=== PATIENT | male | born 1955 | race Caucasian/White ===

== ENCOUNTER 2022-07-01 19:57 | Day surgery (SDC) | payer MEDICARE, BC, SELFPAY ==
[2022-07-01 20:05] VITALS: BP 160/88; PULSE 80; RESP 20; TEMP 36.6; O2SAT 98; BMI 28.8
--- NOTE | 2022-07-01 20:38 | ED.ABDPAIN ---
HPI - Abdominal Pain General Chief Complaint: Abdominal Pain Stated Complaint: Abdominal Pain Time Seen by Provider: 07/01/22 20:26 History of Present Illness HPI narrative: 66-year-old man presenting here with his spouse with concern of mid abdominal pain. This has been going on over the last 6 hours or so after having some unspecified leftovers and a Coke. Intense pressure that he also feels in his back, both sides. Does have a history of a colostomy placement after surgery for rectal cancer. This was done in 2018. No inflammatory changes. Has not any fever. Reports that his bowels are working normally. Did have an episode like this lasted about an hour 3 days ago. Later questioning reveals that he has had similar episodes over the years can be diaphoretic with intense pain but just tends to let up eventually. He does also have a known gallstone apparently detected on CT. Last surveillance CT was done in October of this year. He is in remission from his rectal cancer. He is due to follow-up beginning of this coming week for evaluation of the stoma. Past medical includes Peripheral sensory neuropathy Rectal cancer and related surgery/partial colectomy with colostomy placement Hypertension Bilateral TKA Related Data Home Medications Medication Instructions Recorded Confirmed aspirin 81 mg capsule 81 mg PO DAILY 07/01/22 07/01/22 atorvastatin 20 mg tablet 20 mg PO Q24H 07/01/22 07/02/22 simethicone 500 mg capsule 500 mg PO DAILY 07/01/22 07/01/22 (Phazyme) Previous Rx's Medication Instructions Recorded oxycodone 5 mg tablet 5 mg PO Q6H PRN pain #10 tabs 07/02/22 sennosides 8.6 mg capsule (senna) 8.6 mg PO DAILY PRN constipation 07/02/22 #90 caps Allergies Allergy/AdvReac Type Severity Reaction Status Date / Time No Known Drug Allergies Allergy Verified 07/01/22 22:26 Review of Systems Status of ROS Reports: 10 or more systems reviewed and unremarkable except as noted in History and below [facility] Medical History Basal cell carcinoma (BCC) of face Chemotherapy-induced peripheral neuropathy Essential hypertension History of rectal cancer History of tobacco use Hyperlipidemia Ileostomy in place Surgical History History of bilateral knee arthroplasty Social History Highest level of school completed/degree received: some college, no degree Smoking Status: Former smoker Do you use any of these nicotine containing products: None Second hand tobacco smoke exposure: No How often do you have a drink containing alcohol: 2-4 times a month AUDIT-C Alcohol total score: 2 Non-prescribed substance use: denies use Caffeine: Yes (2-3 DIET MT DEW/DAILY) service: No Exam Narrative: Exam Narrative: Seems a little restless or distracted in apparent discomfort. Breathing easily. Cranial nerves 2-12 intact. Skin is warm and dry without apparent rash Moving all extremities without difficulty. Well perfused peripherally. No lower extremity edema. Head is atraumatic. Oropharynx is moist. Cardiovascular with regular rate and rhythm Lungs are clear. Abdomen is soft. Skin around colostomy bag is clean and not inflamed. In this area though is a sense of fullness to palpation. Moderately tender left of the umbilicus Bowel sounds present but faint. Const: Vital Signs, click to edit/add: Vital Signs - 24 hr 07/01/22 20:05 07/01/22 21:14 07/01/22 21:42 Temperature 97.9 F Pulse Rate [Left P ulse Oximeter] 80 70 Respiratory Rate 20 20 Blood Pressure [Ri ght Upper Arm] 160/88 H 151/88 H Pulse Oximetry 98 97 99 Oxygen Delivery Me thod Room Air Room Air 07/01/22 21:30 07/01/22 23:40 Temperature Pulse Rate [Left P ulse Oximeter] 80 84 Respiratory Rate 18 18 Blood Pressure [Ri ght Upper Arm] 150/84 H 153/86 H Pulse Oximetry 96 98 Oxygen Delivery Me thod Room Air Room Air Documenting provider has reviewed patient's vital signs: yes Course Course Hospital Course: Patient presented to the emergency department with clinical symptoms and findings consistent with acute cholecystitis. He went to the OR for laparoscopic cholecystectomy and did well postoperatively. On postop day 1 he was tolerating a regular diet, ambulating independently, voiding without difficulty and pain was well controlled on oral medication. Reevaluation(s) Reevaluation #1: IV is established. He would appreciate some relief of pain. 4 mg of morphine and ketorolac is helpful but pain does return is given 0.5 mg of Dilaudid. Reevaluation #2: Has been resting. With recurrence of pain is dosed with another 0.5 mg of Dilaudid. Consultations Consultation #1: Anticipating need for admission though with CT imaging pending, did speak to our hospitalist. Understandably this was deferred to overnight hospitalist admission at the change of shift. Admitted to Dr. Obrien. Consultation #2: Findings on CT indicated cholecystitis. As expected large gallstone appreciated. Distended bladder. Spoke to our surgeon on-call Dr. Martinez, anticipating surgery/cholecystectomy in the morning following limited abdominal ultrasound. Vital Signs Vital signs: Initial Vital Signs Temperature 97.9 F 07/01/22 20:05 Temperature Source Temporal Artery Scan 07/01/22 20:05 Pulse Rate 80 07/01/22 20:05 Respiratory Rate 20 07/01/22 20:05 Blood Pressure 160/88 H 07/01/22 20:05 Blood Pressure Mean 112 07/01/22 20:05 Blood Pressure Position Sitting 07/01/22 20:05 Pulse Oximetry 98 07/01/22 20:05 Oxygen Delivery Method 07/01/22 20:05 Vital Signs Temperature 97.9 F 07/01/22 20:05 Pulse Rate 80 07/01/22 20:05 Respiratory Rate 20 07/01/22 20:05 Blood Pressure 160/88 H 07/01/22 20:05 Pulse Oximetry 98 07/01/22 20:05 Oxygen Delivery Method 07/01/22 20:05 Temperature 97.9 F 07/03/22 07:50 Pulse Rate 74 07/03/22 07:50 Respiratory Rate 18 07/03/22 07:50 Blood Pressure 151/85 H 07/03/22 07:50 Pulse Oximetry 95 07/03/22 07:50 Oxygen Delivery Method 07/03/22 07:50 MDM - Abdominal Pain MDM Narrative Medical decision making narrative: elevated white count of nearly 17,000 and CRP of nearly 15,000. Pain I think could be controllable but with these findings and the recurrent pain over time would seem more prudent to admit for surgical intervention. Lipase slightly elevated. Normal transaminases. Bilirubin was not elevated CT imaging was reviewed by me. Radiology over-read impression as follows-- IMPRESSION: 1. Large stone in the gallbladder neck with gallbladder wall thickening and pericholecystic edema. Findings are suspicious for acute cholecystitis. 2. Distended urinary bladder with mild wall thickening similar to prior exam. Repeat exam does confirm some ?soreness? in the right upper quadrant. This did not seem to be so evident on initial exam. Medical Records Attestation: I reviewed the patient's medical records. Lab Data Attestation: I reviewed the patient's lab results. Labs: Lab Results 07/01/22 07/01/22 07/01/22 Range/Units 21:00 21:00 21:00 WBC 16.68 H (4.50-11.00) K/uL RBC 5.02 (4.30-5.90) m/uL Hgb 14.8 (13.5-17.5) gm/dL Hct 44.1 (37.0-53.0) % MCV 88 (80-100) fL MCH 30 (26-34) pg MCHC 34 (32-36) gm/dL RDW Coeff of Mini 13.0 (11.5-15.5) % Plt Count 215 (140-440) K/uL Neut % (Auto) 88.7 H (42.0-72.0) % Lymph % (Auto) 5.5 L (20-44) % [place] % (Auto) 5.3 (0.0-11.0) % Eos % (Auto) 0.1 (0.0-7.0) % Baso % (Auto) 0.0 (0.0-3.0) % Neut # (Auto) 14.80 H (1.7-7.0) K/uL Lymph # (Auto) 0.90 (0.90-2.90) K/uL [place] # (Auto) 0.90 (0.00-0.90) K/UL Eos # (Auto) 0.00 (0.00-0.50) K/uL Baso # (Auto) 0.00 (0.00-0.30) K/uL Abs Immat Gran (auto) 0.06 (0.00-0.30) K/uL VBG pH 7.360 (7.32-7.43) VBG pCO2 47 (40-50) mmHG VBG pO2 27.3 (25-47) mmHG VBG HCO3 27 (21-28) mmol/L Sodium 135 (135-149) mmol/L Potassium 4.0 (3.6-5.1) mmol/L Chloride 99 (96-114) mmol/L Carbon Dioxide 25 (20-32) mmol/L BUN 17 (7-30) mg/dL Creatinine 1.1 (0.5-1.5) mg/dL Estimated Creat Clear 65.17 Estimated GFR 74 ml/min Glucose 179 H (60-115) mg/dL Lactate (0.5-1.9) mmol/L Venous Lactic Acid (Serial Order) Calcium 9.4 (8.4-10.6) mg/dL Total Bilirubin 0.9 (0.1-1.5) mg/dL Direct Bilirubin 0.1 (0.0-0.5) mg/dL AST 27 (12-35) U/L ALT 28 (4-50) U/L Alkaline Phosphatase 93 (40-150) U/L C-Reactive Protein 14.8 H (0.5-1.0) mg/dL Total Protein 8.3 (6.0-8.3) g/dL Albumin 4.7 (3.3-5.0) g/dL Lipase 329 H (23-300) U/L Urine Color (Yellow) Urine Appearance (Clear) Urine pH (5.0-8.5) Ur Specific [place] (1.000-1.030) Urine Protein (Negative) Urine Glucose (UA) (Negative) Urine Ketones (Negative) Urine Blood (Negative) Urine Nitrite (Negative) Urine Bilirubin (Negative) Urine Urobilinogen (0.2-1.0) Ur Leukocyte Esterase (Negative) Urine RBC (0-2) Urine WBC (0-5) Ur Squamous Epith Cells (None-Few) Urine Bacteria (None) SARS-CoV-2 (PCR) (Negative) 07/01/22 07/01/22 07/01/22 Range/Units 21:12 21:12 23:01 WBC (4.50-11.00) K/uL RBC (4.30-5.90) m/uL Hgb (13.5-17.5) gm/dL Hct (37.0-53.0) % MCV (80-100) fL MCH (26-34) pg MCHC (32-36) gm/dL RDW Coeff of Mini (11.5-15.5) % Plt Count (140-440) K/uL Neut % (Auto) (42.0-72.0) % Lymph % (Auto) (20-44) % [place] % (Auto) (0.0-11.0) % Eos % (Auto) (0.0-7.0) % Baso % (Auto) (0.0-3.0) % Neut # (Auto) (1.7-7.0) K/uL Lymph # (Auto) (0.90-2.90) K/uL [place] # (Auto) (0.00-0.90) K/UL Eos # (Auto) (0.00-0.50) K/uL Baso # (Auto) (0.00-0.30) K/uL Abs Immat Gran (auto) (0.00-0.30) K/uL VBG pH (7.32-7.43) VBG pCO2 (40-50) mmHG VBG pO2 (25-47) mmHG VBG HCO3 (21-28) mmol/L Sodium (135-149) mmol/L Potassium (3.6-5.1) mmol/L Chloride (96-114) mmol/L Carbon Dioxide (20-32) mmol/L BUN (7-30) mg/dL Creatinine (0.5-1.5) mg/dL Estimated Creat Clear Estimated GFR ml/min Glucose (60-115) mg/dL Lactate (0.5-1.9) mmol/L Venous Lactic Acid (Serial Order) Calcium (8.4-10.6) mg/dL Total Bilirubin (0.1-1.5) mg/dL Direct Bilirubin (0.0-0.5) mg/dL AST (12-35) U/L ALT (4-50) U/L Alkaline Phosphatase (40-150) U/L C-Reactive Protein (0.5-1.0) mg/dL Total Protein (6.0-8.3) g/dL Albumin (3.3-5.0) g/dL Lipase (23-300) U/L Urine Color Yellow (Yellow) Urine Appearance Clear (Clear) Urine pH 6.5 (5.0-8.5) Ur Specific [place] 1.020 (1.000-1.030) Urine Protein Negative (Negative) Urine Glucose (UA) Trace A (Negative) Urine Ketones 2+ A (Negative) Urine Blood Trace-intact A (Negative) Urine Nitrite Negative (Negative) Urine Bilirubin Negative (Negative) Urine Urobilinogen 0.2 (0.2-1.0) Ur Leukocyte Esterase Negative (Negative) Urine RBC 0-2 (0-2) Urine WBC 0-2 (0-5) Ur Squamous Epith Cells Few (None-Few) Urine Bacteria None (None) SARS-CoV-2 (PCR) Negative SARS-CoV-2 (Negative) 07/02/22 07/02/22 07/02/22 Range/Units 07:51 07:51 07:51 WBC 19.66 H (4.50-11.00) K/uL RBC 4.90 (4.30-5.90) m/uL Hgb 14.4 (13.5-17.5) gm/dL Hct 43.1 (37.0-53.0) % MCV 88 (80-100) fL MCH 29 (26-34) pg MCHC 33 (32-36) gm/dL RDW Coeff of Mini 13.1 (11.5-15.5) % Plt Count 198 (140-440) K/uL Neut % (Auto) 89.1 H (42.0-72.0) % Lymph % (Auto) 3.9 L (20-44) % [place] % (Auto) 6.6 (0.0-11.0) % Eos % (Auto) 0.0 (0.0-7.0) % Baso % (Auto) 0.1 (0.0-3.0) % Neut # (Auto) 17.50 H (1.7-7.0) K/uL Lymph # (Auto) 0.80 L (0.90-2.90) K/uL [place] # (Auto) 1.30 H (0.00-0.90) K/UL Eos # (Auto) 0.00 (0.00-0.50) K/uL Baso # (Auto) 0.00 (0.00-0.30) K/uL Abs Immat Gran (auto) 0.06 (0.00-0.30) K/uL VBG pH (7.32-7.43) VBG pCO2 (40-50) mmHG VBG pO2 (25-47) mmHG VBG HCO3 (21-28) mmol/L Sodium (135-149) mmol/L Potassium (3.6-5.1) mmol/L Chloride (96-114) mmol/L Carbon Dioxide (20-32) mmol/L BUN (7-30) mg/dL Creatinine (0.5-1.5) mg/dL Estimated Creat Clear Estimated GFR ml/min Glucose (60-115) mg/dL Lactate (0.5-1.9) mmol/L Venous Lactic Acid (Serial Order) Calcium (8.4-10.6) mg/dL Total Bilirubin 1.4 (0.1-1.5) mg/dL Direct Bilirubin 0.4 (0.0-0.5) mg/dL AST 27 (12-35) U/L ALT 25 (4-50) U/L Alkaline Phosphatase 80 (40-150) U/L C-Reactive Protein 16.8 H (0.5-1.0) mg/dL Total Protein 7.7 (6.0-8.3) g/dL Albumin 4.3 (3.3-5.0) g/dL Lipase 72 (23-300) U/L Urine Color (Yellow) Urine Appearance (Clear) Urine pH (5.0-8.5) Ur Specific [place] (1.000-1.030) Urine Protein (Negative) Urine Glucose (UA) (Negative) Urine Ketones (Negative) Urine Blood (Negative) Urine Nitrite (Negative) Urine Bilirubin (Negative) Urine Urobilinogen (0.2-1.0) Ur Leukocyte Esterase (Negative) Urine RBC (0-2) Urine WBC (0-5) Ur Squamous Epith Cells (None-Few) Urine Bacteria (None) SARS-CoV-2 (PCR) (Negative) 07/02/22 Range/Units 07:51 WBC (4.50-11.00) K/uL RBC (4.30-5.90) m/uL Hgb (13.5-17.5) gm/dL Hct (37.0-53.0) % MCV (80-100) fL MCH (26-34) pg MCHC (32-36) gm/dL RDW Coeff of Mini (11.5-15.5) % Plt Count (140-440) K/uL Neut % (Auto) (42.0-72.0) % Lymph % (Auto) (20-44) % [place] % (Auto) (0.0-11.0) % Eos % (Auto) (0.0-7.0) % Baso % (Auto) (0.0-3.0) % Neut # (Auto) (1.7-7.0) K/uL Lymph # (Auto) (0.90-2.90) K/uL [place] # (Auto) (0.00-0.90) K/UL Eos # (Auto) (0.00-0.50) K/uL Baso # (Auto) (0.00-0.30) K/uL Abs Immat Gran (auto) (0.00-0.30) K/uL VBG pH (7.32-7.43) VBG pCO2 (40-50) mmHG VBG pO2 (25-47) mmHG VBG HCO3 (21-28) mmol/L Sodium (135-149) mmol/L Potassium (3.6-5.1) mmol/L Chloride (96-114) mmol/L Carbon Dioxide (20-32) mmol/L BUN (7-30) mg/dL Creatinine (0.5-1.5) mg/dL Estimated Creat Clear Estimated GFR ml/min Glucose (60-115) mg/dL Lactate 1.1 (0.5-1.9) mmol/L Venous Lactic Acid (Serial Order) Calcium (8.4-10.6) mg/dL Total Bilirubin (0.1-1.5) mg/dL Direct Bilirubin (0.0-0.5) mg/dL AST (12-35) U/L ALT (4-50) U/L Alkaline Phosphatase (40-150) U/L C-Reactive Protein (0.5-1.0) mg/dL Total Protein (6.0-8.3) g/dL Albumin (3.3-5.0) g/dL Lipase (23-300) U/L Urine Color (Yellow) Urine Appearance (Clear) Urine pH (5.0-8.5) Ur Specific [place] (1.000-1.030) Urine Protein (Negative) Urine Glucose (UA) (Negative) Urine Ketones (Negative) Urine Blood (Negative) Urine Nitrite (Negative) Urine Bilirubin (Negative) Urine Urobilinogen (0.2-1.0) Ur Leukocyte Esterase (Negative) Urine RBC (0-2) Urine WBC (0-5) Ur Squamous Epith Cells (None-Few) Urine Bacteria (None) SARS-CoV-2 (PCR) (Negative) Discharge Plan Discharge Clinical Impression: Abdominal pain, Calculous cholecystitis Patient Disposition: Admitted As Inpatient Condition: Stable Activity Level: Activity as Tolerated Discharge Diet: Low Fat/Low Cholesterol
[2022-07-01] MEDS: KETOROLAC 15 MG/ML inj IVP (21:05)
[2022-07-01] MEDS: MORPHINE 4 MG/ML INJ IVP (21:06)
[2022-07-01] MEDS: 0.9 % SODIUM CHLORIDE 1000 ml 1,000 ML IV (21:09)
[2022-07-01 21:14] VITALS: BP 151/88; PULSE 70; RESP 20; O2SAT 97
[2022-07-01 21:16] LABS: HCO3 VBG 27 mmol/L (21-28); PCO2 VBG 47 mmHG (40-50); PO2 VBG 27.3 mmHG (25-47)
[2022-07-01 21:17] LABS: Lactate Sepsis w/Reflex* 1.6 mmol/L (0.5-1.9)
[2022-07-01 21:18] LABS: Eosinophils Percent Auto 0.1 % (0.0-7.0); Hematocrit 44.1 % (37.0-53.0); Hemoglobin* 14.8 gm/dL (13.5-17.5); Immature Granulocytes Abs Auto 0.06 K/uL (0.00-0.30); Lymphocytes Percent Auto 5.5 % (20-44); Mean Corpuscular HGB Conc 34 gm/dL (32-36); Mean Corpuscular Hemoglobin 30 pg (26-34); Mean Corpuscular Volume 88 fL (80-100); Monocytes Percent Auto 5.3 % (0.0-11.0); Neutrophils Percent Auto 88.7 % (42.0-72.0); Platelet Count* 215 K/uL (140-440); Red Blood Count 5.02 m/uL (4.30-5.90); White Blood Count* 16.68 K/uL (4.50-11.00)
[2022-07-01 21:19] LABS: Appearance Urine Clear (Clear); Bilirubin Urine Negative (Negative); Blood Urine Trace-intact (Negative); Color Urine Yellow (Yellow); Glucose Urine Trace (Negative); Ketones Urine 2+ (Negative); Leukocyte Esterase Urine Negative (Negative); Nitrite Urine Negative (Negative); Protein Urine Negative (Negative); Urobilinogen Urine 0.2 (0.2-1.0); pH Urine 6.5 (5.0-8.5)
[2022-07-01 21:30] VITALS: BP 150/84; PULSE 80; RESP 18; O2SAT 96
[2022-07-01 21:30] LABS: RBC Urine 0-2 (0-2); Squamous Epithelial Cell Urine Few (None-Few); WBC Urine 0-2 (0-5)
[2022-07-01 21:30] LABS: Albumin* 4.7 g/dL (3.3-5.0); Chloride* 99 mmol/L (96-114); Sodium* 135 mmol/L (135-149)
[2022-07-01 21:32] LABS: Creatinine* 1.1 mg/dL (0.5-1.5); Est. Creatinine Clearance* 65.17; Estimated Glomerular Filt Rate 74 ml/min
[2022-07-01 21:33] LABS: Alanine Aminotransferase* 28 U/L (4-50); Alkaline Phosphatase* 93 U/L (40-150); Aspartate Amino Transferase* 27 U/L (12-35); Bilirubin Direct* 0.1 mg/dL (0.0-0.5); Bilirubin Total* 0.9 mg/dL (0.1-1.5); Blood Urea Nitrogen* 17 mg/dL (7-30); Carbon Dioxide* 25 mmol/L (20-32); Glucose* 179 mg/dL (60-115); Lipase* 329 U/L (23-300); Total Protein* 8.3 g/dL (6.0-8.3)
--- NOTE | 2022-07-01 21:33 | ED.NURSE ---
Report received from MINI Perales.
[2022-07-01 21:34] LABS: Calcium* 9.4 mg/dL (8.4-10.6)
[2022-07-01 21:36] LABS: Slide Review Reflex No
[2022-07-01] MEDS: HYDROmorphone 0.5 mg/0.5 ml inj IVP (21:39)
--- NOTE | 2022-07-01 21:39 | CRLHL7_ITS ---
For Patients: As a result of the Century Cures Act, medical imaging exams and procedure reports are released immediately into your electronic medical record. You may view this report before your referring provider. If you have questions, please contact your health care provider. INDICATION: Severe periumbilical pain. History of rectal cancer. TECHNIQUE: CT of the abdomen and pelvis with 95 cc Isovue 370 IV contrast. Coronal and sagittal reconstructions. COMPARISON: CT chest, abdomen, pelvis 11/22/2021. FINDINGS: Tiny left hepatic cyst. Stable small hemangioma in the anterior left hepatic lobe which is barely visible on today`s exam due to phase of contrast (series 2, image 40). No new liver lesions identified. The spleen, pancreas, and adrenal glands are negative. Hepatic and portal veins are patent. The previously seen large gallstone is now located within the gallbladder neck. The gallbladder is distended with mild wall thickening and pericholecystic edema suggesting acute cholecystitis. No biliary dilation. Symmetric enhancement of the kidneys. No hydronephrosis or ureteral dilation. No obstructing urinary calculi identified. Distended urinary bladder with mild wall thickening similar to prior exam. Mildly enlarged prostate gland with calcifications. Small hiatal hernia. No bowel dilation. Postoperative changes of distal colectomy with left lower quadrant end colostomy. Moderate amount of stool throughout the colon. Negative appendix. No intraperitoneal free air or fluid. Small fat containing umbilical and left inguinal hernias. Aortoiliac vascular calcifications. No lymphadenopathy. The bones are unremarkable. The lung bases are clear. IMPRESSION: 1. Large stone in the gallbladder neck with gallbladder wall thickening and pericholecystic edema. Findings are suspicious for acute cholecystitis. 2. Distended urinary bladder with mild wall thickening similar to prior exam. Please note that all CT scans at this facility use dose modulation, iterative reconstruction, and/or weight-based dosing when appropriate to reduce radiation dose to as low as reasonably achievable. Dictated by Hollie Perez MD @ 07/01/2022 11:44:37 PM (Electronically Signed)
[2022-07-01 21:42] VITALS: O2SAT 99
[2022-07-01 21:50] LABS: C Reactive Protein* 14.8 mg/dL (0.5-1.0)
--- OUTSIDE RECORDS SUMMARY | 2022-07-01 23:35 | XMS_ITS | Encounter Summary ---
:1955 Author Organization [facility] Address [address] [place] [id number] Care Team Providers Name Role Phone Unavailable Primary Care Provider Unavailable Reason for Visit Appointment Request (Routine) - Closed Specialty Diagnoses / Procedures Referred By Contact Refer red To Contact Colon and Rectal Surgery Referral ID Status Reason Start Date Expiration Date Visits Requ ested Visits Authorized [id number] Closed 05/16/2019 05/15/2020 1 1 Encounter Details Date Type Department Care Team Description 05/20/2019 Clinical Support Division of Colon and Marleni Santos C olostomy Status Rectal Surgery in [facility] ([facility]) (Reny yo Dx) [place], [place] [facility] [address] [place] [address] [place] [phone] [phone] Social History Tobacco Use Types Packs/Day Years Used Date Smoking Tobacco: Former Cigarettes 0.3 20 10/1972 - 08/09/1993 Smokeless Tobacco: Never Comments: Very light smoker Alcohol Use Standard Drinks/Week Comments Yes 0 (1 standard drink = 0.6 oz pure I drin k less than 10 standard alcohol) drinks a year Alcohol Habits Answer Date Recorded How often do you have a drink Monthly or less 07/06/2019 containing alcohol? How many drinks containing alcohol do 1 or 2 you have on a typical day when you are drinking? How often do you have six or more Never 2018 drinks on one occasion? Comment: I drink less than 10 standard 05/08/2018 drinks a year Social Isolation Answer Date Recorded In a typical week, how many times do you Once a week 07/06/2019 talk on the phone with family, friends, or neighbors? How often do you get together with friends Twice a week 07/06/2019 or relatives? How often do you attend nondenominational or jainism 1 to 4 times per year 07/06/2019 services? Do you belong to any clubs or organizations Yes 07/06/2019 such as nondenominational groups, unions, fraternal or athletic groups, or school groups? How often do you attend meetings of the More than 4 times pe r year 07/06/2019 clubs or organizations you belong to? Are you now , , , 07/06/2019 , never or living with a partner? Physical Activity Answer Date Recorded On average, how many days per week do you engage in moderate to 1 day 07/06/2019 strenuous exercise (like walking fast, running, jogging, dancing, swimming, biking, or other activities that cause a light or heavy sweat)? On average, how many minutes do you engage in exercise at th is 40 min 07/06/2019 level? Stress Answer Date Recorded Do you feel stress - tense, restless, nervous, or anxious, N ot at all 07/06/2019 or unable to sleep at night because your mind is troubled all the time - these days? Financial Resource Strain Answer Date Recorded How hard is it for you to pay for the very basics like Not h sachin at all 07/06/2019 food, housing, medical care, and heating? Food Insecurity Answer Date Recorded Within the past 12 months, you worried that your food would Never true 07/06/2019 run out before you got money to buy more. Within the past 12 months, the food you bought just didn't N ever true 07/06/2019 last and you didn't have money to get more. Transportation Needs Answer Date Recorded In the past 12 months, has lack of transportation kept you f rom No 07/06/2019 medical appointments or from getting medications? In the past 12 months, has lack of transportation kept you f rom No 07/06/2019 meetings, work, or getting things needed for daily living? Sex Assigned at Date Recorded Male 03/12/2018 10:44 PM CDT documented as of this encounter Progress Notes Marleni Santos R.N. - 05/20/2019 11:00 AM CDT SUBJECTIVE CHIEF COMPLAINT/REASON FOR VISIT Assessment of peristomal skin and pouching system management for a prescription renewal. HISTORY OF PRESENT ILLNESS Mr. Addison is a 63 y.o. male was self-referred for prescription renewal of pouching system. He states the pouching system is usually changed every 3 or 4 days. He sometimes treats peristomal skin with stoma powder. He denies pouching leakage, peristomal pruritus, or pain. He is retired from work, and lives with his . He changes pouching system independently. PMH Status post abdominal perineal resection with end colostomy in March 2018 for rectal cancer OBJECTIVE Physical Exam Colostomy LLQ (Active) Stoma Assessment Red;Budded Measure 1-/4 when rounding oval-shape stoma. Skin Assessment Intact Peristomal Skin Care Water Pouching System (Stomal Appliance) Status Changed Changed by Wound fats and oils loader Pouching System Removed Carlotta 1-10/12 precut flat [id number], [id number], [id number], Stealth Belt 0.3 cm undermining at 9=3 o'clock after 2-hour wear time. Pouching System Applied [place] flat [address] with opening cut to 1-/4, 7805, 29562, Stealth Belt Discussed stretching oval-shape stoma vertically to match with pre-cut wafer opening. Output Description Brown;Stool ASSESSMENT / PLAN Mr. Addison appears to have overall appropriate pouching seal without peristomal skin irritation. He will continue current pouching system. I will fax an updated ostomy prescription and ordering information to [facility]. I will also mail them to him. Encouraged to call or return (per Return Appointment Protocol [id number]) for ostomy related questions or concerns. All questions were answered. documented in this encounter Plan of Treatment Upcoming Encounters Date Type Specialty Care Team Description 07/04/2022 Clinical Support Colon and Rectal Surgery documented as of this encounter Visit Diagnoses Diagnosis Colostomy Status (HCC) - Primary documented in this encounter Additional Health Concerns Assessment Noted Time PHQ-9 Depression Total Score: 1 12/14/2017 11:05 AM CS T documented as of this encounter
--- OUTSIDE RECORDS SUMMARY | 2022-07-01 23:35 | XMS_ITS | Encounter Summary ---
:1955 Author Organization [facility] Address [address] [place] [address] Care Team Providers Name Role Phone Unavailable Primary Care Provider Unavailable Reason for Visit Reason Comments Other End fine needle biopsy Encounter Details Date Type Department Care Team Description 07/10/2019 Procedure visit Division of Endocrinology Saul Styles M.B.B.S. [address] [place] [phone] Nodule Thyroid in [facility] Puneet Castano M.D. [address] [place] [phone] [place] [phone] Social History Tobacco Use Types Packs/Day Years [...] or relatives? How often do you attend jew or bahai 1 to 4 times per year 07/06/2019 services? Do you belong to any clubs or organizations Yes 07/06/2019 such as jew groups, unions, fraternal or athletic groups, or [...] or getting things needed for daily living? Education Answer Date Recorded What is the highest level of school you have completed or 12 th grade 07/05/2019 the highest degree you have received? Sex Assigned at Date Recorded Male 03/12/2018 10:44 PM CDT documented as of this encounter Progress Notes Ish Jin R.N. - 07/10/2019 9:30 AM CDT REASON FOR VISIT Patient is here today for a Fine Needle Aspiration of the Right thyroid nodule. HISTORY OF PRESENT ILLNESS Anticoagulation therapy: No. Recent INR: NA. Previous reaction to topical anesthetic: No History of easy bruising or bleeding: No ASSESSMENT Pain Score Pre-procedure: 0/10 Pain Score Post-procedure: 0/10 Please see Education Activity within medical record for completed patient education. documented in this encounter Procedure Notes Puneet Lawler M.D. - 07/10/2019 9:30 AM CDTAssociated Order(s): FNA Neck Post-Procedure Diagnose(s): Nodule Thyroid FNA Neck Date/Time: 07/10/2019 10:14 AM Performed by: Puneet Lawler M.D. Authorized by: Puneet Lawler M.D. Care team members present 1. Otilio Perez M.D. 2. Ish Jin R.N. PROCEDURE DETAILS Ultrasound guidance: yes Number of FNA sites: 1 FNA Site 1 Fine needle aspiration site: Thyroid Thyroid laterality and pole location: Right lower 25 guage needle inserted this many times: 6 CONSENT Consent obtained: verbal The benefits, risks and alternatives to the procedure and the potential need for sedation or anesthesia as well as the names, roles, and responsibilities of healthcare team members performing significant interventional tasks were discussed with the patient and/or decision maker. UNIVERSAL PROTOCOL All relevant documentation and testing were reviewed and available. All required blood products, implants, devices and or special equipment were made available as applicable. Pre-procedure verificationwas conducted and the correct site was marked if required. A fire risk assessment was done as applicable. The procedural time-out was conducted prior to performing the procedure and confirmed in a procedural pause. PRE-PROCEDURE DETAILS Indications: Thyroid nodule Appropriate hand hygiene, gown, cap, mask, protective eyewear, sterile gloves, skin preparation, sterile drape, and strict aseptic technique were utilized as applicable for the procedure.: yes Site preparation: Chlorhexidine SEDATION / ANESTHESIA Anesthesia method: topical application Topical application type: lidocaine POST-PROCEDURE DETAILS Complications: no apparent complications COMMENTS Under ultrasound guidance six passes were made into a solid, slightly hypoechoic, benign-looking nodule located in the posterior aspect of the right inferior lobe. Patient tolerated the procedure well Post procedure pain 0/10 documented in this encounter Plan of Treatment Upcoming Encounters Date Type Specialty Care Team Description 07/04/2022 Clinical Support Colon and Rectal Surgery documented as of this encounter Procedures Procedure Name Priority Date/Time Associated Comments Diagnosis IL US GUIDE PLC NDL Routine 07/10/2019 9:30 AM Nodule Thyroid Results for this CDT procedure are i n the results section. IL FNA BX W/US GDN Routine 07/10/2019 9:30 AM Nodule Thyroid R esults for this 1ST LES CDT procedure are i n the results section. CYTOLOGY FINE NEEDLE Routine 07/10/2019 9:25 AM Nodule Thyroid Results for this ASPIRATION (INCLUDES CDT procedu re are in CORE BIOPSIES the results section. documented in this encounter Results IL FNA BX W/US GDN 1ST LES, IL US GUIDE PLC NDL (07/10/2019 9:30 AM CDT) Narrative [facility] - 07/10/2019 9:30 AM CDT Puneet Lawler M.D. ? 07/10/2019 10:16 AM FNA Neck Date/Time: 07/10/2019 10:14 AM Performed by: Puneet Lawler M.D. Authorized by: Puneet Lawler M.D. Care team members present 1. Otilio Perez M.D. 2. Ish Jin R.N. PROCEDURE DETAILS Ultrasound guidance: yes ?? Number of FNA sites: ??1 FNA Site 1 Fine needle aspiration site: ??Thyroid Thyroid laterality and pole location: ?? Right lower 25 guage needle inserted this many times : ??6 CONSENT Consent obtained: verbal The benefits, risks and alternatives to the procedure and the potential need for sedation or anesthesia as well as the names, roles, and responsibilities of healthcare team memb ers performing significant interventional tasks were discussed with the patient and/or decision maker. UNIVERSAL PROTOCOL All relevant documentation and testing w ere reviewed and available. All required blood products, implants, devic es and or special equipment were made available as applicable. Pre-proced ure verification was conducted and the correct site was marked if required. A fire risk assessment was done as applicable. The procedural time-out w as conducted prior to performing the procedure and confirmed in a procedu ral pause. PRE-PROCEDURE DETAILS Indications: ??Thyroid nodule Appropriate hand hygiene, gown, cap, mas k, protective eyewear, sterile gloves, skin preparation, sterile drape, and strict aseptic technique were utilized as applicable for the procedure .: yes ?? Site preparation: ??Chlorhexidine SEDATION / ANESTHESIA Anesthesia method: topical application Topical application type: lidocaine POST-PROCEDURE DETAILS Complications: no apparent complications ?? COMMENTS Under ultrasound guidance six passes wer e made into a solid, slightly hypoechoic, benign-looking nodule locate d in the posterior aspect of the right inferior lobe. ??Patient tolerated the procedure well Post procedure pain 0/10 Puneet Lawler M.D. PROCEDURE/MINOR SURGICAL ORD ERABLES Performing Organization Address City/State/ZIP Code Phon e Number [facility] NA Cytology Fine Needle Aspiration (including core biopsies) (07/10/2019 9:25 AM CDT) Component Value Ref Test Analysis Performed At [facility] Range Method Time Signature Gross Description Received 19 07/10/2019 alcohol-fixed 11:51 AM smears. CDT Participated in [facility], 07/10/2019 the Interpretation M.Zabrina-Patholog 11:51 AM y Fellow CDT Source A. Thyroid, 07/10/2019 Right, fine 11:51 AM needle CDT aspiration Report Idris Pearl M.D., Ph.D. [id number] 07/10/20 19 electronically I verify that I have examined all relevant slides/ma terials 11:51 AM signed by for the specimen(s) and rendered or confirmed the diagnosis. CDT 07/10/2019 11:51 AM CDT Interpretation A. Thyroid, Right, fine needle aspiration (smears): 07/10/2019 Negative for malignancy. Cytologic features consistent with 11:51 AM benign thyroid nodule. CDT Specimen Anatomical Collection Method Collection Time Receive d Time (Source) Location / / Volume Laterality Varies 07/10/2019 9:25 AM 9 CDT 10:39 AM CDT Narrative This result has an attachment that is no t available. Puneet Lawler M.D. LAB SURG PATH ORDERABLES Performing Organization Address City/State/ZIP Code Phon e Number [facility] - [address] [place] [address] 05 [facility] documented in this encounter Visit Diagnoses Diagnosis Nodule Thyroid documented in this encounter Administered Medications Inactive Administered Medications - up to 3 most recent administrations Medication Order MAR Action Action Date Dose Rate Site lidocaine 4 % cream 1 Given 07/10/2019 8:59 AM CDT 1 application application (LMX) 1 application (5 g), topical, As needed, Apply for local anesthesia, Starting on Mon01/08/19 at 1010 documented in this encounter Additional Health Concerns Assessment Noted Time PHQ-9 Depression Total Score: 1 12/14/2017 11:05 AM CS T documented as of this encounter
--- OUTSIDE RECORDS SUMMARY | 2022-07-01 23:35 | XMS_ITS | Encounter Summary ---
:1955 Author Organization [facility] Address [address] [place] [address] Care Team Providers Name Role Phone Unavailable Primary Care Provider Unavailable Reason for Visit Reason Comments Next colonoscopy? Encounter Details Date Type Department Care Team Description 06/08/2021 Clinical Communication Division of Colon Juan Antonio, Next colonoscopy? and Rectal Surgery Abisai Strickland M.D. in [place], [address] [place] [address] [place] [phone] [place], [place] [phone] (Work) [phone] Social History Tobacco Use Types Packs/Day Years [...] or relatives? How often do you attend spiritism or gnosticist 1 to 4 times per year 07/06/2019 services? Do you belong to any clubs or organizations Yes 07/06/2019 such as spiritism groups, unions, fraternal or athletic groups, or [...] PM CDT documented as of this encounter Miscellaneous Notes Telephone Encounter - Jackie Deng R.N. - 06/30/2021 12:41 PM CDT PLAN The following information was provided: I called Mr. Addison at this time and apologized for the delay in returning the call as the messages were sent to a box that no longer had coverage due to Dr. Romano's assisted. I reviewed the cancer follow up guidelines that were sent to him after surgery. It was recommended that he have a colonoscopy after 1 year and again at 4 years. He has never had a colonoscopy since hissurgery in 2018 so I recommended he have one now. He will relay this information to Manda. Information/Education: patient/caller able to teach back The following references were used: nursing clinical judgement Telephone Encounter - Aurelia Mares - 06/30/2021 11:17 AM CDT Arina called from the [facility] in [place], they hadn't heard back from the message that was left a few weeks ago. Can you please call and let them know when the patient is due for his next colonoscopy; she said he had surgery back in [address] Romano. The [facility] office number is difficult to get through on so you can try the following: Arina at [phone] (Monday - 7:30-5:00) Kanwal at [phone] (Monday, Monday, , Monday 7:30-5:00) But NO voice on either line. Arina shared that it might be easier to call the patient directly and then he can share the information with Manda. Telephone Encounter - Aurelia Mares - 06/23/2021 4:43 PM CDT Arina called from the [facility] in [place], they hadn't heard back from the message that was left a few weeks ago. Can you please call and let them know when the patient is due for his next colonoscopy; she said he had surgery back in [address] Romano. Telephone Encounter - Lucía Schwartz - 06/08/2021 2:12 PM CDT Kanwal from [facility] in [place] called. Patient is being followed by them and they would liketo know when he is due for his next colonoscopy. You can leave a message with whomever answers. [facility] documented in this encounter Plan of Treatment Upcoming Encounters Date Type Specialty Care Team Description 07/04/2022 Clinical Support Colon and Rectal Surgery documented as of this encounter Visit Diagnoses Not on filedocumented in this encounter Additional Health Concerns Assessment Noted Time PHQ-9 Depression Total Score: 1 12/14/2017 11:05 AM CS T documented as of this encounter
--- OUTSIDE RECORDS SUMMARY | 2022-07-01 23:35 | XMS_ITS | Encounter Summary ---
:1955 Author Organization [facility] Address [address] [place] [address] Care Team Providers Name Role Phone Unavailable Primary Care Provider Unavailable Reason for Referral Outpatient (Routine) - Closed Specialty Diagnoses / Procedures Referred By Contact Refer red To Contact Radiology Diagnoses Malignant Neoplasm Of Rectum (HCC) Emanuel Cooper M.D. [facility] Procedures IR Implanted Vascular Access Device Removal [address] [place] [phone] Referral ID Status Reason Start Date Expiration Date Visits Requ ested Visits Authorized [id number] Closed 08/23/2018 08/23/2019 1 1 WRITER ASSEMBLER Encounter Details Date Type Department Care Team Description 08/23/2018 Orders Only Department of Oncology Emanuel Cooper Ma lignant Neoplasm Of in Ginny Ray Rectum (HCC) (Primary [place] [address] [place] [address] Dx) [address] [place] [phone] Social History Tobacco Use Types Packs/Day Years [...] or relatives? How often do you attend confucianism or sikhism 1 to 4 times per year 07/06/2019 services? Do you belong to any clubs or organizations Yes 07/06/2019 such as confucianism groups, unions, fraternal or athletic groups, or [...] PM CDT documented as of this encounter Plan of Treatment Upcoming Encounters Date Type Specialty Care Team Description 07/04/2022 Clinical Support Colon and Rectal Surgery documented as of this encounter Results IR Implanted Vascular Access Device Removal (08/27/2018 1:27 PM TYPEWRITER ASSEMBLER) Anatomical Region Laterality Modality Chest, Pelvis, Abdomen, Vascular Interventional RST LOS, N/A X-Ray Angiography Vascular Interventional ARZ LOS, Vascular Interventional FLA LOS Specimen (Source) Anatomical Collection Method Collection Time Re ceived Time Location / / Volume Laterality 08/27/2018 2:31 PM TYPEWRITER ASSEMBLER Impressions 08/27/2018 5:00 PM TYPEWRITER ASSEMBLER IMPRESSION: Removal of right chest port. EP Narrative 08/27/2018 5:00 PM TYPEWRITER ASSEMBLER EXAM: IR IMPLANTED VASCULAR ACCESS DEVICE REMOVAL CLINICAL HISTORY: 62-year-old male with history of rectal cancer presents for port removal after completion of chemoth erapy. TECHNIQUE: Patient was prepared and drap ed in usual sterile fashion over the right chest port. Initial fluoroscopic s cout image demonstrated a right chest port. ??1% lidocaine was used as local a nesthetic. An incision was made over the scar in the right anterior chest. Gentle blunt dissection was performed freeing the port from the pocket. Port pocket wa s closed with interrupted 3-0 Vicryl stitches and a running 4-0 Vicryl subcut icular stitch. Sterile dressings applied. No immediate complications PREPROCEDURE: Patient seen, evaluated, a nd history reviewed. Discussed risks, benefits, alternatives for procedure, an d obtained informed consent. Patient understands information and questions an swered. Immediately prior to starting the procedure, in the presence of the as sisting personnel, procedural pause was conducted to verify correct patient iden tity and verification of procedure to be performed, and as applicable, correct si de and site, correct patient position, availability of implants, special equipm ent, or special requirements, and all image and specimen identification data. The roles and responsibilities of care team members, residents, and fellows toni e discussed. Procedure Note Miguel Angel Collier M.D. - 08/27/2018Fo rmatting of this note might be different from the original. EXAM: IR IMPLANTED VASCULAR ACCESS DEVIC E REMOVAL CLINICAL HISTORY: 62-year-old male with history of rectal cancer presents for port removal after completion of chemoth erapy. TECHNIQUE: Patient was prepared and drap ed in usual sterile fashion over the right chest port. Initial fluoroscopic s cout image demonstrated a right chest port. 1% lidocaine was used as local ane sthetic. An incision was made over the scar in the right anterior chest. Gentle blunt dissection was performed freeing the port from the pocket. Port pocket wa s closed with interrupted 3-0 Vicryl stitches and a running 4-0 Vicryl subcut icular stitch. Sterile dressings applied. No immediate complications PREPROCEDURE: Patient seen, evaluated, a nd history reviewed. Discussed risks, benefits, alternatives for procedure, an d obtained informed consent. Patient understands information and questions an swered. Immediately prior to starting the procedure, in the presence of the as sisting personnel, procedural pause was conducted to verify correct patient iden tity and verification of procedure to be performed, and as applicable, correct si de and site, correct patient position, availability of implants, special equipm ent, or special requirements, and all image and specimen identification data. The roles and responsibilities of care team members, residents, and fellows toni lazcano discussed. IMPRESSION: Removal of right chest port. EP Emanuel CAZARES IR PROCEDURES documented in this encounter Visit Diagnoses Diagnosis Malignant Neoplasm Of Rectum (HCC) - [facility] Malignant Neoplasm Of Rectum (HCC) documented in this encounter Additional Health Concerns Assessment Noted Time PHQ-9 Depression Total Score: 1 12/14/2017 11:05 AM RAMSEY T documented as of this encounter
--- OUTSIDE RECORDS SUMMARY | 2022-07-01 23:35 | XMS_ITS | Encounter Summary ---
:1955 Author Organization [facility] Address [address] [place] [address] Care Team Providers Name Role Phone Unavailable Primary Care Provider Unavailable Encounter Details Date Type Department Care Team Description 01/07/2019 Hospital Encounter Department of Seamus Owens, Nodule Thyroid Laboratory Medicine and Raheem LindseySJuan Carlos Pathology, [address] in [facility] [phone] [place] [address] [place], [place] (Work) [phone] Social History Tobacco Use Types Packs/Day Years [...] or relatives? How often do you attend mandaen or hinduism 1 to 4 times per year 07/06/2019 services? Do you belong to any clubs or organizations Yes 07/06/2019 such as mandaen groups, unions, fraternal or athletic groups, or [...] PM CDT documented as of this encounter Medications at Time of Discharge Medication Sig Dispensed Refills Start Date End Date gabapentin (NEURONTIN) 300 mg capsule 0 10/25/2018 documented as of this encounter Plan of Treatment Upcoming Encounters Date Type Specialty Care Team Description 07/04/2022 Clinical Support Colon and Rectal Surgery documented as of this encounter Procedures Procedure Name Priority Date/Time Associated Diagnosis Comme nts THYROID-STIMULATING Routine 01/07/2019 9:44 AM Nodule Thyroid Results for this HORMONE-SENSITIVE CDT procedure are in (S-TSH) the results section. T4 (THYROXINE), Routine 01/07/2019 9:44 AM Nodule Thyroid Resu lts for this FREE, S CDT procedure are i n the results section. documented in this encounter Results T4 (Thyroxine), Free (01/07/2019 9:44 AM CDT) P athologist Signature T4 1.3 0.9 - 1.7 01/07/2019 [facility] (Thyroxine), ng/dL 11:38 AM CDT LABORATORIES - [facility], S [facility] Specimen Anatomical Collection Method Collection Time Receive d Time (Source) Location / / Volume Laterality Blood (Blood, 01/07/2019 9:44 AM 01/08/20 Venous) CDT 10:04 AM CDT Saul LunsfordB.S. LAB BLOOD ADD-ON Performing Organization Address City/[facility] Code Phon e Number [facility] - [address] (ABNORMAL) S-TSH (Thyroid-Stimulating Hormone - Sensitive) (01/07/2019 9:44 AM CDT) Patholo gist Method Time Signature TSH, Sensitive 0.1 (L) 0.3 - 4.2 01/07/2019 [facility] mIU/L 11:38 AM CDT LABORATORIES - [facility] Specimen Anatomical Collection Method Collection Time Receive d Time (Source) Location / / Volume Laterality Blood (Blood, 01/07/2019 9:44 AM 01/08/20 Venous) CDT 10:04 AM CDT Saul LunsfordB.S. LAB BLOOD ADD-ON Performing Organization Address City/[facility] Code Phon e Number [facility] - [address] documented in this encounter Visit Diagnoses Diagnosis Nodule Thyroid documented in this encounter Additional Health Concerns Assessment Noted Time PHQ-9 Depression Total Score: 1 12/14/2017 11:05 AM CS T documented as of this encounter
--- OUTSIDE RECORDS SUMMARY | 2022-07-01 23:35 | XMS_ITS | Encounter Summary ---
:1955 Author Organization [facility] Address [address] [place] [address] Care Team Providers Name Role Phone Unavailable Primary Care Provider Unavailable Encounter Details Date Type Department Care Team Description 07/10/2019 Ancillary Procedure Department of Endocrinology Social History Tobacco Use Types Packs/Day Years [...] or relatives? How often do you attend pentecostal or gnosticist 1 to 4 times per year 07/06/2019 services? Do you belong to any clubs or organizations Yes 07/06/2019 such as pentecostal groups, unions, fraternal or athletic groups, or [...] Procedure Name Priority Date/Time Associated Comments Diagnosis ENDOCRINOLOGY IMAGE Routine 07/10/2019 12:00 Resu lts for this EXAM PM CDT procedure are i n the results section. documented in this encounter Results Thyroid-Endocrinology Image Exam (07/10/2019 12:00 PM CDT) Specimen (Source) Anatomical Location Collection Method / Collectio n Time Received Time / Laterality Volume Narrative [facility] - 08/08/2019 10:11 AM CDT This order has been created and auto-finalized to support the import of images acquired without order. The clini melany documentation to support these images can be found on the encounter lynnette awan produced images. Provider Not In System IMG NON RAD IMAGING PROCEDUR ES Performing Organization Address City/State/ZIP Code Phon e Number [facility] NA documented in this encounter Visit Diagnoses Not on filedocumented in this encounter Additional Health Concerns Assessment Noted Time PHQ-9 Depression Total Score: 1 12/14/2017 11:05 AM RAMSEY Awan documented as of this encounter
--- OUTSIDE RECORDS SUMMARY | 2022-07-01 23:35 | XMS_ITS | Encounter Summary ---
:1955 Author Organization [facility] Address [address] [place] [address] Care Team Providers Name Role Phone Unavailable Primary Care Provider Unavailable Reason for Visit Reason Onset Date Comments see extra? 05/23/2019 Encounter Details Date Type Department Care Team Description 05/23/2019 Clinical Communication Division of Seamus Owens, see extra? [place] M.B.B.S. [address] [facility] [address] [place] [phone] [place], [place] [phone] Social History Tobacco Use Types Packs/Day Years [...] or relatives? How often do you attend restorationism or sikhism 1 to 4 times per year 07/06/2019 services? Do you belong to any clubs or organizations Yes 07/06/2019 such as restorationism groups, unions, fraternal or athletic groups, or [...] this encounter Miscellaneous Notes Telephone Encounter - Naya Workman - 05/27/2019 9:24 AM CDT Pool Telephone Encounter - Saul Styles M.B.B.S. - 05/24/2019 11:31 AM CDT Ok to add pt in the afternoon after biopsy. Telephone Encounter - Naya Workman - 05/23/2019 3:36 PM CDT S: Caller/Dept - Patient B: Patient was last seen on : 01/08/2019 A: Patient would like to schedule his Biopsy as well as his follow up with you the first week of July, you are on research time, would you be willing to add patient on in the afternoon on one of those days around July 09? Please advise R: PASS to contact patient to schedule Thank you Naya Suarez PLEASE REPLY TO P RST END SCHEDULING documented in this encounter Plan of Treatment Upcoming Encounters Date Type Specialty Care Team Description 07/04/2022 Clinical Support Colon and Rectal Surgery documented as of this encounter Visit Diagnoses Not on filedocumented in this encounter Additional Health Concerns Assessment Noted Time PHQ-9 Depression Total Score: 1 12/14/2017 11:05 AM CS T documented as of this encounter
--- OUTSIDE RECORDS SUMMARY | 2022-07-01 23:35 | XMS_ITS | Encounter Summary ---
:1955 Author Organization [facility] Address [address] [place] [phone] Care Team Providers Name Role Phone Unavailable Primary Care Provider Unavailable Reason for Referral Outpatient (Routine) - Closed Specialty Diagnoses / Procedures Referred By Contact Refer red To Contact Radiology Diagnoses Malignant Neoplasm Of Rectum (HCC) Emanuel Cooepr M.D. [facility] Procedures IR Implanted Vascular Access Device Removal [address] [place] [phone] Referral ID Status Reason Start Date Expiration Date Visits Requ ested Visits Authorized [id number] Closed 08/23/2018 08/23/2019 1 1 CALL CLERK Reason for Visit Auth/Cert Specialty Diagnoses / Procedures Referred By Contact Refer red To Contact Diagnoses Malignant Neoplasm Of Rectum (HCC) Procedures IR IMPLANTED VASCULAR ACCESS DEVICE REMOVAL Referral ID Status Reason Start Date Expiration Date Visits Requ ested Visits Authorized [id number] 1 1 Encounter Details Date Type Department Care Team Description 08/27/2018 Hospital Encounter Department of Emanuel Cooper M.D. [address] [place] [phone] Malignant Neoplasm Radiology in Miguel Angel Collier M.D. [address] [place] [phone] Of Rectum (HCC) Narciso Ray Richard G, M.D. [address] [place] [phone] [phone] Social History Tobacco Use Types Packs/Day Years [...] or relatives? How often do you attend confucianist or mormon 1 to 4 times per year 07/06/2019 services? Do you belong to any clubs or organizations Yes 07/06/2019 such as confucianist groups, unions, fraternal or athletic groups, or [...] PM CDT documented as of this encounter Last Filed Vital Signs Vital Sign Reading Time Taken Comments Blood Pressure 128/83 08/27/2018 1:36 PM WILL CALL CLERK Pulse 73 08/27/2018 1:36 PM WILL CALL CLERK Temperature - - Respiratory Rate 9 08/27/2018 1:25 PM WILL CALL CLERK Oxygen Saturation 98% 08/27/2018 1:36 PM WILL CALL CLERK Inhaled Oxygen Concentration - - Weight - - Height - - Body Mass Index - - documented in this encounter Procedure Notes Adrian Stuart M.D. - 08/27/2018 2:02 PM CST PATIENT DISPOSITION Return to Outpatient Unit for recovery. Discharge patient when discharge criteria met. POST-PROCEDURE DIAGNOSIS Port removal following completion of chemotherapy PROCEDURE PERFORMED AND DESCRIPTION Port removal PROCEDURE DETAILS See Radiology Report SPECIMENS REMOVED None FINDINGS Removal of right chest port PRIMARY PROCEDURALIST Dr. Miguel Angel Collier ASSISTANTS Dr. Adrian Riddle COMPLICATIONS None. DRAINS None. IMPLANTS None. ANESTHESIA Local Anesthesia. FLUIDS None ESTIMATED BLOOD LOSS <5ml CURRENT MEDICATIONS No Medication Changes FOLLOW-UP LETTER None. MAY RETURN TO WORK Not applicable PATIENT INSTRUCTIONS No return appointment CALL CLERK documented in this encounter Plan of Treatment Upcoming Encounters Date Type Specialty Care Team Description 07/04/2022 Clinical Support Colon and Rectal Surgery documented as of this encounter Procedures Procedure Name Priority Date/Time Associated Comments Diagnosis IR IMPLANTED RAD - Routine 08/27/2018 1:27 Malignant Results for this VASCULAR ACCESS (most inpatients PM WILL CALL CLERK Neoplasm Of procedur e are in DEVICE REMOVAL and all Rectum (HCC) the results outpatients) section. documented in this encounter Results IR Implanted Vascular Access Device Removal (08/27/2018 1:27 PM WILL CALL CLERK) Anatomical Region Laterality Modality Chest, Pelvis, Abdomen, Vascular Interventional RST LOS, N/A X-Ray Angiography Vascular Interventional ARZ LOS, Vascular Interventional FLA LOS Specimen (Source) Anatomical Collection Method Collection Time Re ceived Time Location / / Volume Laterality 08/27/2018 2:31 PM WILL CALL CLERK Impressions 08/27/2018 5:00 PM WILL CALL CLERK IMPRESSION: Removal of right chest port. EP Narrative 08/27/2018 5:00 PM WILL CALL CLERK EXAM: IR IMPLANTED VASCULAR ACCESS DEVICE REMOVAL [...] of care team members, residents, and fellows wer e discussed. Procedure Note Miguel Angel Collier [...] Diagnoses Diagnosis Malignant Neoplasm Of Rectum (HCC) documented in this encounter Administered Medications Inactive Administered Medications - up to 3 most recent administrations Medication Order MAR Action Action Date Dose Rate Site fentaNYL injection (SUBLIMAZE) Given 08/27/2018 1:00 PM WILL CALL CLERK 50 mcg Code/trauma/sedation medication, Starting on Mon08/27/18 at 1300 fentaNYL injection (SUBLIMAZE) Given 08/27/2018 1:03 PM WILL CALL CLERK 25 mcg Code/trauma/sedation medication, Starting on Mon08/27/18 at 1303 fentaNYL injection (SUBLIMAZE) Given 08/27/2018 1:07 PM WILL CALL CLERK 25 mcg Code/trauma/sedation medication, Starting on Mon08/27/18 at 1307 lidocaine 10 mg/mL (1 %) injection (XYLO MOISE) Given 08/27/2018 1:38 PM WILL CALL CLERK 10 mL Code/trauma/sedation medication, Starting on Mon08/27/18 at 1338 midazolam (PF) injection (VERSED) Given 08/27/2018 1:00 PM WILL CALL CLERK 1 mg Code/trauma/sedation medication, Starting on Mon08/27/18 at 1300 midazolam (PF) injection (VERSED) Given 08/27/2018 1:03 PM WILL CALL CLERK 0.5 mg Code/trauma/sedation medication, Starting on Mon08/27/18 at 1303 midazolam (PF) injection (VERSED) Given 08/27/2018 1:07 PM WILL CALL CLERK 0.5 mg Code/trauma/sedation medication, Starting on Mon08/27/18 at 1307 documented in this encounter Active and Recently Administered Medications Times are shown in WILL CALL CLERK. PRN Medication Order 08/25/2018 08/26/2018 08/27/2018 fentaNYL injection (SUBLIMAZE) (COMPLETED) 1300 (Given - Provider: Halima Burleson R.N.) Code/trauma/sedation medication, Starting Mon08/27/18 at 1300 fentaNYL injection (SUBLIMAZE) (COMPLETED) 1303 (Given - Provider: Halima Burleson R.N.) Code/trauma/sedation medication, Starting Mon08/27/18 at 1303 fentaNYL injection (SUBLIMAZE) (COMPLETED) 1307 (Given - Provider: Halima Burleson R.N.) Code/trauma/sedation medication, Starting Mon08/27/18 at 1307 lidocaine 10 mg/mL (1 %) injection (XYLOCAINE) (CANCELED) 1338 (Given - Provider: Adrian Stuart M.D.) Code/trauma/sedation medication, Starting Mon08/27/18 at 1338 midazolam (PF) injection (VERSED) (COMPLETED) 1300 (Given - Provider: Halima Burleson R.N.) Code/trauma/sedation medication, Starting Mon08/27/18 at 1300 midazolam (PF) injection (VERSED) (COMPLETED) 1303 (Given - Provider: Halima Burleson R.N.) Code/trauma/sedation medication, Starting Mon08/27/18 at 1303 midazolam (PF) injection (VERSED) (COMPLETED) 1307 (Given - Provider: Halima Burleson R.N.) Code/trauma/sedation medication, Starting Mon08/27/18 at 1307 documented in this encounter Additional Health Concerns Assessment Noted Time PHQ-9 Depression Total Score: 1 12/14/2017 11:05 AM CS T documented as of this encounter
--- OUTSIDE RECORDS SUMMARY | 2022-07-01 23:35 | XMS_ITS | Clinical Summary ---
:1955 Author Organization [facility] [place] [address] Care Team Providers Name Role Phone Devin Baires MD Primary Care Provider Allergies No known active allergies Medications Medication Sig Dispensed Refills Start Date End Date Status valACYclovir 0 12/09/2020 Active (VALTREX) 1 gram tablet atorvastatin Take 1 Tablet (20 90 Tablet 3 08/25/2021 Active (LIPITOR) 20 mg mg) by mouth at tabletIndications: bedtime. Hyperlipidemia, unspecified hyperlipidemia type oxyCODONE Every 4-6 Hours as 0 09/14/2021 Active (ROXICODONE) 5 mg needed immediate release tablet celecoxib (CELEBREX) 0 09/16/2021 Active 200 mg capsule aspirin (ECOTRIN) 81 Take 1 Tablet (81 0 09/17/2021 Active mg enteric coated mg) by mouth once tablet daily with a meal. acetaminophen Take 1 Tablet (500 0 09/17/2021 Active (TYLENOL EXTRA mg) by mouth every STRGTH) 500 mg tablet 6 hours if needed. Max acetaminophen dose: 4000mg in 24 hrs. fluticasone (50 mcg INSTILL 1 SPRAY TO 16 mL 0 10/10/2021 Active per actuation) nasal BOTH NOSTRILS ONCE solution DAILY. 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 HTN (hypertension) 09/30/2011 Overview: Home BPs have been in a good range Immunizations Name Administration Dates Next Due COVID-19 vaccine (Moderna 100mcg/0.5mL) 01/22/2021, 12/26/19 21 PF, MDV COVID-19 vaccine (Moderna Booster 08/23/2021 50mcg/0.25mL) PF, MDV COVID-19 vaccine (Pfizer-BioNTech 08/23/2021 30mcg/0.3mL) PF, MDV Influenza, High-dose Quadrivalent 09/26/2020 Inactivated Influenza, IIV3 (Age >=3 years) 07/25/2012, 07/29/2011, 07/10 Influenza, IIV4 07/25/2017, 07/24/2013 Influenza, Inactivated AIIV4 (Age 65+ 08/23/2021 Years) Preserv Free Pneumococcal Poly,23-Valent (Pneumovax) 06/07/2021 Tdap 11/07/2014 Family History Medical History Relation Name Comments Other Brother unexpectedl y Cancer Father Started in jaw Cancer Maternal Grandfather Lung Aneurysm Maternal Uncle 1 Cancer Maternal Uncle 2 Brain Cancer Mother Lung Cancer-prostate Paternal Grandfather Cancer-colon Sister 1 Cancer Sister 2 Skin Diabetes Sister 2 Relation Name Status Comments Brother Father Maternal Grandfather Maternal Uncle 1 Maternal Uncle 2 Mother Paternal Grandfather Sister 1 Sister 2 Social History Tobacco Use Types Packs/Day Years Used Date Former Smoker Quit: 10/09/18 97 Smokeless Tobacco: Never Used Tobacco Cessation: Counseling Given: Yes Alcohol Use Standard Drinks/Week Comments Yes 0 (1 standard drink = 0.6 oz pure alcoho l) 1 weekly Alcohol Habits Answer Date Recorded How often do you have a drink containing alcohol? Not asked How many drinks containing alcohol do you have on a typical Not asked day when you are drinking? How often do you have six or more drinks on one occasion? No t asked Comment: 1 weekly 08/23/2021 Sex Assigned at Date Recorded Male 05/03/2021 12:11 PM CDT Obstetrics History Last Filed Vital Signs Vital Sign Reading Time Taken Comments Blood Pressure 125/65 09/17/2021 2:13 PM RESIDENTIAL CARPENTER Pulse 100 09/17/2021 2:39 PM RESIDENTIAL CARPENTER Temperature 36.7 ??C (98.1 ??F) 09/17/2021 2:13 PM RESIDENTIAL CARPENTER Respiratory Rate - - Oxygen Saturation 98% 09/17/2021 2:13 PM RESIDENTIAL CARPENTER Inhaled Oxygen Concentration - - Weight 88.9 kg (196 lb) 08/23/2021 10:29 AM RESIDENTIAL CARPENTER Height 174.6 cm (5' 8.75) 08/23/2021 10:29 AM RESIDENTIAL CARPENTER Body Mass Index 29.16 08/23/2021 10:29 AM RESIDENTIAL CARPENTER Plan of Treatment Health Maintenance Due Date Last Done Comments Zoster (shingles) series for age 1209/28/2004 50+ (1 of 2) COVID-19 vaccine series (4 - 12/21/2021 08/23/2021, 021, Booster for Moderna series) 01/22/2021, Addition al history exists Depression screening for age 12+ 05/04/2022 05/04/2021, Pneumococcal series for age 65+ (2 06/07/2022 06/07/2021 - PCV) Influenza for age 65+ 06/09/2022 08/23/2021, 09/26/2020, 07/25/2017, Additional history exists BMI (ht and wt on same day) for 08/23/2022 08/23/2021, 0704/2021, age 18+ 07/25/2017, Additional history exists Tetanus booster 11/07/2024 11/07/2014 Lipids for age 45-75 08/23/2026 08/23/2021, 05/04/2021, 06/27/2017 Colonoscopy through age 75 01/19/2028 01/18/2018, 7, 07/06/2017 Tdap Completed 11/07/2014 Hepatitis C screening for age Completed 06/27/2017 18-79 AAA screening age 55-77 Completed 08/23/2021 Results Not on filefrom Last 3 Months Insurance Payer Benefit Plan / Subscriber ID Effective Dates Phone Addre ss Type Group BLUE CROSS BLUE CROSS OF [id number] 2020-Present [address] [address] [place] [address] MEDICARE - PB MEDICARE PB [id number] 2019-Mary ATT N: CLAIMS USE ONLY ONLY t [address] [place] [address] Advance Directives Documents on File Type Date Recorded 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
--- OUTSIDE RECORDS SUMMARY | 2022-07-01 23:35 | XMS_ITS | Encounter Summary ---
:1955 Author Organization [facility] Address [address] [place] [address] Care Team Providers Name Role Phone Unavailable Primary Care Provider Unavailable Encounter Details Date Type Department Care Team Description 08/23/2018 Clinical Communication Department of Oncology Em Cooper, in [facility] [address] [facility] [address] [place] [phone] Social History Tobacco Use Types Packs/Day Years [...] How often do you attend confucianism or roman catholic 1 to 4 times per year 07/06/2019 [...] this encounter Miscellaneous Notes Telephone Encounter - Ratna Parmar - 08/23/2018 12:39 PM CST Port removal for this patient on our que. Patient has not been seen in the last 12 weeks. 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
--- OUTSIDE RECORDS SUMMARY | 2022-07-01 23:35 | XMS_ITS ---
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 Past Plans Flushes/Hydration Plan Name Start Date Discontinue Date Treatment Discontinue Plan Pr ovider Medications Reason VASCULAR 05/08/2018 04/09/2019 No medications Therapy Complete - ACCESS PATENCY scheduled. - IMPLANTED VASCULAR ACCESS DEVICE (IVAD) VENOUS NON-VALVED Radiation Treatments No radiation treatments are documented for this patient in [facility]. Treatments may have been administered in another system. Lifetime Dose Tracking Chemical Lifetime Dose Automatic Entry Manual Entry Radiation 5 mGy 5 mGy 0 mGy Fluoro Time 0.1 minutes 0.1 minutes 0 minutes
--- OUTSIDE RECORDS SUMMARY | 2022-07-01 23:35 | XMS_ITS | Encounter Summary ---
:1955 Author Organization [facility] Address [address] [place] [address] Care Team Providers Name Role Phone Unavailable Primary Care Provider Unavailable Reason for Referral Outpatient (Routine) - Closed Specialty Diagnoses / Procedures Referred By Contact Refer red To Contact Endocrinology Saul Styles, [facility] M.B.B.S. [address] [place], [place] [phone] Referral ID Status Reason Start Date Expiration Date Visits Requ ested Visits Authorized [id number] Closed 01/08/2019 01/08/2020 1 1 Reason for Visit Reason Comments Other established pt Outpatient (Routine) - Closed Specialty Diagnoses / Procedures Referred By Contact Refer red To Contact Endocrinology Saul Styles [facility] M.B.B.S. [address] [place] [phone] Referral ID Status Reason Start Date Expiration Date Visits Requ ested Visits Authorized [id number] Closed 06/29/2018 06/29/2019 1 1 Encounter Details Date Type Department Care Team Description 01/08/2019 Office Visit Division of Kori Styles Endocrinology in Cheri Lindsey.B.S . (Primary Dx) [place], [place] [address] [facility] [address] [place] [phone] Social History Tobacco Use Types Packs/Day Years Used Date Smoking Tobacco: Former Cigarettes 0.3 20 10/1972 - 08/09/1993 Smokeless Tobacco: Never Comments: Very light smoker Alcohol Use Standard Drinks/Week Comments Yes 0 (1 standard drink = 0.6 oz pure I adrianna jennings less than 10 standard alcohol) drinks a [...] or relatives? How often do you attend judaism or worship 1 to 4 times per year 07/06/2019 services? Do you belong to any clubs or organizations Yes 07/06/2019 such as judaism groups, unions, fraternal or athletic groups, or [...] Sign Reading Time Taken Comments Blood Pressure 131/84 01/08/2019 9:45 AM CDT Pulse 99 01/08/2019 9:45 AM CDT Temperature - - Respiratory Rate - - Oxygen Saturation - - Inhaled Oxygen Concentration - - Weight 89 kg (196 lb 3.4 oz) 01/08/2019 9:45 AM CDT Height 172.5 cm (5' 7.91) 01/08/2019 9:45 AM CDT Body Mass Index 29.91 01/08/2019 9:45 AM CDT documented in this encounter Progress Notes Saul Styles M.B.BJuan CarlosS. - 01/08/2019 10:00 AM CDT SUBJECTIVE CHIEF COMPLAINT/REASON FOR VISIT Multinodular goiter and subclinical hyperthyroidism. HISTORY OF PRESENT ILLNESS Mr. Addison is a very pleasant 63-year-old gentleman who has a history of colon cancer, status post surgery and chemotherapy. Patient also had a history of multinodular goiter with a dominant nodule in the right side that measures 3 cm in size, and we have been observing without biopsy. Patient alsohas subclinical hyperthyroidism. In 2007, for instance, there was a TSH that was 0.07 with a free T4of 1.3. At that time, it was assumed that it was probably caused by multinodular goiter, toxic, thatwas stimulated by some contrast. Without any treatment, TSH went up to 0.3, TRAb levels were not detectable. An uptake scan done when the TSH was 0.3 did not show any specific areas of nodularity, though. Now, TSH is 0.1, free T4 is 1.3. The patient denies any symptoms of hyperthyroidism. OBJECTIVE PHYSICAL EXAMINATION Vital Signs: Patient has a heart rate of 50 and regular. Neurologic: The patient has no tremors at this point. Eyes: No evidence of periorbital swelling as well. ASSESSMENT / PLAN #1 Multinodular goiter with a stable, right-sided, benign-appearing nodule #2 Subclinical hyperthyroidism, most likely caused by a toxic multinodular goiter We discussed with Mr. Addison the nodule has been stable. We still considered 2 options. He will continue with observing with ultrasound only versus biopsy. We spent a good amount of time discussing both options. We decided to proceed with biopsy in 6 months from now. At that time, we are also goingto have thyroid function tests rechecked. Patient in agreement with this plan. All of their questions were answered. CT CT Job ID: [id number] documented in this encounter Plan of Treatment Upcoming Encounters Date Type Specialty Care Team Description 07/04/2022 Clinical Support Colon and Rectal Surgery Scheduled Referrals Name Type Priority Associated Order Schedule Diagnoses Endocrinology office Outpatient Referral Routine Expected: visit (clinic) 07/10/2019 (Approximate), Expires: 01/08/2022 documented as of this encounter Results (ABNORMAL) S-TSH (Thyroid-Stimulating Hormone - Sensitive) (07/10/2019 8:31 AM CDT) P athologist Signature TSH, Sensitive 0.1 (L) 0.3 - 4.2 07/10/2019 mIU/L 10:09 AM CDT Specimen Anatomical Collection Method Collection Time Receive d Time (Source) Location / / Volume Laterality Blood (Blood, 07/10/2019 8:31 AM 07/10/20 8:52 Venous) CDT AM CDT Saul LunsfordB.S. LAB BLOOD ADD-ON Performing Organization Address City/State/ZIP Code Phon e Number [facility] - [address] T4 (Thyroxine), Free (07/10/2019 8:31 AM CDT) P athologist Signature T4 (Thyroxine), 1.2 0.9 - 1.7 07/10/2019 Free, S ng/dL 10:10 AM CDT Specimen Anatomical Collection Method Collection Time Receive d Time (Source) Location / / Volume Laterality Blood (Blood, 07/10/2019 8:31 AM 07/10/20 8:52 Venous) CDT AM CDT Saul MacielSJuan Carlos LAB BLOOD ADD-ON Performing Organization Address City/State/ZIP Code Phon e Number [facility] - [address] documented in this encounter Visit Diagnoses Diagnosis Nodule Thyroid - Primary documented in this encounter Additional Health Concerns Assessment Noted Time PHQ-9 Depression Total Score: 1 12/14/2017 11:05 AM CS T documented as of this encounter
--- OUTSIDE RECORDS SUMMARY | 2022-07-01 23:35 | XMS_ITS | Encounter Summary ---
:1955 Author Organization [facility] Address [address] [place] [address] Care Team Providers Name Role Phone Unavailable Primary Care Provider Unavailable Encounter Details Date Type Department Care Team Description 01/07/2019 Hospital Encounter Department of Seamus Owens, Nodule Thyroid Radiology, Isatu PortilloBJuan CarlosS [facility], in [address] [place] [address] [place], [place] [phone] (Work) [phone] Social History Tobacco Use Types Packs/Day Years [...] or relatives? How often do you attend uatsdin or druze 1 to 4 times per year 07/06/2019 services? Do you belong to any clubs or organizations Yes 07/06/2019 such as uatsdin groups, unions, fraternal or athletic groups, or [...] Procedure Name Priority Date/Time Associated Comments Diagnosis US THYROID RAD - Routine 01/07/2019 10:50 Nodule Thyroid Results for this (most inpatients AM CDT procedure a re in and all the results outpatients) section. documented in this encounter Results US Thyroid (01/07/2019 10:50 AM CDT) Anatomical Region Laterality Modality Head and Neck, Ultrasound RST LOS, Ultrasound ARZ LOS, N/A Ultrasound Ultrasound FLA LOS Specimen (Source) Anatomical Collection Method Collection Time Re ceived Time Location / / Volume Laterality 01/07/2019 10:52 AM CDT Impressions 01/07/2019 10:55 AM CDT IMPRESSION: Low suspicion nodules in both thyroid lobes are unchanged since 08/08/2018. Narrative 01/07/2019 10:55 AM CDT EXAM: US THYROID COMPARISON: Neck ultrasound 05/08/2018. FINDINGS: The right thyroid lobe measures: 2.6 cmx 2.7 cmx5.9 cm The left thyroid lobe measures: 1.7 cmx2 .0 cmx5.0 cm The isthmus measures: 6 mm in AP diamete r. Thyroid parenchymal evaluation shows: A few nodules, with remarkable nodules described below. Right: Exophytic nodule arising from the posterior aspect of the right thyroid lobe measures 1.9 x 1.7 x 3.1 cm. It is solid and hypoechoic with smooth margins and no echogenic foci (ultrasound score 1). Left: Multiple tiny spongiform nodules i n the left thyroid lobe without worrisome features. 3 mm hyperechoic nod ule in the left side of the thyroid isthmus has slightly irregular margins w ithout other worrisome features (ultrasound score 1). Lymph nodes: ??Neck levels 1-7 were surv eyed and demonstrated no lymphadenopathy The thyroid nodule descriptions and dmitry gories are based on the Thyroid Nodule Care Process Model established by the [facility] [place]. [email or web address] ic/clinical-answers/cnt-[email or web address]/sec-203 7778 Procedure Note Ezekiel Quispe M.D. - 01/07/2019Forma tting of this note might be different from the original. EXAM: US THYROID COMPARISON: Neck ultrasound 05/08/2018. FINDINGS: The right thyroid lobe measures: 2.6 cmx 2.7 cmx5.9 cm The left thyroid lobe measures: 1.7 cmx2 .0 cmx5.0 cm The isthmus measures: 6 mm in AP diamete r. Thyroid parenchymal evaluation shows: A few nodules, with remarkable nodules described below. Right: Exophytic nodule arising from the posterior aspect of the right thyroid lobe measures 1.9 x 1.7 x 3.1 cm. It is solid and hypoechoic with smooth margins and no echogenic foci (ultrasound score 1). Left: Multiple tiny spongiform nodules i n the left thyroid lobe without worrisome features. 3 mm hyperechoic nod ule in the left side of the thyroid isthmus has slightly irregular margins w ithout other worrisome features (ultrasound score 1). Lymph nodes: Neck levels 1-7 were survey ed and demonstrated no lymphadenopathy The thyroid nodule descriptions and dmitry gories are based on the Thyroid Nodule Care Process Model established by the [facility] [place]. [email or web address]/top ic/clinical-answers/cnt-40385196/sec-203 7778 IMPRESSION: Low suspicion nodules in bot h thyroid lobes are unchanged since 08/08/2018. Saul Kirkpatrick IMG US PROCEDURES documented in this encounter Visit Diagnoses Diagnosis Nodule Thyroid documented in this encounter Additional Health Concerns Assessment Noted Time PHQ-9 Depression Total Score: 1 12/14/2017 11:05 AM CS T documented as of this encounter
--- OUTSIDE RECORDS SUMMARY | 2022-07-01 23:35 | XMS_ITS | Encounter Summary ---
:1955 Author Organization [facility] Address [address] [place] [address] Care Team Providers Name Role Phone Unavailable Primary Care Provider Unavailable Reason for Visit Reason Comments Renew Ostomy Rx Encounter Details Date Type Department Care Team Description 07/28/2020 Clinical Communication Division of Colon and Juan Antonio , Renew Ostomy Rx Rectal Surgery in [place], [place] [address] [facility] [address] [place] [address] [phone] Social History Tobacco Use Types Packs/Day Years [...] or relatives? How often do you attend christianity or uatsdin 1 to 4 times per year 07/06/2019 services? Do you belong to any clubs or organizations Yes 07/06/2019 such as christianity groups, unions, fraternal or athletic groups, or [...] this encounter Miscellaneous Notes Telephone Encounter - Marleni Santos R.N., C.W.O.C.N. - 07/28/2020 12:40 PM CDT REASON FOR TELEPHONE CALL Ostomy prescription HISTORY OF PRESENT ILLNESS Mr. Addison is a 64 y.o. male who is well-known to [facility] for colostomy. I returned to his call today regarding his prescription. He requested a prescription renewal. He usually changes pouch of [place] [id number], 7805, [id number], and occasionally drainable pouch with filter every 3 days. He deniespouch leakage or peristomal skin irritation. He had heat rash this summer, resolved with calamine lotion. PMH Status post abdominal perineal resection with end colostomy in March 2018 for rectal cancer ASSESSMENT / PLAN Disposition/Recommendation: Given COVID-19 pandemic, we will renew ostomy prescription without seeing as one-time exception. For future renewal, he will, however, need to be seen by either the [facility] and[facility] team or ostomy nurse within a year. A renewed prescription will [facility] faxed to [facility]. Education: patient able to teach back Caller agreeable to plan of care: yes The following references were used: nursing clinical judgement Telephone Encounter - Brea Resendez - 07/28/2020 10:06 AM CDT Mr. Addison called regarding renewal of his ostomy supplies. Prescription recently . Please return his call at [phone]. Thank you. Brea documented in this encounter Plan of Treatment [...]
--- OUTSIDE RECORDS SUMMARY | 2022-07-01 23:35 | XMS_ITS | Encounter Summary ---
:1955 Author Organization [facility] Address [address] [place] [address] Care Team Providers Name Role Phone Unavailable Primary Care Provider Unavailable Encounter Details Date Type Department Care Team Description 04/12/2019 Documentation Department of Oncology in [place], [place] MDJuan Carlos [address] [facility] [address] [place] [address] [place], [place] [phone] (Wo rk) Social History Tobacco Use Types Packs/Day Years [...] How often do you attend christianity or adventist 1 to 4 times per year 07/06/2019 [...] documented as of this encounter Progress Notes Yvon Hendrickson M.D. - 04/12/2019 3:13 PM CDT I spoke with the patient today. 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 Unfortunately, the patient was not eligible for the clinical trial because of a prior history of a skin cancer. I talked to him by phone and discussed information regarding a nutraceutical product called palmitoylethanolamide (PEA). There are some data suggesting that it may help chemotherapy neuropathy. Recommended dose is 400 mg twice a day. I suggested that he talk with the physician who gave him duloxetine,recently. If the duloxetine does not work any better this time than it did the last time, than 1 option might be to stop it and try this compound. If he does try it, I told him it would be nice to hear how it did versus did not work, for him. documented in this encounter Plan of Treatment Upcoming Encounters Date Type Specialty Care Team Description 07/04/2022 Clinical Support Colon and Rectal Surgery documented as of this encounter Visit Diagnoses Not on filedocumented in this encounter Additional Health Concerns Assessment Noted Time PHQ-9 Depression Total Score: 1 12/14/2017 11:05 AM CS T documented as of this encounter
--- OUTSIDE RECORDS SUMMARY | 2022-07-01 23:35 | XMS_ITS | Encounter Summary ---
:1955 Author Organization [facility] Address [address] [place] [address] Care Team Providers Name Role Phone Unavailable Primary Care Provider Unavailable Reason for Visit Outpatient (Routine) - Closed Specialty Diagnoses / Procedures Referred By Contact Refer red To Contact Diagnoses Nodule Thyroid Way [facility] Procedures NM Thyroid Uptake and Scan SC THYROID IMG UPTAKE SNGL/MULT HC THYROID IMG UPTAKE SNGL/MULT SC THYROID IMG UPTAKE SNGL/MULT M.B.B.S. [address] [place] [phone] Referral ID Status Reason Start Date Expiration Date Visits Requ ested Visits Authorized [id number] Closed 05/08/2018 05/08/2019 6 6 Encounter Details Date Type Department Care Team Description 06/29/2018 Hospital Encounter Department of Radiology, [facility], M.B.B.S . [place], [place] [address] [place] [address] [place] [phone] (Wo rk) Social History Tobacco Use Types [...] or relatives? How often do you attend islam or yarsanism 1 to 4 times per year 07/06/2019 services? Do you belong to any clubs or organizations Yes 07/06/2019 such as islam groups, unions, fraternal or athletic groups, or [...] Procedure Name Priority Date/Time Associated Comments Diagnosis NM THYROID UPTAKE RAD - Routine 06/29/2018 1:45 Nodule Thyroid Resu lts for this AND SCAN (most inpatients PM CDT procedure a re in and all the results outpatients) section. documented in this encounter Results NM Thyroid Uptake and Scan (06/29/2018 1:45 PM CDT) Anatomical Region Laterality Modality Neck, Nuclear Medicine RST LOS, Nuclear Medicine ARZ LOS, N/ A Nuclear Medicine Nuclear Medicine FLA LOS Specimen (Source) Anatomical Collection Method Collection Time Re ceived Time Location / / Volume Laterality 06/29/2018 1:56 PM CDT Impressions 06/29/2018 2:29 PM CDT IMPRESSION: ??Mildly enlarged thyroid gland. Uptake is normal at 4 hours. No discrete hyper or hypofunctioning nodule s. Narrative 06/29/2018 2:29 PM CDT EXAM: ??NM THYROID UPTAKE AND SCAN RADIOPHARMACEUTICAL/MEDS: Route: oral sodium iodide I 123 oral solution < 1 mi llicurie (SODIUM IODIDE I-123),928 MICROCURIE TECHNIQUE: Multiple projection planar im ages of the thyroid were obtained at 4 hours after oral administration of radio tracer with thyroid uptake measurement at 4 hours using a gamma camera. COMPARISON: ??Thyroid ultrasound 05/08/20 18 INDICATION: ??Hyperthyroidism FINDINGS: Mildly enlarged thyroid gland. No discrete hyper or hypofunctioning nodules. THYROID UPTAKE RESULTS 4.2-hour = 5.2% (4-hour normal = 3-16%) Procedure Note Dragan Campbell M.D. - 06/29/2018Formatt ing of this note might be different from the original. EXAM: NM THYROID UPTAKE AND SCAN RADIOPHARMACEUTICAL/MEDS: Route: oral sodium iodide I 123 oral solution < 1 mi llicurie (SODIUM IODIDE I-123),928 MICROCURIE TECHNIQUE: Multiple projection planar im ages of the thyroid were obtained at 4 hours after oral administration of radio tracer with thyroid uptake measurement at 4 hours using a gamma camera. COMPARISON: Thyroid ultrasound 05/08/2018 INDICATION: Hyperthyroidism FINDINGS: Mildly enlarged thyroid gland. No discrete hyper or hypofunctioning nodules. THYROID UPTAKE RESULTS 4.2-hour = 5.2% (4-hour normal = 3-16%) IMPRESSION: Mildly enlarged thyroid glan d. Uptake is normal at 4 hours. No discrete hyper or hypofunctioning nodule s. Saul MacielS. IMG NM PROCEDURES documented in this encounter Visit Diagnoses Not on filedocumented in this encounter Additional Health Concerns Assessment Noted Time PHQ-9 Depression Total Score: 1 12/14/2017 11:05 AM CS T documented as of this encounter
--- OUTSIDE RECORDS SUMMARY | 2022-07-01 23:35 | XMS_ITS | Encounter Summary ---
:1955 Author Organization [facility] Address [address] [place] [address] Care Team Providers Name Role Phone Unavailable Primary Care Provider Unavailable Reason for Referral Outpatient (Routine) - Closed Specialty Diagnoses / Procedures Referred By Contact Refer red To Contact Endocrinology Saul Styles, [facility] M.B.B.S. [address] [place] [address] Referral ID Status Reason Start Date Expiration Date Visits Requ ested Visits Authorized [id number] Closed 06/29/2018 06/29/2019 1 1 Reason for Visit Outpatient (Routine) - Closed Specialty Diagnoses / Procedures Referred By Contact Refer red To Contact Endocrinology Saul Styles, [facility] M.B.B.S. [address] [place] [address] Referral ID Status Reason Start Date Expiration Date Visits Requ ested Visits Authorized [id number] Closed 05/08/2018 05/08/2019 1 1 Encounter Details Date Type Department Care Team Description 06/29/2018 Office Visit Division of Kori Styles Endocrinology in Puneet LindseyB.B.S . (Primary Dx) [place], [place] [address] [facility] [address] [place] [phone] Social History Tobacco Use Types Packs/Day Years [...] or relatives? How often do you attend synagogue or rastafarian 1 to 4 times per year 07/06/2019 services? Do you belong to any clubs or organizations Yes 07/06/2019 such as synagogue groups, unions, fraternal or athletic groups, or [...] Sign Reading Time Taken Comments Blood Pressure 126/77 06/29/2018 3:50 PM CDT Pulse 75 06/29/2018 3:50 PM CDT Temperature - - Respiratory Rate - - Oxygen Saturation - - Inhaled Oxygen Concentration - - Weight 82.2 kg (181 lb 3.5 oz) 06/29/2018 3:50 PM CDT Height 175.3 cm (5' 9.02) 06/29/2018 3:50 PM CDT Body Mass Index 26.75 06/29/2018 3:50 PM CDT documented in this encounter Progress Notes Saul Styles M.B.BJuan CarlosS. - 06/29/2018 12:00 AM CDT ASSESSMENT / PLAN #1 Multinodular thyroid gland #2 Hyperthyroidism, resolving We are seeing Mr. Addison again for follow up of the thyroid nodule as well as hyperthyroidism. Hyperthyroidism has resolved, but the patient continues to have a TSH 0.3 and free T4 of 1.2. 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 The largest nodule is 2.9 cm in the right thyroid lobe that we have been watching; the one that hasbeen stable compared to the previous year. We discussed these findings with Mr. Addison now. There is no evidence of hyperthyroidism. The uptake scan is actually normal. If patient develops any symptoms after any imaging study with contrast material, we might want to consider blocking with methimazole 5 days before the contrast material. Othe rwise, as happened before, patient was pretty much asymptomatic. In terms of the thyroid nodule, we discussed 2 approaches here; one is biopsy and the other one, in fact, is surveillance given that it has low-suspicious features on the ultrasound evaluation as well as the fact that it has been stable over the last year and that might be the source of thyroid hormone. We have decided to watch for now and another ultrasound in 6 months. At that time, we will also check thyroid function test. All other questions were answered. Patient was in agreement with this plan. CT CT Job ID: [id number] documented in this encounter Plan of Treatment Upcoming Encounters Date Type Specialty Care Team Description 07/04/2022 Clinical Support Colon and Rectal Surgery Scheduled Referrals Name Type Priority Associated Order Schedule Diagnoses Endocrinology office Outpatient Referral Routine Expected: visit (clinic) 12/27/2018 (Approximate), Expires: 06/29/2021 documented as of this encounter Results US Thyroid (01/07/2019 10:50 [...] Nodule Care Process Model established by the [facility] [place]. [email or web address]-answers/cnt-/sec- 7778 Procedure Note Ezekiel Quispe M.D. - [...] Nodule Care Process Model established by the [facility] [place]. [email or web address]/clinical-answers/cnt-/sec- 7148 IMPRESSION: Low suspicion nodules in bot h thyroid lobes are unchanged since 08/08/2018. Saul Kirkpatrick IMG US PROCEDURES T4 (Thyroxine), Free (01/07/2019 9:44 AM CDT) P athologist Signature T4 1.3 0.9 - 1.7 01/07/2019 [facility] (Thyroxine), ng/dL 11:38 AM CDT LABORATORIES - [facility], S [facility] Specimen Anatomical Collection Method Collection Time Receive d Time (Source) Location / / Volume Laterality Blood (Blood, 01/07/2019 9:44 AM 01/08/20 Venous) CDT 10:04 AM CDT Saul LunsfordB.S. LAB BLOOD ADD-ON Performing Organization Address City/[facility] Phon e Number [facility] LABORATORIES - [address] [place] [phone] 05 [facility] (ABNORMAL) S-TSH (Thyroid-Stimulating Hormone - Sensitive) (01/07/2019 9:44 AM CDT) Patholo gist Method Time Signature TSH, Sensitive 0.1 (L) 0.3 - 4.2 01/07/2019 [facility] mIU/L 11:38 AM CDT [facility] - [facility] Specimen Anatomical Collection Method Collection Time Receive d Time (Source) Location / / Volume Laterality Blood (Blood, 01/07/2019 9:44 AM 01/08/20 Venous) CDT 10:04 AM CDT Saul LunsfordB.S. LAB BLOOD ADD-ON Performing Organization Address City/[facility] Code Phon e Number [facility] LABORATORIES - [address] [place] [phone] [facility] documented in this encounter Visit Diagnoses Diagnosis Nodule Thyroid - Primary Nodule Thyroid documented in this encounter Additional Health Concerns Assessment Noted Time PHQ-9 Depression Total Score: 1 12/14/2017 11:05 AM CS T documented as of this encounter
--- OUTSIDE RECORDS SUMMARY | 2022-07-01 23:35 | XMS_ITS | Encounter Summary ---
:1955 Author Organization [facility] Address [address] [place] [address] Care Team Providers Name Role Phone Unavailable Primary Care Provider Unavailable Encounter Details Date Type Department Care Team Description 07/10/2019 Hospital Encounter Department of Seamus Owens, Nodule Thyroid Laboratory Medicine and Raheem LindseySJuan Carlos Pathology, [address] in [facility] [phone] [place] [address] [place], [place] (Work) [phone] Social History Tobacco Use Types Packs/Day Years [...] or relatives? How often do you attend scientology or jain 1 to 4 times per year 07/06/2019 services? Do you belong to any clubs or organizations Yes 07/06/2019 such as scientology groups, unions, fraternal or athletic groups, or [...] Date/Time Associated Diagnosis Comme nts THYROID-STIMULATING Routine 07/10/2019 8:31 AM Nodule Thyroid Results for this HORMONE-SENSITIVE CDT procedure are in (S-TSH) the results section. T4 (THYROXINE), Routine 07/10/2019 8:31 AM Nodule Thyroid Resu lts for this FREE, S CDT procedure are i n the results section. documented in this encounter Results (ABNORMAL) S-TSH (Thyroid-Stimulating Hormone - Sensitive) (07/10/2019 8:31 AM CDT) athologist Signature TSH, Sensitive 0.1 (L) 0.3 - 4.2 07/10/2019 mIU/L 10:09 AM CDT Specimen Anatomical Collection Method Collection Time Receive d Time (Source) Location / / Volume Laterality Blood (Blood, 07/10/2019 8:31 AM 07/10/20 8:52 Venous) CDT AM CDT Saul LunsfordB.S. LAB BLOOD ADD-ON Performing Organization Address City/[facility] Phon e Number [facility] - [address] T4 (Thyroxine), Free (07/10/2019 8:31 AM CDT) athologist Signature T4 (Thyroxine), 1.2 0.9 - 1.7 07/10/2019 Free, S ng/dL 10:10 AM CDT Specimen Anatomical Collection Method Collection Time Receive d Time (Source) Location / / Volume Laterality Blood (Blood, 07/10/2019 8:31 AM 07/10/20 8:52 Venous) CDT AM CDT Saul LunsfordB.S. LAB BLOOD ADD-ON Performing Organization Address City/[facility] Code Phon e Number [facility] - [address] documented in this encounter Visit Diagnoses Diagnosis Nodule Thyroid documented in this encounter Additional Health Concerns Assessment Noted Time PHQ-9 Depression Total Score: 1 12/14/2017 11:05 AM CS T documented as of this encounter
--- OUTSIDE RECORDS SUMMARY | 2022-07-01 23:35 | XMS_ITS | Encounter Summary ---
:1955 Author Organization [facility] Address [address] [place] [address] Care Team Providers Name Role Phone Unavailable Primary Care Provider Unavailable Reason for Visit Appointment Request (Routine) - Closed Specialty Diagnoses / Procedures Referred By Contact Refer red To Contact Colon and Rectal Surgery Referral ID Status Reason Start Date Expiration Date Visits Requ ested Visits Authorized [id number] Closed 07/13/2021 07/13/2022 1 1 Encounter Details Date Type Department Care Team Description 07/19/2021 Clinical Support Division of Colon Peri Grande Col ostomy Status and Rectal Surgery K, R.N. ([facility]) (Primary Dx) in [place], [address] [place] [address] [place] [address] [place], [place] [phone] (Work) [phone] Social History Tobacco Use Types Packs/Day Years [...] or relatives? How often do you attend taoism or amish 1 to 4 times per year 07/06/2019 services? Do you belong to any clubs or organizations Yes 07/06/2019 such as taoism groups, unions, fraternal or athletic groups, or [...] documented as of this encounter Progress Notes Peri Grande R.N. - 07/19/2021 2:00 PM CDT SUBJECTIVE CHIEF COMPLAINT/REASON FOR VISIT Assessment of peristomal skin and pouching system management for a prescription renewal. HISTORY OF PRESENT ILLNESS Angel Addison is a 65 y.o. male was referred by self for evaluation of pouching system management. Patient states the pouching system is usually changed every 3 days. Denies problems with pouchingsystem leakage or skin irritation. OBJECTIVE Physical Exam Colostomy LLQ (Active) Stoma Assessment Red;Budded rounds to -10/12, but does not stay rounded. -10/16x1-38 Skin Assessment Red; silver nitrate Applied two sticks of Silver Nitrate per Peristomal Skin Protocol [id number]. Patient denies discomfort with application. Patient reports using a straight-edge razor to shave skin. Advised patient to use electric razor to avoid skin irritation. Peristomal Skin Care Water Pouching System (Stomal Appliance) Status Changed Changed by Wound manager health Pouching System Removed [place] [phone], [address], [phone] Undermining at 3 o'clock Pouching System Applied [place] [phone], [address], [phone] Patient declined use of convex ring or cutting system oval. Advised to order precut flat wafer to ensure entire stoma is within hole. ASSESSMENT / PLAN Questions answered. Prescription to be faxed to the [facility] Store once signed. Encouraged to call or return (per Return Appointment Protocol [id number]) for ostomy related questions or concerns. Patient verbalized understanding. documented in this encounter Plan of Treatment [...]
--- OUTSIDE RECORDS SUMMARY | 2022-07-01 23:35 | XMS_ITS | Encounter Summary ---
:1955 Author Organization [facility] Address [address] [place] [id number] Care Team Providers Name Role Phone Unavailable Primary Care Provider Unavailable Reason for Visit Reason Comments Other Endocrinology follow up Outpatient (Routine) - Closed Specialty Diagnoses / Procedures Referred By Contact Refer red To [facility] [address] [place], [place] [phone] Referral ID Status Reason Start Date Expiration Date Visits Requ ested Visits Authorized [id number] Closed 01/08/2019 01/08/2020 1 1 Encounter Details Date Type Department Care Team Description 07/10/2019 Office Visit Division of Kori Stylesi d Endocrinology in [place] Bee, M.B.B.S . (Primary Dx) [place], [place] [address] [facility] [address] [place] [phone] Social History Tobacco Use Types Packs/Day Years [...] or relatives? How often do you attend druze or latter-day 1 to 4 times per year 07/06/2019 services? Do you belong to any clubs or organizations Yes 07/06/2019 such as druze groups, unions, fraternal or athletic groups, or [...] Sign Reading Time Taken Comments Blood Pressure 132/90 07/10/2019 1:10 PM CDT Average Pulse 118 07/10/2019 1:10 PM CDT Temperature - - Respiratory Rate - - Oxygen Saturation - - Inhaled Oxygen Concentration - - Weight 91.7 kg (202 lb 2.6 oz) 07/10/2019 1:10 PM CDT Height 172.3 cm (5' 7.84) 07/10/2019 1:10 PM CDT Body Mass Index 30.89 07/10/2019 1:10 PM CDT documented in this encounter Progress Notes Saul Styles M.B.B.S. - 07/10/2019 1:30 PM CDT SUBJECTIVE CHIEF COMPLAINT/REASON FOR VISIT Followup for thyroid nodule. ASSESSMENT / PLAN #1 Dominant, benign-appearing, right-sided thyroid nodule, benign cytology, July 10, 2019 #2 Subclinical hyperthyroidism, asymptomatic Mr. Addison comes here after having the biopsy of the right thyroid nodule. The biopsy went without any complications. The patient is doing well. The results of the biopsy of the right-sided thyroid nodule is benign. I communicated this to the patient. Given that this nodule has been stable for a while, I think, for now, it is okay to watch, and in 3 years have another ultrasound of the neck, or sooner if the patient develops any compression symptoms. In regard to his subclinical hyperthyroidism, the patient continues to be asymptomatic. Today he is a little bit tachycardic, but he is quite anxious about the results of the news. Previously, he has been in normal heart rate. He denies any palpitations, tremors, or weight loss. So, for the subclinical hyperthyroidism, for now we are going to monitor with a TSH and free-T4 in 6 months from now, or sooner if the patient develops any symptoms of hyperthyroidism. All of the questions were answered, andthe patient agreed with this plan. CT CT Job ID: [id number] documented in this encounter Plan of Treatment Upcoming Encounters Date Type Specialty Care Team Description 07/04/2022 Clinical Support Colon and Rectal Surgery documented as of this encounter Visit Diagnoses Diagnosis Nodule Thyroid - Primary documented in this encounter Additional Health Concerns Assessment Noted Time PHQ-9 Depression Total Score: 1 12/14/2017 11:05 AM CS T documented as of this encounter
--- OUTSIDE RECORDS SUMMARY | 2022-07-01 23:35 | XMS_ITS | Encounter Summary ---
:1955 Author Organization [facility] Address [address] [place] [address] Care Team Providers Name Role Phone Unavailable Primary Care Provider Unavailable Encounter Details Date Type Department Care Team Description 01/08/2020 Orders Only Department of Randy Garg Malignant Neoplasm Of Radiation Oncology in L Rectum (HCC) (Primary [place], [place] [address] [facility] Dx) [address] [place] [phone] Social History Tobacco Use Types Packs/Day Years [...] or relatives? How often do you attend amish or baptism 1 to 4 times per year 07/06/2019 services? Do you belong to any clubs or organizations Yes 07/06/2019 such as amish groups, unions, fraternal or athletic groups, or [...] as of this encounter Visit Diagnoses Diagnosis Malignant Neoplasm Of Rectum (HCC) - Reny yo documented in this encounter Additional Health Concerns Assessment Noted Time PHQ-9 Depression Total Score: 1 12/14/2017 11:05 AM CS T documented as of this encounter
--- OUTSIDE RECORDS SUMMARY | 2022-07-01 23:35 | XMS_ITS | Encounter Summary ---
:1955 Author Organization [facility] Address [address] [place] [address] Care Team Providers Name Role Phone Unavailable [...] or relatives? How often do you attend protestant or anglican 1 to 4 times per year 07/06/2019 services? Do you belong to any clubs or organizations Yes 07/06/2019 such as protestant groups, unions, fraternal or athletic groups, or [...] Associated Comments Diagnosis ENDOCRINOLOGY IMAGE Routine 07/10/2019 12:05 Resu lts for this EXAM PM CDT procedure are i n the results section. documented in this encounter Results [id number]-[id number] Image Exam (07/10/2019 12:05 PM CDT) Specimen (Source) Anatomical Location Collection Method / Collectio n Time Received Time / Laterality Volume Narrative IIMS - 08/15/2019 9:46 AM SOLDER DEPOSIT OPERATOR This order has been created and auto-finalized to support the import of images acquired without order. The clini melany documentation to support these images can be found on the encounter lynnette t produced images. Provider Not In System IMG NON RAD IMAGING PROCEDUR ES Performing Organization Address City/State/ZIP Code Phon e Number IIMS IIMS NA documented in this encounter Visit Diagnoses Not on filedocumented in this encounter Additional Health Concerns Assessment Noted Time PHQ-9 Depression Total Score: 1 12/14/2017 11:05 AM RAMSEY Awan documented as of this encounter
--- OUTSIDE RECORDS SUMMARY | 2022-07-01 23:36 | XMS_ITS | Encounter Summary ---
:[address] [facility] Address [address] [place] [address] Care Team Providers Name Role Phone Unavailable Primary Care Provider Unavailable Reason for Visit Auth/Cert Specialty Diagnoses / Procedures Referred By Contact Refer red To Contact Diagnoses Malignant neoplasm of rectum (HCC) Rectal cancer with prostate invasion Procedures HI PELV EXENTERATION COLORECT MLG Exenteration Pelvic Other-to be determined Referral ID Status Reason Start Date Expiration Date Visits Requ ested Visits Authorized [id number] 1 1 Encounter Details Date Type Department Care Team Description 03/26/2018 Surgery RST [facility] OR Abisai Romano Exenteration Pelvic vs [address] [place] [phone] [facility] resection, colostomy vs [phone] [place], [place] low anterior r esection, [phone] diverting loop ileostomy. Social History Tobacco Use Types Packs/Day Years Used Date Smoking Tobacco: Former Smokeless Tobacco: Never Alcohol Use Standard Drinks/Week Comments No 0 (1 standard drink = 0.6 oz pure alcoho l) Alcohol Habits Answer Date Recorded How often do you have a drink containing alcohol? Monthly or less 07/06/2019 How many drinks containing alcohol do you have on a 1 or 2 07/06/2019 typical day when you are drinking? How often do you have six or more drinks on one Never 07/06/2019 occasion? Comment: Not asked Social Isolation Answer Date Recorded In a typical week, how many times do you Once a week 07/06/2019 talk on the phone with family, friends, or neighbors? How often do you get together with friends Twice a week 07/06/2019 or relatives? How often do you attend islam or orthodoxy 1 to 4 times per year 07/06/2019 [...] Sign Reading Time Taken Comments Blood Pressure 121/67 03/26/2018 4:10 PM CDT Pulse 68 03/26/2018 4:10 PM CDT Temperature 36.3 ??C (97.34 ??F) 03/26/2018 4:15 PM CDT Respiratory Rate 15 03/26/2018 4:10 PM CDT Oxygen Saturation 99% 03/26/2018 4:10 PM CDT Inhaled Oxygen Concentration - - Weight 77.9 kg (171 lb 11.8 oz) 03/26/2018 6:49 AM CDT Height 170 cm (5' 6.93) 03/26/2018 6:42 AM CDT Body Mass Index 26.96 03/28/2018 1:19 PM CDT documented in this encounter Discharge Summaries Coni Reyes, SHRUTI, C.N.P., M.S.N. - 03/30/2018 9:17 AM CDT DISCHARGE SUMMARY BRIEF OVERVIEW Discharge Provider: Abisai Romano M.D. No primary care provider on file. Primary Care Provider Phone Number: None Primary Care Provider Fax Number: None Other Providers: None Admission Date: 03/26/2018 Discharge Date: 03/30/2018 PRINCIPAL DIAGNOSIS Malignant Neoplasm Of Rectum (HCC) SECONDARY DIAGNOSES Principal Problem: Malignant Neoplasm Of Rectum (HCC) Active Problems: Smoking Tobacco Use Personal History Resection Abdominal Perineal Status Post Retention Urinary Resolved Problems: * No resolved hospital problems. * Operative Procedures: Scheduled (Yajaira), Completed (Comp) or Canceled (Can) Case IDs Date Procedure Surgeon Location Status [id number] 03/26/18 Exenteration Pelvic vs abdominal perineal resection, colostomy vs low anterior resection, diverting loop ileostomy. Abisai Romano M.D. RST [facility] OR Comp DISCHARGE DISPOSITION Home or Self Care [1] ACTIVE ISSUES REQUIRING FOLLOW UP Issue: Drain removal What is Needed: Drain removal when output is less than 100cc in a 24 hour period. Follow-up Appointments Arranged: No - patient will arrange with PCP OUTPATIENT FOLLOW UP Future Appointments Date Time Provider Department Center 05/08/2018 10:20 AM LAB LINE DRAWS [facility] LO LAB [facility] LO RST Spec 05/08/2018 11:15 AM US [facility] 03 RM 09 RAD US [facility]3 RST Spec 05/08/2018 3:30 PM Saul Styles M.B.B.S. END DAVID RST Spec TEST RESULTS PENDING AT DISCHARGE DISCHARGE MEDICATIONS Discharge Medications TAKE these medications acetaminophen 500 mg tablet Commonly known as: TYLENOL Take 2 tablets (1,000 mg total) by mouth every 6 (six) hours as needed (1st line pain. Do not exceed4,000mg in a 24 hour period.). ALEVE 220 mg tablet Take 1 tablet by mouth 2 (two) times a day as needed. Generic drug: naproxen sodium tamsulosin 0.4 mg 24 hr capsule Commonly known as: FLOMAX Start taking on: 03/31/2018 Take 1 capsule (0.4 mg total) by mouth daily. For urinary retention. If urinary retention persists follow up with your primary care provider. DETAILS OF HOSPITAL STAY REASON FOR ADMISSION Malignant Neoplasm Of Rectum (HCC) HOSPITAL COURSE PRIMARY DIAGNOSIS: Malignant neoplasm of rectum, Stage II (T3 N0 M0) PROCEDURE: Abdominoperineal resection, hand assisted, with enlarged incision. Preoperative bilateralureteral stent placement PATHOLOGY: FINAL DIAGNOSIS A. ??Colon, sigmoid, rectum and anus, abdominal perineal resection: ??Rare microscopic foci of residual adenocarcinoma within an area of dense fibrosis ??(2.1 x 1.8 x 1.0 cm) in the rectum. ?? The surgical resection margins are negative for tumor. ??Multiple (18) lymph nodes are negative for tumor. ??See synoptic report. B. ??Prostate, right periprostatic margin, excision: Negative for tumor. COMMENT The microscopic foci of residual adenocarcinoma were only appreciated on permanent section slides. SYNOPTIC REPORT Procedure: Abdominal perineal resection Tumor Site: Rectum Tumor Location: Above the anterior peritoneal reflection Tumor Size: Several microscopic foci of tumor within a tumor bed measuring 2.1 cm. Macroscopic Tumor Perforation: Not identified Macroscopic Intactness of Mesorectum: Complete Histologic Type: Adenocarcinoma Histologic Grade: Moderately differentiated Tumor Extension: Tumor invades through the muscularis propria into pericolorectal??tissue Margins: All margins are uninvolved by invasive carcinoma, high-grade dysplasia, intramucosal adenocarcinoma, and adenoma ?Proximal margin: ??Uninvolved by invasive carcinoma ?Distal margin: ??Uninvolved by invasive carcinoma ?Radial or mesenteric margin: ??Uninvolved by invasive carcinoma ?Other margins: ??Not applicable ?Mucosal margin: ??Uninvolved by invasive carcinoma, intramucosal adenocarcinoma, high-grade dysplasia, and adenoma Treatment Effect: Present. ??Single cells and rare small groups of cancer cells (near complete response, score 1) Lymphovascular Invasion: Not identified Perineural Invasion: Not identified Tumor Budding: Cannot be assessed Tumor Deposits: Not identified Regional Lymph Nodes: ? Number of Lymph Nodes Involved: 0 ? Number of Lymph Nodes Examined: 18 Pathologic Staging (AJCC, 8th edition): ?TNM Descriptors: y ?Primary tumor: pT3 ?Regional lymph nodes: pN0 ?Distant Metastasis: Not applicable Additional Pathologic Findings: None identified The synoptic report incorporates information from all relevant surgical material and includes all required data elements of the current CAP Cancer Protocol INCISION ASSESSMENT: Clean, dry, and intact without signs of erythema or drainage at the time of discharge. DRAINS: Surgical drain remained in upon discharge. Patient was instructed on drain cares. ADDITIONAL DIAGNOSES/COMPLICATIONS/CHRONIC CONDITIONS ADDRESSED DURING HOSPITALIZATION: #1 Nausea and vomiting Antiemetics were titrated to effect. NG tube was continued until the next morning. #2 Urinary retention Urinary retention Required in and out catheterization during hospitalization. The patient was urinating small amounts at the time of dismissal and was taught in and out catheterization. If urinary retention persists after 4 weeks, you will need to make an appointment with your primary care provider/urologist. CONSULTS ORDERED DURING THIS ADMISSION IP CONSULT TO DIETITIAN Procedures Performed: Abdominal perineal resection. Colostomy Pertinent Diagnostic Results: Pathology: See above. CONDITION AT DISCHARGE stable Discharge instructions were provided to the patient and caregiver(s). documented in this encounter Medications at Time of Discharge Medication Sig Dispensed Refills Start Date End Date acetaminophen (TYLENOL) Take 2 tablets 0 03/30/20 18 05/08/2018 500 mg tablet (1,000 mg total) by mouth every 6 (six) hours as needed (1st line pain. Do not exceed 4,000mg in a 24 hour period.). naproxen sodium (ALEVE) Take 1 tablet by 0 201605/08/2018 220 mg tablet mouth 2 (two) times a day as needed. tamsulosin (FLOMAX) 0.4 Take 1 capsule (0.4 30 capsule 0 05/08/2018 mg 24 hr capsule mg total) by mouth daily. For urinary retention. If urinary retention persists follow up with your primary care provider. documented as of this encounter Progress Notes Coni Reyes APRN, C.N.P., M.S.N. - 03/30/2018 6:20 AM CDT SUBJECTIVE Patient is 4 Days Post-Op. Clinically stable with no acute events overnight. Reports no nausea and no vomiting. Patient is tolerating a general diet. Urine output is adequate; still having urinary retention. Patient has been educated on self intermittent catheterization. Patient has passed flatus and passed stool . Pain is controlled on oral medictions. Ambulating frequently. OBJECTIVE Vitals: Temperature: [36.5 ??C-36.8 ??C] 36.8 ??C Resp Rate: [17-18] 17 Blood Pressure: (131-134)/(66-74) 134/66 SpO2: [96 %-97 %] 96 % Pulse Rate: [79] 79 Vitals signs reviewed. Stable and afebrile. Physical Exam: ?? General Appearance: Alert and orientated ?? Abdomen: soft, non-tender, non-distended and Stoma pink/edematous; stool and gas in appliance. ?? Wound Location - abdomen and perineum ?? Wound Assessment - clean, dry, intact and no surrounding erythema or drainage ?? Drain: serosanguineous Labs No results found for this or any previous visit (from the past 24 hour(s)). Labs reviewed. No labs in the last 24 hours. Microbiology: No results found for this visit on 03/26/18 (from the past 72 hour(s)). ASSESSMENT / PLAN Hospital Problems as of 03/30/2018 1. * (Principal)Malignant Neoplasm Of Rectum (HCC) 2. Smoking Tobacco Use Personal History 3. Resection Abdominal Perineal Status Post 4. Retention Urinary Pathology: Recent Results (from the past 168 hour(s)) Surgical Pathology, Frozen Lab Status: None Result Value Gross Description A. Received fresh labeled portion sigmoid, rectum, and anus is a abdominal perineal resection specimen consisting of 27.5 cm in length portion of rectosigmoid colon with a 4.9 x 2.5 cm portion of anus. The mesorectum is near complete. The radial margin is inked. A 2.1 x 1.8 x 1.0 cm ulcerative mass is present within the rectum above the anterior peritoneal reflection, 2.3 cm from the dentate line, 23.5 cm from the proximal mucosal margin, and 1.0 cm from the radial margin, perpendicularly. Grossly, the mass is surrounded by fibrosis that extends to the pericolonic fat. Multiple lymph nodes are identified within the perirectal fat. [employer] tissue submitted for frozen and permanent sections. Grossed by LAB. B. Received fresh labeled right periprostatic margin is a 1.5 x 1 x 0.4 cm fragment of pink-salinas fibrous tissue with orientation. The margin is inked and taken perpendicularly. All submitted for frozen and permanent sections. Grossed by [facility]. Participated in the Interpretation Elijah Agee D.O.-Pathology Fellow Isatu ArangoB.S.-Pathology Resident Report electronically signed by Emily Adhikari M.D. [id number] I verify that I have examined all relevant slides/materials for the specimen(s) and rendered or confirmed the diagnosis. Frozen Intraoperative Report A. Colon, sigmoid, rectum and anus, abdominal perineal resection: Fibrous tissue and inflammation forming a 2.1 x 1.8 x 1.0 cm mass in the rectum. Negative for tumor. The surgical resection margins are negative for tumor. Multiple (18) lymph nodes are negative for tumor. B. Prostate, right periprostatic margin, excision: Negative for tumor. HOLD OVER for further evaluation on permanent sections. Frozen section histologic interpretation performed by: Emily Adhikari M.D. [id number] Block Summary A Portion sigmoid, rectum, and anus A1 Adjacent to new margin A2 Mid-posterior A3 Mid-posterior A4 Adjacent to new margin-2 A5 Adjacent to new margin-2 A6 Irz-zyyqqaftw-1 A7 Oxb-iaebllmpe-0 A8 Possible pericolonic lymph node 5(A1) A9 Possible pericolonic lymph node 5(A2) A10 Possible pericolonic lymph node 5(A3) A11 Possible pericolonic lymph node 5(A4) A12 Possible pericolonic lymph node 5(A5) A13 Possible pericolonic lymph node 1(A6) A14 Possible pericolonic lymph node 1(A7) A15 Possible pericolonic lymph node 1(A8) A16 Possible pericolonic lymph node 4(A9) A17 Possible pericolonic lymph node 1(A10) A18 Possible pericolonic lymph node 3(A11) B Right periprostatic margin B1 Right periprostatic margin Interpretation FINAL DIAGNOSIS A. Colon, sigmoid, rectum and anus, abdominal perineal resection: Rare microscopic foci of residual adenocarcinoma within an area of dense fibrosis (2.1 x 1.8 x 1.0 cm) in the rectum. The surgical resection margins are negative for tumor. Multiple (18) lymph nodes are negative for tumor. See synoptic report. B. Prostate, right periprostatic margin, excision: Negative for tumor. COMMENT The microscopic foci of residual adenocarcinoma were only appreciated on permanent section slides. SYNOPTIC REPORT Procedure: Abdominal perineal resection Tumor Site: Rectum Tumor Location: Above the anterior peritoneal reflection Tumor Size: Several microscopic foci of tumor within a tumor bed measuring 2.1 cm. Macroscopic Tumor Perforation: Not identified Macroscopic Intactness of Mesorectum: Complete Histologic Type: Adenocarcinoma Histologic Grade: Moderately differentiated Tumor Extension: Tumor invades through the muscularis propria into pericolorectal tissue Margins: All margins are uninvolved by invasive carcinoma, high-grade dysplasia, intramucosal adenocarcinoma, and adenoma Proximal margin: Uninvolved by invasive carcinoma Distal margin: Uninvolved by invasive carcinoma Radial or mesenteric margin: Uninvolved by invasive carcinoma Other margins: Not applicable Mucosal margin: Uninvolved by invasive carcinoma, intramucosal adenocarcinoma, high-grade dysplasia, and adenoma Treatment Effect: Present. Single cells and rare small groups of cancer cells (near complete response, score 1) Lymphovascular Invasion: Not identified Perineural Invasion: Not identified Tumor Budding: Cannot be assessed Tumor Deposits: Not identified Regional Lymph Nodes: Number of Lymph Nodes Involved: 0 Number of Lymph Nodes Examined: 18 Pathologic Staging (AJCC, 8th edition): TNM Descriptors: y Primary tumor: pT3 Regional lymph nodes: pN0 Distant Metastasis: Not applica ble Additional Pathologic Findings: None identified The synoptic report incorporates information from all relevant surgical material and includes all required data elements of the current CAP Cancer Protocol. . *Note: Due to a large number of results and/or encounters for the requested time period, some results have not been displayed. A complete set of results can be found in Results Review. Plan-4 Days Post-Op from [facility], Enhanced Recovery Protocol -Encourage ambulation and deep breathing exercises -Adult Diet Regular, no raw fruits or vegetables -Hibiclens shower -Pain control with scheduled tylenol, Ibuprofen , and PRN oral oxycodone -DVT prophylaxis: SQ heparin -Monitor bowel function -Stoma RN for education -Continue Flomax and self I&O cathing. -Please provide drain education; will DC with drain. Disposition: Home Anticipated discharge date: 03/30 Barrier to discharge: None Emili Farrell M.S.N., R.N. - 03/29/2018 4:38 PM CDT SUBJECTIVE REASON FOR VISIT Postoperative visit Patient Coping: Appropriate OBJECTIVE Physical Exam Colostomy LLQ (Active) Stoma Assessment Red;Budded Skin Assessment Intact Peristomal Skin Care Water Pouching System (Stomal Appliance) Status Changed Changed by Patient completed Pouching System Removed [id number], [id number], 08486 Pouching System Applied [id number] Ongoing management Nursing Output Description Brown;Liquid Output (mL) 100 mL ASSESSMENT / PLAN Consult complete, [facility] nurse signing off Page [facility] [phone] M-F 6:00AM-2:30PM with questions or leakage issues. Monday pager [phone] 8:00AM-2:30PM. Coni Reyes APRN C.N.P., M.S.N. - 03/29/2018 9:31 AM CDT SUBJECTIVE Patient is 3 Days Post-Op. Clinically stable with no acute events overnight. Reports no nausea and no vomiting. Patient is tolerating a general diet. Urine output is adequate; still having urinary retention. Patient has passed flatus and passed stool . Pain is controlled on oral medictions. Ambulatingfrequently. OBJECTIVE Vitals: Temperature: [36.3 ??C-36.8 ??C] 36.8 ??C Resp Rate: [18-20] 20 Blood Pressure: (124-136)/(70-78) 136/70 SpO2: [98 %-99 %] 98 % Pulse Rate: [70-91] 91 Vitals signs reviewed. Stable and afebrile. Physical Exam: ?? General Appearance: Alert and orientated ?? Abdomen: soft, non-tender, non-distended and Stoma pink/edematous; stool and gas in appliance. ?? Wound Location - abdomen and perineum ?? Wound Assessment - clean, dry, intact and no surrounding erythema or drainage ?? Drain: serosanguineous Labs No results found for this or any previous visit (from the past 24 hour(s)). Labs reviewed. No labs in the last 24 hours. Microbiology: No results found for this visit on 03/26/18 (from the past 72 hour(s)). ASSESSMENT / PLAN Hospital Problems as of 03/29/2018 1. * (Principal)Malignant Neoplasm Of Rectum (HCC) 2. Smoking Tobacco Use Personal History 3. Resection Abdominal Perineal Status Post 4. Retention Urinary Pathology: Recent Results (from the past 168 hour(s)) Surgical Pathology, Frozen Lab Status: None Result Value Gross Description A. Received fresh labeled portion sigmoid, rectum, and anus is a abdominal perineal resection specimen consisting of 27.5 cm in length portion of rectosigmoid colon with a 4.9 x 2.5 cm portion of anus. The mesorectum is near complete. The radial margin is inked. A 2.1 x 1.8 x 1.0 cm ulcerative mass is present within the rectum above the anterior peritoneal reflection, 2.3 cm from the dentate line, 23.5 cm from the proximal mucosal margin, and 1.0 cm from the radial margin, perpendicularly. Grossly, the mass is surrounded by fibrosis that extends to the pericolonic fat. Multiple lymph nodes are identified within the perirectal fat. [employer] tissue submitted for frozen and permanent sections. Grossed by LAB. B. Received fresh labeled right periprostatic margin is a 1.5 x 1 x 0.4 cm fragment of pink-salinas fibrous tissue with orientation. The margin is inked and taken perpendicularly. All submitted for frozen and permanent sections. Grossed by [facility]. Participated in the Interpretation Elijah Agee D.O.-Pathology Fellow Isatu ArangoB.S.-Pathology Resident Report electronically signed by Emily Adhikari M.D. [id number] I verify that I have examined all relevant slides/materials for the specimen(s) and rendered or confirmed the diagnosis. Frozen Intraoperative Report A. Colon, sigmoid, rectum and anus, abdominal perineal resection: Fibrous tissue and inflammation forming a 2.1 x 1.8 x 1.0 cm mass in the rectum. Negative for tumor. The surgical resection margins are negative for tumor. Multiple (18) lymph nodes are negative for tumor. B. Prostate, right periprostatic margin, excision: Negative for tumor. HOLD OVER for further evaluation on permanent sections. Frozen section histologic interpretation performed by: Emily Adhikari M.D. [id number] Block Summary A Portion sigmoid, rectum, and anus A1 Adjacent to new margin A2 Mid-posterior A3 Mid-posterior A4 Adjacent to new margin-2 A5 Adjacent to new margin-2 A6 Fva-ixqxrqmvf-8 A7 Rmq-xjtoewqzs-9 A8 Possible pericolonic lymph node 5(A1) A9 Possible pericolonic lymph node 5(A2) A10 Possible pericolonic lymph node 5(A3) A11 Possible pericolonic lymph node 5(A4) A12 Possible pericolonic lymph node 5(A5) A13 Possible pericolonic lymph node 1(A6) A14 Possible pericolonic lymph node 1(A7) A15 Possible pericolonic lymph node 1(A8) A16 Possible pericolonic lymph node 4(A9) A17 Possible pericolonic lymph node 1(A10) A18 Possible pericolonic lymph node 3(A11) B Right periprostatic margin B1 Right periprostatic margin Interpretation FINAL DIAGNOSIS A. Colon, sigmoid, rectum and anus, abdominal perineal resection: Rare microscopic foci of residual adenocarcinoma within an area of dense fibrosis (2.1 x 1.8 x 1.0 cm) in the rectum. The surgical resection margins are negative for tumor. Multiple (18) lymph nodes are negative for tumor. See synoptic report. B. Prostate, right periprostatic margin, excision: Negative for tumor. COMMENT The microscopic foci of residual adenocarcinoma were only appreciated on permanent section slides. SYNOPTIC REPORT Procedure: Abdominal perineal resection Tumor Site: Rectum Tumor Location: Above the anterior peritoneal reflection Tumor Size: Several microscopic foci of tumor within a tumor bed measuring 2.1 cm. Macroscopic Tumor Perforation: Not identified Macroscopic Intactness of Mesorectum: Complete Histologic Type: Adenocarcinoma Histologic Grade: Moderately differentiated Tumor Extension: Tumor invades through the muscularis propria into pericolorectal tissue Margins: All margins are uninvolved by invasive carcinoma, high-grade dysplasia, intramucosal adenocarcinoma, and adenoma Proximal margin: Uninvolved by invasive carcinoma Distal margin: Uninvolved by invasive carcinoma Radial or mesenteric margin: Uninvolved by invasive carcinoma Other margins: Not applicable Mucosal margin: Uninvolved by invasive carcinoma, intramucosal adenocarcinoma, high-grade dysplasia, and adenoma Treatment Effect: Present. Single cells and rare small groups of cancer cells (near complete response, score 1) Lymphovascular Invasion: Not identified Perineural Invasion: Not identified Tumor Budding: Cannot be assessed Tumor Deposits: Not identified Regional Lymph Nodes: Number of Lymph Nodes Involved: 0 Number of Lymph Nodes Examined: 18 Pathologic Staging (AJCC, 8th edition): TNM Descriptors: y Primary tumor: pT3 Regional lymph nodes: pN0 Distant Metastasis: Not applica ble Additional Pathologic Findings: None identified The synoptic report incorporates information from all relevant surgical material and includes all required data elements of the current [facility] Cancer Protocol. . *Note: Due to a large number of results and/or encounters for the requested time period, some results have not been displayed. A complete set of results can be found in Results Review. Plan-3 Days Post-Op from [facility], Enhanced Recovery Protocol -Encourage ambulation and deep breathing exercises -Adult Diet Regular, no raw fruits or vegetables -Hibiclens shower -Pain control with scheduled tylenol, Ibuprofen , and PRN oral oxycodone -DVT prophylaxis: SQ heparin -Monitor bowel function -Stoma RN for education -Flomax started yesterday; start self I&O cath today Disposition: Home Anticipated discharge date: Pending Barrier to discharge is Return of bowel function and Toleration of an oral diet Maida Grier D.T.R. - 03/28/2018 1:23 PM CDT Clinical Nutrition: Initial Assessment RECOMMENDATIONS REQUIRING MD/PROVIDER ORDER No changes at this time; continue current nutrition orders For questions about patient's nutritional care please contact pager [phone] on weekdays or on weekends/holidays. NUTRITION ASSESSMENT: Mr. Addison is a 62 y.o. male with history of rectal carcinoma, post chemotherapy, now admitted for colostomy Requested to see patient for evaluation of: nutrition education. Current nutrition (since admission): Patient had NG removed yesterday- He is currently tolerating soft solids. Current nutrition orders: General no Raw Fruits or Vegetables- Bananas OK Nutrition history: Patient reported that he had decreased appetite related to chemotherapy that resulted with weight loss- he has recently been eating well and regaining some weight. ANTHROPOMETRICS: Height: 170 cm Admission Weight: 77.9 kg BMI (Calculated): 27 kg/m?? NUTRITION DIAGNOSIS: Food- and nutrition-related knowledge deficit related to no prior exposure to post surgicald iet guidelines for colostomy as evidenced by new colostomy NUTRITION PLAN/MONITORING/EVALUATION: Interventions: Education, Continued Inpatient Monitoring. Monitoring: Meals/Supplement Intake, Weight Status . Blanca Palacios R.N., DARA - 03/28/2018 1:13 PM CDT SUBJECTIVE REASON FOR VISIT Postoperative visit Patient Coping: Appropriate. present and supportive. OBJECTIVE Physical Exam Patient completed pouching system change with written instruction guide today and did very well. observed, as she completed a change with [facility] nurse yesterday. Colostomy LLQ (Active) Stoma Assessment Edema;Red Skin Assessment Sutures intact Peristomal Skin Care Water Pouching System (Stomal Appliance) Status Changed;Intact Changed by Wound regulatory agency director Pouching System Removed [id number] [phone] [id number] Intact seal after 1 day. 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 Monday pager [phone] 8:00AM-2:30PM. Coni Reyes, SHRUTI, C.N.P., M.S.N. - 03/28/2018 6:30 AM CDT SUBJECTIVE Patient is 2 Days Post-Op. Clinically stable with no acute events overnight. Reports no nausea and no vomiting. Patient is tolerating a general diet. Urine output is adequate; having urinary retention though did void small amount on his own this morning. Patient has passed flatus and passed stool . Pain is controlled on oral medictions. Ambulating frequently. OBJECTIVE Vitals: Temperature: [36.4 ??C-36.8 ??C] 36.7 ??C Resp Rate: [12-20] 17 Blood Pressure: (117-128)/(61-78) 128/78 SpO2: [98 %-100 %] 100 % Pulse Rate: [62-82] 82 Vitals signs reviewed. Stable and afebrile. Physical Exam: ?? General Appearance: Alert and orientated ?? Abdomen: soft, non-tender, non-distended and Stoma pink/edematous; stool and gas in appliance. ?? Wound Location - abdomen and perineum ?? Wound Assessment - clean, dry, intact and no surrounding erythema or drainage ?? Drain: serosanguineous Labs No results found for this or any previous visit (from the past 24 hour(s)). Labs reviewed. No labs in the last 24 hours. Microbiology: No results found for this visit on 03/26/18 (from the past 72 hour(s)). ASSESSMENT / PLAN Hospital Problems as of 03/28/2018 1. * (Principal)Malignant Neoplasm Of Rectum (HCC) 2. Smoking Tobacco Use Personal History 3. Resection Abdominal Perineal Status Post 4. Retention Urinary Pathology:No results found for this or any previous visit (from the past 168 hour(s)). Plan-2 Days Post-Op from APR, Enhanced Recovery Protocol -Encourage ambulation and deep breathing exercises -Adult Diet Regular, no raw fruits or vegetables -Hibiclens shower -Pain control with scheduled tylenol, Ibuprofen , and PRN oral oxycodone -DVT prophylaxis: SQ heparin -Monitor bowel function -Stoma RN for education Disposition: Home Anticipated discharge date: Pending Barrier to discharge is Return of bowel function and Toleration of an oral diet Cecilia Golden R.N. - 03/27/2018 1:22 PM CDT SUBJECTIVE REASON FOR VISIT Postoperative visit Patient Coping: Interested in learning ostomy cares, but unable to look at stoma today. assisted with pouching system change. 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 Monday pager [phone] 8:00AM-2:30PM. Chelita Vargas APRN, C.N.Kasey, M.S.N. - 03/27/2018 7:55 AM CDT SUBJECTIVE Patient is 1 Day Post-Op. Has a NG tube in place from surgery. The patient vomited around the tube afew times last evening and then the tube was advanced farther. No nausea since. Stoma is swollen andnot functioning yet. His urine output is keane red in color, had external stents present during theOR. His output has been lower but his creatinine is better than it was on admission. Has two drains in present that is serosanguineous. His hemoglobin is stable. He has been out of bed once and tolerated this fine. He has not had any oral intake yet due to the NG tube. He has had minimal pain. Perineal incision is clean, dry, and intact. No acute events overnight, stable condition. OBJECTIVE Vitals: Temperature: [36.2 ??C-36.8 ??C] 36.8 ??C Heart Rate: [67-85] 70 Resp Rate: [8-19] 17 Blood Pressure: (103-121)/(57-73) 109/66 Arterial Line BP: (109-120)/(59-90) 120/90 SpO2: [93 %-100 %] 98 % Flow Rate (L/min): [2 L/min] 2 L/min Pulse Rate: [49-129] 66 Vitals signs reviewed. Stable and afebrile. Physical Exam: ?? General Appearance: Alert and orientated ?? Abdomen: soft, non-tender, non-distended and stoma pink and viable, budded, normal ?? Wound Location - abdomen ?? Wound Assessment - clean, dry and intact ?? Drain: serosanguineous x2 Labs Recent Results (from the past 24 hour(s)) Creatinine with Estimated GFR (MDRD) Collection Time: 03/27/18 12:21 AM Result Value Creatinine, S 1.09 eGFR-Non Black 72 eGFR-Black 83 Potassium Collection Time: 03/27/18 12:21 AM Result Value Potassium, S 4.1 CBC without Differential Collection Time: 03/27/18 12:21 AM Result Value Hemoglobin 12.3 (L) Hematocrit 37.4 (L) Erythrocytes 4.12 (L) MCV 90.8 RBC Distrib Width 14.1 Platelet Count 185 Leukocytes 15.3 (H) Labs reviewed. No clinically signifcant lab results. ASSESSMENT / PLAN #1 Malignant Neoplasm Of Rectum (HCC) #2 Smoking Tobacco Use Personal History #3 Dysuria Plan-1 Day Post-Op from APR, Enhanced Recovery Protocol -Clamp NG tube for 4 hours. Will remove if residual is low -IV lock -D/c goldsmith catheter -Drains to bulb suction -Strict ins and outs -Encourage ambulation and deep breathing exercises DVT prophylaxis: prophalactic heparin Anticipated discharge date: Pending. Barrier to discharge is Return of bowel function, Toleration of an oral diet and Pain controlled on oral medications. Jaciel Burgess - 03/26/2018 7:35 AM CDT Encounter: Initial contact on Station 2-4. Clementina Tradition: Mr. Addison is affiliated with the [employer]. He requested prayer before today's surgery. Shared prayer. Plan: No plan to follow up at this time. A rail signal mechanic can be contacted by paging [phone]. documented in this encounter H&P Notes Idris Dillon M.D. - 03/26/2018 5:19 AM CDT SUBJECTIVE Chief Complaint Locally advanced distal rectal cancer History of Present Illness 62-year-old man who was having bright red blood per rectum for several years and was found to have alocally advanced rectal cancer with question of involvement of the prostate. He underwent chemo and radiation with a good response. The the mass is palpable in circumferential also was discussed the patient will likely need an APR. If the mass is not able to be from the prostate he may need this resected along with a reconstruction by the Urology team was also available if needed today. Thepatient is here for a likely abdominal perineal resection. Past Medical History: Diagnosis Date ??? Infection Urinary Tract ??? Primary Osteoarthritis Knee Bilateral Past Surgical History: Procedure Laterality Date ??? ARTHROSCOPY KNEE Bilateral No current facility-administered medications on file prior to encounter. No current outpatient prescriptions on file prior to encounter. Social History Social History ??? Marital status: Spouse name: N/A ??? Number of children: N/A ??? Years of education: N/A Occupational History ??? Not on file. Social History Main Topics ??? Smoking status: Former Smoker ??? Smokeless tobacco: Not on file ??? Alcohol use Not on file ??? Drug use: Unknown ??? Sexual activity: Not on file Other Topics Concern ??? Not on file Social History Narrative ??? No narrative on file No family history on file. The following portions of the patient's history were reviewed and updated as appropriate: allergies,current medications, family history, medical history, social history, surgical history and problem list. Review of Systems Pertinent items are noted in HPI; all other review of systems was negative. OBJECTIVE Physical Exam See previous documentation for full physical exam. Diagnostics Reviewed Assessment/Plan The patient's current conditions treated, managed, or evaluated during the inpatient stay include: Active Problems: * No active hospital problems. * #1 Malignant Neoplasm Of Rectum (HCC) 62-year-old male locally advanced rectal cancer status post chemo and radiation planning to undergo an APR today. If we are unable to separate the mass from the prostate then we will need to get Urology involved for a likely reconstruction. documented in this encounter Nursing Notes Jessi Vargas R.N. - 03/30/2018 2:53 PM CDT Patient DC'd home self care. Patient sent with ostomy and urology scripts. Jessi Vargas R.N. - 03/30/2018 2:49 PM CDT Goals: DISCHARGE PLANNING ??? Patient discharge needs identified Adequate for Discharge INFECTION - ADULT ??? Absence of infection during hospitalization Adequate for Discharge KNOWLEDGE DEFICIT ??? Patient/family/caregiver demonstrates understanding of disease process, treatment plan, medications, and discharge instructions Adequate for Discharge PAIN - ADULT ??? PT VERBALIZES/DEMONSTRATES ADEQUATE COMFORT LEVEL OR BASELINE Adequate for Discharge SAFETY ADULT ??? Maintain a safe environment Adequate for Discharge SAFETY ADULT - RISK FOR FALL AND OR FALL INJURY ??? Patient remains free from fall/fall injury Adequate for Discharge SKIN/TISSUE INTEGRITY ??? Skin/Tissue integrity maintained or improved Adequate for Discharge ??? Oral and Nasal mucous membranes remain intact Adequate for Discharge Clinical Goals for the Shift: discharge Identify possible barriers to meeting goals/advancing plan of care: None Stability of the patient: Moderately Stable - Low risk of patient condition declining or worsening End of Shift Summary: Patient discharged home self care. Halima Givens R.N. - 03/29/2018 9:48 PM CDT Goals: Clinical Goals for the Shift: Educate patient on drain care. Patient will shower. Identify possible barriers to meeting goals/advancing plan of care: Patient motivated. No barriers. Stability of the patient: Moderately Stable - Low risk of patient condition declining or worsening End of Shift Summary: Patient was educated on care of his drain and given the pamphlet. Patient alsoshowered and ambulated. Pain well controlled with oral medications. DISCHARGE PLANNING ??? Patient discharge needs identified Progressing INFECTION - ADULT ??? Absence of infection during hospitalization Progressing KNOWLEDGE DEFICIT ??? Patient/family/caregiver demonstrates understanding of disease process, treatment plan, medications, and discharge instructions Progressing PAIN - ADULT ??? PT VERBALIZES/DEMONSTRATES ADEQUATE COMFORT LEVEL OR BASELINE Progressing SAFETY ADULT ??? Maintain a safe environment Progressing SAFETY ADULT - RISK FOR FALL AND OR FALL INJURY ??? Patient remains free from fall/fall injury Progressing SKIN/TISSUE INTEGRITY ??? Skin/Tissue integrity maintained or improved Progressing ??? Oral and Nasal mucous membranes remain intact Progressing Mikayla Spears R.N. - 03/29/2018 2:49 PM CDT Problem: PAIN - ADULT Goal: PT VERBALIZES/DEMONSTRATES ADEQUATE COMFORT LEVEL OR BASELINE Outcome: Progressing Problem: KNOWLEDGE DEFICIT Goal: Patient/family/caregiver demonstrates understanding of disease process, treatment plan, medications, and discharge instructions Outcome: Progressing Problem: DISCHARGE PLANNING Goal: Patient discharge needs identified Outcome: Progressing Comments: Goals: Clinical Goals for the Shift: I&O cath teaching, ambulation in hallway Identify possible barriers to meeting goals/advancing plan of care: no barriers at this time Stability of the patient: Moderately Stable - Low risk of patient condition declining or worsening End of Shift Summary: Patient had to be I&O cathed twice during shift, he was taught the processand completed the catheterization himself both times. Explained to patient he will need to cath at home after discharge. Patient needs more assistance with emptying ostomy bag. One ZAKI drain was removedtoday. Possibly going home 03/30/[address] drain in place. Mikayla Spears R.N. - 03/28/2018 3:20 PM CDT Problem: PAIN - ADULT Goal: PT VERBALIZES/DEMONSTRATES ADEQUATE COMFORT LEVEL OR BASELINE Outcome: Progressing Comments: Goals: Clinical Goals for the Shift: ambulation in raphael, return of normal voiding Identify possible barriers to meeting goals/advancing plan of care: pain during ambulation Stability of the patient: Moderately Stable - Low risk of patient condition declining or worsening End of Shift Summary: Patient was able to ambulate in the hallway multiple times, tolerated well. Occasional pain during ambulation relieved with breaks. Patient was only able to void 80ml, given flomax and I&O cathing Jessie Vilchis R.N. - 03/28/2018 7:31 AM CDT Goals: Clinical Goals for the Shift: Sleep Identify possible barriers to meeting goals/advancing plan of care: None Stability of the patient: Moderately Stable - Low risk of patient condition declining or worsening End of Shift Summary: Patient was able to rest throughout the night. Patient had minimal complaints of pain. DISCHARGE PLANNING ??? Patient discharge needs identified Progressing INFECTION - ADULT ??? Absence of infection during hospitalization Progressing KNOWLEDGE DEFICIT ??? Patient/family/caregiver demonstrates understanding of disease process, treatment plan, medications, and discharge instructions Progressing PAIN - ADULT ??? PT VERBALIZES/DEMONSTRATES ADEQUATE COMFORT LEVEL OR BASELINE Progressing SAFETY ADULT ??? Maintain a safe environment Progressing SAFETY ADULT - RISK FOR FALL AND OR FALL INJURY ??? Patient remains free from fall/fall injury Progressing SKIN/TISSUE INTEGRITY ??? Skin/Tissue integrity maintained or improved Progressing ??? Oral and Nasal mucous membranes remain intact Progressing Josselin Cheng R.N. - 03/27/2018 7:04 PM CDT DISCHARGE PLANNING ??? Patient discharge needs identified Progressing INFECTION - ADULT ??? Absence of infection during hospitalization Progressing KNOWLEDGE DEFICIT ??? Patient/family/caregiver demonstrates understanding of disease process, treatment plan, medications, and discharge instructions Progressing PAIN - ADULT ??? PT VERBALIZES/DEMONSTRATES ADEQUATE COMFORT LEVEL OR BASELINE Progressing SAFETY ADULT ??? Maintain a safe environment Progressing SAFETY ADULT - RISK FOR FALL AND OR FALL INJURY ??? Patient remains free from fall/fall injury Progressing SKIN/TISSUE INTEGRITY ??? Skin/Tissue integrity maintained or improved Progressing ??? Oral and Nasal mucous membranes remain intact Progressing Goals: Clinical Goals for the Shift: ambulate x5, shower Identify possible barriers to meeting goals/advancing plan of care: none Stability of the patient: Moderately Stable - Low risk of patient condition declining or worsening End of Shift Summary: patient showered, walked 6 times, and reported low to no pain Electronically signed by: Josselin Cheng R.N. 03/27/18 7:04 PM Jessie Vilchis R.N. - 03/27/2018 5:58 AM CDT Goals: Clinical Goals for the Shift: Nausea and pain control, sleep Identify possible barriers to meeting goals/advancing plan of care: none Stability of the patient: Moderately Stable - Low risk of patient condition declining or worsening End of Shift Summary: Patient had a good night. Patient was able to get adequate amounts of sleep. No complaints of nauseaafter NGT advancement. DISCHARGE PLANNING ??? Patient discharge needs identified Progressing INFECTION - ADULT ??? Absence of infection during hospitalization Progressing KNOWLEDGE DEFICIT ??? Patient/family/caregiver demonstrates understanding of disease process, treatment plan, medications, and discharge instructions Progressing PAIN - ADULT ??? PT VERBALIZES/DEMONSTRATES ADEQUATE COMFORT LEVEL OR BASELINE Progressing SAFETY ADULT ??? Maintain a safe environment Progressing SAFETY ADULT - RISK FOR FALL AND OR FALL INJURY ??? Patient remains free from fall/fall injury Progressing SKIN/TISSUE INTEGRITY ??? Skin/Tissue integrity maintained or improved Progressing ??? Oral and Nasal mucous membranes remain intact Progressing Josselin Cheng R.N. - 03/26/2018 6:33 PM CDT DISCHARGE PLANNING ??? Patient discharge needs identified Progressing INFECTION - ADULT ??? Absence of infection during hospitalization Progressing KNOWLEDGE DEFICIT ??? Patient/family/caregiver demonstrates understanding of disease process, treatment plan, medications, and discharge instructions Progressing PAIN - ADULT ??? PT VERBALIZES/DEMONSTRATES ADEQUATE COMFORT LEVEL OR BASELINE Progressing SAFETY ADULT ??? Maintain a safe environment Progressing SAFETY ADULT - RISK FOR FALL AND OR FALL INJURY ??? Patient remains free from fall/fall injury Progressing SKIN/TISSUE INTEGRITY ??? Skin/Tissue integrity maintained or improved Progressing ??? Oral and Nasal mucous membranes remain intact Progressing Goals: Clinical Goals for the Shift: nausea control, pain control Identify possible barriers to meeting goals/advancing plan of care: persistent post operative nausea Stability of the patient: Moderately Stable - Low risk of patient condition declining or worsening End of Shift Summary: Patient continued t o have small emesis around his NGT. Pain reported at a . Electronically signed by: Josselin Cheng R.N. 03/26/18 6:34 PM documented in this encounter OR Notes Op Note - Bobo Gamble M.D. - 03/26/2018 9:26 AM CDT FULL OP NOTE Procedure(s): Exenteration Pelvic vs abdominal perineal resection, colostomy vs low anterior resection, diverting loop ileostomy. Cystoscopy (Bilateral) with bilateral external stent placement Surgeon(s) and Role: Panel 1: * Abisai Romano M.D. - Primary * Prabhakar Hansen M.D. - Fellow Panel 2: * Bobo Gamble M.D. - Primary * Demetrio Begum M.D., Ph.D. * No surgical staff found * Anesthesia Type: General Pre-Operative Diagnosis: Rectal carcinoma, prostate invasion. Post-Operative Diagnosis: Same as pre-operative diagnosis Findings: As expected Complications: None Description of Procedure: Procedures performed: 1. Rigid cystourethroscopy with bilateral external stent placement A 22 Slovak rigid cystoscope was inserted into urethral meatus. The anterior and posterior urethra were normal. Upon entering the bladder systematic evaluation demonstrated no evidence of urothelial abnormalities. Attention was turned to the right ureteral orifice which was cannulated with a 5 Slovak ureteral catheter which was advanced to 20 centimeters without difficulty. In similar fashion a left 5 Slovak ureteral catheter was placed. A 16 Slovak Goldsmith catheter was placed to gravity drainage and the externalized stents were secured to the Goldsmith catheter. Following trans abdominal dissection of the distal rectum we were called into the room to assess surrounding urologic structures. The anterior left rectal plane between the left seminal vesicle and peripheral zone of the prostate was completely free without evidence of tumor extension. Along the rightseminal vesicle and right peripheral zone there also appeared to be a surgical plane between the prostatic capsule in the anterior rectal wall mass. I was able to readily palpate the anterior rectal wall mass which did appear to have a tissue plane between it and the prostatic capsule. No evidence of bladder injury or injury to other urologic structures was present. Specimens ID Type Source Tests Collected by Time A : Portion Sigmoid, rectum, and anus Tissue Rectum [facility] Abisai Romano M.D. 03/26/2018 1201 B : RIGHT periprostatic margin, margin up, deep margin down Tissue Prostate SURGICAL PATHOLOGY[facility] Abisai Romano M.D. 03/26/2018 1203 Drains GI Tubes (Adults) Nasogastric Left (Active) Closed/Suction Drain Right Abdomen Bulb 19 Fr. (Active) Closed/Suction Drain Right Abdomen Bulb 19 Fr. (Active) Colostomy Descending LLQ (Active) Indwelling Urinary Catheter Non-latex 16 Fr. (Active) Estimated Blood Loss 150 mL Implants Implant Name Type Inv. Item Serial No. Senior Electrical Design Engineer Lot No. LRB No. Used Action CEVALLOS ADHN SEPRAFILM 5X6 - [id number] Mesh or Patch CEVALLOS ADHN SEPRAFILM 5X6 NexSteppe [id number] Implanted Bobo Gamble M.D. Brief Op Note - Prabhakar Hansen M.D. - 03/26/2018 9:26 AM CDT BRIEF OP NOTE Procedure(s): Exenteration Pelvic vs abdominal perineal resection, colostomy vs low anterior resection, diverting loop ileostomy. Cystoscopy (Bilateral) Surgeon(s) and Role: Panel 1: * Abisai Romano M.D. - Primary * Prabhakar Hansen M.D. - Fellow Panel 2: * Bobo Gamble M.D. - Primary * Demetrio Begum M.D., Ph.D. Anesthesia Type: General Pre-Operative Diagnosis: Rectal carcinoma, prostate invasion. Brief Operative Note Details Tumor did not appear to be invading prostate so a clean margin was taken without removal of prostateor encroachment on urethra. Tumor did extend down to anorectal junction so APR was performed. Frozenpath consistent with no residual tumor, all margins negative. Specimens ID Type Source Tests Collected by Time A : Portion Sigmoid, rectum, and anus Tissue Rectum SURGICAL [facility] Abisai Romano M.D. 03/26/2018 1201 B : RIGHT periprostatic margin, margin up, deep margin down Tissue Prostate SURGICAL PATHOLOGY[facility] Abisai Romano M.D. 03/26/2018 1203 Drains GI Tubes (Adults) Nasogastric Left (Active) Closed/Suction Drain Right Abdomen Bulb 19 Fr. (Active) Closed/Suction Drain Right Abdomen Bulb 19 Fr. (Active) Indwelling Urinary Catheter Non-latex 16 Fr. (Active) Estimated Blood Loss 150 mL Implants Implant Name Type Inv. Item Serial No. Senior Electrical Design Engineer Lot No. LRB No. Used Action CEVALLOS ADHN SEPRAFILM 5X6 - [id number] Mesh or Patch CEVALLOS ADHN SEPRAFILM 5X6 NexSteppe [id number] Implanted Prabhakar Hansen M.D. Op Note - Abisai Romano M.D. - 03/26/2018 12:00 AM CDT SURGEON(S) AND ROLE Dr. Juan Antonio Hansen is the resident. PRE-OPERATIVE DIAGNOSIS Probably stage 4 rectal cancer. POST-OPERATIVE DIAGNOSIS Complete clinical response (frozen section). PROCEDURE(S) Abdominoperineal resection, hand assisted, with enlarged incision. Preoperative bilateral ureteral stent placement. DESCRIPTION OF PROCEDURE Under general anesthesia, in the combined position, the patient was prepped and draped. Bilateral ureteral stents had been placed by Dr. Gamble' Team. A lower midline incision was made large enough for the hand port to be placed. A working port and and a camera port were placed in the usual positions. We then mobilized and medialized the entire left colon, splenic flexure, and portion of transverse colon in a straightforward manner. We then removed the hand port and proceeded extracorporeally as usual, enlarging the incision slightly. We came down posteriorly to the pelvic floor in a straightforwardway. Also on the left side, this was mobilized to the pelvic floor as well. Both ureters were identified and protected throughout the course of the procedure. The presacral nerves were also identified and preserved. The right side provided to be a more difficult dissection, probably due to radiation changes and possibly tumor dysplastic changes. I asked Dr. Gamble to scrub in, and he did so, and he agreed that the tumor was free of the prostate. We then continued mobilization to the pelvic floor onthe right side. We came across the superior hemorrhoidal artery and vein by double clamping and ligating it at the level of the bifurcation. We came across the sigmoid colon at its midpoint. We then turned our attention to the perineum, where an intersphincteric proctectomy for the most caudal portionof the sphincter and a normal radical resection beginning about half-way up the anal canal was commenced and completed. One area of a potential close margin was sent separately. All margins were negative. In fact, the tumor had a complete clinical response (frozen section). There was a lot of tumor scarring, and the pelvic floor was narrowed. as at the level of the tumor. I believe the tumor had come down to the anal canal, and, therefore, completed a proctectomy in the normal fashion. Bleeding was controlled with cautery. The pelvis was irrigated thoroughly with normal saline and closed using interrupted sutures of No. 1 Vicryl in the pelvic floor and 2-0 Vicryl of the subcutaneous tissue, and 4-0 subcuticular Vicryl in the skin. Two 6.3 round Bhupendra-Hickman drains were left in the pelvis, exitingthe right lower quadrant through separate stab wounds. A disc of skin and fat was removed over the premarked stomal site in the left lower quadrant. A cruciate incision was made in the fascia and the stoma, oriented and correctly immobilized to rest comfortably above skin level. The abdomen was thoroughly irrigated numerous times with normal saline, and there was no evidence of metastatic disease. The abdomen was then closed over Seprafilm, using a running double PDS in the midline fascia, and subcuticular Vicryl in the skin and the stoma was matured. TPR: 3, Present for everything except opening and closing and partial mobilization. Job ID: [id number] documented in this encounter Miscellaneous Notes Hospital Course - Coni Reyes APRN, C.N.P., M.S.N. - 03/26/2018 11:57 AM CDT PRIMARY DIAGNOSIS: Malignant neoplasm of rectum, Stage II (T3 N0 M0) PROCEDURE: Abdominoperineal resection, hand assisted, with enlarged incision. Preoperative bilateralureteral stent placement PATHOLOGY: FINAL DIAGNOSIS A. ??Colon, sigmoid, rectum and anus, abdominal perineal resection: ??Rare microscopic foci of residual adenocarcinoma within an area of dense fibrosis ??(2.1 x 1.8 x 1.0 cm) in the rectum. ?? The surgical resection margins are negative for tumor. ??Multiple (18) lymph nodes are negative for tumor. ??See synoptic report. B. ??Prostate, right periprostatic margin, excision: Negative for tumor. COMMENT The microscopic foci of residual adenocarcinoma were only appreciated on permanent section slides. SYNOPTIC REPORT Procedure: Abdominal perineal resection Tumor Site: Rectum Tumor Location: Above the anterior peritoneal reflection Tumor Size: Several microscopic foci of tumor within a tumor bed measuring 2.1 cm. Macroscopic Tumor Perforation: Not identified Macroscopic Intactness of Mesorectum: Complete Histologic Type: Adenocarcinoma Histologic Grade: Moderately differentiated Tumor Extension: Tumor invades through the muscularis propria into pericolorectal??tissue Margins: All margins are uninvolved by invasive carcinoma, high-grade dysplasia, intramucosal adenocarcinoma, and adenoma ?Proximal margin: ??Uninvolved by invasive carcinoma ?Distal margin: ??Uninvolved by invasive carcinoma ?Radial or mesenteric margin: ??Uninvolved by invasive carcinoma ?Other margins: ??Not applicable ?Mucosal margin: ??Uninvolved by invasive carcinoma, intramucosal adenocarcinoma, high-grade dysplasia, and adenoma Treatment Effect: Present. ??Single cells and rare small groups of cancer cells (near complete response, score 1) Lymphovascular Invasion: Not identified Perineural Invasion: Not identified Tumor Budding: Cannot be assessed Tumor Deposits: Not identified Regional Lymph Nodes: ? Number of Lymph Nodes Involved: 0 ? Number of Lymph Nodes Examined: 18 Pathologic Staging (AJCC, 8th edition): ?TNM Descriptors: y ?Primary tumor: pT3 ?Regional lymph nodes: pN0 ?Distant Metastasis: Not applicable Additional Pathologic Findings: None identified The synoptic report incorporates information from all relevant surgical material and includes all required data elements of the current CAP Cancer Protocol INCISION ASSESSMENT: Clean, dry, and intact without signs of erythema or drainage at the time of discharge. DRAINS: Surgical drain remained in upon discharge. Patient was instructed on drain cares. ADDITIONAL DIAGNOSES/COMPLICATIONS/CHRONIC CONDITIONS ADDRESSED DURING HOSPITALIZATION: #1 Nausea and vomiting Antiemetics were titrated to effect. NG tube was continued until the next morning. #2 Urinary retention Urinary retention Required in and out catheterization during hospitalization. The patient was urinating small amounts at the time of dismissal and was taught in and out catheterization. If urinary retention persists after 4 weeks, you will need to make an appointment with your primary care provider/urologist. documented in this encounter Plan of Treatment Upcoming Encounters Date Type Specialty Care Team Description 07/04/2022 Clinical Support Colon and Rectal Surgery documented as of this encounter Procedures Procedure Name Priority Date/Time Associated Diagnosis Comme nts CBC WITHOUT Routine 03/27/2018 Results for DIFFERENTIAL, B 12:21 AM CDT this procedu re are in the results section. POTASSIUM, S/P Routine 03/27/2018 Results for 12:21 AM CDT this procedure are in the results section. CREATININE WITH Routine 03/27/2018 Results for EGFR, S/P 12:21 AM CDT this procedure are in the results section. DX ABDOMEN 1 VIEW RAD - Routine 03/26/2018 8:47 Result s for (most inpatients PM CDT this proced ure and all are in the outpatients) results section. DX ABDOMEN 1 VIEW RAD - Routine 03/26/2018 1:58 Result s for (most inpatients PM CDT this proced ure and all are in the outpatients) results section. SURGICAL PATHOLOGY, Routine 03/26/2018 Malignant Neoplasm Re sults for [facility] 12:01 PM CDT Of Rectum this procedure Adenocarcinoma (HCC) are in the results section. STENT PLACEMENT - 03/26/2018 7:53 Malignant Neoplasm EXTERNAL AM CDT Of Rectum Adenocarcinoma (HCC) EXENTERATION PELVIC 03/26/2018 7:53 Malignant Neoplasm AM CDT Of Rectum Adenocarcinoma (HCC) documented in this encounter Results (ABNORMAL) CBC without Differential (03/27/2018 12:21 AM CDT) [facility] gist Method Time Signature Hemoglobin 12.3 (L) 13.2 - 03/27/2018 [facility] 16.6 g/dL 12:36 AM CDT LABORATORIES - [facility] Hematocrit 37.4 (L) 38.3 - 03/27/2018 [facility] 48.6 % 12:36 AM CDT LABORATORIES - [facility] Erythrocytes 4.12 (L) 4.35 - 03/27/2018 [facility] 5.65 12:36 AM CDT LABORATORIES - x10(12)/L [facility] MCV 90.8 78.2 - 03/27/2018 [facility] 97.9 fL 12:36 AM CDT LABORATORIES - [facility] RBC Distrib 14.1 11.8 - 03/27/2018 [facility] Width 14.5 % 12:36 AM CDT LABORATORIES - [facility] Platelet Count 185 135 - 317 03/27/2018 [facility] x10(9)/L 12:36 AM CDT LAB[facility]ATORIES - [facility] Leukocytes 15.3 (H) 3.4 - 9.6 03/27/2018 [facility] x10(9)/L 12:36 AM CDT LABORATORIES [facility] Specimen Anatomical Collection Method Collection Time Receive d Time (Source) Location / / Volume Laterality Blood (Blood, 03/27/2018 12:21 03/27/2018 Venous) AM CDT 12:27 AM CDT Yordan Pike M.D., M.B.A. LAB BLOOD ADD-ON Performing Organization Address City/[facility] Phon e Number [facility] - [address] [phone] [facility] Potassium (03/27/2018 12:21 AM CDT) P athologist Signature Potassium, S 4.1 3.6 - 5.2 03/27/2018 [facility] mmol/L 1:48 AM CDT LABORATORIES [facility] Specimen Anatomical Collection Method Collection Time Receive d Time (Source) Location / / Volume Laterality Blood (Blood, 03/27/2018 12:21 03/27/2018 Venous) AM CDT 12:27 AM CDT Yordan Pike M.D., M.B.A. LAB BLOOD ADD-ON Performing Organization Address City[facility] Phon e Number [facility] - [address] [phone] [facility] Creatinine with Estimated GFR (MDRD) (03/27/2018 12:21 AM CDT) Analysis Performed At Patho logist Time Signature Creatinine 1.09 0.74 - 03/27/2018 [facility] 1.35 mg/dL 1:48 AM CDT [facility] eGFR-Non 72 >=60 03/27/2018 [facility] Black/ mL/min/BSA 1:48 AM CDT LABORATORIES [facility] [place] Comment: ----ADDITIONAL INFORMATION---- Estimated GFR calculated using the 2009 CKD_EPI creatinine equation. eGFR-Black/ 83 >=60 mL/min/BSA 03/27/2018 1:48 [facility] Peruvian AM CDT LABORATORIES [facility] Comment: ----ADDITIONAL INFORMATION---- Estimated GFR calculated using the 2009 CKD_EPI creatinine equation. Specimen Anatomical Collection Method Collection Time Receive d Time (Source) Location / / Volume Laterality Blood (Blood, 03/27/2018 12:21 03/27/2018 Venous) AM CDT 12:27 AM CDT Yordan Pike M.D., M.B.A. LAB BLOOD ADD-ON Performing Organization Address City/State/ZIP Code Phon e Number [facility] - [address] [place], [place] [address] [facility] DX Abdomen 1 View (03/26/2018 8:47 PM CDT) Anatomical Region Laterality Modality Abdomen, Abdominal RST LOS N/A Digital Radio graphy Specimen (Source) Anatomical Collection Method Collection Time Re ceived Time Location / / Volume Laterality 03/26/2018 8:52 PM CDT Impressions 03/27/2018 8:09 AM CDT IMPRESSION: ??Enteric tube with tip and sidehole below the diaphragm. The sidehole is just distal to the expected region of the gastroesophageal junction and the tube could be advanced for optim al placement. Narrative 03/27/2018 8:09 AM CDT EXAM: ??DX ABDOMEN 1 VIEW Procedure Note Cindi Meneses M.D. - 03/27/2018Form atting of this note might be different from the original. EXAM: DX ABDOMEN 1 VIEW IMPRESSION: Enteric tube with tip and si dehole below the diaphragm. The sidehole is just distal to the expected region of the gastroesophageal junction and the tube could be advanced for optim al placement. Abisai Romano M.D. IMG DIAGNOSTIC IMAGING PROCE [facility] DX Abdomen 1 View (03/26/2018 1:58 PM CDT) Anatomical Region Laterality Modality Abdomen, Abdominal RST LOS N/A Computed Radi ography Specimen (Source) Anatomical Collection Method Collection Time Re ceived Time Location / / Volume Laterality 03/26/2018 2:13 PM CDT Impressions 03/26/2018 2:52 PM CDT IMPRESSION: ??Negative for postoperative purposes. Expected postoperative gas within the pelvis. Pelvic surgical drain s. Ostomy left lower quadrant. Nonobstructive bowel gas pattern. Visual ized lung bases are clear. Narrative 03/26/2018 2:52 PM CDT EXAM: ??DX ABDOMEN 1 VIEW Procedure Note Regis Woods M.D. - 03/26/2018Forma tting of this note might be different from the original. EXAM: DX ABDOMEN 1 VIEW IMPRESSION: Negative for postoperative p urposes. Expected postoperative gas within the pelvis. Pelvic surgical drain s. Ostomy left lower quadrant. Nonobstructive bowel gas pattern. Visual ized lung bases are clear. Abisai MUSTAFAG DIAGNOSTIC IMAGING [facility] Surgical Pathology, Frozen Lab (03/26/2018 12:01 PM CDT) Component Value Ref Test Analysis Performed At [facility] Range Method Time Signature Gross Description A. ??Received fresh labeled portion sigmoid, rec tianna, and 03/28/2018 [facility] anus is a abdominal perineal resection specimen consistin g 10:55 AM LABORATORIES - of 27.5 cm in length portion of rectosigmoid colon with a CDT [facility] 4.9 x 2.5 cm portion of anus. ??The mesorectum is near CAMPUS complete. ??The radial margin is inked. ??A 2.1 x 1.8 x 1.0 cm ulcerative mass is present within the rectum above the anterior peritoneal reflection, 2.3 cm from the dentate line, 23.5 cm from the proximal mucosal margin, and 1.0 cm from the radial margin, perpendicularly. ??Grossly, the mass is surrounded by fibrosis that extends to the pericolonic fat. ??Multiple lymph nodes are identified within the perirectal fat. ??[employer] tissue submitted for frozen and permanent sections. Grossed by LAB. B. ??Received fresh labeled right periprostatic margin is a 1.5 x 1 x 0.4 cm fragment of pink-salinas fibrous tissue with orientation. ??The margin is inked and taken perpendicularly. ??All submitted for frozen and permanent sections. Grossed by [facility]. Participated in Elijah Agee D.O.-Pathology Fellow 03/28/2018 [facility] the Isatu ArangoB.S.-Pathology Resident 10:55 AM LABORATORIES - Interpretation [facility] Report Emily Adhikari M.D. [id number] 03/28/2018 [facility] electronically I verify that I have examined all relevant slides/ma terials 10:55 AM LABORATORIES - signed by for the specimen(s) and rendered or confirmed the diagnosi s. [facility] 03/28/2018 [facility] 10:55 AM LABORATORIES - [facility] Frozen A. ??Colon, sigmoid, rectum and anus, abdominal perineal 03/28/2018 [facility] Intraoperative resection: ??Fibrous tissue and inflammation forming a 2.1 x 10:55 AM LABORATORIES - Report 1.8 x 1.0 cm mass in the rectum. ??Negative for tumor. ??T he [facility] surgical resection margins are negative for tumor. CAMPUS Multiple (18) lymph nodes are negative for tumor. B. ??Prostate, right periprostatic margin, excision: Negative for tumor. HOLD OVER for further evaluation on permanent sections. Frozen section histologic interpretation performed by: Emily Adhikari M.D. [id number] Block Summary A Portion sigmoid, rectum, and anus 03/28/2018 [facility] A1 Adjacent to new margin 10:55 AM LABO RATORIES - A2 [facility] Mid-posterior [facility] A4 Adjacent to new margin-2 A5 Adjacent to new margin-2 A6 Fqu-kzkulzzar-6 A7 Kho-ajzkxytov-9 A8 Possible pericolonic lymph node 5(A1) A9 Possible pericolonic lymph node 5(A2) A10 Possible pericolonic lymph node 5(A3) A11 Possible pericolonic lymph node 5(A4) A12 Possible pericolonic lymph node 5(A5) A13 Possible pericolonic lymph node 1(A6) A14 Possible pericolonic lymph node 1(A7) A15 Possible pericolonic lymph node 1(A8) A16 Possible pericolonic lymph node 4(A9) A17 Possible pericolonic lymph node 1(A10) A18 Possible pericolonic lymph node 3(A11) B Right periprostatic margin B1 Right periprostatic margin Interpretation FINAL DIAGNOSIS 03/28/2018 [facility] A. ??Colon, sigmoid, rectum and anus, abdominal perineal 10:55 AM LABORATORIES - resection: ??Rare microscopic foci of residual [facility] adenocarcinoma within an area of dense fibrosis ??(2.1 x 1.8 CAMPUS x 1.0 cm) in the rectum. ?? The surgical resection margins are negative for tumor. ??Multiple (18) lymph nodes are negative for tumor. ??See synoptic report. B. ??Prostate, right periprostatic margin, excision: Negative for tumor. COMMENT The microscopic foci of residual adenocarcinoma were only appreciated on permanent section slides. SYNOPTIC REPORT Procedure: Abdominal perineal resection Tumor Site: Rectum Tumor Location: Above the anterior peritoneal reflection Tumor Size: Several microscopic foci of tumor within a tumor bed measuring 2.1 cm. Macroscopic Tumor Perforation: Not identified Macroscopic Intactness of Mesorectum: Complete Histologic Type: Adenocarcinoma Histologic Grade: Moderately differentiated Tumor Extension: Tumor invades through the muscularis propria into pericolorectal tissue Margins: All margins are uninvolved by invasive carcinoma, high-grade dysplasia, intramucosal adenocarcinoma, and adenoma ? Proximal margin: ??Uninvolved by invasive carcinoma ? Distal margin: ??Uninvolved by invasive carcinoma ? Radial or mesenteric margin: ??Uninvolved by invasive carcinoma ? Other margins: ??Not applicable ? Mucosal margin: ??Uninvolved by invasive carcinoma, intramucosal adenocarcinoma, high-grade dysplasia, and adenoma Treatment Effect: Present. ??Single cells and rare small groups of cancer cells (near complete response, score 1) Lymphovascular Invasion: Not identified Perineural Invasion: Not identified Tumor Budding: Cannot be assessed Tumor Deposits: Not identified Regional Lymph Nodes: ?Number of Lymph Nodes Involved: 0 ?Number of Lymph Nodes Examined: 18 Pathologic Staging (AJCC, 8th edition): ? TNM Descriptors: y ? Primary tumor: pT3 ? Regional lymph nodes: pN0 ? Distant Metastasis: Not applicable Additional Pathologic Findings: None identified The synoptic report incorporates information from all relevant surgical material and includes all required data elements of the current [facility] Cancer Protocol. . Specimen (Source) Anatomical Collection Method Collection Time Re ceived Time Location / / Volume Laterality Tissue (Rectum) 03/26/2018 12:01 PM CDT Tissue (Prostate) 03/26/2018 12:03 PM CDT Narrative This result has an attachment that is no t available. Abisai Romano M.D. LAB SURG PATH ORDERABLES Performing Organization Address City/State/ZIP Code Phon e Number [facility] - [address] [place], [place] [address] [facility] documented in this encounter Visit Diagnoses Diagnosis Malignant Neoplasm Of Rectum (HCC) - Reny srinath 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) Retention Urinary Smoking Tobacco Use Personal History 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) documented in this encounter Administered Medications Inactive Administered Medications - up to 3 most recent administrations Medication Order MAR Action Action Date Dose Rate Site acetaminophen tablet 1,000 mg Given 03/30/2018 11:16 AM CDT 1,00 0 mg (TYLENOL) 1,000 mg, oral, 4 times daily, First dose (after last modification) on Mon03/30/18 at 0800 Given 03/30/2018 7:59 AM CDT 1,000 mg chlorhexidine 4 % external solution 1 Given 03/30/2018 9:00 AM CDT 1 application application (HIBICLENS) 1 application, topical, Daily, First dose on Mon03/27/18 at 0900, Shower or topical cleansing daily after wound dressing removed. Given 03/29/2018 4:00 PM CDT 1 application Given 03/27/2018 9:00 AM CDT 1 application D5W infusion 10-250 mL/hr, intravenous, As needed, Medications Inco mpatible with 0.9% NaCL, Starting on Mon03/26/18 at 0649, Infuse at the same ra te as the piggyback until tubing clears or up to a volume of 20 mL pre and post infusion for medications incompatible with 0.9% NaCL. Use 100 mL bag then disca rd. heparin (porcine) Given 03/30/2018 7:09 AM CDT 5,000 Units Left Upper Arm injection 5,000 Units (Back) 5,000 Units, subcutaneous, Every 8 hours scheduled, First dose on Mon03/26/18 at 2200 Given 03/29/2018 10:10 PM CDT 5,000 Units Left Upper Arm (Back) Given 03/29/2018 1:34 PM CDT 5,000 Units Left Upper Arm (Back) heparin flush 500 Units 500 Units, intra-catheter, Every 7 days, First dose on Mon03/26/18 at 0900, Implanted Vascular Access Device (IVAD) Venous Non-Roxanne gonsalo: When no infusion to maintain patency, following saline flush. heparin flush 500 Units 500 Units, intra-catheter, Every 28 days, First dose o n Mon03/26/18 at 0900, Implanted Vascular Access Device (IVAD) Venous Non-Roxanne gonsalo: When no infusion to maintain patency, following saline flush. ibuprofen tablet 600 mg (ADVIL,MOTRIN) Given 03/30/2018 11:16 AM CDT 600 mg 600 mg, oral, Every 6 hours, First dose (after last modification) on Mon03/30/18 at 1100, Start 6 hours after last Ketorolac dose administered NaCl 0.9% infusion 10-250 mL/hr, intravenous, As needed, Be tween Consecutive Piggyback Medications, Starting on Mon03/26/18 at 0649, Infuse at the same ra te as the piggyback until tubing clears or up to a volume of 20 mL . Select for IV medication administration when no maintenance IV available or when IV medication s are not compatible with maintenance fluid. NaCl 0.9% infusion 10-250 mL/hr, intravenous, As needed, Post Medications (Hazardous/Low Fluid Volume), Starting on Mon03/26/18 at 0649 , Infuse at the same rate as the medication until tubing cleared of medication, then discard. oxyCODONE IR tablet 10 mg (ROXICODONE) 10 mg, oral, Every 4 hours PRN, severe p ain or score 7-10 of 10, Starting on Mon03/30/18 at 0709, For patients who received intrathecal analgesia start 24 hours after intrathecal dose given oxyCODONE IR tablet 5 mg (ROXICODONE) 5 mg, oral, Every 4 hours PRN, moderate pain or score 4-6 of 10, Starting on Mon03/30/18 at 0709, For patients who received intrathecal analgesia start 24 hours after intrathecal dose given sodium chloride injection 10 mL Given 03/26/2018 10:47 PM CDT 10 mL 10 mL, intravenous, As needed, line care, Implanted Vascular Access Device (IVAD) Venous Non-Valved, Starting on Mon03/26/18 at 0649, Prior to and following infusion, between multiple consecutive infusions, and prior to blood sampling, sodium chloride injection 10 mL Given 03/30/2018 7:58 AM CDT 10 mL 10 mL, intravenous, Every 12 hours scheduled, First dose on Mon03/26/18 at 0900, Implanted Vascular Access Device (IVAD) Venous Non-Valved: When no infusion to maintain patency. Given 03/29/2018 8:54 PM CDT 10 mL Given 03/29/2018 8:28 AM CDT 10 mL sodium chloride injection 10 mL 10 mL, intravenous, Every 7 days, First dose on Mon at 0900, Implanted Vascular Access Device (IVAD) Venous Non-Valved: When no infusion to maintain patency, followed by heparin flush. sodium chloride injection 10 mL 10 mL, intravenous, Every 28 days, First dose on Mon at 0900, Implanted Vascular Access Device (IVAD) Venous Non-Valved: When no infusion to maintain patency, followed by heparin flush. sodium chloride injection 20 mL Given 03/27/2018 5:19 AM CDT 20 mL 20 mL, intravenous, As needed, line care, Implanted Vascular Access Device (IVAD) Venous Non-Valved, Starting on Mon03/26/18 at 0649, Post blood transfusion or post blood sampling. Given 03/26/2018 11:54 PM CDT 20 mL tamsulosin 24 hr capsule 0.4 mg (FLOMAX) Given 03/30/2018 7:59 AM CDT 0.4 mg 0.4 mg, oral, Daily, First dose on Mon03/28/18 at 1345, Swallow whole. Do NOT crush, chew or open capsule. Given 03/29/2018 8:28 AM CDT 0.4 mg Given 03/28/2018 2:36 PM CDT 0.4 mg documented in this encounter Active and Recently Administered Medications Times are shown in CDT. Scheduled Medication Order 03/28/2018 03/29/2018 03/30/2018 acetaminophen tablet 1,000 mg (TYLENOL) (CANCELED) 081 3 (Given - Provider: Mikayla Spears RJuan CarlosN.)1228 (Given - Provider: Mikayla Spears R.N.)1704 (Given - Provider: Jeannine Yip R.N.)2159 (Given - Provider: Saida Cruz R.N.) 0828 (Given - Provider: Mikayla Spears R.N.)1141 (Given - Provider: Mikayla Spears R.N.)1647 (Given - Provider: Halima Givens R.N.)2053 (Given - Provider: Halima Givens R.NJuan Carlos) 1,000 mg, gastric tube, 4 times daily, First dose on Mon03/26/18 at 2100 acetaminophen tablet 1,000 mg (TYLENOL) 0759 (Given - Provider: Tamara Emery RJuan CarlosN.)1116 (Given - Provider: Jessi Vargas R.NJuan Carlos) 1,000 mg, oral, 4 times daily, First dose on Mon03/30/18 at 0800 chlorhexidine 4 % external solution 1 application (HIB ICLENS) 1800 (Due - Provider: Mikayla Spears R.N.) 1600 (Given - Provider: Halima Givens RGrover - Comment: patient request) 0900 (Given - Provider: Ria Rosas - Comment: showered) 1 application, topical, Daily, First dos e on Mon03/27/18 at 0900, Shower or topical cleansing daily after wound dressing removed. heparin (porcine) injection 5,000 Units 0505 (Given - Provider: Jessie Vilchis R.N.)1436 (Given - Provider: Mikayla Spears R.N.)2159 (Given - Provider: Saida Cruz RJuan CarlosNJuan Carlos) 0556 (Given - Provider: Saida orozco R.N.)1334 (Given - Provider: Mikayla Spears RJuan CarlosN.)2210 (Given - Provider: Halima Givens R.NJuan Carlos) 0709 (Given - Provider: Lia Bradshaw R.N Juan Carlos)1400 (Not Given - Provider: Jessi Vargas RJuan CarlosNJuan Carlos - Reason: Other) 5,000 Units, subcutaneous, Every 8 hours scheduled, First dose on Mon03/26/18 at 2200 heparin flush 500 Units 500 Units, intra-catheter, Every 7 days, First dose on Mon03/26/18 at 0900, Implanted Vascular Access Device (IVAD) Venous Non-Valved: When no infusion to maintain patency, following saline flush. heparin flush 500 Units 500 Units, intra-catheter, Every 28 days , First dose on Mon03/26/18 at 0900, Implanted Vascular Access Device (IVAD) Venous Non-Valved: When no infusion to maintain patency, following saline flush. ibuprofen tablet 600 mg (ADVIL,MOTRIN) (CANCELED) 0504 (Given - Provider: Jessie Vilchis R.N.)1228 (Given - Provider: Mikayla Spears R.N.)1704 (Given - Provider: Jeannine M Phi, R.N.)2200 (Given - Provider: Saida Cruz RJuan CarlosN.) 0556 (Given - Provider: Saida orozco R.N.)1035 (Given - Provider: Mikayla Spears R.N.)1647 (Given - Provider: Halima Givens R.N.)2210 (Given - Provider: Halima Givens R.N.) 0708 (Given - Provider: Lia Bradshaw R.N .) 600 mg, gastric tube, Every 6 hours, Fir st dose on Mon03/27/18 at 1700, Start 6 hours after last Ketorolac dose administered ibuprofen tablet 600 mg (ADVIL,MOTRIN) 1116 (Given - Provider: Jessi Vargas R.N.) 600 mg, oral, Every 6 hours, First dose on Mon03/30/18 at 1100, Start 6 hours after last Ketorolac dose administered magnesium oxide tablet 400 mg (MAG-OX) (COMPLETED) 081 4 (Given - Provider: Mikayla Spears RJuan CarlosN.)2200 (Given - Provider: Saida Cruz R.N.) 400 mg, gastric tube, 2 times daily, Fir st dose on Mon03/26/18 at 2100, For 3 days, Starting evening of surgery. Hold for diarrhea or output greater than 1500 mL/day sodium chloride injection 10 mL 0815 (Given - Provider : Mikayla Spears RJuan CarlosN.)2100 (Due - Provider: Transfer Provider, Automatic) 0828 (Given - Provider: Mikayla Spears R.N.)2054 (Given - Provider: Halima Givens R.N.) 0758 (Given - Provider: Tamara Emery R.N.) 10 mL, intravenous, Every 12 hours sched uled, First dose on Mon03/26/18 at 0900, Implanted Vascular Access Device (IVAD) Venous Non-Valved: When no infusion to maintain patency. sodium chloride injection 10 mL 10 mL, intravenous, Every 7 days, First dose on Mon03/26/18 at 0900, Implanted Vascular Access Device (IVAD) Venous Non-Valved: When no infusion to maintain patency, followed by heparin flush. sodium chloride injection 10 mL 10 mL, intravenous, Every 28 days, First dose on Mon03/26/18 at 0900, Implanted Vascular Access Device (IVAD) Venous Non-Valved: When no infusion to maintain patency, followed by heparin flush. tamsulosin 24 hr capsule 0.4 mg (FLOMAX) 1436 (Given - Provider: Mikayla Spears RJuan CarlosNJuan Carlos) 0828 (Given - Provider: Mikayla Spears RJuan CarlosNJuan Carlos) 0759 ( Given - Provider: Tamara Emery RJuan CarlosNJuan Carlos) 0.4 mg, oral, Daily, First dose on Mon at 1345, Swallow whole. Do NOT crush, chew or open capsule. PRN Medication Order 03/28/2018 03/29/2018 03/30/2018 D5W infusion 10-250 mL/hr, intravenous, at 10-250 mL/ hr, As needed, Medications Incompatible with 0.9% NaCL, Starting Mon03/26/18 at 0649, Infuse at the same rate as the piggyback until tubing clears or up to a volu me of 20 mL pre and post infusion for me dications incompatible with 0.9% NaCL. Use 100 mL bag then discard. heparin flush 500 Units (COMPLETED) 0855 (Given - Provider: Dulce Maria Martinez RJuan CarlosNJuan Carlos) 500 Units, intra-catheter, During hospit alization, line care, Prior to discharge, Starting Mon03/26/18 at 0649, For 1 dose, Implanted Vascular Access Device (IVAD) Venous Non-Valved: Following saline flush prior to discharge. NaCl 0.9% infusion 10-250 mL/hr, intravenous, at 10-250 mL/ hr, As needed, Between Consecutive Piggyback Medications, Starting Mon03/26/18 at 0649, Infuse at the same rate as the piggyback until tubing clears or up to a vo lume of 20 mL. Select for IV medication administration when no maintenance IV available or when IV medications are not compatible with maintenance fluid. NaCl 0.9% infusion 10-250 mL/hr, intravenous, at 10-250 mL/ hr, As needed, Post Medications (Hazardous/Low Fluid Volume), Starting Mon03/26/18 at 0649, Infuse at the same rate as the medication until tubing cleared of medication, then discard. nalbuphine injection 5 mg (NUBAIN) 5 mg, intravenous, Every 4 hours PRN, it nancy, Starting Mon03/26/18 at 1753, For 4 doses, PACU & Post-Op oxyCODONE IR tablet 10 mg (ROXICODONE) 10 mg, oral, Every 4 hours PRN, severe p ain or score 7-10 of 10, Starting Mon03/30/18 at 0709, For patients who received intrathecal analgesia start 24 hours after intrathecal dose given oxyCODONE IR tablet 5 mg (ROXICODONE) 5 mg, oral, Every 4 hours PRN, moderate pain or score 4-6 of 10, Starting Mon03/30/18 at 0709, For patients who received intrathecal analgesia start 24 hours after intrathecal dose given sodium chloride injection 10 mL 10 mL, intravenous, As needed, line care , Implanted Vascular Access Device (IVAD) Venous Non-Valved, Starting Mon03/26/18 at 0649, Prior to and following infusion, between multiple consecutive infusions, and prior to blood sampling, sodium chloride injection 10 mL (COMPLETED) 0856 (Given - Provider: Dulce Maria Martinez R.N.) 10 mL, intravenous, During hospitalizati on, line care, Prior to discharge, Starting Mon03/26/18 at 0649, For 1 dose, Implanted Vascular Access Device (IVAD) Venous Non-Valved: Followed by heparin flush prior to discharge. sodium chloride injection 20 mL 20 mL, intravenous, As needed, line care , Implanted Vascular Access Device (IVAD) Venous Non-Valved, Starting Mon03/26/18 at 0649, Post blood transfusion or post blood sampling. documented in this encounter Additional Health Concerns Assessment Noted Time PHQ-9 Depression Total Score: 1 12/14/2017 11:05 AM CS T documented as of this encounter
--- OUTSIDE RECORDS SUMMARY | 2022-07-01 23:36 | XMS_ITS | Encounter Summary ---
:[address] [facility] Address [address] [place] [address] Care Team Providers Name Role Phone Unavailable Primary Care Provider Unavailable Encounter Details Date Type Department Care Team Description 01/29/2018 Abstract DATA ABSTRACTION Provider, Historical Social History Tobacco Use Types Packs/Day Years Used Date Smoking Tobacco: Former Alcohol Habits Answer Date Recorded How often [...] or relatives? How often do you attend baptist or pentecostal 1 to 4 times per year 07/06/2019 services? Do you belong to any clubs or organizations Yes 07/06/2019 such as baptist groups, unions, fraternal or athletic groups, or [...]
--- OUTSIDE RECORDS SUMMARY | 2022-07-01 23:36 | XMS_ITS | Encounter Summary ---
:1955 Author Organization [facility] Address [address] [place] [id number] Care Team Providers Name Role Phone Unavailable Primary Care Provider Unavailable Reason for Visit Reason Onset Date Comments Drug interactions 03/15/2018 Communication 03/15/2018 Encounter Details Date Type Department Care Team Description 03/15/2018 Clinical Communication Division of Colon Juan Antonio, Drug interactions; and Rectal Surgery Abisai Strickland M.D. Communication in [address] [place] [phone] Social History Tobacco Use Types Packs/Day Years [...] or relatives? How often do you attend latter-day or mandaeism 1 to 4 times per year 07/06/2019 services? Do you belong to any clubs or organizations Yes 07/06/2019 such as latter-day groups, unions, fraternal or athletic groups, or [...] Miscellaneous Notes Telephone Encounter - Jackie Deng RJuan CarlosN. - 03/15/2018 3:55 PM CDT Notified pharmacist, Marianna, that the patient is no longer on capecitabine. Telephone Encounter - Kanwal Ortega - 03/15/2018 3:21 PM CDT [facility] Pharmacy with question on the Metronidazole prescription and interactions with capecitabine documented in this encounter Plan of Treatment Upcoming Encounters Date Type Specialty Care Team Description 07/04/2022 Clinical Support Colon and Rectal Surgery documented as of this encounter Visit Diagnoses Not on filedocumented in this encounter Additional Health Concerns Assessment Noted Time PHQ-9 Depression Total Score: 1 12/14/2017 11:05 AM CS T documented as of this encounter
--- OUTSIDE RECORDS SUMMARY | 2022-07-01 23:36 | XMS_ITS | Encounter Summary ---
:1955 Author Organization [facility] Address [address] [place] [id number] Care Team Providers Name Role Phone Unavailable Primary Care Provider Unavailable Reason for Visit Outpatient (Routine) - Closed Specialty Diagnoses / Procedures Referred By Contact Refer red To Contact [facility] [address] [place] [address] Referral ID Status Reason Start Date Expiration Date Visits Requ ested Visits Authorized [id number] Closed 01/25/2018 07/24/2018 1 1 Encounter Details Date Type Department Care Team Description 03/13/2018 Office Visit Division of Colon and Abisai Romano Neoplasm Of Rectal Surgery in Ginny Strickland Rectum (HCC) (Primary [place], [place] [address] [facility]) [address] [place] [phone] Social History Tobacco Use Types Packs/Day Years [...] or relatives? How often do you attend mosque or baptist 1 to 4 times per year 07/06/2019 services? Do you belong to any clubs or organizations Yes 07/06/2019 such as mosque groups, unions, fraternal or athletic groups, or [...] for the very basics like Not h sahcin at all 07/06/2019 food, housing, medical care, [...] PM CDT documented as of this encounter Consult Notes Abisai Romano M.D. - 03/13/2018 12:00 AM CDT SUBJECTIVE Patient known to me. Seen earlier in the year. The patient has had radiation chemotherapy and had a nice response. OBJECTIVE PHYSICAL EXAMINATION On physical exam, I could move the area. The tumor seems to be coming down towards the anal canal but not in it. Therefore, perhaps we could do a coloanal anastomosis likely hand-sewn. I can move it around the prostate very easily. Therefore, I am unsure of its involvement with the prostate, and indeed it may be completely separate from the prostate. ASSESSMENT / PLAN Discussed therefore risks, goals, benefits, team approach, risk of blood transfusion, chance of blood transfusion, risk of anesthetic complications, risk of pelvic nerve damage, chance of bleeding withpatient and , and they agree to proceed with hand-assisted laparoscopic coloanal anastomosis. Appreciate Dr. Gamble' involvement in this situation to this date. Indeed, if the tumor can come off theprostate nicely, we will not need their services. However, very possibly this will involve the prostate, and multiple possible procedures may be necessary for this. Dr. Gamble' note is complete in this regard. The patient is listed for surgery on the . Stents are not required preoperatively but maybe placed intraoperatively. All questions answered. Patient examined. 20 minutes. Listed, marked. Endostoma Therapy has seen. Job ID: [id number] documented in this encounter Plan of Treatment [...]
--- OUTSIDE RECORDS SUMMARY | 2022-07-01 23:36 | XMS_ITS | Encounter Summary ---
:1955 Author Organization [facility] Address [address] [place] [address] Care Team Providers Name Role Phone Unavailable Primary Care Provider Unavailable Reason for Referral MRI/CAT/PET Scan (Routine) - Closed Specialty Diagnoses / Procedures Referred By Contact Refer red To Contact Radiology Diagnoses Malignant Neoplasm Of Rectum (HCC) Abisai Romano M.D. [facility] Procedures MR Pelvis without and with IV Contrast MO MRI PELVIS WO/W CNTRST HC MRI PELVIS WO/W CNTRST MO MRI PELVIS WO/W CNTRST [address] [place] [address] Referral ID Status Reason Start Date Expiration Date Visits Requ ested Visits Authorized [id number] Closed 01/29/2018 07/28/2018 1 1 Reason for Visit MRI/CAT/PET Scan (Routine) - Closed Specialty Diagnoses / Procedures Referred By Contact Refer red To Contact Radiology Diagnoses Malignant Neoplasm Of Rectum (HCC) Abisai Romano M.D. [facility] Procedures MR Pelvis without and with IV Contrast MO MRI PELVIS WO/W CNTRST HC MRI PELVIS WO/W CNTRST MO MRI PELVIS WO/W CNTRST [address] [place] [address] Referral ID Status Reason Start Date Expiration Date Visits Requ ested Visits Authorized [id number] Closed 01/29/2018 07/28/2018 1 1 Encounter Details Date Type Department Care Team Description 03/12/2018 Hospital Encounter Department of Amaris Romano Neoplasm Of Radiology, Tin Strickland M.D. [facility]) Building, in [address] [place] [address] [place] [phone] [place], [place] [phone] (Work) [phone] Social History Tobacco Use Types Packs/Day Years [...] or relatives? How often do you attend denominational or anglican 1 to 4 times per year 07/06/2019 services? Do you belong to any clubs or organizations Yes 07/06/2019 such as denominational groups, unions, fraternal or athletic groups, or [...] Sign Reading Time Taken Comments Blood Pressure - - Pulse - - Temperature - - Respiratory Rate - - Oxygen Saturation - - Inhaled Oxygen Concentration - - Weight 79.4 kg (175 lb) 03/12/2018 10:59 AM CDT Height 172.7 cm (5' 8) 03/12/2018 10:59 AM CDT Body Mass Index 26.61 03/12/2018 10:59 AM CDT documented in this encounter Medications at Time of Discharge Medication Sig Dispensed Refills Start Date End Date acetaminophen (TYLENOL) Take 2 tablets 0 03/30/20 18 05/08/2018 500 mg tablet (1,000 mg total) by mouth every 6 (six) hours as needed (1st line pain. Do not exceed 4,000mg in a 24 hour period.). capecitabine (for_XELODA) TAKE 3 TABLETS BY 150 tablet 1 03/15/2018 500 mg tablet MOUTH TWICE DAILY MONDAY-MONDAY ON DAYS OF RADIATION(25 TOTAL DAYS OF RADIATION) dexamethasone (DECADRON Take by mouth. see 0 11/0 03/201703/15/2018 ORAL) CDM for details diphenoxylate-atropine Take 1 tablet by 0 03/15/2018 (LOMOTIL) 2.5-0.025 mg per mouth as needed tablet for diarrhea. Take one tablet three times daily as needed for diarrhea. GRANISETRON HCL ORAL Take by mouth. see 0 017 03/15/2018 CDM for details loperamide (IMODIUM) 2 mg Take 1-2 mg by 0 03/15/2018 capsule mouth as needed for diarrhea. Loose stools. naproxen sodium (ALEVE) Take 1 tablet by 0 201605/08/2018 220 mg tablet mouth 2 (two) times a day as needed. ondansetron ODT Take 1 tablet by 0 08/03/201704/2018 (ZOFRAN-ODT) 8 mg mouth every 6 disintegrating tablet (six) hours as needed. prochlorperazine Take 10 mg by 0 03/15 (COMPAZINE) 10 mg tablet mouth every 6 (six) hours as needed for nausea or vomiting. Nausea/vomiting tamsulosin (FLOMAX) 0.4 mg Take 1 capsule 30 capsule 0 03/3105/08/2018 24 hr capsule (0.4 mg total) by mouth daily. For urinary retention. If urinary retention persists follow up with your primary care provider. documented as of this encounter Nursing Notes Ailyn Crump R.N. - 03/12/2018 11:18 AM CDT Does patient have an allergy to glucagon? No If no???continue. Does patient have a history of insulinoma or phenochromocytoma? No If no???continue. If yes, discusswith Radiologist. Does patient have diabetes? No If yes???order and obtain RMG. Ailyn Crump R.N. - 03/12/2018 11:16 AM CDT Does patient have known or suspected rectal perforation? No If no???continue Has patient had past rectal surgeries? No If no???continue Prepare and administered as ordered and outlined in medication reference document. Ailyn Crump R.N. - 03/12/2018 11:08 AM CDT Power Port on Rt upper chest Accessed from Ct scan What type of IVAD? Bard If power???What two power identifiers were used? ID Card and [place] medical record (Date 03/12/2018) Tip placement verified? Yes Location: : RRight IJ Port-A-Cath tip in the low SVC Date (if applicable): November 17, 2017 documented in this encounter Plan of Treatment Upcoming Encounters Date Type Specialty Care Team Description 07/04/2022 Clinical Support Colon and Rectal Surgery documented as of this encounter Procedures Procedure Name Priority Date/Time Associated Comments Diagnosis MR PELVIS WITHOUT RAD - Routine 03/12/2018 2:04 Malignant Result s for this AND WITH IV (most inpatients PM CDT Neoplasm Of procedure a re in CONTRAST and all Rectum (HCC) the results outpatients) section. documented in this encounter Results MR Pelvis without and with IV Contrast (03/12/2018 2:04 PM CDT) Anatomical Region Laterality Modality Pelvis, Abdominal RST LOS N/A Magnetic Reson ance Specimen (Source) Anatomical Collection Method Collection Time Re ceived Time Location / / Volume Laterality 03/12/2018 2:12 PM CDT Impressions 03/12/2018 3:29 PM CDT IMPRESSION: Low rectal cancer and associated nodes show interval favorable therapeutic response with reduced bulk a nd decrease in size of lymph nodes. Narrative 03/12/2018 3:29 PM CDT EXAM: ??MR PELVIS WITHOUT AND WITH IV CONTRAST COMPARISON: ??MRI prostate 11/20/2017. M RI pelvis 07/21/2017. PET/CT 07/27/2017. CT abdomen/pelvis 03/12/2018 and 017. FINDINGS: TUMOR SIZE/LOCATION/CHARACTERISTICS: The 6.0 cm long circumferential mass in the rectum seen on exam of July 21, 2017 has markedly decreased in size nicole uring 2.3 cm in longitudinal dimension on today's study (series 2, image 17). Relationship of tumor to anterior perito camille reflection: below the reflection Relationship of the tumor to a line draw n between the sacral promontory and the top of the pubic symphysis: below. The mass is hypointense on T2WI. MESORECTAL FASCIA and EXTRAMURAL DEPTH O F INVASION: Extension of tumor through the musculari s propria into the mesorectal fat: present. The maximum extramural spread of the mas s beyond the muscularis propria is 7 mm . Threatened or invaded mesorectal fascia: present. The tumor abuts the prostate gland (seri es 5, image 14 and se ). No definite break of prostate capsule noted . ?? Shortest distance of tumor to MRF: 0 mm. Is there a separate tumor deposit, lymph node or EMVI threatening the MRF (within 1 mm): no. Structures with possible invasion: prost ate gland. T STAGE: T4b T4b: invades or adherent to adjacent org ans or structures SPHINCTER INVOLVEMENT: Involvement of anal sphincters: Absent. LYMPH NODES: The following mesorectal lymph nodes are suspicious for metastatic disease: The previously seen 7 x 7 mm lymph node left posteriorly (series 2, image 19) at the level of S4 and 6 mm lymph node right po steriorly at the level of S3 have decreased in size. The following extramesorectal lymph node s are present and are suspicious: The previously seen 7 mm lymph node in the r ight internal iliac chain (series 19, image 77), 2 smaller lymph nodes in the right internal iliac chain and 1 small left internal iliac chain have decreased in size. N STAGE: N+. EXTRAMURAL VENOUS INVASION: Probably pre sent on the right posteriorly on prior exam is not as prevalent (series 5, imag e 11). OTHER FINDINGS: The multifocal area of low-T2 signal and mild diffusion restriction seen on the prostate on prior study shows a more sara ogeneous appearance on today's exam consistent with radiation change. Lipoma tous changes within left inguinal canal. Procedure Note Stanford Lizarraga M.D. - 03/12/2018 EXAM: MR PELVIS WITHOUT AND WITH IV CONT RAST COMPARISON: MRI prostate 11/20/2017. MRI pelvis 07/21/2017. PET/CT 07/27/2017. CT abdomen/pelvis 03/12/2018 and 017. FINDINGS: TUMOR SIZE/LOCATION/CHARACTERISTICS: The 6.0 cm long circumferential mass in the rectum seen on exam of July 21, 2017 has markedly decreased in size nicole uring 2.3 cm in longitudinal dimension on today's study (series 2, image 17). Relationship of tumor to anterior perito camille reflection: below the reflection Relationship of the tumor to a line draw n between the sacral promontory and the top of the pubic symphysis: below. The mass is hypointense on T2WI. MESORECTAL FASCIA and EXTRAMURAL DEPTH O F INVASION: Extension of tumor through the musculari s propria into the mesorectal fat: present. The maximum extramural spread of the mas s beyond the muscularis propria is 7 mm . Threatened or invaded mesorectal fascia: present. The tumor abuts the prostate gland (seri es 5, image 14 and se 13/25). No definite break of prostate capsule noted . Shortest distance of tumor to MRF: 0 mm. Is there a separate tumor deposit, lymph node or EMVI threatening the MRF (within 1 mm): no. Structures with possible invasion: prost ate gland. T STAGE: T4b T4b: invades or adherent to adjacent org ans or structures SPHINCTER INVOLVEMENT: Involvement of anal sphincters: Absent. LYMPH NODES: The following mesorectal lymph nodes are suspicious for metastatic disease: The previously seen 7 x 7 mm lymph node left posteriorly (series 2, image 19) at the level of S4 and 6 mm lymph node right po steriorly at the level of S3 have decreased in size. The following extramesorectal lymph node s are present and are suspicious: The previously seen 7 mm lymph node in the r ight internal iliac chain (series 19, image 77), 2 smaller lymph nodes in the right internal iliac chain and 1 small left internal iliac chain have decreased in size. N STAGE: N+. EXTRAMURAL VENOUS INVASION: Probably pre sent on the right posteriorly on prior exam is not as prevalent (series 5, imag e 11). OTHER FINDINGS: The multifocal area of low-T2 signal and mild diffusion restriction seen on the prostate on prior study shows a more sara ogeneous appearance on today's exam consistent with radiation change. Lipoma tous changes within left inguinal canal. IMPRESSION: Low rectal cancer and associ ated nodes show interval favorable therapeutic response with reduced bulk a nd decrease in size of lymph nodes. Abisai CAZARES MRI PROCEDURES documented in this encounter Visit Diagnoses Diagnosis Malignant Neoplasm Of Rectum (HCC) documented in this encounter Administered Medications Inactive Administered Medications - up to 3 most recent administrations Medication Order MAR Action Action Date Dose Rate Site gadobutrol injection 0.5-15 mL Given 03/12/2018 1:37 PM CDT 10 m L (GADAVIST) 0.5-15 mL, intravenous, Once in imaging, contrast, Starting on Mon03/12/18 at 1059, For 1 dose, Imaging Protocol Orders, Dose per Radiant Medication Guidelines glucagon injection 1 mg (GlucaGen) Given 03/12/2018 12:50 PM CDT 1 mg 1 mg, intravenous, Once, On Mon03/12/18 at 1100, For 1 dose, Imaging Protocol Orders heparin flush 500 Units Given 03/12/2018 2:09 PM CDT 500 Units 500 Units, intra-catheter, Every 7 days, First dose on Mon03/13/18 at 0900, Implanted Vascular Access Device (IVAD) Venous Non-Valved: When no infusion to maintain patency, following saline flush. lidocaine HCl 2 % topical jelly 0.5 Given 03/12/2018 1 2:30 PM CDT 0.5 application application (UROJET) 0.5 application (5 mL), rectal, Once, On Mon03/12/18 at 1100, For 1 dose, Imaging Protocol Orders sodium chloride injection 10 mL Given 03/12/2018 2:07 PM CDT 10 mL 10 mL, intravenous, Every 7 days, First dose on Mon03/13/18 at 0900, Implanted Vascular Access Device (IVAD) Venous Non-Valved: When no infusion to maintain patency, followed by heparin flush. Given 03/12/2018 12:51 PM CDT 10 mL Given 03/12/2018 12:48 PM CDT 10 mL ultrasound gel topical gel 60-180 mL Given 03/12/2018 12:30 PM CDT 100 mL 60-180 mL, rectal, Once, On Mon03/12/18 at 1100, For 1 dose, Imaging Protocol Orders, Dose per Radiant Medication Guidelines documented in this encounter Additional Health Concerns Assessment Noted Time PHQ-9 Depression Total Score: 1 12/14/2017 11:05 AM CS T documented as of this encounter
--- OUTSIDE RECORDS SUMMARY | 2022-07-01 23:36 | XMS_ITS | Encounter Summary ---
:1955 Author Organization [facility] Address [address] [place] [id number] Care Team Providers Name Role Phone Unavailable Primary Care Provider Unavailable Reason for Visit Auth/Cert Specialty Diagnoses / Procedures Referred By Contact Refer red To Contact Diagnoses Malignant neoplasm of rectum (HCC) Rectal cancer with prostate invasion Procedures [place] PELV EXENTERATION COLORECT MLG Exenteration Pelvic Other-to be determined Referral ID Status Reason Start Date Expiration Date Visits Requ ested Visits Authorized [id number] 1 1 Encounter Details Date Type Department Care Team Description 03/26/2018 Anesthesia Event RST [facility]FFANIE [facility] OR Henrik Oconnell M.D. [address] [place] [id number] [place], [place] [phone] (Wo rk) Anesthesia Record Procedure Summary Procedure Name Responsible Anesthesia Start Anesthesia Stop Anesthesiologist Time Time Exenteration Pelvic vs Henrik Oconnell M.D. 03/26/18 0823 03/26 1357 abdominal perineal resection, colostomy vs low anterior resection, diverting loop ileostomy. Events Date Time Event Comment 03/26/2018 0806 0823 An Start Machine/Equipmen t Checked Infection Precautions Foll owed Procedure/Site Verified NPO Sta tus Verified Supine Standard ASA Mon itors Applied 0837 An Induction 0840 An Intubation 0909 Turnover to Proceduralist 1139 Quick Note Arterial wavefor m dampened, will monitor NiBP 1152 Quick Note Left wrist repos itioned, arterial waveform appropr iate, will use to monitor 1204 Quick Note Arterial wavefor m dampened, will monitor NiBP 1342 Turnover to ANE Staff 1342 Airway Removal Criteria Met 1342 Extubation/Airway Removed 1344 an stop data 1357 An End I completed my h andoff to the receiving staff during [facility] we 1. Identified the patient 2. Ident ified the responsible provider 3. Revi ewed the pertinent medical history 4. Discussed the surgical course 5. Review ed intra-op anesthesia management and i ssues during anesthesia 6. Set expectati ons for post-procedure period 7. Allowe d opportunity for questions and ac knowledgement of understanding. Name Total midazolam 1 mg/mL injection 2 mg fentanyl injection 50 mcg/mL 250 mcg lidocaine 2% (mg) injection 60 mg propofol 10 mg/mL 230 mg ondansetron 4 mg/2 mL injection 4 mg phenylephrine 100 mcg/mL injection 750 mcg sugammadex 100 mg/mL injection 200 mg dexamethasone 4 mg/mL injection 4 mg metroNIDAZOLE in NaCl (iso-osm) IVPB 500 mg (FLAGYL) 5 00 mg rocuronium 10 mg/mL injection 110 mg lidocaine 4 mg/mL in D5W 500 mL infusion 656.96 mg heparin (porcine) injection 5,000 Units 5,000 Units ceFAZolin injection 2 g (ANCEF) 4 g HYDROmorphone PF 100 mcg/mL Regional 100 mcg ketamine 10 mg/mL injection 40 mg Lactated Ringers Free Drip 1,000 mL lactated ringers free drip 250 mL lactated ringers free drip 700 mL Agents No agents on file. Blood No blood administrations on file. Lines, Drains, and Airways Type Details Placement Removal Closed/Suction Drain 03/26/18; 1239; 2; 03/26/18 1239 by Right; Abdomen; Bulb; 19 Cecilia Mccormick, Fr. R.N. Colostomy 03/26/18; 1310; Dr. Barone 03/26/18 1310 by Jerome; Angelique, Dona Macario L, Descending; LLQ; 1-12/10 R.N. Implanted Port Single Chlorhexidine 03/12/18 1001 by 03/26/18 1628 by Lumen (Preferred); Yes; Josselin Cheng , R.N. Gloves, Mask (All others in room); Right; Chest; Yes; 03/26/18; 1628 Implanted Port Single 03/26/18; 0704; Chest; 03/26/18 0704 by 1320 by Lumen Yes (ID' d 3 bumps and Hannah Marks Ailt s, Laura M, RJuan CarlosNJuan Carlos Bard card); Other R.N. (Comment) (No longer needed); 08/27/18; 1320 NG/OG Tube 03/26/18; 0842; 03/26/18 0842 by 03/27/18 1200 b y Nasogastric; 16 Fr; Charley Rubio R.N. Lund, Ash ley L RJuan CarlosNJuan Carlos Left; 03/27/18; 1200 Arterial Line Placement Date: 03/26/18 0854 by 03/26/18 1515 b y 03/26/18; Placemnt Time: Charley Rubio R.N. Elli ngson, Janna M, 853 (created via R.N. procedure documentation); Orientation: Left; Location: Radial; Site Prep: Chlorhexidine (Preferred); Insertion Attempts: 2; Securement: Securement dressing; Removal Date: 03/26/18; Removal Time: 1514; Removal Reason: Per protocol ETT Placement Date: 03/26/18 09 by 03/26/18 1342 b y 03/26/18; Placement Charley Rubio R.N. Nye, Bria n C RJuan CarlosNJuan Carlos Time: 908 (created via procedure documentation); Mask Ventilation: Easy mask; Type: Standard ETT; Single Lumen Tube Size: 7.5 mm; Cuffed: Yes; Location: Oral; Removal Date: 03/26/18; Removal Time: 1342 Peripheral IV Placement Date: 03/26/18 09 by 03/27/18 0422 b y 03/26/18; Placement Charley Rubio R.N. Paradise, Karlee M, Time: 911; Catheter R.N. Size: 16 G; Orientation: Right; Location: Hand; Removal Date: 03/27/18; Removal Time: 042; Removal Reason: Removed by patient Peripheral IV Placement Date: 03/26/18 09 by 03/28/18 0821 b y 03/26/18; Placement Charley Rubio R.N. Korman, K risten E, Time: 911; Catheter R.N. Size: 16 G; Orientation: Left; Location: Hand; Removal Date: 03/28/18; Removal Time: 820; Removal Reason: Per patient/family request Indwelling Urinary Placement Date: 03/26/18928 by 03/27/18 085 8 by Catheter 03/26/18; Placement Dona Macario Lund, As hley L, R.NJuan Carlos Time: 928; Inserted by: Arash Begum; Type: Non-latex; Size: 16 Fr.; Balloon Size: 5 mL; Urine Returned: Yes; Removal Date: 03/27/18; Removal Time: 857; Removal Reason: Criteria for drain removal met Closed/Suction Drain 03/26/18; 1222; 1; 03/26/18 1222 by 8 1425 by Right; Abdomen; Bulb; 19 Cecilia Mccormick, Mikayla Horvath E, Fr.; Criteria for drain R.N. R.N. removal met (RETIRED) Incision 03/26/18; 1318; 03/26/18 1318 by 06/29/21 141 8 by Perineum; DRSG GZ 16 PLY Dona Macario, February [facility] 4X4, DRSG FINANCIAL ENGINEER WND ABD R.NJuan Carlos nd, Schedu ling ABS 8X10; 06/29/21 Automated Bat ch Job (Removed by background completion utility); 1418 (Removed by background completion utility) (RETIRED) Incision 03/26/18; 1318; Abdomen; 03/26/18 1318 by 1418 by 2 port sites and Dona Macario, [facility] midline; ADH DRMBND ADV R.N. nd, [place] 0.7ML (x2); 06/29/21 Automated B atch Job (Removed by background completion utility); 1418 (Removed by background completion utility) documented in this encounter Social History Tobacco Use Types Packs/Day Years [...] or relatives? How often do you attend congregation or sabianism 1 to 4 times per year 07/06/2019 services? Do you belong to any clubs or organizations Yes 07/06/2019 such as congregation groups, unions, fraternal or athletic groups, or [...] PM CDT documented as of this encounter OR Notes Anesthesia Postprocedure Evaluation - Henrik Oconnell M.D. - 03/26/2018 2:39 PM CDT Patient: Angel Addison Procedure Summary Date: 03/26/18 Room / Location: [address] [facility] in [place], [place] Anesthesia Start: 822 Anesthesia Stop: 1356 Procedures: Exenteration Pelvic vs abdominal perineal resection, colostomy vs low anterior resection, divertingloop ileostomy. (N/A ) Cystoscopy (Bilateral ) Diagnosis: Malignant Neoplasm Of Rectum Adenocarcinoma (HCC) (Rectal carcinoma, prostate invasion.) Provider: Abisai Romano M.D.; Bobo Gamble M.D. Responsible Provider: Henrik Oconnell M.D. Anesthesia Type: general with pain block ASA Status: 2 Anesthesia Type: general with pain block Last vitals BP 104/67 (03/26/18 1355) Temp 36.7 ??C (03/26/18 1354) Pulse 80 (03/26/18 1405) Resp 19 (03/26/18 1405) SpO2 99 % (03/26/18 1405) Anesthesia Post Evaluation 03/26/2018 2:39 PM Patient Disposition: general care unit Cardiovascular status: hemodynamics (HR & BP) acceptable Respiratory status: patent airway with spontaneous effort Temperature: normothermic Oxygen requirements: room air Level of consciousness: awake Pain score: pain adequately controlled and/or at baseline Post Op nausea/vomiting: none Hydration status: euvolemic Anesthesia Procedure Notes - Ronel Renee APRN, JAM, DNAP - 03/26/2018 9:54 AM CDTAssociated Order(s): ANESTHESIA REGIONAL BLOCK Regional Block Date/Time: 03/26/2018 8:36 AM Performed by: HENRIK OCONNELL Authorized by: HENRIK OCONNELL Location: [place] protocol: All relevant documentation and testing were reviewed and available. All required blood products, implants, devices and/or special equipment were made available as applicable. The pre-procedure verification was conducted, the correct site was marked if required, and the procedural time out was conducted prior to performing the procedure and confirmed in a procedural pause: yes Pre-procedure details: Appropriate hand hygiene, gown, cap, mask, protective eyewear, sterile gloves, skin preparation, sterile drape, and strict aseptic technique were utilized as applicable for the procedure.: yes Skin prep: chlorhexidine Sedation/Anesthesia (see MAR for exact dosages): Anesthesia method: local infiltration Procedure details: Block type: pain block Block type comment: Post-Op pain block at request of surgeon Neuraxial: spinal Positioning: lateral (right) Approach: midline Injection technique: single injection Needle type: kayli Gauge: 27G Length: 10 CSF: yes Pain with needle advancement or injection of local anesthetic: no Post-procedure details: Procedure completed successfully: successful procedure Other complications: none Anesthesia Procedure Notes - Charley Rubio, R.N. - 03/26/2018 9:15 AM CDT Associated Order(s): AIRWAY MANAGEMENT Airway Date/Time: 03/26/2018 9:09 AM Patient location during procedure: OR / Procedure Area Performed by: CHARLEY RUBIO Authorized by: HENRIK OCONNELL Pre procedure details Pre evaluation for airway management: procedure Urgency: elective Preop assessment of probable difficulty: no difficulty anticipated Sedation level: anesthetized Preoxygenation: bag valve mask Procedure details Mask difficulty assessment: easy mask Final airway type: direct laryngoscopy, intubation Laryngeal manipulation: yes Final airway difficulty of direct laryngoscopy (DL): 0-easy Final best view of glottic structures - Cormack/Lehane Score: grade 1 ETT location: oral Adult tube size: 7.5 Adult ETT distance at teeth/gum: 23 Oral tube type: standard ETT Cuffed: yes Airway confirmation: bilateral breath sounds, positive ETCO2 and bilateral chest rise Other previous techniques attempted: none Post procedure details Procedure outcome: successful Airway event: no complications Anesthesia Procedure Notes - Charley Rubio R.N. - 03/26/2018 9:14 AM CDT Associated Order(s): SOM[address] INVASIVE CATHETER Invasive Catheter Date/Time: 03/26/2018 8:54 AM Performed by: CHARLEY RUBIO Authorized by: HENRIK OCONNELL Location: OR Pre-procedure prep: Skin preparation: chlorhexidine Sedation/Anesthesia (see MAR for exact dosages): Anesthesia method: none Procedure details: Line type: arterial Laterality: left Location: radial Location details: new site Age group: adult Monitored: yes Number of attempts: 2 Post-procedure details: Procedure completed successfully: yes Line secured: secured with sutureless device Chlorhexidine disc around insertion site and under catheter with slight turn: yes Complications - arterial: none Anesthesia Preprocedure Evaluation - Henrik Oconnell M.D. - 03/26/2018 6:31 AM CDT Anesthesia Pre-Evaluation Pertinent components of the patient's history including current problem list, medical history, surgical history, family history, social history, medications and allergies were reviewed and updated as appropriate. The patient was examined and the Pre-op diagnosis, planned procedure, and H&P were reviewed and remain unchanged. PROBLEM LIST Relevant Problems ONC (+) Malignant Neoplasm Of Rectum (HCC) Other (+) Smoking Tobacco Use Personal History OBJECTIVE PHYSICAL EXAMINATION Airway (HEENT) Mallampati: II TM Distance: >3 FB Neck ROM: Full Cardiovascular Rhythm: Regular Rate: Normal Cardiovascular Assessment: Normal Pulmonary Pulmonary Assessment: Clear Neurological Normal Dental Normal General / Constitutional Normal ASSESSMENT / PLAN ANESTHESIA PLAN ASA: 2 Anesthesia Plan: general with pain block Patient seen and allergies reviewed; anesthesia plan and risks discussed directly with patient / legal guardian, or through an advisory services associate; patient evaluated and approved for anesthesia / sedation. Use of blood products discussed with patient who consented to blood products. 2 IVs, arterial line, lidocaine infusion, intrathecal opioid documented in this encounter Plan of Treatment Upcoming Encounters Date Type Specialty Care Team Description 07/04/2022 Clinical Support Colon and Rectal Surgery documented as of this encounter Procedures Procedure Name Priority Date/Time Associated Comments Diagnosis [place] INJ SPINE LUMB/SAC Routine 03/26/2018 9:54 AM Results for this WO IMG CDT procedure are i n the results section. LDA ANE ENDOTRACHEAL Routine 03/26/2018 9:15 AM R esults for this AIRWAY CDT procedure are i n the results section. LDA ANE ARTERIAL LINE Routine 03/26/2018 9:14 AM Results for this INSERTION CDT procedure are i n the results section. [place] ARTL CATH/CNULA Routine 03/26/2018 9:14 AM Res ults for this MONITOR PERC CDT procedure are i n the results section. documented in this encounter Results [place] INJ SPINE LUMB/SAC WO IMG (03/26/2018 9:54 AM CDT) Narrative Ronel Renee APRN, CRNA, DNAP - 03/26/2018 9:54 AM CDT Ronel Renee APRN, CRNA, DNAP ? 03/26/2018 ??9:55 AM Regional Block Date/Time: 03/26/2018 8:36 AM Performed by: HENRIK OCONNELL Authorized by: HENRIK OCONNELL Location: OR [place] protocol: All relevant documentation and testing w ere reviewed and available. All required blood products, implants, devic es and/or special equipment were made available as applicable. The pre-pr ocedure verification was conducted, the correct site was marked i f required, and the procedural time out was conducted prior to performi ng the procedure and confirmed in a procedural pause: yes ?? Pre-procedure details: Appropriate hand hygiene, gown, cap, mas k, protective eyewear, sterile gloves, skin preparation, sterile drape, and strict aseptic technique were utilized as applicable for the procedure .: yes ?? Skin prep: chlorhexidine Sedation/Anesthesia (see MAR for exact d osages): Anesthesia method: local infiltration Procedure details: Block type: pain block ?? Block type comment: Post-Op pain block a t request of surgeon Neuraxial: spinal ?? Positioning: lateral (right) ?? Approach: midline Injection technique: single injection Needle type: kayli Gauge: 27G Length: 10 CSF: yes ?? Pain with needle advancement or injectio n of local anesthetic: no ?? Post-procedure details: Procedure completed successfully: succes sful procedure Other complications: none Procedure Note Ronel Renee APRN, CRNA, DNAP - 03/26/2018 9:54 AM CDT Regional Block Date/Time: 03/26/2018 8:36 AM Performed by: HENRIK COONNELL Authorized by: HENRIK OCONNELL Location: OR [place] protocol: All relevant documentation and testing w ere reviewed and available. All required blood products, implants, devices and/or special equipment were made available as applicable. The pre-procedure verification was conducted, the correct site was marked i f required, and the procedural time out was conducted prior to performing the procedure and confirmed in a procedural pause: yes Pre-procedure details: Appropriate hand hygiene, gown, cap, mas k, protective eyewear, sterile gloves, skin preparation, sterile drape, and strict aseptic technique were utilized as applicable for the procedure.: yes Skin prep: chlorhexidine Sedation/Anesthesia (see MAR for exact d osages): Anesthesia method: local infiltration Procedure details: Block type: pain block Block type comment: Post-Op pain block a t request of surgeon Neuraxial: spinal Positioning: lateral (right) Approach: midline Injection technique: single injection Needle type: kayli Gauge: 27G Length: 10 CSF: yes Pain with needle advancement or injectio n of local anesthetic: no Post-procedure details: Procedure completed successfully: succes sful procedure Other complications: none Henrik Oconnell M.D. PROCEDURE/MINOR SURGICAL ORD ERABLES LDA ANE ENDOTRACHEAL AIRWAY (03/26/2018 9:15 AM CDT) Narrative Charley Rubio RJuan CarlosNJuan Carlos - 03/26/2018 9:15 AM CDT Charley Rubio RJuan CarlosN. ? 03/26/2018 ??9:16 AM Airway Date/Time: 03/26/2018 9:09 AM Patient location during procedure: OR / Procedure Area Performed by: CHARLEY RUBIO Authorized by: HENRIK OCONENLL Pre procedure details ?? Pre evaluation for airway management : procedure ?? Urgency: elective ?? Preop assessment of probable difficu lty: no difficulty anticipated ?? Sedation level: anesthetized ?? Preoxygenation: bag valve mask Procedure details ??Mask difficulty assessment: easy mask ?? Final airway type: direct laryngosco py, intubation ?Laryngeal manipulation: yes ?? Final airway difficulty of direct la ryngoscopy (DL): 0-easy ?? Final best view of glottic structure s - Cormack/Lehane Score: grade 1 ?? ETT location: oral ?? Adult tube size: 7.5 ?? Adult ETT distance at teeth/gum: 23 ?? Oral tube type: standard ETT ?? Cuffed: yes ?? Airway confirmation: bilateral breat h sounds, positive ETCO2 and bilateral chest rise ?? Other previous techniques attempted: none Post procedure details ?? Procedure outcome: successful ? Airway event: no complications Procedure Note Charley Rubio RGrover - 03/26/2018 9:15 AM CDT Airway Date/Time: 03/26/2018 9:09 AM Patient location during procedure: OR / Procedure Area Performed by: CHARLEY RUBIO Authorized by: HENRIK OCONNELL Pre procedure details Pre evaluation for airway management: p rocedure Urgency: elective Preop assessment of probable difficulty : no difficulty anticipated Sedation level: anesthetized Preoxygenation: bag valve mask Procedure details Mask difficulty assessment: easy mask Final airway type: direct laryngoscopy, intubation Laryngeal manipulation: yes Final airway difficulty of direct laryn goscopy (DL): 0-easy Final best view of glottic structures - Cormack/Lehane Score: grade 1 ETT location: oral Adult tube size: 7.5 Adult ETT distance at teeth/gum: 23 Oral tube type: standard ETT Cuffed: yes Airway confirmation: bilateral breath s ounds, positive ETCO2 and bilateral chest rise Other previous techniques attempted: no ne Post procedure details Procedure outcome: successful Airway event: no complications Henrik Oconnell M.D. ANESTHESIA ORDERABLES [place] ARTL CATH/CNULA MONITOR PERC, LDA ANE ARTERIAL LINE INSERTION (03/26/2018 9:14 AM CDT) Narrative Charley Rubio, RJuan CarlosNJuan Carlos - 03/26/2018 9:14 AM CDT Charley Rubio RJuan CarlosN. ? 03/26/2018 10:34 AM Invasive Catheter Date/Time: 03/26/2018 8:54 AM Performed by: CHARLEY RUBIO Authorized by: HENRIK OCONNELL Location: OR Pre-procedure prep: ??Skin preparation: chlorhexidine ?? Sedation/Anesthesia (see MAR for exact d osages): ??Anesthesia method: none Procedure details: ??Line type: arterial ?Laterality: left ??Location: radial ??Location details: new site ?Age group: adult ??Monitored: yes ?Number of attempts: 2 Post-procedure details: ??Procedure completed successfully: yes ?Line secured: secured with sutureless device ??Chlorhexidine disc around insertion s ite and under catheter with slight turn: yes ?Complications - arterial: none Procedure Note Charley Rubio RGrover - 03/26/2018 9:14 AM CDT Invasive Catheter Date/Time: 03/26/2018 8:54 AM Performed by: CHARLEY RUBIO Authorized by: HENRIK OCONNELL Location: OR Pre-procedure prep: Skin preparation: chlorhexidine Sedation/Anesthesia (see MAR for exact d osages): Anesthesia method: none Procedure details: Line type: arterial Laterality: left Location: radial Location details: new site Age group: adult Monitored: yes Number of attempts: 2 Post-procedure details: Procedure completed successfully: yes Line secured: secured with sutureless d evice Chlorhexidine disc around insertion sit e and under catheter with slight turn: yes Complications - arterial: none Henrik Oconnell M.D. PROCEDURE/MINOR SURGICAL ORD ERABLES documented in this encounter Visit Diagnoses Not on filedocumented in this encounter Administered Medications Inactive Administered Medications - up to 3 most recent administrations Medication Order [facility] Action Action Date Dose Rate Site ceFAZolin injection 2 g (ANCEF) Given 03/26/2018 12:14 PM CDT 2 g 2 g, intravenous, Once, On 03/26/18 at 0815, For 1 dose, Intra-Op, preoperatively within 1 hour before surgical incision. [place] IV push over 3 minutes. Add 5 mL NS to 1 gram vial for a final concentration of 200 mg/mL., Drug Monitoring Program: Pharmacist to adjust medication order based on comorbidities and indication., Indications: Prophylaxis, surgical Given 03/26/2018 9:16 AM CDT 2 g dexamethasone injection (DECADRON) Given 03/26/2018 9:09 AM CDT 4 mg As needed, Starting on Mon03/26/18 at 0909, Anesthesia Intra-op fentaNYL injection (SUBLIMAZE) Given 03/26/2018 10:39 AM CDT 50 mcg intravenous, As needed, severe pain or score 7-10 of 10, Starting on Mon03/26/18 at 0830, Anesthesia Intra-op Given 03/26/2018 9:45 AM CDT 100 mcg Given 03/26/2018 8:30 AM CDT 100 mcg heparin (porcine) injection 5,000 Units Given 03/26/2018 9:18 AM CDT 5,000 Units 5,000 Units, subcutaneous, Once, On Mon03/26/18 at 0815, For 1 dose, Intra-Op HYDROmorphone injection Regional (DILAUD ID) Given 03/26/2018 8:36 AM CDT 100 mcg As needed, Starting on Mon03/26/18 at 0836, Anesthesia Intra-op ketamine injection (KETALAR) Given 03/26/2018 1:23 PM CDT 10 mg As needed, Starting on Mon03/26/18 at 1028, Anesthesia Intra-op Given 03/26/2018 12:21 PM CDT 10 mg Given 03/26/2018 11:33 AM CDT 10 mg lactated ringers New Bag 03/26/2018 1:07 PM CDT intravenous, Continuous Infusion: Per Instructions PRN, Starting on Mon03/26/18 at 0823, Anesthesia Intra-op New Bag 03/26/2018 8:23 AM CDT lactated ringers New Bag 03/26/2018 9:09 AM CDT intravenous, Continuous Infusion: Per Instructions PRN, Starting on Mon03/26/18 at 0909, Anesthesia Intra-op lactated ringers New Bag 03/26/2018 9:30 AM CDT intravenous, Continuous Infusion: Per Instructions PRN, Starting on Mon03/26/18 at 0911, Anesthesia Intra-op lidocaine (PF) (cardiac) injection Given 03/26/2018 8:37 AM CDT 60 mg intravenous, As needed, Starting on Mon03/26/18 at 0837, Anesthesia Intra-op lidocaine 4 mg/mL in D5W 500 mL New Bag 03/26/2018 9:09 AM CDT 2 mg/kg/hr 39 mL/hr infusion 1 mg/min (15 mL/hr), intravenous, Continuous, Starting on Mon03/26/18 at 0800, Premix ba mg in 500 mL metroNIDAZOLE in NaCl (iso-osm) IVPB 500 mg Given 03/26/2018 9:16 AM CDT 500 mg (FLAGYL) 500 mg, intravenous, at 200 mL/hr, Administer over 30 Minutes, Once, On Mon03/26/18 at 0815, For 1 dose, Intra-Op, preoperatively within 1 hour before surgical incision. , Indications: Prophylaxis, surgical midazolam (PF) injection (VERSED) Given 03/26/2018 8:30 AM CDT 2 mg intravenous, As needed, Starting on Mon03/26/18 at 0830, Anesthesia Intra-op ondansetron (PF) injection (ZOFRAN) Given 03/26/2018 12:56 PM CDT 4 mg intravenous, As needed, nausea, vomiting, Starting on Mon03/26/18 at 1256, Anesthesia Intra-op phenylephrine injection Given 03/26/2018 1:05 PM CDT 100 mcg intravenous, As needed, Starting on Mon03/26/18 at 0930, Anesthesia Intra-op Given 03/26/2018 12:46 PM CDT 200 mcg Given 03/26/2018 12:04 PM CDT 100 mcg propofol injection (DIPRIVAN) Given 03/26/2018 1:32 PM CDT 10 mg intravenous, As needed, Starting on Mon03/26/18 at 0839, Anesthesia Intra-op Given 03/26/2018 1:01 PM CDT 20 mg Given 03/26/2018 9:19 AM CDT 50 mg rocuronium injection (ZEMURON) Given 03/26/2018 12:35 PM CDT 10 mg As needed, Starting on Mon03/26/18 at 0837, Anesthesia Intra-op Given 03/26/2018 11:12 AM CDT 20 mg Given 03/26/2018 10:17 AM CDT 30 mg sugammadex injection (BRIDION) Given 03/26/2018 1:26 PM CDT 200 mg As needed, Starting on Mon03/26/18 at 1326, Anesthesia Intra-op documented in this encounter Additional Health Concerns Assessment Noted Time PHQ-9 Depression Total Score: 1 12/14/2017 11:05 AM CS T documented as of this encounter
--- OUTSIDE RECORDS SUMMARY | 2022-07-01 23:36 | XMS_ITS | Encounter Summary ---
:1955 Author Organization [facility] Address [address] [place] [address] Care Team Providers Name Role Phone Unavailable Primary Care Provider Unavailable Reason for Referral Outpatient (Routine) - Closed Specialty Diagnoses / Procedures Referred By Contact Refer red To Contact Diagnoses [facility] NM Thyroid Uptake and Scan WV THYROID IMG UPTAKE SNGL/MULT HC THYROID IMG UPTAKE SNGL/MULT WV THYROID IMG UPTAKE SNGL/MULT [facility] [address] [place] [phone] Referral ID Status Reason Start Date Expiration Date Visits Requ ested Visits Authorized [id number] Closed 05/08/2018 05/08/2019 6 6 Reason for Visit Outpatient (Routine) - Closed Specialty Diagnoses / Procedures Referred By Contact Refer red To Contact Diagnoses Nodule Thyroid Saul Styles, [facility] Procedures NM Thyroid Uptake and Scan WV THYROID IMG UPTAKE SNGL/MULT HC THYROID IMG UPTAKE SNGL/MULT [place] THYROID IMG UPTAKE SNGL/MULT [facility] [address] [place] [phone] Referral ID Status Reason Start Date Expiration Date Visits Requ ested Visits Authorized [id number] Closed 05/08/2018 05/08/2019 6 6 Encounter Details Date Type Department Care Team Description 06/29/2018 Hospital Encounter Department of Seamus Owens, Nodule Thyroid Radiology, [facility] in [place] [address] [address] [place], [place] [address] [facility] [address] [place], [place] [phone] (Work) [phone] Social History Tobacco Use Types Packs/Day Years [...] or relatives? How often do you attend yarsanism or advent 1 to 4 times per year 07/06/2019 services? Do you belong to any clubs or organizations Yes 07/06/2019 such as yarsanism groups, unions, fraternal or athletic groups, or [...] N/ A Nuclear Medicine Nuclear Medicine [facility] Specimen (Source) Anatomical Collection Method Collection Time [...] a gamma camera. COMPARISON: ??Thyroid ultrasound 05/08/20 INDICATION: ??Hyperthyroidism FINDINGS: Mildly enlarged thyroid gland. [...] MAR Action Action Date Dose Rate Site sodium iodide I 123 oral Given 06/29/2018 9:16 AM 928 microcurie s Other solution < 1 millicurie CDT (SODIUM IODIDE I-123) 928 microcurie., oral, Once, On Mon06/29/18 at 0930, For 1 dose documented in this encounter Additional Health Concerns Assessment Noted Time PHQ-9 Depression Total Score: 1 12/14/2017 11:05 AM CS T documented as of this encounter
--- OUTSIDE RECORDS SUMMARY | 2022-07-01 23:36 | XMS_ITS | Encounter Summary ---
:1955 Author Organization [facility] Address [address] [place] [address] Care Team Providers Name Role Phone Unavailable Primary Care Provider Unavailable Reason for Visit Outpatient (Routine) - Closed Specialty Diagnoses / Procedures Referred By Contact Refer red To Contact Urology Abisai Romano M .D. [facility] [address] [place] [phone] Referral ID Status Reason Start Date Expiration Date Visits Requ ested Visits Authorized [id number] Closed 01/29/2018 07/28/2018 1 1 Encounter Details Date Type Department Care Team Description 03/13/2018 Comprehensive Visit Department of Fabrizio Romano M.D. [address] [place] [phone] Malignant Neoplasm Urology in Bobo Gamble M.D. [address] [place] [phone] Of Rectum (HCC) [place], [place] (Primary Dx) [address] [place] [phone] Social History Tobacco Use Types Packs/Day Years [...] or relatives? How often do you attend methodist or roman catholic 1 to 4 times per year 07/06/2019 services? Do you belong to any clubs or organizations Yes 07/06/2019 such as methodist groups, unions, fraternal or athletic groups, or [...] documented as of this encounter Consult Notes Allyn Carvajal P.A.-C. - 03/13/2018 11:00 AM CDT CHIEF COMPLAINT/PURPOSE OF VISIT Patient seen on Dr. Gamble . ?? Rectal Cancer ?? HISTORY OF PRESENT ILLNESS Mr. Addison is a very pleasant 61-year-old gentleman who underwent a medical examination last month. On digital rectal exam, his physician felt something within the rectum but was unsure if it was related to the prostate or the bowel. He then underwent a colonoscopy which showed a mass in the rectum. Biopsy showed rectal cancer. 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 Current plan for treatment of his rectal cancer is chemoradiation therapy followed by surgery. He is to meet with Radiation Oncology later this morning. Mr. Addison does have a history of urinary tract infections. His first one was in his 40s. He has had about five urinary tract infections. The most recent one was noted on July 10, 2017. At that time, he was given a ten-day course of ciprofloxacin which he completed on July 30. He did not have any side effects of the ciprofloxacin. He was having symptoms consisting of dysuria and pain when urinating, body aches, chills, and a fever of 100.8 degrees Fahrenheit. He states that the antibiotic helped his symptoms within 24 hours. He has not had any history of prostatitis. PSA in July 2017 was 6.5. MRI in Nov 2017 of [facility] showed PI-RADs 2 with no concerns of prostate cancer. Mr. Addison has undergone chemotherapy and radiation for the rectal cancer. He completed the radiation therapy in late December 2017. Mr. Addison notes that he will have some post void dribbling which has been ongoing since radiation. He feels that he needs to give an extra push to fully empty his bladder. He denies any gross hematuria, dysuria, or urinary tract infections. He has noted increased frequency after radiation. He has also had some neuropathy since chemotherapy. ?? PAST MEDICAL/SURGICAL HISTORY Urinary tract infections. Rectal cancer. Bilateral knee arthroscopy. ?? SOCIAL HISTORY Mr. Addison is a former smoker of one pack per week for about 20 years. He quit greater than 20 years ago. He will rarely consume alcohol. Mr. Addison states that he lost his job at age 49. ?? FAMILY HISTORY Mr. Addison's grandfather was diagnosed with prostate cancer in his 90s. His sister was diagnosed with colon cancer. ?? PHYSICAL EXAMINATION General: Well-appearing, in no acute apparent distress. Neuro: Alert and orientated x3. Psych: Maintained eye contact throughout conversation. Appropriate affect. Skin: No rashes in the areas examined. Eyes: No scleral icterus. Lungs: Normal respiratory effort without shortness of breath. Musculoskeletal: Normal gait noted with ambulation. IMPRESSION/REPORT/PLAN #1 Rectal cancer ?? I had the pleasure of meeting with Mr. Addison along with Dr. Gamble in clinic today. We discussed treatment options in great detail. At this point there is a question if we can preserve the prostate based on the imaging. If we can preserve the prostate than nothing further would need to be done. We will preserve the prostate if we can obtain negative margins. If we cannot obtain negative margins without taking the prostate, the 1st option would be to perform a radical prostatectomy with a vesicle urethral anastomosis. He has had a lot of radiation in may need a catheter for up to 6 weeks if this option is completed. We did discuss that there is a chance of the area not healing with this procedure. This would include a bladder neck contracture versus a fistula. The 2nd option we discussed would be removal of the prostate and ligation of the bladder neck. With this option he would require at suprapubic tube placement. We discussed that with this option he could have a surgery down the line for an Brianna pouch/catheterizable channel. The 3rd option we discussed would be the most radical in completing a cystectomy with ileal conduit. This would be our last choice as the patient would then end up with 2 bags. We discussed all of these options in great detail. We will have him meet with our stoma nurses in case we need to proceed with ileal conduit placement. I have also obtained an AUA symptom score, IIEF, and SF 36 form from him. These will be scanned into his chart. He is in agreement withthis plan. All questions answered. He will call with further questions. ?? PATIENT EDUCATION Ready to learn, no apparent learning barriers were identified; learning preferences include listening. Explained diagnosis and treatment plan; patient expressed understanding of the content. Answers for HPI/ROS submitted by the patient on 03/12/2018 No general issues: Yes No eye issues: Yes No ENT issues: Yes No heart issues: Yes No respiratory issues: Yes No GI issues: Yes Pain or stiffness in the joints: Yes No skin issues: Yes No neurologic issues: Yes No mental health issues: Yes No blood/lymph issues: Yes No urinary/reproductive issues: Yes Bobo Gamble M.D. - 03/13/2018 11:00 AM CDT 1. Locally advanced rectal cancer I have extensively reviewed Mr. Addison's and imaging. He has had a favorable response to neoadjuvant chemoradiation. Radiation was discontinued approximately 8 weeks ago. He denies any significant urinary symptoms. On recent MRI there is some effacement of the prostate capsule however no gross invasion of the peripheral zone of the prostate. It is unclear to me as to the extent of prostate involvement at this time and will be more evident at the time of surgical resection. We discussed treatment options which would ideally allow for preservation of the prostate while achieving adequate oncological resection. However if there is significant involvement, I do recommend removal of the involved tissue. Options include: Prostatectomy with bladder neck ligation and chronic SPtube drainage, radical prostatectomy with a vesicourethral anastomosis to maintain urinary continuity, and radical cystoprostatectomy. We discussed the risks and benefits of each of these options whichunfortunately all carry significant risk. In particular prostatectomy with reanastomosis of the bladder to urethra does carry short term risk of anastomotic leak and long-term stricture formation, not to mention the burden of stress urinary incontinence as well as erectile dysfunction. Despite these risks the patient is extremely hesitant to proceed with a cystoprostatectomy and would like an escalated approach as needed. If he elects to have a radical prostatectomy with reanastomosis this will require suprapubic tube placement as well as catheter per urethra for at least 4-6 weeks to allow for adequate healing in the setting of prior radiation. We will also have him meet with stoma therapy as well to discuss expectations with a urostomy. Bobo Gamble MD Genitourinary Trauma and Reconstruction Department of Urology documented in this encounter Plan of Treatment [...]
--- OUTSIDE RECORDS SUMMARY | 2022-07-01 23:36 | XMS_ITS | Encounter Summary ---
:1955 Author Organization [facility] Address [address] [place] [address] Care Team Providers Name Role Phone Unavailable Primary Care Provider Unavailable Encounter Details Date Type Department Care Team Description 05/08/2018 Hospital Encounter Department of Seamus Owens, Nodule Thyroid Radiology, [facility], [place] [address] [facility] [address] [place] [phone] Social History Tobacco Use Types Packs/Day Years [...] or relatives? How often do you attend restoration or congregation 1 to 4 times per year 07/06/2019 services? Do you belong to any clubs or organizations Yes 07/06/2019 such as restoration groups, unions, fraternal or athletic groups, or [...] Procedure Name Priority Date/Time Associated Diagnosis Comme [facility] US THYROID Routine 05/08/2018 12:09 PM Nodule Thyroid Result s for this CDT Nontoxic procedure are i n the results section . documented in this encounter Results US Thyroid (05/08/2018 12:09 PM CDT) Anatomical Region Laterality Modality Head and Neck, Ultrasound RST LOS N/A Ultras ound Specimen (Source) Anatomical Collection Method Collection Time Re ceived Time Location / / Volume Laterality 05/08/2018 12:10 PM CDT Impressions 05/08/2018 12:22 PM CDT IMPRESSION: Stable exam compared to 08/02/2017. Narrative 05/08/2018 12:22 PM CDT EXAM: US THYROID COMPARISON: Ultrasound 08/02/2017 FINDINGS: The right thyroid lobe measures: 2.3 cmx 2.3 cmx6.1 cm The left thyroid lobe measures: 1.9 cmx2 .1 cmx5.4 cm The isthmus measures: 5 mm in AP diamete r. Thyroid parenchymal evaluation shows: A few nodules, with remarkable nodules described below. A exophytic nodule off the posterior asp ect of the right thyroid lobe measures 1.9 x 1.8 x 2.9 cm. This predominantly s olid nodule is hypoechoic and not taller than wide, with smooth margins and no ec hogenic foci. ??The ultrasound score is 1. Based on the sonographic features, th e nodule has low suspicion for malignancy (<10%). Multiple cystic and predominantly cystic nodules in the thyroid gland are extremely low suspicion. The nodule in t he left side of the isthmus has slightly irregular margins without other worrisom e features and is low suspicion. Lymph nodes: No pathologically enlarged or suspicious lymph nodes are seen in the vicinity of the thyroid. The thyroid nodule descriptions and dmitry gories are based on the Thyroid Nodule Care Process Model established by the [facility] [place]. [email or web address] Procedure Note Stephanie Freeman M.D. - 05/08/2018Form atting of this note might be different from the original. EXAM: US THYROID COMPARISON: Ultrasound 08/02/2017 FINDINGS: The right thyroid lobe measures: 2.3 cmx 2.3 cmx6.1 cm The left thyroid lobe measures: 1.9 cmx2 .1 cmx5.4 cm The isthmus measures: 5 mm in AP diamete r. Thyroid parenchymal evaluation shows: A few nodules, with remarkable nodules described below. A exophytic nodule off the posterior asp ect of the right thyroid lobe measures 1.9 x 1.8 x 2.9 cm. This predominantly s olid nodule is hypoechoic and not taller than wide, with smooth margins and no ec hogenic foci. The ultrasound score is 1. Based on the sonographic features, th e nodule has low suspicion for malignancy (<10%). Multiple cystic and predominantly cystic nodules in the thyroid gland are extremely low suspicion. The nodule in t he left side of the isthmus has slightly irregular margins without other worrisom e features and is low suspicion. Lymph nodes: No pathologically enlarged or suspicious lymph nodes are seen in the vicinity of the thyroid. The thyroid nodule descriptions and dmitry gories are based on the Thyroid Nodule Care Process Model established by the [facility] [place]. [email or web address]-[email or web address] [email or web address] IMPRESSION: Stable exam compared to 07/10. Saul Kirkpatrick IMG US PROCEDURES documented in this encounter Visit Diagnoses Diagnosis Nodule Thyroid Nontoxic documented in this encounter Additional Health Concerns Assessment Noted Time PHQ-9 Depression Total Score: 1 12/14/2017 11:05 AM CS T documented as of this encounter
--- OUTSIDE RECORDS SUMMARY | 2022-07-01 23:36 | XMS_ITS | Encounter Summary ---
:1955 Author Organization [facility] Address [address] [place] [address] Care Team Providers Name Role Phone Unavailable Primary Care Provider Unavailable Encounter Details Date Type Department Care Team Description 03/15/2018 Orders Only Division of Colon and Jackie Deng , Rectal Surgery in [place], [place] [address] [place] [phone] Social History Tobacco Use Types Packs/Day [...] or relatives? How often do you attend religious or gnosticism 1 to 4 times per year 07/06/2019 services? Do you belong to any clubs or organizations Yes 07/06/2019 such as religious groups, unions, fraternal or athletic groups, or [...]
--- OUTSIDE RECORDS SUMMARY | 2022-07-01 23:36 | XMS_ITS | Encounter Summary ---
:1955 Author Organization [facility] Address [address] [place] [address] Care Team Providers Name Role Phone Unavailable Primary Care Provider Unavailable Reason for Referral Outpatient (Routine) - Closed Specialty Diagnoses / Procedures Referred By Contact Refer red To Contact Endocrinology Saul Styles, [facility] M.B.B.S. [address] [place] [phone] Referral ID Status Reason Start Date Expiration Date Visits Requ ested Visits Authorized [id number] Closed 05/08/2018 05/08/2019 1 1 Outpatient (Routine) - Closed Specialty Diagnoses / Procedures Referred By Contact Refer red To Contact Diagnoses [facility] NM Thyroid Uptake and Scan IL THYROID IMG UPTAKE SNGL/MULT HC THYROID IMG UPTAKE SNGL/MULT IL THYROID IMG UPTAKE SNGL/MULT M.B.B.S. [address] [place] [phone] Referral ID Status Reason Start Date Expiration Date Visits Requ ested Visits Authorized [id number] Closed 05/08/2018 05/08/2019 6 6 Reason for Visit Reason Comments Thyroid Nodule Outpatient (Routine) - Closed Specialty Diagnoses / Procedures Referred By Contact Refer red To Contact Endocrinology Saul Styles [facility] M.B.B.S. [address] [place], [place] [phone] Referral ID Status Reason Start Date Expiration Date Visits Requ ested Visits Authorized [id number] Closed 01/26/2018 07/25/2018 1 1 Encounter Details Date Type Department Care Team Description 05/08/2018 Office Visit Division of Kori Stylesi d Endocrinology in Saul Bee M.B.B.S . (Primary Dx) [place], [place] [address] [facility] [address] [place] [phone] Social History Tobacco Use Types Packs/Day Years [...] or relatives? How often do you attend anabaptist or scientologist 1 to 4 times per year 07/06/2019 services? Do you belong to any clubs or organizations Yes 07/06/2019 such as anabaptist groups, unions, fraternal or athletic groups, or [...] for the very basics like Not h sachni at all 07/06/2019 food, housing, medical care, [...] Sign Reading Time Taken Comments Blood Pressure 127/74 05/08/2018 2:52 PM CDT Pulse 88 05/08/2018 2:52 PM CDT Temperature - - Respiratory Rate - - Oxygen Saturation - - Inhaled Oxygen Concentration - - Weight 79.2 kg (174 lb 9.7 oz) 05/08/2018 2:52 PM CDT Height 173.4 cm (5' 8.27) 05/08/2018 2:52 PM CDT Body Mass Index 26.34 05/08/2018 2:52 PM CDT documented in this encounter Progress Notes Saul Styles M.B.B.S. - 05/08/2018 12:00 AM CDT SUBJECTIVE CHIEF COMPLAINT/REASON FOR VISIT Followup thyroid nodule. HISTORY OF PRESENT ILLNESS Mr. Addison is a very pleasant 62-year-old gentleman that has a diagnosis of a rectal adenocarcinoma status post chemotherapy and radiation and surgery. He also has a history of a thyroid nodule thatwas incidentally found during the staging of the rectal cancer the previous year. This nodule did not have any avidity during the PET scan done July 27, 2017; however, it is a 2.7-cm very low suspicion nodule located in the right thyroid lobe, a very posterior location, which made us think at that time that it might be a parathyroid adenoma, but PTH and calcium were with within normal limits. It is hypoechoic but overall again low suspicion. At that time we entertained a fine-needle aspiration biopsy; however, patient was undergoing treatment for rectal cancer so we decided to continue active monitoring. The patient refers that over the last year he has not developed any difficulty swallowing or change in tone of the voice. He did experience weight loss during the chemotherapy and radiation, but he has maintained weight and actually has gained 2 pounds over the last few weeks. No tremors. No palpitations. No hyperdefecation. Thyroid function test reveals this time for the first time a suppressed TSH of 0.07 with a free T4 of 1.3, consistent with subclinical hyperthyroidism. The ultrasound of the thyroid reveals that the nodule in the posterior aspect of the right thyroid lobe measures 2.9 cm which is stable compared to the one in July 2017. Again, this nodule was described as an exophytic nodule. No worrisome lymphadenopathy was seen. Patient did receive contrast materialthe first week of March 2018. He has not been exposed to biotin. OBJECTIVE PHYSICAL EXAMINATION General: No acute distress. Eyes: Extraocular movements were intact. ENT: Oral mucosa moist. Thyroid: Palpation of the neck reveals a thyroid that is normal in size. No nodules are palpated. Nolymphadenopathy. Heart: Heart rate is 80. Neuro: No tremor. ASSESSMENT / PLAN #1 Posteriorly located right-sided thyroid nodularity measuring 2.9 cm, low suspicion, stable #2 Subclinical hyperthyroidism We discussed with the patient the ultrasound findings, the fact the nodule is stable, and no worrisome findings are seen. It seems to be that now patient has completed initial treatment for rectal cancer, and the possibility of biopsy of the nodule to rule out thyroid cancer is again on the table; however, now we have a new diagnosis of subclinical hyperthyroidism. It is unclear if this toxic multinodular goiter or a subacute thyroiditis. It is probably the former since previous TSH was 0.5. It may be the recent contrast material has stimulated additional production of thyroid hormone does worsen it right now. We discussed the need for uptake scan at this point, and perhaps based on the results, we can also decide what to do with the nodule; however, it is clear that at this time the patient feels overwhelmed with everything that has happened with the rectal cancer, and he needs a break of testing and treatments. We decided at this time not to do anything but rather to watch him again in June with the blood tests and the uptake scan and then decide what to do. All of their questions were answered. Patient was in agreement with this plan. Job ID: [id number]/[id number] documented in this encounter Plan of Treatment Upcoming Encounters Date Type Specialty Care Team Description 07/04/2022 Clinical Support Colon and Rectal Surgery Scheduled Referrals Name Type Priority Associated Order Schedule Diagnoses Endocrinology office Outpatient Referral Routine Expected: visit (clinic) 07/03/2018 (Approximate), Expires: 05/08/2021 documented as of this encounter Results NM Thyroid Uptake and [...] discrete hyper or hypofunctioning nodule s. Saul MacielSJuan Carlos IMG NM PROCEDURES Thyrotropin Receptor Antibody (06/29/2018 8:55 AM CDT) P athologist Signature Thyrotropin <1.00 0.00 - 06/29/2018 [facility] Receptor Ab, S 1.75 IU/L 5:39 PM CDT [facility] Comment: ----ADDITIONAL INFORMATION---- At a decision limit of 1.75 IU/L, this a ssay has 97% sensitivity and 99% specificity for detection of Graves' disease. In healthy individuals and in patients with thyroid disease without diagnosis of Graves' disease, th e upper limit of anti-TSHR values are 1.22 IU/L and 1.58 IU/L, respectively (97.5th percenti les). Specimen Anatomical Collection Method Collection Time Receive d Time (Source) Location / / Volume Laterality Blood (Blood, 06/29/2018 8:55 AM 09/21/20 18 3:50 Venous) CDT PM CDT Saul MacielS. LAB BLOOD ADD-ON Performing Organization Address City/State/ZIP Code Phon e Number [facility] [address] [place] [id number] [facility] S-TSH (Thyroid-Stimulating Hormone - Sensitive) (06/29/2018 8:55 AM CDT) athologist Signature TSH, Sensitive 0.3 0.3 - 4.2 06/29/2018 [facility] mIU/L 9:48 AM CDT LABORATORIES - [facility] Specimen Anatomical Collection Method Collection Time Receive d Time (Source) Location / / Volume Laterality Blood (Blood, 06/29/2018 8:55 AM 06/29/20 18 9:01 Venous) CDT AM CDT Saul Newberry.S. LAB BLOOD ADD-ON Performing Organization Address City/[facility]/ZIP Code Phon e Number [facility] - [address] [place] [phone] [facility] T4 (Thyroxine), Free (06/29/2018 8:55 AM CDT) athologist Signature T4 1.2 0.9 - 1.7 06/29/2018 [facility] (Thyroxine), ng/dL 9:48 AM CDT LABORATORIES - [facility], [facility] Specimen Anatomical Collection Method Collection Time Receive d Time (Source) Location / / Volume Laterality Blood (Blood, 06/29/2018 8:55 AM 06/29/20 18 9:01 Venous) CDT AM CDT Saul MacielS. LAB BLOOD ADD-ON Performing Organization Address City/State/ZIP Code Phon e Number [facility] - 200 [place] [phone] [facility] documented in this encounter Visit Diagnoses Diagnosis Nodule Thyroid - Primary Nodule Thyroid documented in this encounter Additional Health Concerns Assessment Noted Time PHQ-9 Depression Total Score: 1 12/14/2017 11:05 AM CS T documented as of this encounter
--- OUTSIDE RECORDS SUMMARY | 2022-07-01 23:36 | XMS_ITS | Encounter Summary ---
:1955 Author Organization [facility] Address [address] [place] [address] Care Team Providers Name Role Phone Unavailable Primary Care Provider Unavailable Reason for Visit MRI/CAT/PET Scan (Routine) - Closed Specialty Diagnoses / Procedures Referred By Contact Refer red To Contact Radiology Diagnoses Malignant Neoplasm Of Rectosigmoid (HCC) Abisai Romano M.D. [facility] Procedures CT Abdomen Pelvis with IV Contrast CT Abdomen Pelvis without and with IV Contrast OR CT ABD&PELVIS WO/W CNTRST HC CT ABD&PELVIS WO/W CNTRST OR CT ABD&PELVIS WO/W CNTRST OR CT ABD&PELVIS W CNTRST HC CT ABD&PELVIS W CNTRST [address] [place] [address] ABD&[place] [address] Referral ID Status Reason Start Date Expiration Date Visits Requ ested Visits Authorized [id number] Closed 01/29/2018 07/28/2018 1 1 Encounter Details Date Type Department Care Team Description 03/12/2018 Hospital Encounter Department of Amaris Romano Neoplasm Of Radiology, Tin Strickland M.D. Rectosigmoid (HCC) Building, in [address] [place] [address] [place] [phone] [place], [place] [phone] (Work) [phone] Social History Tobacco Use Types Packs/Day Years [...] or relatives? How often do you attend tenriism or mu-ism 1 to 4 times per year 07/06/2019 services? Do you belong to any clubs or organizations Yes 07/06/2019 such as tenriism groups, unions, fraternal or athletic groups, or [...] - Inhaled Oxygen Concentration - - Weight 72.6 kg (160 lb 0.9 oz) 03/12/2018 10:12 AM CDT Height 170.2 cm (5' 7) 03/12/2018 10:12 AM CDT Body Mass Index 25.07 03/12/2018 10:12 AM CDT documented in this encounter Medications [...] dexamethasone (DECADRON Take by mouth. see 0 1103/201703/15/2018 ORAL) CDM for details diphenoxylate-atropine Take 1 [...] documented as of this encounter Nursing Notes Alem Ware R.N. - 03/12/2018 10:08 AM CDT What type of IVAD? Bard Power Port If power???What two power identifiers were used? ID Card and 3 Bumps Tip placement verified? Yes Location: RRight IJ Port-A-Cath tip in the low SVC Date (if applicable): November 17, 2017 documented in this encounter Plan of Treatment Upcoming Encounters Date Type Specialty Care Team Description 07/04/2022 Clinical Support Colon and Rectal Surgery documented as of this encounter Procedures Procedure Name Priority Date/Time Associated Comments Diagnosis CT ABDOMEN PELVIS RAD - Routine 03/12/2018 10:42 Malignant Neoplasm Results for this WITH IV CONTRAST (most inpatients AM CDT Of Rectosigmoid proc edure are in and all (HCC) the results outpatients) section. documented in this encounter Results CT Abdomen Pelvis with IV Contrast (03/12/2018 10:42 AM CDT) Anatomical Region Laterality Modality Abdomen, Pelvis, Abdominal RST LOS N/A Compu shefali Tomography Specimen (Source) Anatomical Collection Method Collection Time Re ceived Time Location / / Volume Laterality 03/12/2018 11:38 AM CDT Impressions 03/12/2018 12:01 PM CDT IMPRESSION: ??Low rectal cancer and associated nodes show interval therapy response. ?? Narrative 03/12/2018 12:01 PM CDT EXAM: ??CT ABDOMEN PELVIS WITH IV CONTRAST COMPARISON: ??07/21/2017 ?? FINDINGS: ?? 1. Lower rectal wall thickening has decl ined. Pelvic radiation changes are now evident. 2. A 0.2 cm left posterior perirectal no de measured 0.7 cm previously. Several other bilateral perirectal, several supe rior rectal nodes, and a right internal iliac node have decreased in size. 3. Lipomatous changes within left inguin al canal. Vascular calcifications. Cholelithiasis. Left hepatic hemangioma. Hepatic cyst. Procedure Note Lance Cain M.D., Ph.D. - 03/12/20 18 EXAM: CT ABDOMEN PELVIS WITH IV CONTRAST COMPARISON: 07/21/2017 FINDINGS: 1. Lower rectal wall thickening has decl ined. Pelvic radiation changes are now evident. 2. A 0.2 cm left posterior perirectal no de measured 0.7 cm previously. Several other bilateral perirectal, several supe rior rectal nodes, and a right internal iliac node have decreased in size. 3. Lipomatous changes within left inguin al canal. Vascular calcifications. Cholelithiasis. Left hepatic hemangioma. Hepatic cyst. IMPRESSION: Low rectal cancer and associ ated nodes show interval therapy response. Abisai Romano M.D. IMAlison CT PROCEDURES documented in this encounter Visit Diagnoses Diagnosis Malignant Neoplasm Of Rectosigmoid (HCC) documented in this encounter Administered Medications Inactive Administered Medications - up to 3 most recent administrations Medication Order MAR Action Action Date Dose Rate Site heparin flush 500 Units Given 03/12/2018 10:32 AM CDT 500 Units 500 Units, intra-catheter, Every 7 days, First dose on Mon03/13/18 at 0900, Implanted Vascular Access Device (IVAD) Venous Non-Valved: When no infusion to maintain patency, following saline flush. iohexol 300 mg iodine/mL solution 1-200 mL Given 03/12/2018 10:3 2 AM CDT 30 mL (OMNIPAQUE) 1-200 mL, oral, Once in imaging, contrast, Starting on Mon03/12/18 at 0954, For 1 dose, Imaging Protocol Orders, Dose per Radiant Medication Guidelines iohexol 300 mg iodine/mL solution 1-200 mL Given 03/12/2018 10:29 AM CDT 140 mL (OMNIPAQUE) 1-200 mL, intravenous, Once in imaging, contrast, Starting on Mon03/12/18 at 0954, For 1 dose, Imaging Protocol Orders, Dose per Radiant Medication Guidelines sodium chloride 0.9 % flush 50 mL Given 03/12/2018 10:31 AM CDT 50 mL 50 mL, intravenous, Once, On Mon03/12/18 at 1045, For 1 dose sodium chloride injection 10 mL Given 03/12/2018 10:32 AM CDT 10 mL 10 mL, intravenous, Every 7 days, First dose on Mon03/13/18 at 0900, Implanted Vascular Access Device (IVAD) Venous Non-Valved: When no infusion to maintain patency, followed by heparin flush. Given 03/12/2018 10:30 AM CDT 10 mL documented in this encounter Additional Health Concerns Assessment Noted Time PHQ-9 Depression Total Score: 1 12/14/2017 11:05 AM CS T documented as of this encounter
--- OUTSIDE RECORDS SUMMARY | 2022-07-01 23:36 | XMS_ITS | Encounter Summary ---
:1955 Author Organization [facility] Address [address] [place] [address] Care Team Providers Name Role Phone Unavailable Primary Care Provider Unavailable Encounter Details Date Type Department Care Team Description 05/08/2018 Lab Department of Infusion Graham Styles Nodule Thyroid Nontoxic (Primary Dx); Therapy in [facility], M.B.B.S . Malignant Neoplasm Of Rectum (HCC) [place] [address] [address] [facility] [address] [place] [phone] (Wo rk) Social History Tobacco Use Types [...] How often do you attend judaism or anabaptist 1 to 4 times per year 07/06/2019 [...] Date/Time Associated Diagnosis Comme nts THYROID-STIMULATING Routine 05/08/2018 10:53 AM Nodule Thyroid Results for this HORMONE-SENSITIVE CDT Nontoxic procedure are in (S-TSH) the results section. T4 (THYROXINE), Routine 05/08/2018 10:53 AM Nodule Thyroid Res ults for this FREE, S CDT Nontoxic procedure are i n the results section. documented in this encounter Results (ABNORMAL) S-TSH (Thyroid-Stimulating Hormone - Sensitive) (05/08/2018 10:53 AM CDT) Patholo gist Method Time Signature TSH, Sensitive 0.07 (L) 0.3 - 4.2 05/08/2018 [facility] mIU/L 12:24 PM CDT LABORATORIES - [facility] Specimen Anatomical Collection Method Collection Time Receive d Time (Source) Location / / Volume Laterality Blood 05/08/2018 10:53 05/08/2018 AM CDT 11:36 AM CDT Saul LunsfordB.S. LAB BLOOD ADD-ON Performing Organization Address City/[facility] Phon e Number [facility] - [address] T4 (Thyroxine), Free (05/08/2018 10:53 AM CDT) P athologist Signature T4 1.3 0.9 - 1.7 05/08/2018 [facility] (Thyroxine), ng/dL 12:25 PM CDT LABORATORIES - [facility], [facility] Specimen Anatomical Collection Method Collection Time Receive d Time (Source) Location / / Volume Laterality Blood 05/08/2018 10:53 05/08/2018 AM CDT 11:36 AM CDT Saul LunsfordB.S. LAB BLOOD ADD-ON Performing Organization Address City/State/[facility] Code Phon e Number [facility] LABORATORIES - [address] documented in this encounter Visit Diagnoses Diagnosis Nodule Thyroid Nontoxic - Primary Malignant Neoplasm Of Rectum (HCC) documented in this encounter Administered Medications Inactive Administered Medications - up to 3 most recent administrations Medication Order MAR Action Action Date Dose Rate Site heparin flush 500 Units Given 05/08/2018 10:53 AM CDT 500 Units 500 Units, intra-catheter, As needed, line care, Starting on Mon05/08/18 at 1047, When no infusion to maintain patency: For IVAD accessed, not in use, and/or prior to hospital discharge, flush every 7 days after 0.9% preservative-free NaCL flush. For IVAD NOT accessed or used, flush every 4 weeks after 0.9% preservative-free NaCL flush. sodium chloride injection 10 mL Given 05/08/2018 10:50 AM CDT 10 mL 10 mL, intra-catheter, As needed, line care, Starting on Mon05/08/18 at 1047, When IVAD Accessed and in Use: Flush prior to and following infusion, between multiple consecutive infusions, and prior to blood sampling. sodium chloride injection 20 mL Given 05/08/2018 10:52 AM CDT 20 mL 20 mL, intra-catheter, As needed, line care, Starting on Mon05/08/18 at 1047, When IVAD Accessed and in Use: Flush post blood transfusion or post blood sampling. documented in this encounter Additional Health Concerns Assessment Noted Time PHQ-9 Depression Total Score: 1 12/14/2017 11:05 AM CS T documented as of this encounter
--- OUTSIDE RECORDS SUMMARY | 2022-07-01 23:36 | XMS_ITS | Encounter Summary ---
:1955 Author Organization [facility] Address [address] [place] [address] Care Team Providers Name Role Phone Unavailable Primary Care Provider Unavailable Encounter Details Date Type Department Care Team Description 03/12/2018 Hospital Encounter Department of Kori Romano P rostate Without Obstruction; Laboratory Medicine Abisai Strickland M.D. 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 see 0 [phone] 03/15/2018 CDM for details loperamide (IMODIUM) [...] care provider. documented as of this encounter Plan of Treatment Upcoming Encounters Date Type Specialty Care Team Description 07/04/2022 Clinical Support Colon and Rectal Surgery documented as of this encounter Procedures Procedure Name Priority Date/Time Associated Diagnosis Comme nts BACTERIAL CULTURE, Routine 03/12/2018 9:25 AM Nodule Prostate Results for this AEROBIC + SUSC, CDT Without Obstruction proce dure are in URINE the results section. documented in this encounter Results Bacterial Culture, Aerobic + Susc, Urine Urine, Midstream (03/12/2018 9:25 AM CDT) [facility] Method Time Signature Urine Culture No growth 03/13/2018 [facility] after 1 8:16 AM CDT LABORATORIES - day of [facility] . Specimen Anatomical Collection Method Collection Time Receive d Time (Source) Location / / Volume Laterality Urine (Urine, 03/12/2018 9:25 AM 03/12/20 18 Midstream) CDT 10:53 AM CDT Comment: Specimen Source Site: Urine Abisai Romano M.D. 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
--- OUTSIDE RECORDS SUMMARY | 2022-07-01 23:36 | XMS_ITS | Encounter Summary ---
:1955 Author Organization [facility] Address [address] [place] [id number] Care Team Providers Name Role Phone Unavailable Primary Care Provider Unavailable Reason for Visit Auth/Cert Specialty Diagnoses / Procedures Referred By Contact Refer red To Contact Diagnoses Malignant neoplasm of rectum (HCC) Rectal cancer with prostate invasion Procedures GA PELV EXENTERATION COLORECT MLG Exenteration Pelvic Other-to be determined Referral ID Status Reason Start Date Expiration Date Visits Requ ested Visits Authorized [id number] 1 1 Encounter Details Date Type Department Care Team Description 03/26/2018 - Hospital Encounter [facility] Juan Antonio, Malignant Neoplasm Of Rectum (HCC) (Primary Dx); 03/30/2018 Hospital, Mohit Strickland M.D. 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); [facility], [address], [place], [place] Floor [address] [address] [facility] [phone] [place], [place] (Work) [phone] Social History Tobacco Use Types Packs/Day Years [...] How often do you attend mosque or hinduism 1 to 4 times per [...] Sign Reading Time Taken Comments Blood Pressure 124/63 03/30/2018 1:59 PM CDT Pulse 80 03/30/2018 2:00 PM CDT Temperature 36.4 ??C (97.52 ??F) 03/30/2018 2:00 PM CDT Respiratory Rate 16 03/30/2018 2:00 PM CDT Oxygen Saturation 98% 03/30/2018 2:00 PM CDT Inhaled Oxygen Concentration - - Weight 77.9 kg (171 lb 11.8 oz) 03/28/2018 1:19 PM CDT Height 170 cm (5' 6.93) 03/28/2018 1:19 PM CDT Body Mass Index 26.96 03/28/2018 1:19 [...] Case IDs Date Procedure Surgeon Location Status [id number] 03/26/18 Exenteration Pelvic vs abdominal perineal resection, [...] 3:30 PM Saul Styles M.B.B.S. END [facility] Spec TEST RESULTS PENDING AT DISCHARGE DISCHARGE [...] nodes are identified within the perirectal fat. Card Writer Hand tissue submitted for frozen and permanent sections. Grossed by LAB. B. Received fresh labeled right periprostatic margin is a 1.5 x 1 x 0.4 cm fragment of pink-salinas fibrous tissue with orientation. The margin is inked and taken perpendicularly. All submitted for frozen and permanent sections. Grossed by [facility]. Participated in the Interpretation Elijah Agee D.O.-Pathology Fellow Isatu ArangoB.S.-Pathology Resident Report electronically signed by Emily Adhikari M.D. [id number] I verify that I have examined all [...] histologic interpretation performed by: Emily Adhikari M.D. [id number] Block Summary A Portion sigmoid, rectum, and anus A1 Adjacent to new margin A2 Mid-posterior A3 Mid-posterior A4 Adjacent to new margin-2 A5 Adjacent to new margin-2 A6 Hzt-vevzcibli-6 A7 Exr-rqwxfmnnf-2 A8 Possible pericolonic lymph node 5(A1) A9 [...] in Results Review. Plan-4 Days Post-Op from [facility], Enhanced Recovery Protocol -Encourage ambulation and deep [...] Changed by Patient completed Pouching System Removed [id number], [phone] [phone] Pouching System Applied [phone] Ongoing management Nursing Output Description Brown;Liquid Output (mL) 100 mL ASSESSMENT / PLAN Consult complete, [facility] nurse signing off Page [facility] [phone] M-F 6:00AM-2:30PM with questions or leakage issues. Monday pager [phone] 8:00AM-2:30PM. Coni Reyes APRN C.N.PJuan Carlos, M.S.N. - 03/29/2018 9:31 AM CDT SUBJECTIVE [...] nodes are identified within the perirectal fat. Card Writer Hand tissue submitted for frozen and permanent sections. Grossed by LAB. B. Received fresh labeled right periprostatic margin is a 1.5 x 1 x 0.4 cm fragment of pink-salinas fibrous tissue with orientation. The margin is inked and taken perpendicularly. All submitted for frozen and permanent sections. Grossed by [facility]. Participated in the Interpretation Elijah Agee D.O.-Pathology Fellow Raheem ArangoSJuan Carlos-Pathology Resident Report electronically signed by Emily Adhikari M.D. [id number] I verify that I have examined all [...] histologic interpretation performed by: Emily Adhikari M.D. [id number] Block Summary A Portion sigmoid, rectum, and anus A1 Adjacent to new margin A2 Mid-posterior A3 Mid-posterior A4 Adjacent to new margin-2 A5 Adjacent to new margin-2 A6 Tie-scltoooqf-2 A7 Znf-zjekqwpcq-1 A8 Possible pericolonic lymph node 5(A1) A9 [...] about patient's nutritional care please contact pager [phone] on weekdays or on weekends/holidays. NUTRITION ASSESSMENT: [...] Intake, Weight Status . 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 Monday pager [phone] 8:00AM-2:30PM. Coni Reyes, SHRUTI, C.N.P., M.S.N. - [...] ([employer]) Status Changed;Intact Changed by Wound split leather department supervisor;Family;with assistance assisted with pouching system change Pouching System Removed Carlotta #[phone] Pouching System Applied [place] #[phone] Ongoing management Wound/lamp stack developer;Patient/caregiver;Nursing Output Description None Output (mL) 0 mL ASSESSMENT / PLAN [facility] nurse continuing to follow Page [facility] [phone] M-F 6:00AM-2:30PM with questions or leakage issues. Monday pager [phone] 8:00AM-2:30PM. Chelita Vargas APRN C.N.P., M.S.N. - 03/27/2018 7:55 AM CDT SUBJECTIVE [...] Tradition: Mr. Addison is affiliated with the [employer]. He requested prayer before today's surgery. Shared prayer. Plan: No plan to follow up at this time. A water service dispatcher can be contacted by paging [phone]. documented in this encounter H&P Notes Idris [...] Patient discharged home self care. Halima Givens RGrover - 03/29/2018 9:48 PM CDT Goals: Clinical [...] around his NGT. Pain reported at a -11/18. Electronically signed by: Josselin Cheng R.N. 03/26/18 [...] with bilateral external stent placement A 22 [place] Lucian rigid cystoscope was inserted into urethral meatus. The anterior and posterior urethra were normal. Upon entering the bladder systematic evaluation demonstrated no evidence of urothelial abnormalities. Attention was turned to the right ureteral orifice which was cannulated with a 5 [place] Lucian ureteral catheter which was advanced to 20 centimeters without difficulty. In similar fashion a left 5 [place] Lucian ureteral catheter was placed. A 16 [facility] Lucian Goldsmith catheter was placed to gravity drainage [...] Implant Name Type Inv. Item Serial No. Support Service Tech Lot No. LRB No. Used Action CEVALLOS ADHN SEPRAFILM 5X6 - [id number] Mesh or Patch CEVALLOS ADHN SEPRAFILM 5X6 [employer] [id number] Implanted Bobo Gamble M.D. Brief Op [...] Implant Name Type Inv. Item Serial No. Support Service Tech Lot No. LRB No. Used Action CEVALLOS ADHN SEPRAFILM 5X6 - [id number] Mesh or Patch CEVALLOS ADHN SEPRAFILM 5X6 [employer] [id number] Implanted Prabhakar Hansen M.D. Op Note [...] and a normal radical resection beginning about usp up the anal canal was commenced and [...] and closing and partial mobilization. Job ID: [id number] documented in this encounter Miscellaneous Notes Hospital [...] CBC without Differential (03/27/2018 12:21 AM CDT) [facility] gist Method Time Signature Hemoglobin 12.3 (L) 13.2 - 03/27/2018 [facility] 16.6 g/dL 12:36 AM CDT LABORATORIES [facility] Hematocrit 37.4 (L) 38.3 - 03/27/2018 [facility] 48.6 % 12:36 AM CDT LABORATORIES [facility] Erythrocytes 4.12 (L) 4.35 - 03/27/2018 [facility] 5.65 12:36 AM CDT LABORATORIES - x10(12)/L [facility] MCV 90.8 78.2 - 03/27/2018 [facility] 97.9 fL 12:36 AM CDT LABORATORIES [facility] RBC Distrib 14.1 11.8 - 03/27/2018 [facility] Width 14.5 % 12:36 AM CDT LABORATORIES [facility] Platelet Count 185 135 - 317 03/27/2018 [facility] x10(9)/L 12:36 AM CDT LABORATORIES [facility] Leukocytes 15.3 (H) 3.4 - 9.6 03/27/2018 [facility] x10(9)/L 12:36 AM CDT [facility] Specimen Anatomical Collection Method Collection Time Receive d Time (Source) Location / / Volume Laterality Blood (Blood, 03/27/2018 12:21 03/27/2018 Venous) AM CDT 12:27 AM CDT Yordan Pike M.D., M.B.A. LAB BLOOD ADD-ON Performing Organization Address [facility] Phon e Number [facility] - [address] [address] [facility] Potassium (03/27/2018 12:21 AM CDT) P athologist Signature Potassium, S 4.1 3.6 - 5.2 03/27/2018 [facility] mmol/L 1:48 AM CDT LABORATORIES [facility] Specimen Anatomical Collection Method Collection Time Receive d Time (Source) Location / / Volume Laterality Blood (Blood, 03/27/2018 12:21 03/27/2018 Venous) AM CDT 12:27 AM CDT Yordan Pike M.D., M.B.A. LAB BLOOD ADD-ON Performing Organization Address City/[facility] Phon e Number [facility] LABORATORIES - [address] [address] [facility] Creatinine with Estimated GFR (MDRD) (03/27/2018 12:21 AM CDT) Analysis Performed At Patho logist Time Signature Creatinine 1.09 0.74 - 03/27/2018 [facility] 1.35 mg/dL 1:48 AM CDT [facility] eGFR-Non 72 >=60 03/27/2018 [facility] Black/ mL/min/BSA 1:48 AM CDT [facility] [place] Comment: ----ADDITIONAL INFORMATION---- Estimated GFR calculated using the 2009 CKD_EPI creatinine equation. eGFR-Black/ 83 >=60 mL/min/BSA 03/27/2018 1:48 [facility] Guamanian AM CDT LABORATORIES [facility] Comment: ----ADDITIONAL INFORMATION---- Estimated GFR calculated using the 2009 CKD_EPI creatinine equation. Specimen Anatomical Collection Method Collection Time Receive d Time (Source) Location / / Volume Laterality Blood (Blood, 03/27/2018 12:21 03/27/2018 Venous) AM CDT 12:27 AM CDT Yordan Pike M.D., M.B.A. LAB BLOOD ADD-ON Performing Organization Address City/State/ZIP Code Phon e Number [facility] LABORATORIES - [address] [place], [place] [address] [facility] DX Abdomen 1 View (03/26/2018 8:47 PM [...] Abisai Romano M.D. IMG DIAGNOSTIC IMAGING PROCE JUAN R DX Abdomen 1 View (03/26/2018 1:58 PM [...] Visual ized lung bases are clear. Abisai CAZARES DIAGNOSTIC IMAGING [facility] Surgical Pathology, Frozen Lab (03/26/2018 12:01 PM T) Component Value Ref Test Analysis Performed At [facility] gist Range Method Time Signature Gross Description A. ??Received fresh labeled portion sigmoid, rec tianna, and 03/28/2018 [facility] anus is a abdominal perineal resection specimen consistin g 10:55 AM LABORATORIES - of 27.5 cm in length portion of rectosigmoid colon with a CDT [facility] 4.9 x 2.5 cm portion of anus. [...] nodes are identified within the perirectal fat. ??Card Writer Hand tissue submitted for frozen and permanent sections. Grossed by LAB. B. ??Received fresh labeled right periprostatic margin is a 1.5 x 1 x 0.4 cm fragment of pink-salinas fibrous tissue with orientation. ??The margin is inked and taken perpendicularly. ??All submitted for frozen and permanent sections. Grossed by [facility]. Participated in Elijah Agee D.O.-Pathology Fellow 03/28/2018 [facility] the Isatu ArangoB.S.-Pathology Resident 10:55 AM LABORATORIES - Interpretation [facility] Report Emily Adhikari M.D. [phone] 03/28/2018 [facility] DORAL electronically I verify that I have examined all relevant slides/ma terials 10:55 AM LABORATORIES - signed by for the specimen(s) and rendered or confirmed the diagnosi s. [facility] 03/28/2018 [facility] 10:55 AM LABORATORIES - [facility] Frozen A. ??Colon, sigmoid, rectum and anus, abdominal perineal 03/28/2018 [facility] Intraoperative resection: ??Fibrous tissue and inflammation forming a 2.1 x 10:55 AM LABORATORIES - Report 1.8 x 1.0 cm mass in the rectum. ??Negative for tumor. ??T he [facility] MAIN surgical resection margins are negative for tumor. CAMPUS Multiple (18) lymph nodes are negative for tumor. B. ??Prostate, right periprostatic margin, excision: Negative for tumor. HOLD OVER for further evaluation on permanent sections. Frozen section histologic interpretation performed by: Emily Adhikari M.D. [id number] Block Summary A Portion sigmoid, rectum, and anus 03/28/2018 [facility] A1 Adjacent to new margin 10:55 AM LABO RATORIES - A2 Mid-posterior [facility] Mid-posterior CAMPUS A4 Adjacent to new margin-2 A5 Adjacent to new margin-2 A6 Pxf-wihovkvcw-0 A7 Uib-qxhlavjfu-6 A8 Possible pericolonic lymph node 5(A1) A9 [...] Right periprostatic margin Interpretation FINAL DIAGNOSIS 03/28/2018 [facility] A. ??Colon, sigmoid, rectum and anus, abdominal perineal 10:55 AM LABORATORIES - resection: ??Rare microscopic foci of residual [facility] adenocarcinoma within an area of dense fibrosis [...] Organization Address City/State/ZIP Code Phon e Number [facility] LABORATORIES - [address] [place], [place] [address] [facility] documented in this encounter Visit Diagnoses Diagnosis Malignant Neoplasm Of Rectum (HCC) - 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) Retention Urinary Smoking Tobacco Use Personal History Resection Abdominal Perineal Status Post documented in this encounter Administered Medications Inactive Administered Medications - up to 3 most recent administrations Medication Order MAR Action Action Date Dose Rate Site acetaminophen tablet 1,000 mg Given 03/29/2018 8:53 PM CDT 1,000 mg (TYLENOL) 1,000 mg, gastric tube, 4 times daily, First dose (after last modification) on Mon03/26/18 at 2100 Given 03/29/2018 4:47 PM CDT 1,000 mg Given 03/29/2018 11:41 AM CDT 1,000 mg acetaminophen tablet 1,000 mg (TYLENOL) Given 03/30/2018 11:16 AM CDT 1,000 mg 1,000 mg, oral, 4 times daily, First [...] Use 100 mL bag then disca rd. droperidol injection 0.625 mg (INAPSINE) Given 03/26/2018 6:09 PM CDT 0.625 mg 0.625 mg, intravenous, Every 6 hours PRN, nausea, vomiting, Starting on Mon03/26/18 at 1600, For 48 hours, Total of 3 doses in 24 hour period. RASS must be -2 or higher to administer. Reassess for nausea or vomiting after at least 10 minutes. If nausea or vomiting persists administer next ordered antiemetic medications (order for antiemetic medication administration ondansetron then droperidol then promethazine)., Indications: post-operative nausea and vomiting heparin (porcine) Given 03/30/2018 7:09 AM CDT [...] following saline flush. heparin flush 500 Units Given 03/30/2018 8:55 AM CDT 500 Units 500 Units, intra-catheter, During hospitalization, line care, Prior to discharge, Starting on Mon03/26/18 at 0649, For 1 dose, Implanted Vascular Access Device (IVAD) Venous Non-Valved: Following saline flush prior to discharge. heparin flush 500 Units 500 Units, intra-catheter, Every 28 days, First dose o n Mon03/26/18 at 0900, Implanted Vascular Access Device (IVAD) Venous Non-Roxanne gonsalo: When no infusion to maintain patency, following saline flush. ibuprofen tablet 600 mg (ADVIL,MOTRIN) Given 03/30/2018 7:08 AM CDT 600 mg 600 mg, gastric tube, Every 6 hours, First dose (after last modification) on Mon03/27/18 at 1700, Start 6 hours after last Ketorolac dose administered Given 03/29/2018 10:10 PM CDT 600 mg Given 03/29/2018 4:47 PM CDT 600 mg ibuprofen tablet 600 mg (ADVIL,MOTRIN) Given 03/30/2018 11:16 AM CDT 600 mg 600 mg, oral, Every 6 hours, First dose (after last modification) on Mon03/30/18 at 1100, Start 6 hours after last Ketorolac dose administered ketorolac injection 15 mg (TORADOL) Given 03/26/2018 5:04 PM CDT 15 mg 15 mg, intravenous, Every 6 hours, First dose on Mon03/26/18 at 1700, For 4 doses, Start no sooner than 6 hours after last intra-operative dose Adult IV push rate: Over 15 seconds. Peds IV push rate: Over 1 minute. 60 mg dose only for IM, not recommended for IV., Drug Monitoring Program: Pharmacist to adjust medication order based on comorbities and indication. ketorolac injection 15 mg (TORADOL) Given 03/27/2018 12:13 PM CDT 15 mg 15 mg, intravenous, Every 6 hours, First dose (after last modification) on Mon03/26/18 at 2300, For 3 doses, Start no sooner than 6 hours after last intra-operative dose Adult IV push rate: Over 15 seconds. Peds IV push rate: Over 1 minute. 60 mg dose only for IM, not recommended for IV., Drug Monitoring Program: Pharmacist to adjust medication order based on comorbities and indication. Given 03/27/2018 5:19 AM CDT 15 mg Given 03/26/2018 11:50 PM CDT 15 mg lactated ringers New Bag 03/26/2018 3:43 PM CDT 50 mL/hr 50 mL/hr 50 mL/hr, intravenous, Continuous, Starting on Mon03/26/18 at 1345, PACU & Post-Op Continued from OR 03/26/2018 2:00 PM CDT 50 mL/hr 50 mL/hr lactated ringers Rate/Dose Verify 03/27/2018 6:00 AM CDT 40 mL/hr 40 mL/hr 40 mL/hr, intravenous, Continuous, Starting on Mon03/26/18 at 1615, For 2 days, Until 0800 day after surgery, then discontinue infusion. Rate/Dose Verify 03/27/2018 2:00 AM CDT 40 mL/hr 40 mL/hr Restarted 03/26/2018 6:00 PM CDT 40 mL/hr 40 mL/hr magnesium oxide tablet 400 mg (MAG-OX) Given 03/28/2018 10:00 PM CDT 400 mg 400 mg, gastric tube, 2 times daily, First dose (after last modification) on Mon03/26/18 at 2100, For 3 days, Starting evening of surgery. Hold for diarrhea or output greater than 1500 mL/day Given 03/28/2018 8:14 AM CDT 400 mg Given 03/27/2018 9:26 PM CDT 400 mg NaCl 0.9% infusion 10-250 mL/hr, intravenous, As [...] heparin flush. sodium chloride injection 10 mL Given 03/30/2018 8:56 AM CDT 10 mL 10 mL, intravenous, During hospitalization, line care, Prior to discharge, Starting on Mon03/26/18 at 0649, For 1 dose, Implanted Vascular Access Device (IVAD) Venous Non-Valved: Followed by heparin flush prior to discharge. sodium chloride injection 10 mL 10 mL, [...] (CANCELED) 081 3 (Given - Provider: Mikayla Separs RJuan CarlosN.)1228 (Given - Provider: Mikayla Spears R.N.)1704 (Given - Provider: Jeannine Yip R.N.)2159 (Given - Provider: Saida Cruz R.N.) 0828 (Given - Provider: Mikayla Spears R.N.)1141 (Given - Provider: Mikayla Spears R.N.)1647 (Given - Provider: Halima Givens R.N.)2053 (Given - Provider: Halima Givens R.N.) 1,000 mg, gastric tube, 4 times daily, First dose on Mon03/26/18 at 2100 acetaminophen tablet 1,000 mg (TYLENOL) 0759 (Given - Provider: Tamara Emery RJuan CarlosN.)1116 (Given - Provider: Jessi Vargas R.N.) 1,000 mg, oral, 4 times daily, First dose on Mon03/30/18 at 0800 chlorhexidine 4 % external solution 1 application (HIB ICLENS) 1800 (Due - Provider: Mikayla Spears R.N.) 1600 (Given - Provider: Halima Givens R.N. - Comment: patient request) 0900 (Given - Provider: Ria Rosas - Comment: showered) 1 application, topical, Daily, First dos e on Mon03/27/18 at 0900, Shower or topical cleansing daily after wound dressing removed. heparin (porcine) injection 5,000 Units 0505 (Given - Provider: Jessie Vilchis R.N.)1436 (Given - Provider: Mikayla Spears R.Roxana.)2159 (Given - Provider: Saida Cruz RJuan CarlosN.) 0556 (Given - Provider: Saida orozco R.N.)1334 (Given - Provider: Mikayla Spears R.Roxana.)2210 (Given - Provider: Halima Givens R.N.) 0709 (Given - Provider: Lia Bradshaw R.N Juan Carlos)1400 (Not Given - Provider: Jessi Vargas RGrover - Reason: Other) 5,000 Units, subcutaneous, Every [...] Spears R.N.)1704 (Given - Provider: Jeannine Yip R.N.)2200 (Given - Provider: Saida Cruz RJuan [...] 081 4 (Given - Provider: Mikayla Spears R.N.)2200 (Given - Provider: Saida Cruz R.N.) 400 mg, gastric tube, 2 times daily, Fir st dose on Mon03/26/18 at 2100, For 3 days, Starting evening of surgery. Hold for diarrhea or output greater than 1500 mL/day sodium chloride injection 10 mL 0815 (Given - Provider : Heather GarciaN.)2100 (Due - Provider: Transfer Provider, Automatic) 0828 [...]
--- OUTSIDE RECORDS SUMMARY | 2022-07-01 23:36 | XMS_ITS | Encounter Summary ---
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 Urinary Tract Symptom ANTIBODY SCREEN, B Routine 03/12/2018 8:28 Malignant Neoplasm Results for this AM CDT Of Rectosigmoid procedure ar e in (HCC) the results Malignant Neoplasm section. 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 Urinary Tract Symptom SODIUM, S/P Routine 03/12/2018 8:28 Nodular Prostate Results for this AM CDT Without Lower procedure are in Urinary Tract the results Symptom section. Malignant Neoplasm Of Rectum (HCC) POTASSIUM, S/P Routine 03/12/2018 8:28 Nodular Prostate Result s for this AM CDT Without Lower procedure are in Urinary Tract the results Symptom section. Malignant Neoplasm Of Rectum (HCC) GLUCOSE, FASTING, S/P Routine 03/12/2018 8:28 Malignant Neopla sm Results for this AM CDT Of Rectum (HCC) procedure are in Nodular Prostate the results Without Lower section. Urinary Tract Symptom CREATININE WITH EGFR, Routine 03/12/2018 8:28 Nodular Prostate Results for this S/P AM CDT Without Lower procedure are in Urinary Tract the results Symptom section. Malignant Neoplasm Of Rectum (HCC) CHLORIDE, S/P Routine 03/12/2018 8:28 Malignant Neoplasm Resul ts for this AM CDT Of Rectum (HCC) procedure are in Nodular Prostate the results Without Lower section. Urinary Tract Symptom CARCINOEMBRYONIC AG Routine 03/12/2018 8:28 Nodular Prostate R esults for this (CEA), S AM CDT Without Lower procedure are in Urinary Tract the results Symptom section. Malignant Neoplasm Of Rectum (HCC) BICARBONATE, B/S/P Routine 03/12/2018 8:28 Malignant Neoplasm Results for this AM CDT Of Rectum (HCC) procedure are in Nodular Prostate the results Without Lower section. Urinary Tract Symptom documented in this encounter Results Antibody Screen, RBC (03/12/2018 8:28 AM CDT) Jin-Magic Method Time Signature Antibody Negative Negative 03/12/2018 [facility] Screen 10:10 AM CDT LABORATORIES - [facility] Specimen Anatomical Collection Method Collection Time Receive d Time (Source) Location / / Volume Laterality Blood (Blood, 03/12/2018 8:28 AM 03/12/20 18 8:59 Venous) CDT AM CDT Abisai Romano M.D. LAB BLOOD BANK TEST ORDERABL ES Performing Organization Address City/State/ZIP Code Phon e Number [facility] - [address] [place], [place] [address] [facility] (ABNORMAL) CBC without Differential (03/12/2018 8:28 AM CDT) Jin-Magic Method Time Signature Hemoglobin 14.3 13.2 - 03/12/2018 [facility] 16.6 g/dL 9:23 AM CDT [facility]ATOR[facility] - [facility] Hematocrit 44.3 38.3 - 03/12/2018 [facility] 48.6 % 9:23 AM CDT [facility]ATOR[facility] - [facility] Erythrocytes 4.76 4.35 - 03/12/2018 [facility] 5.65 9:23 AM CDT LABORATORIES - x10(12)/L [facility] MCV 93.1 78.2 - 03/12/2018 [facility] 97.9 fL 9:23 AM CDT [facility] - [facility] RBC Distrib 15.8 (H) 11.8 - 03/12/2018 [facility] Width 14.5 % 9:23 AM CDT [facility] - [facility] Platelet Count 235 135 - 317 03/12/2018 [facility] x10(9)/L 9:23 AM CDT [facility] - [facility] Leukocytes 4.8 3.4 - 9.6 03/12/2018 [facility] x10(9)/L 9:23 AM CDT [facility] - [facility] Specimen Anatomical Collection Method Collection Time Receive d Time (Source) Location / / Volume Laterality Blood 03/12/2018 8:28 AM 8 8:46 CDT AM CDT Abisai Romano M.D. LAB BLOOD ADD-ON Performing Organization Address City/State/[facility] Code Phon e Number [facility]ATORIES - [address] Sodium (03/12/2018 8:28 AM CDT) P athologist Signature Sodium, S 142 135 - 145 03/12/2018 [facility] mmol/L 10:18 AM CDT [facility] - [facility] Specimen Anatomical Collection Method Collection Time Receive d Time (Source) Location / / Volume Laterality Blood 03/12/2018 8:28 AM 8 8:46 CDT AM CDT Abisai Romano M.D. LAB BLOOD ADD-ON Performing Organization Address City/State/[facility] Phon e Number [facility] - [address] [place] [phone] [facility] Potassium (03/12/2018 8:28 AM CDT) P athologist Signature Potassium, S 4.7 3.6 - 5.2 03/12/2018 [facility] mmol/L 10:18 AM CDT LABORATORIES [facility] Specimen Anatomical Collection Method Collection Time Receive d Time (Source) Location / / Volume Laterality Blood 03/12/2018 8:28 AM 8 8:46 CDT AM CDT Abisai Romano M.D. LAB BLOOD ADD-ON Performing Organization Address City/[facility]/ZIP Code Phon e Number [facility] - 200 [place], [place] [address] [facility] (ABNORMAL) Glucose, Fasting (03/12/2018 8:28 AM CDT) P athologist Signature Glucose, P 105 (H) 70 - 100 03/12/2018 [facility] mg/dL 9:48 AM CDT LABORATORIES [facility] Last Intake 13 hr 03/12/2018 [facility] 8:46 AM CDT LAB[facility]ATORIES [facility] Specimen Anatomical Collection Method Collection Time Receive d Time (Source) Location / / Volume Laterality Blood 03/12/2018 8:28 AM 8 8:46 CDT AM CDT Abisai Romano M.D. LAB BLOOD NON ADD-ON Performing Organization Address City/State/ZIP Code Phon e Number [facility]IES - [address] [place] [phone] [facility] Creatinine with Estimated GFR (MDRD) (03/12/2018 8:28 AM CDT) Analysis Performed At Patho logist Time Signature Creatinine 1.19 0.74 - 03/12/2018 [facility] 1.35 mg/dL 10:18 AM CDT LABORATORIES [facility] eGFR-Non 65 >=60 03/12/2018 [facility] Black/ mL/min/BSA 10:18 AM CDT LABORATORIES [facility] Comment: ----ADDITIONAL INFORMATION---- Estimated GFR calculated using the 2009 CKD_EPI creatinine equation. eGFR-Black/ 75 >=60 mL/min/BSA 03/12/2018 10:1 8 [facility] French AM CDT [facility] - [facility] Comment: ----ADDITIONAL INFORMATION---- Estimated GFR calculated using the 2009 CKD_EPI creatinine equation. Specimen Anatomical Collection Method Collection Time Receive d Time (Source) Location / / Volume Laterality Blood 03/12/2018 8:28 AM 8 8:46 CDT AM CDT Abisai Romano M.D. LAB BLOOD ADD-ON Performing Organization Address City/State/ZIP Code Phon e Number [facility] - [address] [place] [phone] [facility] Chloride (03/12/2018 8:28 AM CDT) P athologist Signature Chloride, S 104 98 - 107 03/12/2018 [facility] mmol/L 10:18 AM CDT [facility] - [facility] Specimen Anatomical Collection Method Collection Time Receive d Time (Source) Location / / Volume Laterality Blood 03/12/2018 8:28 AM 8 8:46 CDT AM CDT Abisai Romano M.D. LAB BLOOD ADD-ON Performing Organization Address City/[facility]/ZIP Code Phon e Number [facility] - [address] [place] [address] [facility] BUN (Blood Urea Nitrogen) (03/12/2018 8:28 AM CDT) P athologist Signature BUN (Blood 13 8 - 24 03/12/2018 [facility] Urea mg/dL 10:18 AM CDT LABORATORIES - Nitrogen), S [facility] Specimen Anatomical Collection Method Collection Time Receive d Time (Source) Location / / Volume Laterality Blood 03/12/2018 8:28 AM 8 8:46 CDT AM CDT Abisai Romano M.D. LAB BLOOD ADD-ON Performing Organization Address City/[facility]/ZIP Code Phon e Number [facility] - [address] [place] [address] [facility] Bicarbonate (03/12/2018 8:28 AM CDT) P athologist Signature Bicarbonate, S 25 22 - 29 03/12/2018 [facility] mmol/L 10:18 AM CDT [facility] - [facility] Specimen Anatomical Collection Method Collection Time Receive d Time (Source) Location / / Volume Laterality Blood 03/12/2018 8:28 AM 8 8:46 CDT AM CDT Abisai Romano M.D. LAB BLOOD ADD-ON Performing Organization Address City/State/ZIP Code Phon e Number [facility] - [address] [place] [address] [facility] CEA (Carcinoembryonic Antigen) (03/12/2018 8:28 AM CDT) [facility]ist Method Time Signature Carcinoembryonic Ag 0.7 ng/mL 03/12/2018 [facility] (CEA), S 1:09 PM CDT [facility] Comment: ----REFERENCE VALUE---- <=3.0 (Non-smokers) Some smokers may have elevated CEA, usually <5.0. ----ADDITIONAL INFORMATION---- The testing method is an immunoenzymatic assay manufactured by [employer] and performed on the Sa[employer]o DxI 800. ? Values obtained with different assay met hods or kits may be different and cannot be used inte rchangeably. ? Test results cannot be interpreted as ab solute evidence for the presence or absence of malignant disease. Specimen Anatomical Collection Method Collection Time Receive d Time (Source) Location / / Volume Laterality Blood 03/12/2018 8:28 AM 8 CDT 12:18 PM CDT Abisai Romano M.D. 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
--- OUTSIDE RECORDS SUMMARY | 2022-07-01 23:36 | XMS_ITS | Encounter Summary ---
:1955 Author Organization [facility] Address [address] [place] [address] Care Team Providers Name Role Phone Unavailable Primary Care Provider Unavailable Reason for Visit Outpatient (Routine) - Closed Specialty Diagnoses / Procedures Referred By Contact Refer red To Contact Diagnoses Malignant Neoplasm Of Rectosigmoid (HCC) Malignant Neoplasm Of Rectum (HCC) Abisai Romano M.D. [facility] Procedures Stomal Therapy [address] [place] [phone] Referral ID Status Reason Start Date Expiration Date Visits Requ ested Visits Authorized [id number] Closed 01/29/2018 07/28/2018 1 1 Encounter Details Date Type Department Care Team Description 03/13/2018 Office Visit Division of Colon and Abisai Romano M.D. [address] [place] [phone] Education Need Ostomy (Primary Dx); Rectal Surgery in [facility]ain[facility]op[facility] R.N., [facility]ignant Neoplasm Of Rectosigmoid (HCC) ; [place], [place] Malignant Neoplasm Of Rectum (HCC) [address] [place] [phone] Social History Tobacco Use Types Packs/Day Years [...] or relatives? How often do you attend adventism or congregation 1 to 4 times per year 07/06/2019 services? Do you belong to any clubs or organizations Yes 07/06/2019 such as adventism groups, unions, fraternal or athletic groups, or [...] documented as of this encounter Progress Notes Zainab Chopra R.N., FernC.N. - 03/13/2018 1:30 PM CDT SUBJECTIVE CHIEF COMPLAINT/REASON FOR VISIT Preoperative teaching and stoma site marking HISTORY OF PRESENT ILLNESS Angel Addison is a 62 y.o. male was referred by Abisai Romano M.D. for preoperative teaching for colostomy. Patient also needs education for possible urostomy. Patient here with . Denies skin sensitivity. ASSESSMENT / PLAN Patient practiced a pouching system change with verbal instruction. Stoma sites marked in LLQ (#1), RLQ (#1) and LUQ (#2), RUQ (#2). Sites verified with Trent Corona RN, CWON. These sites are in the patient's line of vision, in the rectus muscle, and free of major skin creases or scars. Surgery scheduled for 03/26. documented in this encounter Plan of Treatment Upcoming Encounters Date Type Specialty Care Team Description 07/04/2022 Clinical Support Colon and Rectal Surgery documented as of this encounter Visit Diagnoses Diagnosis Education Need Ostomy - Primary Malignant Neoplasm Of Rectosigmoid (HCC) Malignant Neoplasm Of Rectum (HCC) documented in this encounter Additional Health Concerns Assessment Noted Time PHQ-9 Depression Total Score: 1 12/14/2017 11:05 AM CS T documented as of this encounter
--- OUTSIDE RECORDS SUMMARY | 2022-07-01 23:37 | XMS_ITS | Encounter Summary ---
:1955 Author Organization [facility] Address [address] [place] [address] Care Team Providers Name Role Phone Unavailable Primary Care Provider Unavailable Reason for Visit Reason Comments Med Refill Encounter Details Date Type Department Care Team Description 12/25/2017 Refill Department of Oncology in [facility], Kanwal Marsh M.D. Med Refill [place], [place] [address] [facility] [address] [place] [address] [place], [place] [phone] Social History Tobacco Use Types Packs/Day Years [...] or relatives? How often do you attend rastafari or mormonism 1 to 4 times per year 07/06/2019 services? Do you belong to any clubs or organizations Yes 07/06/2019 such as rastafari groups, unions, fraternal or athletic groups, or [...] minutes do you engage in exercise at is 40 min 07/06/2019 level? Stress Answer [...] this encounter Miscellaneous Notes Telephone Encounter - Susan Junior RJuan CarlosN. - 12/25/2017 9:34 AM CDT Called [facility] to inform them this is a [place] patient. They will take care of it. documented in this encounter Plan of Treatment Upcoming Encounters Date Type Specialty Care Team Description 07/04/2022 Clinical Support Colon and Rectal Surgery documented as of this encounter Visit Diagnoses Not on filedocumented in this encounter Additional Health Concerns Assessment Noted Time PHQ-9 Depression Total Score: 1 12/14/2017 11:05 AM CS T documented as of this encounter
--- OUTSIDE RECORDS SUMMARY | 2022-07-01 23:37 | XMS_ITS | Encounter Summary ---
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 [address] [place] [phone] Social History Tobacco Use Types Packs/Day Years Used Date Smoking Tobacco: Never Assessed Alcohol Habits Answer Date Recorded How often [...] or relatives? How often do you attend episcopal or pentecostalism 1 to 4 times per year 07/06/2019 services? Do you belong to any clubs or organizations Yes 07/06/2019 such as episcopal groups, unions, fraternal or athletic groups, or [...] Sign Reading Time Taken Comments Blood Pressure 154/97 07/20/2017 9:42 AM CDT Pulse 114 07/20/2017 9:42 AM CDT Temperature - - Respiratory Rate - - Oxygen Saturation - - Inhaled Oxygen Concentration - - Weight 80 kg (176 lb 5.9 oz) 07/20/2017 9:42 AM CDT Height 174 cm (5' 8.5) 07/20/2017 9:42 AM CDT Body Mass Index 26.42 07/20/2017 9:42 AM CDT documented in this encounter Medications at Time of Discharge Medication Sig Dispensed Refills Start Date End Date naproxen sodium (ALEVE) Take 1 tablet by 0 201605/08/2018 220 mg tablet mouth 2 (two) times a day as needed. documented as of this encounter Plan of Treatment Upcoming Encounters Date Type Specialty Care Team Description 07/04/2022 Clinical Support Colon and Rectal Surgery documented as of this encounter Procedures Procedure Name Priority Date/Time Associated Comments Diagnosis CT CHEST WITH IV Routine 07/21/2017 8:51 AM Resul ts for this CONTRAST WITH 3D CDT procedure a re in [facility] the re sults section. CT ABDOMEN PELVIS Routine 07/21/2017 8:51 AM Resu lts for this WITH IV CONTRAST CDT procedure a re in the results section. documented in this encounter Results CT Chest with IV Contrast with 3D Dependent Workstation (07/21/2017 8:51 AM CDT) Anatomical Region Laterality Modality Abdomen, Pelvis Computed Tomography Specimen (Source) Anatomical Collection Method Collection Time Re ceived Time Location / / Volume Laterality 07/21/2017 8:51 AM CDT Impressions 07/21/2017 9:02 AM CDT 1. A few tiny punctate nodules in both l ungs are indeterminate, but may be tiny granulomas. Follow-up would be helpful. 2. Indeterminate heterogeneously enhanci ng right thyroid nodule. Ultrasound would be helpful in further evaluation, as neoplasm cannot be excluded. 3. Abdominal findings reported separatel y. FINDINGS: A few tiny punctate nodules in both lung s are too small to accurately characterize (right lower lobe on 2/162, 229; left upper lobe on 2/170; left lower lobe on 2/217, 220). Tiny bilateral calcified gra nulomas. No thoracic adenopathy. No effu sions. Heterogeneously enhancing nodule arising from the posterior aspect of the right thyroid gland extending into the thoracic inlet measures approximately 22 x 17 x 27 mm. T4 vertebral body hemangiom a. Tiny benign-appearing area of sclerosis in T6 vertebral body. Electronically signed by: ?? Licha Sherwood MD. ??[phone] 21-Jul-2017 09:0 2 Narrative 07/21/2017 9:02 AM CDT 21-Jul-2017 08:51:00 ??Exam: CT CHEST w + 3D Depend WS Indications: Malignant Neoplasm Rectum ORIGINAL REPORT - 21-Jul-2017 09:02:00 EXAM: CT scan of the Chest with IV contr ast including 3D maximum intensity projections/volume renderings on a non-independent workstation COMPARISON: ??No prior chest imaging deneen dies. Procedure Note Sherry Sherwood M.D. - 01/03/2018Fo rmatting of this note might be different from the original. 21-Jul-2017 08:51:00 Exam: CT CHEST w + 3D Depend WS Indications: Malignant Neoplasm Rectum ORIGINAL REPORT - 21-Jul-2017 09:02:00 EXAM: CT scan of the Chest with IV contr ast including 3D maximum intensity projections/volume renderings on a non-independent workstation COMPARISON: No prior chest imaging studi es. IMPRESSION: 1. A few tiny punctate nodules in both l ungs are indeterminate, but may be tiny granulomas. Follow-up would be helpful. 2. Indeterminate heterogeneously enhanci ng right thyroid nodule. Ultrasound would be helpful in further evaluation, as neoplasm cannot be excluded. 3. Abdominal findings reported separatel y. FINDINGS: A few tiny punctate nodules in both lung s are too small to accurately characterize (right lower lobe on 2/162, 229; left upper lobe on 2/170; left lower lobe on 2/217, 220). Tiny bilateral calcified granulomas. No thoracic adenopathy. No effusions. Heter ogeneously enhancing nodule arising from the posterior aspect of the right thyroid gland extending into the thoracic inlet measures approximately 22 x 17 x 27 mm. T4 vertebral body hemangioma. Tiny benign-a ppearing area of sclerosis in T6 vertebral body. Electronically signed by: Licha Sherwood MD. [phone] 21-Jul-2017 09:02 Eva Collier APRN, C.N.P., D.N.P. IMG CT PROCEDURE S CT Abdomen Pelvis with IV Contrast (07/21/2017 8:51 AM CDT) Anatomical Region Laterality Modality Abdomen, Pelvis N/A Computed Tomography Specimen (Source) Anatomical Collection Method Collection Time Re ceived Time Location / / Volume Laterality 07/21/2017 8:51 AM CDT Impressions 07/21/2017 10:22 AM CDT ??Asymmetric thickening and enhancement of the rectum that correlates with the patient's known adenocarcinoma. A few presacral/mesorectal lymph nodes, most likely metastatic. FINDINGS: Asymmetric nodular thickening with enhan cement of the several centimeters section of the rectum ??that correlates with the patient's biopsy-proven rectal adenocarcinoma. A few mesorectal and presacral l ymph nodes, most likely metastatic. For example left mesorectal 7 mm lymph node best seen on image number 117, series 1. 6 mm presacral lymph node best seen on image number 109, series 1. Otherwise nega tive colon and small bowel. No signs of obstruction. Low-density right hepatic lesion (11/01), likely a benign hepatic cyst. Small diffusely enhancing hepatic lesion in the left lobe of the liver on image number 25, series 1, most likely a small hemangioma. Large 1.2 cm gallstone. Negative adrenal glands, kidneys, spleen, pancreas. Small fat-containing left inguinal hernia. Degenerative changes of the spine. Benign sclerotic lesions in the left femoral head. This examination was performed in conjun ction with a CT of the chest, which will be reported separately. Electronically signed by: ?? A. Lore Daniel MD [phone] 21-Jul-2017 10:22 ?B Payam HUERTA [phone] 21-Jul-2017 10:22 Narrative 07/21/2017 10:22 AM CDT 21-Jul-2017 08:51:00 ??Exam: CT ABDOMEN w & PELVIS w Indications: Malignant Neoplasm Rectum ORIGINAL REPORT - 21-Jul-2017 10:22:00 EXAM: ??CT scan of the Abdomen and Pelvi s with IV contrast COMPARISON: ??None Procedure Note Mariposa Daniel M.D. - 01/03/2018Formatti ng of this note might be different from the original. 21-Jul-2017 08:51:00 Exam: CT ABDOMEN w & PELVIS w Indications: Malignant Neoplasm Rectum ORIGINAL REPORT - 21-Jul-2017 10:22:00 EXAM: CT scan of the Abdomen and Pelvis with IV contrast COMPARISON: None IMPRESSION: Asymmetric thickening and en hancement of the rectum that correlates with the patient's known adenocarcinoma. A few presacral/mesorectal lymph nodes, most likely metastatic. FINDINGS: Asymmetric nodular thickening with enhan cement of the several centimeters section of the rectum that correlates with the patient's biopsy-proven rectal adenocarcinoma. A few mesorectal and presacral lymph nodes, most likely metastatic. For example left meso rectal 7 mm lymph node best seen on image number 117, series 1. 6 mm presacral lymph node best seen on image number 109, series 1. Otherwise negative colon and small bowel. No signs of obstruction. Low-density right hepatic lesion (11/01), likely a benign hepatic cyst. Small diffusely enhancing hepatic lesion in the left lobe of the liver on image number 25, series 1, most likely a small hemangioma. Large 1.2 cm gallstone. Negative adrenal glands, kidneys, spleen, pancreas. Small fat-containing left inguinal hernia. Degenerative changes of the spine. Benign sclerotic lesions in the left femoral head. This examination was performed in conjun ction with a CT of the chest, which will be reported separately. Electronically signed by: Alfreda Daniel MD [phone] 21-Jul-2017 10:22 Naveed Hare MD [phone] 21-Jul-2017 10:22 Eva Collier APRN, C.N.P., D.N.P. IMG CT PROCEDURE S documented in this encounter Visit Diagnoses Not on filedocumented in this encounter
--- OUTSIDE RECORDS SUMMARY | 2022-07-01 23:37 | XMS_ITS | Encounter Summary ---
:1955 Author Organization [facility] Address [address] [place] [address] Care Team Providers Name Role Phone Unavailable Primary Care Provider Unavailable Encounter Details Date Type Department Care Team Description 07/27/2017 Hospital Encounter HX NO MAPPING Provider, Historical Social History Tobacco Use Types [...] or relatives? How often do you attend zoroastrianism or church 1 to 4 times per year 07/06/2019 services? Do you belong to any clubs or organizations Yes 07/06/2019 such as zoroastrianism groups, unions, fraternal or athletic groups, or [...]
--- OUTSIDE RECORDS SUMMARY | 2022-07-01 23:37 | XMS_ITS | Encounter Summary ---
:1955 Author Organization [facility] Address [address] [place] [address] Care Team Providers Name Role Phone Unavailable Primary Care Provider Unavailable Encounter Details Date Type Department Care Team Description 01/27/2018 Orders Only Division of Colon and Abisai Romano Neoplasm Of Rectal Surgery in H, M.D. Rectum (HCC) (Primary [place], [place] [address] [facility] Dx) [address] [place] [phone] Social History Tobacco Use Types Packs/Day Years [...] or relatives? How often do you attend sikhism or lutheran 1 to 4 times per year 07/06/2019 services? Do you belong to any clubs or organizations Yes 07/06/2019 such as sikhism groups, unions, fraternal or athletic groups, or [...]
--- OUTSIDE RECORDS SUMMARY | 2022-07-01 23:37 | XMS_ITS | Encounter Summary ---
:1955 Author Organization [facility] Address [address] [place] [address] Care Team Providers Name Role Phone Unavailable Primary Care Provider Unavailable Reason for Referral Outpatient (Routine) - Closed Specialty Diagnoses / Procedures Referred By Contact Refer red To Contact [facility] [address] [place] [phone] Referral ID Status Reason Start Date Expiration Date Visits Requ ested Visits Authorized [id number] Closed 01/26/2018 07/25/2018 1 1 utpatient (Routine) - Closed Specialty Diagnoses / Procedures Referred By Contact Refer red To Contact Colon and Rectal [facility] [address] [place] [phone] Referral ID Status Reason Start Date Expiration Date Visits Requ ested Visits Authorized [id number] Closed 01/25/2018 07/24/2018 1 1 Encounter Details Date Type Department Care Team Description 01/18/2018 Orders Only Division of Kori Styles Thyroi d Nontoxic; Endocrinology in Isatu LindseyB.S . 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 How often do you attend latter day or anabaptist 1 to 4 times per year 07/06/2019 services? Do you belong to any clubs or organizations Yes 07/06/2019 such as latter day groups, unions, fraternal or athletic groups, or [...] Name Type Priority Associated Order Schedule Diagnoses Colon and Rectal Outpatient Referral Routine Expe cted: Surgery office visit 018 (clinic) (Approximate), Expires: 01/25/2021 Endocrinology office Outpatient Referral Routine Expected: visit (clinic) 05/08/2018 (Approximate), Expires: 01/26/2021 documented as of this encounter Results US Thyroid (05/08/2018 12:09 [...] Nodule Care Process Model established by the [facility] Endocrine Oncology Specialty [place]. [email or web address] Procedure Note Stephanie Freeman M.D. - [...] Nodule Care Process Model established by the [facility] Endocrine Oncology Specialty [place]. [email or web address] IMPRESSION: Stable exam compared to 07/10. Saul Kirkpatrick IMG US PROCEDURES (ABNORMAL) S-TSH (Thyroid-Stimulating Hormone - Sensitive) (05/08/2018 10:53 AM CDT) [facility] Method Time Signature TSH, Sensitive 0.07 (L) 0.3 - 4.2 05/08/2018 [facility] mIU/L 12:24 PM CDT LABORATORIES - [facility] Specimen Anatomical Collection Method Collection Time Receive d Time (Source) Location / / Volume Laterality Blood 05/08/2018 10:53 05/08/2018 AM CDT 11:36 AM CDT Saul Newberry.S. LAB BLOOD ADD-ON Performing Organization Address City/[facility] Phon e Number [facility] - [address] [place] [phone] 05 [facility] T4 (Thyroxine), Free (05/08/2018 10:53 AM CDT) P athologist Signature T4 1.3 0.9 - 1.7 05/08/2018 [facility] (Thyroxine), ng/dL 12:25 PM CDT LABORATORIES - [facility], S [facility] Specimen Anatomical Collection Method Collection Time Receive d Time (Source) Location / / Volume Laterality Blood 05/08/2018 10:53 05/08/2018 AM CDT 11:36 AM CDT Saul Newberry.S. LAB BLOOD ADD-ON Performing Organization Address City/State/[facility] Code Phon e Number [facility] - [address] [place] [address] [facility] (ABNORMAL) CBC without Differential (03/12/2018 8:28 AM CDT) [facility] Method Time Signature Hemoglobin 14.3 13.2 - 03/12/2018 [facility] 16.6 g/dL 9:23 AM CDT LABORATORIES - [facility] Hematocrit 44.3 38.3 - 03/12/2018 [facility] 48.6 % 9:23 AM CDT LABORATORIES - [facility] Erythrocytes 4.76 4.35 - 03/12/2018 [facility] 5.65 9:23 AM CDT LABORATORIES - x10(12)/L [facility] MCV 93.1 78.2 - 03/12/2018 [facility] 97.9 fL 9:23 AM CDT LABORATORIES - [facility] RBC Distrib 15.8 (H) 11.8 - 03/12/2018 [facility] Width 14.5 % 9:23 AM CDT LABORATORIES - [facility] Platelet Count 235 135 - 317 03/12/2018 [facility] x10(9)/L 9:23 AM CDT LABORATORIES - [facility] Leukocytes 4.8 3.4 - 9.6 03/12/2018 [facility] x10(9)/L 9:23 AM CDT LABORATORIES - [facility] Specimen Anatomical Collection Method Collection Time Receive d Time (Source) Location / / Volume Laterality Blood 03/12/2018 8:28 AM 8 8:46 CDT AM CDT Abisai Romano M.D. LAB BLOOD ADD-ON Performing Organization Address City/[facility]/ZIP Code Phon e Number [facility] - [address] [place] [phone] [facility] Sodium (03/12/2018 8:28 AM CDT) athologist Signature Sodium, S 142 135 - 145 03/12/2018 [facility] mmol/L 10:18 AM CDT LABORATORIES - [facility] Specimen Anatomical Collection Method Collection Time Receive d Time (Source) Location / / Volume Laterality Blood 03/12/2018 8:28 AM 8 8:46 CDT AM CDT Abisai Romano M.D. LAB BLOOD ADD-ON Performing Organization Address City/State/ZIP Code Phon e Number [facility] - [address] [place] [address] [facility] Potassium (03/12/2018 8:28 AM CDT) athologist Signature Potassium, S 4.7 3.6 - 5.2 03/12/2018 [facility] mmol/L 10:18 AM CDT LABORATORIES - [facility] Specimen Anatomical Collection Method Collection Time Receive d Time (Source) Location / / Volume Laterality Blood 03/12/2018 8:28 AM 8 8:46 CDT AM CDT Abisai Romano M.D. LAB BLOOD ADD-ON Performing Organization Address City/State/ZIP Code Phon e Number [facility] - [address] [place] [address] [facility] (ABNORMAL) Glucose, Fasting (03/12/2018 8:28 AM CDT) P athologist Signature Glucose, P 105 (H) 70 - 100 03/12/2018 [facility] mg/dL 9:48 AM CDT LABORATORIES [facility] Last Intake 13 hr 03/12/2018 [facility] 8:46 AM CDT LABORATOR[facility] Specimen Anatomical Collection Method Collection Time Receive d Time (Source) Location / / Volume Laterality Blood 03/12/2018 8:28 AM 8 8:46 CDT AM CDT Abisai Romano M.D. LAB BLOOD NON ADD-ON Performing Organization Address City/State/ZIP Code Phon e Number [facility] - [address] [place] [address] [facility] Creatinine with Estimated GFR (MDRD) (03/12/2018 8:28 AM CDT) [facility] Signature Creatinine 1.19 0.74 - 03/12/2018 [facility] 1.35 mg/dL 10:18 AM CDT LABORATORIES [facility] eGFR-Non 65 >=60 03/12/2018 [facility] Black/ mL/min/BSA 10:18 AM CDT LABORATORIES [facility] Comment: ----ADDITIONAL INFORMATION---- Estimated GFR calculated using the 2009 CKD_EPI creatinine equation. eGFR-Black/ 75 >=60 mL/min/BSA 03/12/2018 10:1 8 [facility] Comment: ----ADDITIONAL INFORMATION---- Estimated GFR calculated using the 2009 CKD_EPI creatinine equation. Specimen Anatomical Collection Method Collection Time Receive d Time (Source) Location / / Volume Laterality Blood 03/12/2018 8:28 AM 8 8:46 CDT AM CDT Abisai Romano M.D. LAB BLOOD ADD-ON Performing Organization Address City/State/ZIP Code Phon e Number [facility] - [address] [place] [address] [facility] Chloride (03/12/2018 8:28 AM CDT) P athologist Signature Chloride, S 104 98 - 107 03/12/2018 [facility] mmol/L 10:18 AM CDT LABORATORIES [facility] Specimen Anatomical Collection Method Collection Time Receive d Time (Source) Location / / Volume Laterality Blood 03/12/2018 8:28 AM 8 8:46 CDT AM CDT Abisai Romano M.D. LAB BLOOD ADD-ON Performing Organization Address City/[facility]/ZIP Code Phon e Number [facility] - [address] [place] [address] [facility] BUN (Blood Urea Nitrogen) (03/12/2018 8:28 AM CDT) P athologist Signature BUN (Blood 13 8 - 24 03/12/2018 [facility] Urea mg/dL 10:18 AM CDT LABORATORIES - Nitrogen), S [facility] Specimen Anatomical Collection Method Collection Time Receive d Time (Source) Location / / Volume Laterality Blood 03/12/2018 8:28 AM 8 8:46 CDT AM CDT Abisai Romano M.D. LAB BLOOD ADD-ON Performing Organization Address City/[facility]/ZIP Code Phon e Number [facility] - [address] [place] [address] [facility] Bicarbonate (03/12/2018 8:28 AM CDT) P athologist Signature Bicarbonate, S 25 22 - 29 03/12/2018 [facility] mmol/L 10:18 AM CDT LABORATORIES - [facility] Specimen Anatomical Collection Method Collection Time Receive d Time (Source) Location / / Volume Laterality Blood 03/12/2018 8:28 AM 8 8:46 CDT AM CDT Abisai Romano M.D. LAB BLOOD ADD-ON Performing Organization Address City/[facility]/ZIP Code Phon e Number [facility] - [address] [place] [address] [facility] CEA (Carcinoembryonic Antigen) (03/12/2018 8:28 AM CDT) Patholo gist Method Time Signature Carcinoembryonic Ag 0.7 ng/mL 03/12/2018 [facility] (CEA), S 1:09 PM CDT [facility] Comment: ----REFERENCE VALUE---- <=3.0 (Non-smokers) Some smokers may have elevated CEA, usually <5.0. ----ADDITIONAL INFORMATION---- The testing method is an immunoenzymatic assay manufactured by [employer] and performed on the [employer] DxI 800. ? 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
--- OUTSIDE RECORDS SUMMARY | 2022-07-01 23:37 | XMS_ITS | Encounter Summary ---
:1955 Author Organization [facility] Address [address] [place] [address] Care Team Providers Name Role Phone Unavailable Primary Care Provider Unavailable Encounter Details Date Type Department Care Team Description 08/11/2017 Hospital Encounter HX NO MAPPING Social History Tobacco Use Types Packs/Day Years [...] or relatives? How often do you attend anabaptism or evangelical 1 to 4 times per year 07/06/2019 services? Do you belong to any clubs or organizations Yes 07/06/2019 such as anabaptism groups, unions, fraternal or athletic groups, or [...] Start Date End Date naproxen sodium (ALEVE) 220 Take 1 tablet by 0 05/08/2018 mg tablet mouth 2 (two) times a day as needed. ondansetron ODT Take 1 tablet by 0 08/03/201704/2018 (ZOFRAN-ODT) 8 mg mouth every 6 disintegrating tablet (six) hours as needed. documented as of this encounter Plan of Treatment Upcoming Encounters Date Type Specialty Care Team Description 07/04/2022 Clinical Support Colon and Rectal Surgery documented as of this encounter Visit Diagnoses Not on filedocumented in this encounter
--- OUTSIDE RECORDS SUMMARY | 2022-07-01 23:37 | XMS_ITS | Encounter Summary ---
:1955 Author Organization [facility] Address [address] [place] [address] Care Team Providers Name Role Phone Unavailable Primary Care Provider Unavailable Reason for Visit Reason Comments Med Refill Encounter Details Date Type Department Care Team Description 01/02/2018 Refill Department of Oncology in [facility], Kanwal Marsh M.D. Med Refill [place], [place] [address] [facility] [address] [place] [address] [place], [place] [phone] Social History Tobacco Use Types Packs/Day Years [...] How often do you attend religious or hoahaoism 1 to 4 times per year 07/06/2019 [...]
--- OUTSIDE RECORDS SUMMARY | 2022-07-01 23:37 | XMS_ITS | Encounter Summary ---
:1955 Author Organization [facility] Address [address] [place] [address] Care Team Providers Name Role Phone Unavailable Primary Care Provider Unavailable Encounter Details Date Type Department Care Team Description 07/21/2017 Hospital Encounter HX RST CRS FLOOR PRACTICE Abisai Romano M.D. [address] [place] [id number] Social History Tobacco Use Types Packs/Day Years [...] How often do you attend amish or hoahaoism 1 to 4 times per [...]
--- OUTSIDE RECORDS SUMMARY | 2022-07-01 23:37 | XMS_ITS | Encounter Summary ---
:1955 Author Organization [facility] Address [address] [place] [address] Care Team Providers Name Role Phone Unavailable Primary Care Provider Unavailable Encounter Details Date Type Department Care Team Description 07/21/2017 Hospital Encounter HX RST CRS FLOOR PRACTICE Trent Torrez, SHRUTI, C.N.P., D.N.P. [address] [place] [phone] Social History Tobacco Use Types Packs/Day Years [...] How often do you attend anabaptist or sikhism 1 to 4 times per [...] Name Priority Date/Time Associated Diagnosis Comme nts MR PELVIS WITHOUT Routine 07/21/2017 1:04 PM Resu lts for this AND WITH IV CDT procedure are i n CONTRAST the results section. documented in this encounter Results MR Pelvis without and with IV Contrast (07/21/2017 1:04 PM CDT) Anatomical Region Laterality Modality Pelvis N/A Magnetic Resonance Specimen (Source) Anatomical Collection Method Collection Time Re ceived Time Location / / Volume Laterality 07/21/2017 1:04 PM CDT Impressions 07/21/2017 3:47 PM CDT TUMOR SIZE/LOCATION/CHARACTERISTICS: There is a 6.0 cm long circumferential m ass in the rectum with its caudal margin 1.0 cm from the anorectal junction. This mass can be seen on series 2 image 12. Relationship of tumor to anterior perito camille reflection: Superior portion of the mass extends above the peritoneal reflection. Relationship of the tumor to a line [...] present. The tumor abuts the prostate gland over 2 cm length in craniocaudal direction (series 2 image 14, series 4, image 13). There is likely directi invasion of prostate gland. Shortest distance of tumor to MRF: 0 [...] lymph nodes are suspicious for metastatic disease: 7 x 7 mm lymph node left posteriorly (series 4 image 2) at the level of S4. The following mesorectal lymph nodes are equivocal for metastatic disease: 6 mm lymph node right posteriorly (series 4 image 1) at the level of S3. The superior most suspicious or equivoca l lymph node is located at the level of S3. The following extramesorectal lymph node s are present and are suspicious: 7 mm lymph node in the right internal iliac chain (series 17 image 64). 2 other smaller lymph nodes in the right internal iliac chain (series 17 image 66) and 1 small l eft internal iliac chain (series 4 image 3) are indeterminate. N STAGE: N+. EXTRAMURAL VENOUS INVASION: Probably pre sent right posteriorly (series 4 image 10). OTHER FINDINGS: Prostate gland shows multifocal area of low-T2 signal and mild diffusion restriction and it is difficult to exclude primary prostate neoplasm. Correlation with PSA may be helpful. Glucagon, 1.00 milligram .9NaCl, 40.00 milliliter Electronically signed by: ?? Zabrina Collier MD [id number] 21-Jul-2017 15: 47 ?Robby Angelo MD [phone] 21-Jul-2017 15:47 Narrative 07/21/2017 3:47 PM CDT 21-Jul-2017 13:04:00 ??Exam: MRI PELVIS wo&w Indications: Malignant Neoplasm Rectum ORIGINAL REPORT - 21-Jul-2017 15:47:00 EXAM: MRI PELVIS wo&w MR imaging of the rectum before and afte r dynamic gadolinium enhancement. Ultrasound gel was instilled to distend the rectum. COMPARISON: ??CT abdomen/pelvis 07/21/20 17. FINDINGS/ Procedure Note Robby Angelo M.D. - 01/03/2018Forma tting of this note might be different from the original. 21-Jul-2017 13:04:00 Exam: MRI PELVIS wo &w Indications: Malignant Neoplasm Rectum ORIGINAL REPORT - 21-Jul-2017 15:47:00 EXAM: MRI PELVIS wo&w MR imaging of the rectum before and afte r dynamic gadolinium enhancement. Ultrasound gel was instilled to distend the rectum. COMPARISON: CT abdomen/pelvis 07/21/2017 . FINDINGS/IMPRESSION: TUMOR SIZE/LOCATION/CHARACTERISTICS: There is a 6.0 cm long circumferential m ass in the rectum with its caudal margin 1.0 cm from the anorectal junction. This mass can be seen on series 2 image 12. Relationship of tumor to anterior perito camille reflection: Superior portion of the mass extends above the peritoneal reflection. Relationship of the tumor to a line [...] present. The tumor abuts the prostate gland over 2 cm length in craniocaudal direction (series 2 image 14, series 4, image 13). There is likely directi invasion of prostate gland. Shortest distance of tumor to MRF: 0 [...] lymph nodes are suspicious for metastatic disease: 7 x 7 mm lymph node left posteriorly (series 4 image 2) at the level of S4. The following mesorectal lymph nodes are equivocal for metastatic disease: 6 mm lymph node right posteriorly (series 4 image 1) at the level of S3. The superior most suspicious or equivoca l lymph node is located at the level of S3. The following extramesorectal lymph node s are present and are suspicious: 7 mm lymph node in the right internal iliac chain (series 17 image 64). 2 other smaller lymph nodes in the right internal iliac chain (series 17 image 66) and 1 small left internal galilea c chain (series 4 image 3) are indeterminate. N STAGE: N+. EXTRAMURAL VENOUS INVASION: Probably pre sent right posteriorly (series 4 image 10). OTHER FINDINGS: Prostate gland shows multifocal area of low-T2 signal and mild diffusion restriction and it is difficult to exclude primary prostate neoplasm. Correlation with PSA may be helpful. Glucagon, 1.00 milligram .9NaCl, 40.00 milliliter Electronically signed by: Zabrina Collier MD [id number] 21-Jul-2017 15: 47 Robby Angelo MD [phone] 21-Jul-2017 15:47 Eva Collier APRN, C.N.P., D.N.P. IMG MRI PROCEDUR ES documented in this encounter Visit Diagnoses Not on filedocumented in this encounter
[2022-07-01 23:40] VITALS: BP 153/86; PULSE 84; RESP 18; O2SAT 98
[2022-07-01 23:51] LABS: SARS PCR* Negative SARS-CoV-2 (Negative)
[2022-07-02] VITALS (20 sets, daily range): BP systolic 107–165; BP diastolic 52–89; PULSE 63–97; RESP 12–18; TEMP 36.1–36.7; O2SAT 92–98; BMI 30.1
--- NOTE | 2022-07-02 00:16 | CRLHL7_ITS ---
For Patients: As a result of the Century Cures Act, medical imaging exams and procedure reports are released immediately into your electronic medical record. You may view this report before your referring provider. If you have questions, please contact your health care provider. INDICATION: HISTORY: Abnormal CT scan. Cholecystitis suspected. COMPARISON: CT of the abdomen and pelvis, 07/01/2022. CT of the chest, abdomen, and pelvis, 11/22/2021. TECHNIQUE: Ultrasound of the abdomen limited. FINDINGS: The gallbladder appears distended, with gallbladder wall thickening, measuring approximately 5 mm. No pericholecystic fluid or drainable fluid collection by ultrasound. The common bile duct is not well seen. No dilation of intrahepatic biliary radicals. There is a gallstone impacted in the neck of the gallbladder, as demonstrated on the CT from 07/01/2022. Two hypoechoic foci adjacent to the gallbladder on image 0, series 1, are nonspecific, and may be artifactual. No suspicious liver lesion was demonstrated on the recent single phase CT. Attention suggested on follow-up imaging. IMPRESSION: 1. Findings remain suspicious for acute cholecystitis. 2. Poorly visualize common bile duct. No dilation of intrahepatic biliary radicals. Dictated by Lance Coombs MD @ 07/02/2022 9:42:23 AM Dictated by: Lance Coombs MD @ 07/02/2022 09:42:30 (Electronically Signed)
[2022-07-02] MEDS: PIPERACILLIN/TAZOBACTAM 3.375 GM in 0.9 % SODIUM CHLORIDE Mini-bag 100 ML IVPB ×3 (01:01→19:41)
[2022-07-02] MEDS: HYDROmorphone 0.5 mg/0.5 ml inj IVP (01:01)
--- NOTE | 2022-07-02 01:49 | P.IMCN_ITS ---
Date of Consult Consult date: 07/02/22 Primary Care Provider: Devin Baires MD Consult Narrative Narrative: Angel Addison is a 66 year old male [facility] Social History Smoking Status: Former smoker How often do you have a drink containing alcohol: 2-4 times a month AUDIT-C Alcohol total score: 2 Non-prescribed substance use: denies use Meds Home Medications and Allergies Home Medications Medication Instructions Recorded Confirmed Type aspirin 81 mg capsule 81 mg PO DAILY 07/01/22 07/01/22 History atorvastatin 20 mg tablet mg 07/01/22 History simethicone 500 mg capsule 500 mg PO DAILY 07/01/22 07/01/22 History (Phazyme) Allergies Allergy/AdvReac Type Severity Reaction Status Date / Time No Known Drug Allergies Allergy Verified 07/01/22 22:26 Exam Const: Vital Signs, click to edit/add: Vital Signs - 24 hr 07/01/22 20:05 07/01/22 21:14 07/01/22 21:42 Temperature 97.9 F Pulse Rate [Left P ulse Oximeter] 80 70 Respiratory Rate 20 20 Blood Pressure [Ri ght Upper Arm] 160/88 H 151/88 H Pulse Oximetry 98 97 99 Oxygen Delivery Me thod Room Air Room Air 07/01/22 21:30 07/01/22 23:40 Temperature Pulse Rate [Left P ulse Oximeter] 80 84 Respiratory Rate 18 18 Blood Pressure [Ri ght Upper Arm] 150/84 H 153/86 H Pulse Oximetry 96 98 Oxygen Delivery Me thod Room Air Room Air Labs Labs: Short CBC 07/01/22 Range/Units 21:00 WBC 16.68 H (4.50-11.00) K/uL Hgb 14.8 (13.5-17.5) gm/dL Hct 44.1 (37.0-53.0) % Plt Count 215 (140-440) K/uL BMP 07/01/22 21:00 Sodium 135 Potassium 4.0 Chloride 99 Carbon Dioxide 25 BUN 17 Creatinine 1.1 Glucose 179 H Calcium 9.4 Liver Function 07/01/22 Range/Units 21:00 Total Bilirubin 0.9 (0.1-1.5) mg/dL Direct Bilirubin 0.1 (0.0-0.5) mg/dL AST 27 (12-35) U/L ALT 28 (4-50) U/L Alkaline Phosphatase 93 (40-150) U/L Albumin 4.7 (3.3-5.0) g/dL Urine 07/01/22 Range/Units 21:12 Urine Color Yellow (Yellow) Urine Appearance Clear (Clear) Urine pH 6.5 (5.0-8.5) Ur Specific [place] 1.020 (1.000-1.030) Urine Protein Negative (Negative) Urine Glucose (UA) Trace A (Negative) Assessment and Plan Assessment and plan (1) Calculous cholecystitis: Status: Acute Plan [facility] Hospitalist CONSULTATION NOTE: Reason for consult: Acute cholecystitis HPI: Patient is a pleasant 66-year-old male with past medical history of colon cancer status post colectomy who presents for acute abdominal pain that started around 2 PM on 07/01/2022. It worsened throughout the day. He denies any associated headaches or lightheadedness. He has not had any chest pain or shortness of breath. He did not have any nausea or vomiting with his pain. He has not had any recent diarrhea. He denies any fevers or chills. He did get some flushing and sweats when his pain got bad today. Patient presented to the ED where he had a CT scan showing acute cholecystitis. ED provider spoke with the surgeon and they will plan for cholecystectomy in the morning. Patient is a non-smoker. He drinks alcohol on occasion. He does not use recreational drugs. We did discuss CODE STATUS and he wishes to be full code Exam (performed via interactive video with assistance of bedside nurse): General: Alert, cooperative, no acute distress HEENT: Pupils reported ERRL, oral mucosa pink and moist without erythema Abd: Bowel sounds present, denies tenderness and does not exhibit signs of pain with palpation done by bedside nurse Ext: No pitting edema noted Skin: No rashes, bruises or lesions appreciated on gross visualization of exposed skin Neuro: Alert, oriented x 3. CN III -VII, XI, XII grossly intact, moves all extremities without any significant focal deficit appreciated by nurse Assessment and Plan: 1. Acute cholecystitis Patient is a pleasant 66-year-old gentleman admitted for acute cholecystitis. He was started on Zosyn in the ER which we will continue until he can have a cholecystectomy. We will place PRNs for pain and nausea. He will be kept n.p.o. until surgery. We will place him on gentle IV hydration while he is n.p.o. Pharmacologic DVT prophylaxis will be considered following surgery if patient requires continued hospitalization. Patient is a full code. Thank you for [facility]. This service is available for further assistance as requested by your care team by calling [phone].
[2022-07-02] MEDS: 0.9 % SODIUM CHLORIDE 1000 ml 1,000 ML 125 ML IV ×2 (02:00→10:34)
[2022-07-02] MEDS: fentaNYL 100 MCG/2 ML inj 25 MCG IVP (04:03)
[2022-07-02] MEDS: SODIUM CHLORIDE 0.9 % (FLUSH) 10 ML SYRINGE IVF ×2 (04:09→05:50)
[2022-07-02] MEDS: MORPHINE 2 MG/ML inj IVP ×3 (05:49→09:23)
--- NOTE | 2022-07-02 07:10 | PC.NURSE ---
END OF SHIFT NOTE: PT ADMITTED TO M/S FLOOR @0120 FOR ACTUE CHOLECYSTITIS. PER MEJIA MINAYA NOTE, ED DR SPOKE WITH SURGEON WHO ANTICIPATES SURGERY IN THE MORNING. PT HAS BEEN NPO SINCE 15. LSCTA. PT HAS HX OF RECTAL CX AND IS IN REMISSION. COLOSTOMY TO LMQ. PT PROVIDES SELF CARE TO STOMA. SURROUNDING SKIN IS FREE FROM S/S OF INFECTION. PT RATES ABDOMINAL PAIN 3-5/10 WITH RELIEF FROM PRN DILAUDID, PRN MORPHINE?AND PRN FENTYNAL. PT AMBULATES INDEPENDENTLY WITHIN ROOM. PT REPORTS THIS MORNING THE ABDOMINAL PAIN IS MORE SEVERE AND MORE CONSTANT.
[2022-07-02 07:56] LABS: Basophils Percent Auto 0.1 % (0.0-3.0); Hematocrit 43.1 % (37.0-53.0); Hemoglobin* 14.4 gm/dL (13.5-17.5); Immature Granulocytes Abs Auto 0.06 K/uL (0.00-0.30); Lactate* 1.1 mmol/L (0.5-1.9); Lymphocytes Percent Auto 3.9 % (20-44); Mean Corpuscular HGB Conc 33 gm/dL (32-36); Mean Corpuscular Hemoglobin 29 pg (26-34); Mean Corpuscular Volume 88 fL (80-100); Monocytes Percent Auto 6.6 % (0.0-11.0); Neutrophils Percent Auto 89.1 % (42.0-72.0); Platelet Count* 198 K/uL (140-440); RDW Coefficient of Variation % 13.1 % (11.5-15.5); White Blood Count* 19.66 K/uL (4.50-11.00)
[2022-07-02 07:58] LABS: Slide Review Reflex No
[2022-07-02 08:19] LABS: Albumin* 4.3 g/dL (3.3-5.0)
[2022-07-02 08:22] LABS: Alkaline Phosphatase* 80 U/L (40-150); Aspartate Amino Transferase* 27 U/L (12-35); Bilirubin Direct* 0.4 mg/dL (0.0-0.5); Bilirubin Total* 1.4 mg/dL (0.1-1.5); Total Protein* 7.7 g/dL (6.0-8.3)
[2022-07-02 08:23] LABS: Alanine Aminotransferase* 25 U/L (4-50); Lipase* 72 U/L (23-300)
[2022-07-02 08:41] LABS: C Reactive Protein* 16.8 mg/dL (0.5-1.0)
--- NOTE | 2022-07-02 10:47 | PM.GSCN ---
History of Present Illness Consult details Date Seen: 07/02/22 Consult date: 07/02/22 Narrative: Patient is a 66-year-old male who presented to the emergency department with persistent right upper quadrant abdominal pain. He has intermittently had pain similar to this before, but nothing that has lasted this long. Yesterday the pain started after he did up some leftover pizza and had a Coke. The pain has persisted throughout the night and has been only helped by IV pain medication. He denies any vomiting but does report some associated nausea. No reported fevers or chills. He does have a colostomy bag in place, which continues to pass gas and stool. His abdominal surgical history is positive for abdominal peritoneal resection secondary to rectal cancer with end colostomy in place (2018). He is currently in remission. Review of Systems Status of ROS: Reports: 10 or more systems reviewed and unremarkable except as noted in History and below [facility] Social History Highest level of school completed/degree received: some college, no degree Smoking Status: Former smoker Do you use any of these nicotine containing products: None Second hand tobacco smoke exposure: No How often do you have a drink containing alcohol: 2-4 times a month AUDIT-C Alcohol total score: 2 Non-prescribed substance use: denies use Caffeine: Yes (2-3 DIET MT DEW/DAILY) service: No Meds Home Medications and Allergies Home Medications Medication Instructions Recorded Confirmed Type aspirin 81 mg capsule 81 mg PO DAILY 07/01/22 07/01/22 History atorvastatin 20 mg tablet 20 mg PO Q24H 07/01/22 07/02/22 History simethicone 500 mg capsule 500 mg PO DAILY 07/01/22 07/01/22 History (Phazyme) Allergies Allergy/AdvReac Type Severity Reaction Status Date / Time No Known Drug Allergies Allergy Verified 07/01/22 22:26 Exam Narrative: Exam Narrative: General: Alert and oriented, nontoxic but mild distress secondary to pain. Respiratory: Equal breath rise bilaterally, maintained on room air CV: Regular rhythm rate, well perfused Abdomen: Nondistended and soft, tender to palpation right upper quadrant with some guarding and rebound. Left-sided colostomy in place with some stool in bag. Const: Vital Signs, click to edit/add: Vital Signs - 24 hr 07/01/22 20:05 07/01/22 21:14 07/01/22 21:42 Temperature 97.9 F Pulse Rate [Left P ulse Oximeter] 80 70 Pulse Rate [Pulse Oximeter] Respiratory Rate 20 20 Blood Pressure [Ri ght Arm] Blood Pressure [Ri ght Upper Arm] 160/88 H 151/88 H Pulse Oximetry 98 97 99 Oxygen Delivery Pa thod Room Air Room Air 07/01/22 21:30 07/01/22 23:40 07/02/22 01:20 Temperature 97.8 F Pulse Rate [Left P ulse Oximeter] 80 84 Pulse Rate [Pulse Oximeter] 87 Respiratory Rate 18 18 18 Blood Pressure [Ri ght Arm] 165/83 H Blood Pressure [Ri ght Upper Arm] 150/84 H 153/86 H Pulse Oximetry 96 98 97 Oxygen Delivery Pa thod Room Air Room Air Room Air 07/02/22 01:20 07/02/22 01:20 07/02/22 04:14 Temperature 97.8 F 97.7 F Pulse Rate [Left P ulse Oximeter] Pulse Rate [Pulse Oximeter] 87 88 Respiratory Rate 18 18 18 Blood Pressure [Ri ght Arm] 165/83 H 153/85 H Blood Pressure [Ri ght Upper Arm] Pulse Oximetry 98 97 96 Oxygen Delivery Me thod Room Air Room Air Room Air Results Labs Labs: Abnormal lab results 07/01/22 07/01/22 07/01/22 Range/Units 21:00 21:00 21:12 WBC 16.68 H (4.50-11.00) K/uL Neut % (Auto) 88.7 H (42.0-72.0) % Lymph % (Auto) 5.5 L (20-44) % Neut # (Auto) 14.80 H (1.7-7.0) K/uL Lymph # (Auto) (0.90-2.90) K/uL [place] # (Auto) (0.00-0.90) K/UL Glucose 179 H (60-115) mg/dL C-Reactive Protein 14.8 H (0.5-1.0) mg/dL Lipase 329 H (23-300) U/L Urine Glucose (UA) Trace A (Negative) Urine Ketones 2+ A (Negative) Urine Blood Trace-intact A (Negative) 07/02/22 07/02/22 Range/Units 07:51 07:51 WBC 19.66 H (4.50-11.00) K/uL Neut % (Auto) 89.1 H (42.0-72.0) % Lymph % (Auto) 3.9 L (20-44) % Neut # (Auto) 17.50 H (1.7-7.0) K/uL Lymph # (Auto) 0.80 L (0.90-2.90) K/uL [place] # (Auto) 1.30 H (0.00-0.90) K/UL Glucose (60-115) mg/dL C-Reactive Protein 16.8 H (0.5-1.0) mg/dL Lipase (23-300) U/L Urine Glucose (UA) (Negative) Urine Ketones (Negative) Urine Blood (Negative) Diabetes panel 07/01/22 07/02/22 Range/Units 21:00 07:51 Sodium 135 (135-149) mmol/L Potassium 4.0 (3.6-5.1) mmol/L Chloride 99 (96-114) mmol/L Carbon Dioxide 25 (20-32) mmol/L BUN 17 (7-30) mg/dL Creatinine 1.1 (0.5-1.5) mg/dL Glucose 179 H (60-115) mg/dL Calcium 9.4 (8.4-10.6) mg/dL AST 27 27 (12-35) U/L ALT 28 25 (4-50) U/L Alkaline Phosphatase 93 80 (40-150) U/L Total Protein 8.3 7.7 (6.0-8.3) g/dL Albumin 4.7 4.3 (3.3-5.0) g/dL Calcium panel 07/01/22 07/02/22 Range/Units 21:00 07:51 Calcium 9.4 (8.4-10.6) mg/dL Albumin 4.7 4.3 (3.3-5.0) g/dL Pituitary panel 07/01/22 Range/Units 21:00 Sodium 135 (135-149) mmol/L Potassium 4.0 (3.6-5.1) mmol/L Chloride 99 (96-114) mmol/L Carbon Dioxide 25 (20-32) mmol/L BUN 17 (7-30) mg/dL Creatinine 1.1 (0.5-1.5) mg/dL Glucose 179 H (60-115) mg/dL Calcium 9.4 (8.4-10.6) mg/dL Adrenal panel 07/01/22 07/02/22 Range/Units 21:00 07:51 Sodium 135 (135-149) mmol/L Potassium 4.0 (3.6-5.1) mmol/L Chloride 99 (96-114) mmol/L Carbon Dioxide 25 (20-32) mmol/L BUN 17 (7-30) mg/dL Creatinine 1.1 (0.5-1.5) mg/dL Glucose 179 H (60-115) mg/dL Calcium 9.4 (8.4-10.6) mg/dL Total Bilirubin 0.9 1.4 (0.1-1.5) mg/dL AST 27 27 (12-35) U/L ALT 28 25 (4-50) U/L Alkaline Phosphatase 93 80 (40-150) U/L Total Protein 8.3 7.7 (6.0-8.3) g/dL Albumin 4.7 4.3 (3.3-5.0) g/dL All other labs normal. Imaging Abdominal ultrasound report/results: report reviewed and image reviewed Assessment and Plan Assessment and plan (1) Acute cholecystitis: Status: Acute Plan Patient is a 66-year-old male do with findings and clinical exam consistent with acute cholecystitis. His labs do demonstrate a leukocytosis (19). LFTs within normal limits. A repeat lipase shows normalization. Common bile duct did not appear dilated on abdominal ultrasound with large stone within the gallbladder neck, low concern at this time for choledocholithiasis. I had a detailed conversation with the patient regarding the diagnosis of acute cholecystitis. We discussed the treatment options including observation with diet modification and laparoscopic cholecystectomy. We discussed the risks of surgery (including but not limited to) the risks of bleeding, infection, injury to other structures in the abdomen including bile duct injury, bile leak and conversion to an open operation. We discussed the possibility that the patient's pain not improve with surgery. We discussed the possibility of permanent post-operative diarrhea that may require medical management. Additionally, the conceivably of complications requiring additional surgery or further hospitalization were also discussed including the risks of [place], respiratory failure, stroke and blood clots. The patient voiced an understanding of our conversation, had the opportunity to ask questions, agreed to accept the risks of surgery and asked that we proceed with surgery.
[2022-07-02] MEDS: BUPIVACAINE 0.5% 30 ML INJECTION (11:38)
--- NOTE | 2022-07-02 12:51 | PM.IMPN1 ---
Progress Note: A&P Assessment and plan (1) Abdominal pain: Status: Acute (2) Acute cholecystitis: Status: Acute Assessment and Plan: 1. Continue with IV Zosyn. 2. Continue with IV fluids and NPO status. 3. Continue with other supportive measures including analgesia and antiemetics. 4. Surgeon will see patient in consultation and consider additional surgical intervention this morning. (3) Calculous cholecystitis: Status: Acute (4) Ileostomy in place: Status: Acute (5) History of rectal cancer: Problem details: Dx 2017, s/p chemotherapy and chemoradiation therapy. 03/26/2018 Abdominoperineal resection with ileostomy. Tumor had clean margin without removal of prostate or encroachment on urethra. ?Tumor extended to anorectal junction. ?Frozen path: no residual tumor, all margins negative. Final pathology: microscopic foci of residual moderately differentiated adenocarcinoma in a 2.1 cm tumor bed. No lymphangitic invasion. Tumor did invade through the muscularis into the surrounding perirectal fat. 0/18 lymph nodes were positive for metastases. Status: Acute Plan 1. Reviewed impression and plans and recommendations with patient. 2. Answered patient's questions to satisfaction. 3. Patient agreeable to above stated plans and recommendations. 4. Continue with supportive efforts in regard to ostomy care and all their cares. Time Spent With Patient Total time spent: 40 minutes Subjective Time Seen by Provider: 07:30 Date Seen: 07/02/22 Interval history: 66-year-old man with severe biliary colic for less than 24 hours, with confirmed gallstone on CT scan and ultrasound, with findings consistent with acute cholecystitis. He denies nausea or vomiting. He also denies fevers, rigors, diaphoresis. Obtaining some relief from IV opioid analgesics. Also more comfortable if he lays on his left side. No recent trauma, injury, surgery, or blood loss. Exam Narrative: Exam Narrative: Appears uncomfortable. Alert, oriented to self, place, time, situation. Cooperative. Lungs clear to auscultation. Heart tones with regular rhythm. Abdomen with hypoactive bowel sounds. Discomfort to palpation on the right side of the abdomen. No guarding. Ileostomy in place. Extremities without edema. Moves all 4 extremities. No focal motor neurologic deficits. Skin is warm, dry, intact. No jaundice or icterus. No cyanosis or rash. Const: Vital Signs, click to edit/add: Vital Signs - 24 hr 07/01/22 20:05 07/01/22 21:14 07/01/22 21:42 Temperature 97.9 F Pulse Rate [Left P ulse Oximeter] 80 70 Pulse Rate [Pulse Oximeter] Respiratory Rate 20 20 Blood Pressure [Ri ght Arm] Blood Pressure [Ri ght Upper Arm] 160/88 H 151/88 H Pulse Oximetry 98 97 99 Oxygen Delivery Ri thod Room Air Room Air 07/01/22 21:30 07/01/22 23:40 07/02/22 01:20 Temperature 97.8 F Pulse Rate [Left P ulse Oximeter] 80 84 Pulse Rate [Pulse Oximeter] 87 Respiratory Rate 18 18 18 Blood Pressure [Ri ght Arm] 165/83 H Blood Pressure [Ri ght Upper Arm] 150/84 H 153/86 H Pulse Oximetry 96 98 97 Oxygen Delivery Ri thod Room Air Room Air Room Air 07/02/22 01:20 07/02/22 01:20 07/02/22 04:14 Temperature 97.8 F 97.7 F Pulse Rate [Left P ulse Oximeter] Pulse Rate [Pulse Oximeter] 87 88 Respiratory Rate 18 18 18 Blood Pressure [Ri ght Arm] 165/83 H 153/85 H Blood Pressure [Ri ght Upper Arm] Pulse Oximetry 98 97 96 Oxygen Delivery Ri thod Room Air Room Air Room Air 07/02/22 07:30 07/02/22 07:30 Temperature 96.9 F L Pulse Rate [Left P ulse Oximeter] Pulse Rate [Pulse Oximeter] 71 71 Respiratory Rate 18 18 Blood Pressure [Ri ght Arm] 147/77 H Blood Pressure [Ri ght Upper Arm] Pulse Oximetry 97 Oxygen Delivery Ri thod Room Air Labs Labs: Laboratory Results - last 24 hr 07/01/22 07/01/22 07/01/22 21:00 21:00 21:00 WBC 16.68 H RBC 5.02 Hgb 14.8 Hct 44.1 MCV 88 MCH 30 MCHC 34 RDW Coeff of Mini 13.0 Plt Count 215 Neut % (Auto) 88.7 H Lymph % (Auto) 5.5 L [place] % (Auto) 5.3 Eos % (Auto) 0.1 Baso % (Auto) 0.0 Neut # (Auto) 14.80 H Lymph # (Auto) 0.90 [place] # (Auto) 0.90 Eos # (Auto) 0.00 Baso # (Auto) 0.00 Abs Immat Gran (auto) 0.06 VBG pH 7.360 VBG pCO2 47 VBG pO2 27.3 VBG HCO3 27 Sodium 135 Potassium 4.0 Chloride 99 Carbon Dioxide 25 BUN 17 Creatinine 1.1 Estimated Creat Clear 65.17 Estimated GFR 74 Glucose 179 H Lactate Venous Lactic Acid (Serial Order) Calcium 9.4 Total Bilirubin 0.9 Direct Bilirubin 0.1 AST 27 ALT 28 Alkaline Phosphatase 93 C-Reactive Protein 14.8 H Total Protein 8.3 Albumin 4.7 Lipase 329 H Urine Color Urine Appearance Urine pH Ur Specific [place] Urine Protein Urine Glucose (UA) Urine Ketones Urine Blood Urine Nitrite Urine Bilirubin Urine Urobilinogen Ur Leukocyte Esterase Urine RBC Urine WBC Ur Squamous Epith Cells Urine Bacteria SARS-CoV-2 (PCR) 07/01/22 07/01/22 07/01/22 21:12 21:12 23:01 WBC RBC Hgb Hct MCV MCH MCHC RDW Coeff of Mini Plt Count Neut % (Auto) Lymph % (Auto) [place] % (Auto) Eos % (Auto) Baso % (Auto) Neut # (Auto) Lymph # (Auto) [place] # (Auto) Eos # (Auto) Baso # (Auto) Abs Immat Gran (auto) VBG pH VBG pCO2 VBG pO2 VBG HCO3 Sodium Potassium Chloride Carbon Dioxide BUN Creatinine Estimated Creat Clear Estimated GFR Glucose Lactate Venous Lactic Acid (Serial Order) Calcium Total Bilirubin Direct Bilirubin AST ALT Alkaline Phosphatase C-Reactive Protein Total Protein Albumin Lipase Urine Color Yellow Urine Appearance Clear Urine pH 6.5 Ur Specific [place] 1.020 Urine Protein Negative Urine Glucose (UA) Trace A Urine Ketones 2+ A Urine Blood Trace-intact A Urine Nitrite Negative Urine Bilirubin Negative Urine Urobilinogen 0.2 Ur Leukocyte Esterase Negative Urine RBC 0-2 Urine WBC 0-2 Ur Squamous Epith Cells Few Urine Bacteria None SARS-CoV-2 (PCR) Negative SARS-CoV-2 07/02/22 07/02/22 07/02/22 07:51 07:51 07:51 WBC 19.66 H RBC 4.90 Hgb 14.4 Hct 43.1 MCV 88 MCH 29 MCHC 33 RDW Coeff of Mini 13.1 Plt Count 198 Neut % (Auto) 89.1 H Lymph % (Auto) 3.9 L [place] % (Auto) 6.6 Eos % (Auto) 0.0 Baso % (Auto) 0.1 Neut # (Auto) 17.50 H Lymph # (Auto) 0.80 L [place] # (Auto) 1.30 H Eos # (Auto) 0.00 Baso # (Auto) 0.00 Abs Immat Gran (auto) 0.06 VBG pH VBG pCO2 VBG pO2 VBG HCO3 Sodium Potassium Chloride Carbon Dioxide BUN Creatinine Estimated Creat Clear Estimated GFR Glucose Lactate Venous Lactic Acid (Serial Order) Calcium Total Bilirubin 1.4 Direct Bilirubin 0.4 AST 27 ALT 25 Alkaline Phosphatase 80 C-Reactive Protein 16.8 H Total Protein 7.7 Albumin 4.3 Lipase 72 Urine Color Urine Appearance Urine pH Ur Specific [place] Urine Protein Urine Glucose (UA) Urine Ketones Urine Blood Urine Nitrite Urine Bilirubin Urine Urobilinogen Ur Leukocyte Esterase Urine RBC Urine WBC Ur Squamous Epith Cells Urine Bacteria SARS-CoV-2 (PCR) 07/02/22 07:51 WBC RBC Hgb Hct MCV MCH MCHC RDW Coeff of Mini Plt Count Neut % (Auto) Lymph % (Auto) [place] % (Auto) Eos % (Auto) Baso % (Auto) Neut # (Auto) Lymph # (Auto) [place] # (Auto) Eos # (Auto) Baso # (Auto) Abs Immat Gran (auto) VBG pH VBG pCO2 VBG pO2 VBG HCO3 Sodium Potassium Chloride Carbon Dioxide BUN Creatinine Estimated Creat Clear Estimated GFR Glucose Lactate 1.1 Venous Lactic Acid (Serial Order) Calcium Total Bilirubin Direct Bilirubin AST ALT Alkaline Phosphatase C-Reactive Protein Total Protein Albumin Lipase Urine Color Urine Appearance Urine pH Ur Specific [place] Urine Protein Urine Glucose (UA) Urine Ketones Urine Blood Urine Nitrite Urine Bilirubin Urine Urobilinogen Ur Leukocyte Esterase Urine RBC Urine WBC Ur Squamous Epith Cells Urine Bacteria SARS-CoV-2 (PCR) Imaging CT Chest/Ab/Pelvis: Attestation: I have reviewed the pertinent imaging results. Radiologist's impression: 1. Large stone in the gallbladder neck with gallbladder wall thickening and pericholecystic edema. Findings are suspicious for acute cholecystitis. 2. Distended urinary bladder with mild wall thickening similar to prior exam. US - abdomen: Attestation: I have reviewed the pertinent imaging results. Radiologist's impression: 1. Findings remain suspicious for acute cholecystitis. 2. Poorly visualize common bile duct. No dilation of intrahepatic biliary radicals.
--- NOTE | 2022-07-02 13:01 | PM.IMHP1 ---
Hospitalist- H&P: HPI History of Present Illness Time Seen by Provider: 07:30 Date Seen: 07/02/22 Chief complaint: Abdominal Pain Narrative: Angel Addison is a 66 year old man with biliary colic since 2:00 p.m. on 07/01/2022. Worsen throughout the day. Epigastric discomfort sometimes radiating into his back. No nausea or vomiting. No fevers, rigors, diaphoresis. Known history of gallstones. Occurred after eating pepperoni pizza and drinking some Coke. Had similar episode in the last 7-10 days. Review of Systems Status of ROS: Reports: 10 or more systems reviewed and unremarkable except as noted in History and below Narrative: Denies chest heaviness, pressure, tightness, or pain. Denies syncope or near-syncope. Denies dyspnea at rest, paroxysmal nocturnal dyspnea, or orthopnea. Denies nausea or vomiting. Denies fevers, rigors, diaphoresis. Bowel and bladder habits have been stable. Does have an ileostomy since 2018 when he had an abdominal perineal resection of a rectal cancer. Ostomy is functioning well. Normally has a bowel movement once daily. No diarrhea or constipation. Denies dysuria, urgency, frequency, or hematuria. Tells me he is in such excruciating pain that he can hardly move. No focal motor neurologic deficits. No trauma or injury. No recent travel or trauma. No recent surgery. Designates his as his power of civil litigation attorney for health should that be required. Requests full resuscitation in the event of cardiopulmonary demise. Primary care physician is Dr. Baires. [facility] Medical History Basal cell carcinoma (BCC) of face Chemotherapy-induced peripheral neuropathy Essential hypertension History of rectal cancer History of tobacco use Hyperlipidemia Ileostomy in place Surgical History History of bilateral knee arthroplasty Social History Highest level of school completed/degree received: some college, no degree Smoking Status: Former smoker Do you use any of these nicotine containing products: None Second hand tobacco smoke exposure: No How often do you have a drink containing alcohol: 2-4 times a month AUDIT-C Alcohol total score: 2 Non-prescribed substance use: denies use Caffeine: Yes (2-3 DIET MT DEW/DAILY) service: No Meds Home Medications and Allergies Home Medications Medication Instructions Recorded Confirmed Type aspirin 81 mg capsule 81 mg PO DAILY 07/01/22 07/01/22 History atorvastatin 20 mg tablet 20 mg PO Q24H 07/01/22 07/02/22 History simethicone 500 mg capsule 500 mg PO DAILY 07/01/22 07/01/22 History (Phazyme) Allergies Allergy/AdvReac Type Severity Reaction Status Date / Time No Known Drug Allergies Allergy Verified 07/01/22 22:26 Exam Narrative: Exam Narrative: Appears uncomfortable. Nevertheless articulate, cooperative, friendly. Mood and affect are congruent. Alert, oriented to self, place, time, situation. Hearing and vision are grossly normal. Oropharynx is benign. Midline trachea, normal thyroid. No JVD, hepatojugular reflux, or carotid bruits. Does not have adenopathy in the pre or postauricular chains, anterior-posterior cervical chains, supra or infraclavicular fossa, submandibular or submental fossa, or axilla bilaterally. Lungs are clear to auscultation, without wheezing, rhonchi, or rales. Chest wall excursions are full. No CVA tenderness. Heart tones with regular rhythm, normal S1-S2, without murmur, gallop, or rub. Abdomen relatively quiet with hypoactive bowel sounds. Soft. Subjective discomfort to palpation right side of the abdomen. No rebound. Extremities without edema. Capillary refill less than 3 seconds upper and lower extremities. Moves all 4 extremities. No focal motor neurologic deficits. Skin is warm, dry, intact. No jaundice, icterus, cyanosis, rash, or petechiae. Const: Vital Signs, click to edit/add: Vital Signs - 24 hr 07/01/22 20:05 07/01/22 21:14 07/01/22 21:42 Temperature 97.9 F Pulse Rate [Left P ulse Oximeter] 80 70 Pulse Rate [Pulse Oximeter] Respiratory Rate 20 20 Blood Pressure [Ri ght Arm] Blood Pressure [Ri ght Upper Arm] 160/88 H 151/88 H Pulse Oximetry 98 97 99 Oxygen Delivery Me thod Room Air Room Air 07/01/22 21:30 07/01/22 23:40 07/02/22 01:20 Temperature 97.8 F Pulse Rate [Left P ulse Oximeter] 80 84 Pulse Rate [Pulse Oximeter] 87 Respiratory Rate 18 18 18 Blood Pressure [Ri ght Arm] 165/83 H Blood Pressure [Ri ght Upper Arm] 150/84 H 153/86 H Pulse Oximetry 96 98 97 Oxygen Delivery Me thod Room Air Room Air Room Air 07/02/22 01:20 07/02/22 01:20 07/02/22 04:14 Temperature 97.8 F 97.7 F Pulse Rate [Left P ulse Oximeter] Pulse Rate [Pulse Oximeter] 87 88 Respiratory Rate 18 18 18 Blood Pressure [Ri ght Arm] 165/83 H 153/85 H Blood Pressure [Ri ght Upper Arm] Pulse Oximetry 98 97 96 Oxygen Delivery Ks thod Room Air Room Air Room Air 07/02/22 07:30 07/02/22 07:30 Temperature 96.9 F L Pulse Rate [Left P ulse Oximeter] Pulse Rate [Pulse Oximeter] 71 71 Respiratory Rate 18 18 Blood Pressure [Ri ght Arm] 147/77 H Blood Pressure [Ri ght Upper Arm] Pulse Oximetry 97 Oxygen Delivery Me thod Room Air Documenting provider has reviewed patient's vital signs: yes Hospitalist - H&P: Result Labs Labs: Short CBC 07/01/22 07/02/22 Range/Units 21:00 07:51 WBC 16.68 H 19.66 H (4.50-11.00) K/uL Hgb 14.8 14.4 (13.5-17.5) gm/dL Hct 44.1 43.1 (37.0-53.0) % Plt Count 215 198 (140-440) K/uL [facility] 07/01/22 21:00 Sodium 135 Potassium 4.0 Chloride 99 Carbon Dioxide 25 BUN 17 Creatinine 1.1 Glucose 179 H Calcium 9.4 Liver Function 07/01/22 07/02/22 Range/Units 21:00 07:51 Total Bilirubin 0.9 1.4 (0.1-1.5) mg/dL Direct Bilirubin 0.1 0.4 (0.0-0.5) mg/dL AST 27 27 (12-35) U/L ALT 28 25 (4-50) U/L Alkaline Phosphatase 93 80 (40-150) U/L Albumin 4.7 4.3 (3.3-5.0) g/dL Urine 07/01/22 Range/Units 21:12 Urine Color Yellow (Yellow) Urine Appearance Clear (Clear) Urine pH 6.5 (5.0-8.5) Ur Specific [place] 1.020 (1.000-1.030) Urine Protein Negative (Negative) Urine Glucose (UA) Trace A (Negative) Imaging CT scan - abdomen: Attestation: I have reviewed the pertinent imaging results. Radiologist's impression: 1. Large stone in the gallbladder neck with gallbladder wall thickening and pericholecystic edema. Findings are suspicious for acute cholecystitis. 2. Distended urinary bladder with mild wall thickening similar to prior exam. US - abdomen: Attestation: I have reviewed the pertinent imaging results. Radiologist's impression: 1. Findings remain suspicious for acute cholecystitis. 2. Poorly visualize common bile duct. No dilation of intrahepatic biliary radicals. Assessment and Plan Assessment and plan (1) Abdominal pain: Status: Acute (2) Acute cholecystitis: Status: Acute (3) Calculous cholecystitis: Status: Acute (4) Ileostomy in place: Status: Acute (5) History of rectal cancer: Problem comment: Dx 2017, s/p chemotherapy and chemoradiation therapy. 03/26/2018 Abdominoperineal resection with ileostomy. Tumor had clean margin without removal of prostate or encroachment on urethra. ?Tumor extended to anorectal junction. ?Frozen path: no residual tumor, all margins negative. Final pathology: microscopic foci of residual moderately differentiated adenocarcinoma in a 2.1 cm tumor bed. No lymphangitic invasion. Tumor did invade through the muscularis into the surrounding perirectal fat. 0/18 lymph nodes were positive for metastases. Status: Acute Plan 1. Reviewed my impression with the patient. 2. Continue with IV Zosyn. 3. Continue with analgesics and antiemetics as needed. 4. Continue with IV fluids and NPO status. 5. Await general surgery consultation. 6. Will follow with General surgery while patient is in hospital if warranted. 7. Patient agreeable to above stated plans and recommendations.
--- NOTE | 2022-07-02 13:46 | PM.GSPRC ---
Operative Note Date of procedure: 07/02/22 Type of Procedure: Laparoscopic cholecystectomy Procedure Description: After discussing the risks and benefits of the procedure, the patient signed informed consent.? The operative site was marked and the patient was brought to the operating room and placed on the operating table in supine position.? Care was taken to pad the patient's pressure points.?? The patient was then intubated by anesthesia.?? The operative site was then prepped and draped in the usual sterile fashion.? A time-out was then performed. ? A 15 blade was used to make an incision just superior to the umbilicus. Dissection was carried through subcutaneous tissue with electrocautery. The anterior fascia was grasped with a Clifton and the fascia incised sharply. Entrance into the abdomen via has son technique was confirmed with palpation and an 11 mm balloon port placed. The abdomen was insufflated and briefly surveyed for signs of injury. There was none. Three additional 5 mm ports were placed under direct visualization. Patient was then placed in reverse Trendelenburg position with the right side up. The gallbladder fundus had a significant amount of omental adhesions, which were bluntly dissected away. The fundus was distended and partially necrotic. A laparoscopic needle was used to decompress the gallbladder with removal of approximately 80 mL bilious fluid. After removal of the fluid the gallbladder fundus was grasped and retracted cephalad. A small amount of dissection was needed to free additional omental adhesions from the gallbladder. The infundibulum was grasped. A combination of hook cautery and blunt dissection was used to carefully dissect out the cystic duct and artery until they could clearly be seen entering the gallbladder without any intervening structures. Dissection was made difficult secondary to associated necrosis of the tissue and edema. There is a significant amount of inflammatory fat which was also bluntly dissected away. The gallbladder was dissected off the cystic plate to achieve the critical view. Once this was achieved the cystic duct and artery were each clipped with 2 clips proximally and 1 clip distally and transected with the scissors. The gallbladder was then taken off of the liver bed. And removed from the abdomen using an Endo-Catch bag. The gallbladder bed was surveyed for hemostasis. A small amount of bile which had spilled was suctioned from the abdomen the ports were then removed under direct vision. The umbilical port fascia was closed with 0 Vicryl. The skin was closed with absorbable subcuticular suture. Instrument sponge and needle counts were correct at the end of the case. The patient was then woken and transferred to the PACU in stable condition. Findings: Findings of acute cholecystitis with associated areas of gangrene necrosis to portions of the gallbladder wall. Anesthesia: GETA Surgeon: Tonja Narvaez MD Estimated blood loss (mL): 25 Condition: stable Disposition: PACU
--- NOTE | 2022-07-02 14:05 | W.ANESCHARGE ---
Anesthesia Charges Start Date/Time Anesthesia Start Date: 07/02/22 Anesthesia Start Time: 11:12 Stop Date/Time Anesthesia Stop Date: 07/02/22 Anesthesia Stop Time: 14:00 Summary Emergency: Yes
[2022-07-02] MEDS: LACTATED RINGERS 1000 ML 1,000 ML 125 ML IV (15:00)
[2022-07-02] MEDS: 0.9 % SODIUM CHLORIDE 500 ML 30 ML IV (19:40)
[2022-07-02] MEDS: ATORVASTATIN 10 MG TABLET 20 MG PO (21:19)
[2022-07-03] MEDS: PIPERACILLIN/TAZOBACTAM 3.375 GM in 0.9 % SODIUM CHLORIDE Mini-bag 100 ML IVPB ×2 (01:16→07:06)
[2022-07-03] MEDS: OXYCODONE 5 MG TABLET PO (01:16)
[2022-07-03 03:00] VITALS: BP 128/71; PULSE 75; RESP 18; TEMP 36.8; O2SAT 96
[2022-07-03] MEDS: LACTATED RINGERS 1000 ML 1,000 ML 125 ML IV (03:06)
--- NOTE | 2022-07-03 07:32 | PC.NURSE ---
?PT IS PLEASANT AND COOPERATIVE. WENT FOR WALK IN HALLWAY WITH . PT SURGICAL LAP SITES CDI. PT PERFORMS SELF CARE FOR COLOSTOMY. PT REPORTS PAIN WHEN TAKING IN DEEP BREATH. INCENTIVE SPIROMETER ENCOURAGED. SCD?S APPLIED HS. PT AMBULATES INDEPENDENTLY. PT ROLLS TO SIDE AND?SPLINTS ABDOMEN WHEN GETTING OUT OF BED. PT REPORTS RUQ PAIN 4-5/10 THAT IS RELIEVED WITH PRN OXYCODONE. 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
[2022-07-03 07:50] VITALS: BP 151/85; PULSE 74; RESP 18; TEMP 36.6; O2SAT 95
--- NOTE | 2022-07-03 10:12 | P.DS_ITS ---
DS: Providers Provider Date Seen: 07/03/22 Date of admission: 07/02/22 00:46 Primary care physician: Devin Baires MD Admitting Clinician: Yordan Huff MD Attending Physician on discharge: Yordan Huff MD DS: Summary Hospital Course Hospital Course: Patient presented to the emergency department with clinical symptoms and findings consistent with acute cholecystitis. He went to the OR for laparoscopic cholecystectomy and did well postoperatively. On postop day 1 he was tolerating a regular diet, ambulating independently, voiding without difficulty and pain was well controlled on oral medication. Status at Discharge Functional status at discharge: independent ambulation Time Spent with Patient Time attestation: Total time spent providing and/or coordinating discharge services: Exam Narrative: Exam Narrative: General: Alert and oriented, no acute distress Respiratory: Equal breath rise bilaterally, maintained on room air CV: Regular rhythm rate Abdomen: Soft, appropriately tender over incision sites. Dermabond in place with no concern for infection. Colostomy bag in place with small amount of stool. Const: Vital Signs, click to edit/add: Vital Signs - 24 hr 07/02/22 13:54 07/02/22 14:00 07/02/22 14:05 Temperature 97.7 F 97.7 F 97.7 F Pulse Rate 88 75 75 Pulse Rate [Pulse Oximeter] Respiratory Rate 12 12 14 Blood Pressure 127/69 115/60 107/59 L Blood Pressure [Le ft Arm] Blood Pressure [Ri ght Arm] Pulse Oximetry 94 93 93 Oxygen Delivery Me thod Room Air Room Air 07/02/22 14:10 07/02/22 14:15 07/02/22 14:20 Temperature 97.7 F 97.7 F 97.7 F Pulse Rate 74 73 81 Pulse Rate [Pulse Oximeter] Respiratory Rate 14 16 16 Blood Pressure 116/64 113/64 128/76 Blood Pressure [Le ft Arm] Blood Pressure [Ri ght Arm] Pulse Oximetry 92 93 95 Oxygen Delivery Me thod Room Air Room Air Room Air 07/02/22 14:25 07/02/22 14:30 07/02/22 14:45 Temperature 97.8 F 97 F L 98.1 F Pulse Rate 79 79 Pulse Rate [Pulse Oximeter] 71 Respiratory Rate 16 16 16 Blood Pressure 124/71 Blood Pressure [Le ft Arm] 131/72 124/75 Blood Pressure [Ri ght Arm] Pulse Oximetry 95 98 Oxygen Delivery Me thod Room Air Room Air Room Air 07/02/22 15:00 07/02/22 15:00 07/02/22 16:00 Temperature 97.7 F 97.7 F Pulse Rate Pulse Rate [Pulse Oximeter] 73 70 63 Respiratory Rate 16 18 16 Blood Pressure Blood Pressure [Le ft Arm] 125/70 124/72 123/74 Blood Pressure [Ri ght Arm] Pulse Oximetry 96 96 96 Oxygen Delivery Me thod Room Air Room Air Room Air 07/02/22 15:30 07/02/22 16:30 07/02/22 17:30 Temperature 97.7 F 97.7 F 98 F Pulse Rate Pulse Rate [Pulse Oximeter] 66 67 82 Respiratory Rate 16 16 18 Blood Pressure Blood Pressure [Le ft Arm] 120/74 122/77 132/76 Blood Pressure [Ri ght Arm] Pulse Oximetry 96 97 96 Oxygen Delivery Me thod Room Air Room Air Room Air 07/02/22 18:30 07/02/22 19:50 07/02/22 19:50 Temperature 98 F 98.0 F 98.0 F Pulse Rate Pulse Rate [Pulse Oximeter] 81 97 97 Respiratory Rate 18 18 18 Blood Pressure Blood Pressure [Le ft Arm] 136/76 132/89 132/89 Blood Pressure [Ri ght Arm] Pulse Oximetry 97 97 97 Oxygen Delivery Me thod Room Air Room Air Room Air 07/02/22 23:40 07/02/22 23:40 07/03/22 03:00 Temperature 98.0 F 98.3 F Pulse Rate Pulse Rate [Pulse Oximeter] 66 66 75 Respiratory Rate 16 16 18 Blood Pressure Blood Pressure [Le ft Arm] 107/52 L Blood Pressure [Ri ght Arm] 128/71 Pulse Oximetry 98 96 Oxygen Delivery Me thod Room Air Room Air Discharge Plan Discharge Disposition: Home, Self-Care Date of Admission: 07/02/22 00:46 Attending Provider on Discharge: Tonja Narvaez Primary Care Provider: Devin Baires Condition: Stable Anticipated Discharge Date/Time: 07/03/22 06:00 Discharge Medications: New oxycodone 5 mg tablet 5 mg PO Q6H PRN (Reason: pain) Qty: 10 0RF senna 8.6 mg capsule 8.6 mg PO DAILY PRN (Reason: constipation) Qty: 90 0RF Rx Instructions: Please take stool softeners while on narcotic pain medicine. Stop of having greater than 2 bowel movements per day. Continued atorvastatin 20 mg tablet 20 mg PO Q24H Label Comments: TAKE 1 TABLET BY MOUTH AT BEDTIME Phazyme 500 mg capsule 500 mg PO DAILY aspirin 81 mg capsule 81 mg PO DAILY Discharge Orders: Discharge Order (Routine); Ordered 07/03/22 Ordered By: Tonja Narvaez Patient Education: Laxative, Stimulant (By mouth), Oxycodone, Rapid Release (By mouth), General Anesthesia (DC), Laparoscopic Cholecystectomy (DC), Post- Operative Instructions: Laparoscopic Cholecystectomy Activity Restrictions/Additional Instructions: Activity as tolerated. Avoid strenuous activity. No lifting greater than 20 lb for 2 weeks. Okay to shower starting tomorrow. Do not bathe or go swimming for 2 weeks. Activity Level: Activity as Tolerated Discharge Diet: Low Fat/Low Cholesterol Follow Up Appointments: Devin Baires MD [Primary Care Provider] - Forms: [facility] Info Instructions
--- NOTE | 2022-07-03 13:55 | PC.NURSE ---
shift note: pt up indept in [place] with spouse this a.m. vss stable. pt afeb. Pt states pain in abd within comfort range. Lap site x4 c/d/i. IV dc'd intact Rt AC. Reviewed dc instructions and copies sent with pt. Belongings sent with pt after review.
--- NOTE | 2022-07-03 15:03 | PM.IMPN1 ---
Progress Note: A&P Assessment and plan (1) Abdominal pain: Status: Acute (2) Acute cholecystitis: Status: Acute (3) Calculous cholecystitis: Status: Acute (4) Ileostomy in place: Status: Acute (5) History of rectal cancer: Problem details: Dx 2017, s/p chemotherapy and chemoradiation therapy. 03/26/2018 Abdominoperineal resection with ileostomy. Tumor had clean margin without removal of prostate or encroachment on urethra. ?Tumor extended to anorectal junction. ?Frozen path: no residual tumor, all margins negative. Final pathology: microscopic foci of residual moderately differentiated adenocarcinoma in a 2.1 cm tumor bed. No lymphangitic invasion. Tumor did invade through the muscularis into the surrounding perirectal fat. 0/18 lymph nodes were positive for metastases. Status: Acute Plan 1. Reviewed impression with patient 2. Reviewed impression with Dr. Narvaez 3. Dr. Merino discharging the patient. Follow-up with Dr. Narvaez per her specifications, sooner if needed. Time Spent With Patient Total time spent: 20 minutes Subjective Time Seen by Provider: 07:00 Date Seen: 07/03/22 Interval history: 66-year-old man with severe biliary colic for less than 24 hours, with confirmed gallstone on CT scan and ultrasound, with findings consistent with acute cholecystitis. He denied nausea or vomiting. He also denied fevers, rigors, diaphoresis. Obtained minimal relief from IV opioid analgesics. Was more comfortable laying on his left side. No recent trauma, injury, surgery, or blood loss. Treated empirically with IV Zosyn. Laparoscopic cholecystectomy undertaken successfully. Did have gangrene and parts of the gallbladder wall. No perforation. Doing well postoperatively. Tolerating increased activities and diet. No further pain. Exam Narrative: Exam Narrative: No acute distress. Appears comfortable. Alert, oriented to self, place, time, situation. Friendly, cooperative, articulate. Mood and affect are congruent. Lungs are clear to auscultation. Heart tones with regular rhythm. Abdomen with active bowel sounds, soft. Independent transfer, station, and gait. Skin is warm, dry, intact. Const: Vital Signs, click to edit/add: Vital Signs - 24 hr 07/02/22 16:00 07/02/22 15:30 07/02/22 16:30 Temperature 97.7 F 97.7 F 97.7 F Pulse Rate [Bilate ral Dorsalis Pedis ] Pulse Rate [Pulse Oximeter] 63 66 67 Respiratory Rate 16 16 16 Blood Pressure [Le ft Arm] 123/74 120/74 122/77 Blood Pressure [Ri ght Arm] Pulse Oximetry 96 96 97 Oxygen Delivery Me thod Room Air Room Air Room Air 07/02/22 17:30 07/02/22 18:30 07/02/22 19:50 Temperature 98 F 98 F 98.0 F Pulse Rate [Bilate ral Dorsalis Pedis ] Pulse Rate [Pulse Oximeter] 82 81 97 Respiratory Rate 18 18 18 Blood Pressure [Le ft Arm] 132/76 136/76 132/89 Blood Pressure [Ri ght Arm] Pulse Oximetry 96 97 97 Oxygen Delivery Me thod Room Air Room Air Room Air 07/02/22 19:50 07/02/22 23:40 07/02/22 23:40 Temperature 98.0 F 98.0 F Pulse Rate [Bilate ral Dorsalis Pedis ] Pulse Rate [Pulse Oximeter] 97 66 66 Respiratory Rate 18 16 16 Blood Pressure [Le ft Arm] 132/89 107/52 L Blood Pressure [Ri ght Arm] Pulse Oximetry 97 98 Oxygen Delivery Me thod Room Air Room Air 07/03/22 03:00 07/03/22 07:50 Temperature 98.3 F 97.9 F Pulse Rate [Bilate ral Dorsalis Pedis ] 74 Pulse Rate [Pulse Oximeter] 75 74 Respiratory Rate 18 18 Blood Pressure [Le ft Arm] 151/85 H Blood Pressure [Ri ght Arm] 128/71 Pulse Oximetry 96 95 Oxygen Delivery Me thod Room Air Room Air Documenting provider has reviewed patient's vital signs: yes
== END 2022-07-03 12:30 | disposition home or self-care (01) ==
LOC: ED 07-02 00:19 → MEDSURG 07-02 12:00 → SS 07-04 14:02 → MEDSURG 07-04 14:03
PROVIDERS: Internal Medicine; Surgery; Emergency Provider Family Medicine; PCP Surgery; Visit Provider Family Medicine
PROC: 0FT44ZZ Resection of Gallbladder, Percutaneous Endoscopic Approach (ICD-10-PCS; CPT 47562; principal; 2022-07-02 11:00)
DX: K80.12 Calculus of gallbladder with acute and chronic cholecystitis without obstruction (principal); K82.A1 Gangrene of gallbladder in cholecystitis; Z85.048 Personal history of other malignant neoplasm of rectum, rectosigmoid junction, and anus; Z93.2 Ileostomy status; Z87.891 Personal history of nicotine dependence; I10 Essential (primary) hypertension
CPT/HCPCS: 47562; 00790; 36415; 74177; 76705; 80048; 80076; 81001; 82803; 83605; 83690; 85025; 86140; 87635; 88304; 94761; 99140; 99284; 99285; A9270; J1170; J1885; J2250; J2270; J2405; J2543; J2704; J3010; J3490; J7030; J7120; Q9967

== ENCOUNTER 2022-08-22 08:04 | Outpatient (CLI) | payer MEDICARE, BC, SELFPAY ==
--- OUTSIDE RECORDS SUMMARY | 2022-08-22 08:07 | XMS_ITS | Clinical Summary ---
:1955 Author Organization [facility] [place] [address] Care Team Providers Name Role Phone Devin Baires MD Primary Care Provider Allergies No known active allergies Medications Medication Sig Dispensed Refills Start End Date Status Date valACYclovir 0 Active (VALTREX) 1 gram 1 tablet oxyCODONE Every 4-6 Hours as 0 A ctive (ROXICODONE) 5 mg needed 1 immediate release tablet celecoxib 0 Active (CELEBREX) 200 mg 1 capsule aspirin (ECOTRIN) Take 1 Tablet (81 0 Active 81 mg enteric mg) by mouth once 1 coated tablet daily with a meal. acetaminophen Take 1 Tablet (500 0 Active (TYLENOL EXTRA mg) by mouth every 1 STRGTH) 500 mg 6 hours if needed. tablet Max acetaminophen dose: 4000mg in 24 hrs. fluticasone (50 mcg INSTILL 1 SPRAY TO 16 mL 0 Active per actuation) BOTH NOSTRILS ONCE 2 nasal solution DAILY. (FLONASE)Indication s: Chronic sinusitis, unspecified location atorvastatin TAKE 1 TABLET BY 60 Tablet 0 Active (LIPITOR) 20 mg MOUTH AT BEDTIME 2 tabletIndications: Hyperlipidemia, unspecified hyperlipidemia type atorvastatin Take 1 Tablet (20 90 Tablet 3 08/06/20 Discontinued (LIPITOR) 20 mg mg) by mouth at 1 22 tabletIndications: bedtime. 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 Rectal cancer 07/07/2017 Overview: Colonoscopy 06/2017 rectal mass, patient referred to [facility] Colostomy in place 10/09/2016 HTN (hypertension) 09/30/2011 Overview: Home BPs have been in a good range Encounters Date Type Specialty Care Team Description 08/05/2022 Devin Lee Refill Request MD (Atorvastatin) 07/05/2022 Patient Outreach Tracey Campos RN Pri mary RN Care Management (Pos t hospital date of admissi on lap ting 07/02/22); Hospital F/U (DC 07/03/22 [facility]) 07/04/2022 Lab Requisition Tonja Narvaez MD 07/02/2022 Orders Only Scanner <No scans attac hed> 07/01/2022 Orders Only Scanner <No scans attac hed> from Last 3 Months Immunizations Name Administration Dates Next Due COVID-19 [...] Comments Blood Pressure 125/65 09/17/2021 2:13 PM BREAKFAST BAR ATTENDANT Pulse 100 09/17/2021 2:39 PM BREAKFAST BAR ATTENDANT Temperature 36.7 ??C (98.1 ??F) 09/17/2021 2:13 PM BREAKFAST BAR ATTENDANT Respiratory Rate - - Oxygen Saturation 98% 09/17/2021 2:13 PM BREAKFAST BAR ATTENDANT Inhaled Oxygen Concentration - - Weight 88.9 kg (196 lb) 08/23/2021 10:29 AM BREAKFAST BAR ATTENDANT Height 174.6 cm (5' 8.75) 08/23/2021 10:29 AM BREAKFAST BAR ATTENDANT Body Mass Index 29.16 08/23/2021 10:29 AM BREAKFAST BAR ATTENDANT Plan of Treatment Health Maintenance Due Date Last Done Comments Zoster (shingles) series for age 1209/28/2004 50+ (1 of 2) COVID-19 vaccine series (4 - 10/18/2021 08/23/2021, 021, Booster for Moderna series) 01/22/2021, Addition al history exists Depression screening for age 12+ 05/04/2022 05/04/2021, Pneumococcal series for age 65+ (2 06/07/2022 06/07/2021 - PCV) Influenza for age 65+ 06/09/2022 08/23/2021, 09/26/2020, 07/25/2017, Additional history exists BMI (ht and wt on same day) for 08/23/2022 08/23/2021, 04/09, age 18+ 07/25/2017, Additional history exists Tetanus booster 11/07/2024 11/07/2014 Lipids for age 45-75 08/23/2026 08/23/2021, 05/04/2021, 06/27/2017 Colonoscopy through age 75 01/19/2028 01/18/2018, 7, 07/06/2017 Tdap Completed 11/07/2014 Hepatitis C screening for age Completed 06/27/2017 18-79 AAA screening age 55-77 Completed 08/23/2021 Procedures Procedure Name Priority Date/Time Associated Comments Diagnosis LAB TRACKING EVENT Routine 07/02/2022 1:37 PM CDT PATH TISSUE EXAM Routine 07/02/2022 1:31 PM Resul ts for this CDT procedure are i n the results section. SCAN-ULTRASOUND REPORT 07/02/2022 12:00 R esults for this AM CDT procedure are i n the results section. SCAN-CT INTERPRETATION 07/01/2022 12:00 AM CDT from Last 3 Months Results LAB TRACKING EVENT (07/02/2022 1:37 PM CDT) Specimen Anatomical Collection Method Collection Time Receive d Time (Source) Location / / Volume Laterality Other (Other) Client Collect / 07/02/2022 1:37 PM 06/10 5:44 Unknown CDT PM CDT Tonja Narvaez MD LAB BILL ONLY Performing Organization Address City/State/ZIP Code Phon e Number [facility] [address] [place] [address] LABORATORY-CENTRAL 1999 LABORATORY PATH TISSUE EXAM (07/02/2022 1:31 PM CDT) Component Value Ref Test Analysis Performed At [facility] gist Range Method Time Signature Case Report Pathology Report ?Case: [id number] ? 07/05/2022 [facility] Authorizing Provider: ??Tonja Mar MD ??Collected: ? 07/02/2022 1331 ? 5:46 PM HEALTH Ordering Location: ? [facility] CENTRAL LAB ?Received: ?07/04/2022 1813 ? CDT ANGIE ENG Pathologist: ? Vicente, Clyde Marks, ? ENTRAL ? MD ? LABORATORY Specimen: ?Gallbladder ? Final A) GALLBLADDER, CHOLECYSTECTOMY: 022 [facility] Electronically Diagnosis 1. Active chronic cholecystitis with transmural inflam mation 5:46 PM HEALTH signed by 2. Cholelithiasis CDT LABORATORY-C Vicente, 3. Negative for dysplasia and malignancy ENTRAL PRISCILLA Luu MD on 06/10 at 5:46 PM Clinical Mr. Addison is 07/05/2022 [facility] Information a 66 y.o. who 5:46 PM HEALTH presents with CDT LABORATORY-C abdominal pain. ENTRAL LABORATORY Gross A) Received in formalin, lab eled with the patient's name and gallbladder, is a 10.0 x 4.3 x 1.5 cm disrupted gallbladder. ??There is a single black gallstone identified. There are no mucosal lesions i 07/05/2022 [facility] Description dentified. The average wall thickness is 0.2 cm. There is no abnormal wall thickening identified. No cystic duct lymph node is identified. Service Unit Operator sections are submitted as follows: 5:46 PM HEALTH 1. ??Cystic duct margin CDT MYLENE ANDUJAR 2. ??Sections of gallbladder base and body ENTRAL LABORATORY SSS 07/04/2022 Microscopic The final 07/05/2022 [facility] Description diagnosis is 5:46 PM HEALTH based on CDT LABORATORY-C microscopic ENTRAL examination of LABORATORY appropriate sections of all specimens. Additional 07/05/2022 [facility] Information Interpreted at [facility], Central Laboratory - [address], [place] [address] 5:46 PM HEALTH CDT LABORATORY-C ENTRAL LABORATORY Specimen Anatomical Location Collection Method Collection Time Received Time (Source) / Laterality / Volume Other SPECIMEN FROM 07/02/2022 1:31 07/04/2022 6:13 GALLBLADDER / PM CDT PM CDT Unknown Tonja Narvaez MD PATHOLOGY/CYTOLOGY Performing Organization Address City/State/ZIP Code Phon e Number [facility] [address] [place] [address] LABORATORY-CENTRAL 2000 LABORATORY SCAN-ULTRASOUND REPORT (07/02/2022 12:00 AM CDT) Narrative This result has an attachment that is no t available. Scanner OTHER SCAN-CT INTERPRETATION (07/01/2022 12:00 AM CDT) Narrative This result has an attachment that is no t available. Scanner OTHER from Last 3 Months Insurance Payer Benefit Plan / Subscriber ID Effective Dates Phone Addre ss Type Group BLUE CROSS BLUE CROSS OF [id number] 2020-Present [address] [address] [place] [address] MEDICARE - PB MEDICARE PB [id number] 2019-Mary ATT N: CLAIMS USE ONLY ONLY t [address] [facility] [place] [address] Advance Directives Documents on File Type Date Recorded Patient Service Unit Operator Explanati on Healthcare Directive 06/07/2021 7:31 AM Care Teams Janitor Head Relationship Specialty Start Date End Date Devin Baires MD PCP - General Family Practice 11/07/14 [address] [place] [address]
--- OUTSIDE RECORDS SUMMARY | 2022-08-22 08:07 | XMS_ITS | Encounter Summary ---
:1955 Author Organization [facility] Address [address] [place] [address] Care Team Providers Name Role Phone Unavailable Primary Care Provider Unavailable Reason for Visit Reason Comments Next colonoscopy? Encounter Details Date Type Department Care Team Description 06/08/2021 Clinical Communication Division of Colon Juan Antonio, Next colonoscopy? and Rectal Surgery Abisai Strickland M.D. in [place], [facility] [address] [place], [place] [address] [facility] [address] [place], [place] [phone] [address] (Work) [phone] Social History Tobacco Use Types Packs/Day Years [...] more drinks on one Never 07/06/2019 occasion? Social Isolation Answer Date Recorded In a typical week, how many times do you Once a week 07/06/2019 talk on the phone with family, friends, or neighbors? How often do you get together with friends Twice a week 07/06/2019 or relatives? How often do you attend hoahaoism or shinto 1 to 4 times per year 07/06/2019 services? Do you belong to any clubs or organizations Yes 07/06/2019 such as hoahaoism groups, unions, fraternal or athletic groups, or [...] Encounter - Jackie Deng RJuan CarlosN. - 06/30/2021 12:41 PM CDT PLAN The following information was provided: I called Mr. Addison at this time and apologized for the delay in returning the call as the messages were sent to a box that no longer had coverage due to Dr. Romano's fci. I reviewed the cancer follow up guidelines [...] used: nursing clinical judgement Telephone Encounter - Aurleia Mares - 06/30/2021 11:17 AM CDT Arina called from the [facility] in [place], they hadn't heard back from the message that was left a few weeks ago. Can you please call and let them know when the patient is due for his next colonoscopy; she said he had surgery back in [address] Romano. The [facility] office number is difficult to get through on so you can try the following: Arina at [phone] (Monday - 7:30-5:00) Kanwal at [phone] (Monday, Monday, , Monday 7:30-5:00) But NO voice on either line. Arina shared that it might be easier to call the patient directly and then he can share the information with Manda. Telephone Encounter - Aurelia Mares - 06/23/2021 4:43 PM CDT Arina called from the [facility] in [place], they hadn't heard back from the message that was left a few weeks ago. Can you please call and let them know when the patient is due for his next colonoscopy; she said he had surgery back in [address] Romano. Telephone Encounter - Lucía Schwartz - 06/08/2021 2:12 PM CDT Kanwal from [facility] in [place] called. Patient is being followed by them and they would liketo know when he is due for his next colonoscopy. You can leave a message with whomever answers. [facility] documented in this encounter Plan of Treatment Not on filedocumented as of this encounter Visit Diagnoses Not on filedocumented in this encounter Additional Health Concerns Assessment Noted Time PHQ-9 Depression Total Score: 1 12/14/2017 11:05 AM CS T documented as of this encounter
--- OUTSIDE RECORDS SUMMARY | 2022-08-22 08:07 | XMS_ITS | Encounter Summary ---
:1955 Author Organization [facility] Address [address] [place] [address] Care Team Providers Name Role Phone Unavailable Primary Care Provider Unavailable Reason for Visit Reason Comments Other Endocrinology follow up Outpatient (Routine) - Closed Specialty Diagnoses / Procedures Referred By Contact Refer red To Contact [facility] [address] [place] [address] Referral ID Status Reason Start Date Expiration Date Visits Requ ested Visits Authorized [id number] Closed 01/08/2019 01/08/2020 1 1 Encounter Details Date Type Department Care Team Description 07/10/2019 Office Visit Division of Seamus Owens, Kori Thyroi d Endocrinology in Saul Bee, M.B.B.S . (Primary Dx) [place], [place] [address] [facility] [address] [place] [address] [phone] Social History Tobacco Use Types Packs/Day Years Used Date Smoking Tobacco: Former Cigarettes 0.3 20 0610/1972 - 08/09/1993 Smokeless Tobacco: Never Comments: Very light smoker Alcohol Use Standard Drinks/Week Comments Yes 0 (1 standard drink = 0.6 oz pure I in k less than 10 standard alcohol) drinks [...] or relatives? How often do you attend anglican or gnosticist 1 to 4 times per year 07/06/2019 services? Do you belong to any clubs or organizations Yes 07/06/2019 such as anglican groups, unions, fraternal or athletic groups, or [...] with this plan. CT CT Job ID: [id number] documented in this encounter Plan of Treatment Not on filedocumented as of this encounter Visit Diagnoses Diagnosis Nodule Thyroid - Primary documented in this encounter Additional Health Concerns Assessment Noted Time PHQ-9 Depression Total Score: 1 12/14/2017 11:05 AM CS T documented as of this encounter
--- OUTSIDE RECORDS SUMMARY | 2022-08-22 08:07 | XMS_ITS | Encounter Summary ---
:1955 Author Organization [facility] Address [address] [place] [address] Care Team Providers Name Role Phone Unavailable Primary Care Provider Unavailable Reason for Visit Reason Comments Renew Ostomy Rx Encounter Details Date Type Department Care Team Description 07/28/2020 Clinical Communication Division of Colon and Juan Antonio , Renew Ostomy Rx Rectal Surgery in Abisai Strickland [place], [place] [address] [facility] [address] [place] [phone] [phone] Social History Tobacco Use Types Packs/Day Years [...] or relatives? How often do you attend yazidi or synagogue 1 to 4 times per year 07/06/2019 services? Do you belong to any clubs or organizations Yes 07/06/2019 such as yazidi groups, unions, fraternal or athletic groups, or [...] prescription renewal. He usually changes pouch of [place] [address], 7805, [address], and occasionally drainable pouch with filter every [...] [facility] or ostomy nurse within a year. A renewed prescription will be faxed to [facility]. Education: patient able to teach back Caller agreeable to plan of care: yes The following references were used: nursing clinical judgement Telephone Encounter - Brea Resendez - 07/28/2020 10:06 AM CDT Mr. Addison called regarding renewal of his ostomy supplies. Prescription recently . Please return his call at [phone]. Thank you. Brea documented in this encounter Plan of Treatment Not on filedocumented as of this encounter Visit Diagnoses Diagnosis Colostomy Status (HCC) - Primary documented in this encounter Additional Health Concerns Assessment Noted Time PHQ-9 Depression Total Score: 1 12/14/2017 11:05 AM CS T documented as of this encounter
--- OUTSIDE RECORDS SUMMARY | 2022-08-22 08:07 | XMS_ITS | Encounter Summary ---
:1955 Author Organization [facility] Address [address] [place] [address] Care Team Providers Name Role Phone Unavailable Primary Care Provider Unavailable Reason for Visit Appointment Request (Routine) - Closed Specialty Diagnoses / Procedures Referred By Contact Refer red To Contact Colon and Rectal Surgery Referral ID Status Reason Start Date Expiration Date Visits Requ ested Visits Authorized [id number] Closed 07/13/2021 07/13/2022 1 1 Encounter Details Date Type Department Care Team Description 07/19/2021 Clinical Support Division of Colon Peri Grande Col ostomy Status and Rectal Surgery K, R.N. ([facility]) (Primary Dx) in [place], [facility] [address] [place], [place] [address] [place] [address] [place], [place] [phone] (Work) [phone] Social History Tobacco Use Types Packs/Day Years Used Date Smoking Tobacco: Former Cigarettes 0.3 20 10/1972 - 08/09/1993 Smokeless Tobacco: Never Comments: Very light smoker Alcohol Use Standard Drinks/Week Comments Yes 0 (1 standard drink = 0.6 oz pure I drraven k less than 10 standard alcohol) drinks [...] How often do you attend zoroastrianism or adventist 1 to 4 times per [...] to -10/12, but does not stay rounded. x1-12/14 Skin Assessment Red; silver nitrate Applied two sticks of Silver Nitrate per Peristomal Skin Protocol [id number]. Patient denies discomfort with application. Patient reports using a straight-edge razor to shave skin. Advised patient to use electric razor to avoid skin irritation. Peristomal Skin Care Water Pouching System (Stomal Appliance) Status Changed Changed by Wound computer forensics investigator Pouching System Removed [place] [address], [address], [address] Undermining at 3 o'clock Pouching System Applied [place] [address], [address]805, [address] Patient declined use of convex ring or cutting system oval. Advised to order precut flat wafer to ensure entire stoma is within hole. ASSESSMENT / PLAN Questions answered. Prescription to be faxed to the [facility] once signed. Encouraged to call or return (per Return Appointment Protocol [id number]) for ostomy related questions or concerns. [...]
--- OUTSIDE RECORDS SUMMARY | 2022-08-22 08:07 | XMS_ITS | Encounter Summary ---
:1955 Author Organization [facility] Address [address] [place] [address] Care Team Providers Name Role Phone Unavailable Primary Care Provider Unavailable Encounter Details Date Type Department Care Team Description 07/08/2022 Clinical Communication Visit Review in [place], [place] 200 [place] [address] Social History Tobacco Use Types Packs/Day Years [...] or relatives? How often do you attend yarsani or sikhism 1 to 4 times per year 07/06/2019 services? Do you belong to any clubs or organizations Yes 07/06/2019 such as yarsani groups, unions, fraternal or athletic groups, or [...] as of this encounter Plan of Treatment Not on filedocumented as of this encounter Visit Diagnoses Not on filedocumented in this encounter Additional Health Concerns Assessment Noted Time PHQ-9 Depression Total Score: 1 12/14/2017 11:05 AM CS T documented as of this encounter
--- OUTSIDE RECORDS SUMMARY | 2022-08-22 08:07 | XMS_ITS ---
:1955 Author Organization [facility] Address [address] [place] [address] Care Team Providers Name Role Phone Unavailable [...] treatments are documented for this patient in [facility]. Treatments may have been administered in another system. Lifetime Dose Tracking Chemical Lifetime Dose Automatic Entry Manual Entry Radiation 5 mGy 5 mGy 0 mGy Fluoro Time 0.1 minutes 0.1 minutes 0 minutes
--- OUTSIDE RECORDS SUMMARY | 2022-08-22 08:07 | XMS_ITS | Encounter Summary ---
:1955 Author Organization [facility] Address [address] [place] [address] Care Team Providers Name Role Phone Unavailable Primary Care Provider Unavailable Encounter Details Date Type Department Care Team Description 07/10/2019 Hospital Encounter Department of Seamus Owens, Nodule Thyroid Laboratory Medicine and Raheem LindseySJuan Carlos Pathology, [address] [address] [place] [address] [place], [place] (Work) [phone] Social History Tobacco Use Types Packs/Day Years [...] How often do you attend synagogue or hinduism 1 to 4 times per [...] Not on filedocumented as of this encounter Procedures Procedure Name [...] LunsfordB.S. LAB BLOOD ADD-ON Performing Organization Address City/[facility]/ZIP Code Phon e Number [facility] - [address] T4 (Thyroxine), Free (07/10/2019 8:31 AM CDT) athologist Signature T4 (Thyroxine), 1.2 0.9 - 1.7 07/10/2019 Free, S ng/dL 10:10 AM CDT Specimen Anatomical Collection Method Collection Time Receive d Time (Source) Location / / Volume Laterality Blood (Blood, 07/10/2019 8:31 AM 07/10/20 19 8:52 Venous) CDT AM CDT Saul LunsfordB.S. LAB BLOOD ADD-ON Performing Organization Address City/[facility] Code Phon e Number [facility] - [address] documented in this encounter Visit Diagnoses Diagnosis Nodule Thyroid documented in this encounter Additional Health Concerns Assessment Noted Time PHQ-9 Depression Total Score: 1 12/14/2017 11:05 AM CS T documented as of this encounter
--- OUTSIDE RECORDS SUMMARY | 2022-08-22 08:07 | XMS_ITS | Encounter Summary ---
:1955 Author Organization [facility] Address [address] [place] [address] Care Team Providers Name Role Phone Unavailable [...] or relatives? How often do you attend cheondoism or amish 1 to 4 times per year 07/06/2019 services? Do you belong to any clubs or organizations Yes 07/06/2019 such as cheondoism groups, unions, fraternal or athletic groups, or [...]
--- OUTSIDE RECORDS SUMMARY | 2022-08-22 08:07 | XMS_ITS | Encounter Summary ---
:1955 Author Organization [facility] Address [address] [place] [address] Care Team Providers Name Role Phone Unavailable Primary Care Provider Unavailable Reason for Visit Reason Comments Essential need for labs Encounter Details Date Type Department Care Team Description 01/08/2020 Clinical Communication Department of Rakan Chavez need for Family Medicine, Judith Bower R.N. labs [address] [address] [facility] [phone] [place], [place] (Work) [phone] Social History Tobacco Use Types Packs/Day Years [...] or relatives? How often do you attend evangelical or mandaen 1 to 4 times per year 07/06/2019 services? Do you belong to any clubs or organizations Yes 07/06/2019 such as evangelical groups, unions, fraternal or athletic groups, or [...] this encounter Miscellaneous Notes Telephone Encounter - Judith Chavez, RJuan CarlosN. - 01/08/2020 3:57 PM CDT SUBJECTIVE CHIEF COMPLAINT / REASON FOR CALL Essential need for labs Information Discussed Pt contacted and notified that his ordered lab work is not essential at this time, and will be deferred until it is safer for him to come to the clinic. PLAN Disposition/Recommendation: recommended continue engagement in self-management activities Information/Education: patient/caller able to teach back Caller agreeable to plan of care: yes The following references were used: provider Dr. Seamus Owens Telephone Encounter - Saul Styles M.B.B.S. - 01/08/2020 3:53 PM CDT Those tests could be reschedule for next 1 or 2 months, thanks Telephone Encounter - Judith Chavez R.N. - 01/08/2020 2:12 PM CDT Primary care and subsequent lab facilities in the [facility] have been directed to have all non-essential lab work deferred until a later date due to the current pandemic. You have ordered labs for this patient that are scheduled to be drawn in the near future. Please advise if you feel these labs are stillneeding to be drawn tomorrow as scheduled, or if they can be deferred to a later date. ?? Please route response to [facility] RN NURSE pool. ?? Thanks documented in this encounter Plan of Treatment Not on filedocumented as of this encounter Visit Diagnoses Not on filedocumented in this encounter Additional Health Concerns Assessment Noted Time PHQ-9 Depression Total Score: 1 12/14/2017 11:05 AM CS T documented as of this encounter
--- OUTSIDE RECORDS SUMMARY | 2022-08-22 08:07 | XMS_ITS | Encounter Summary ---
:1955 Author Organization [facility] Address [address] [place] [address] Care Team Providers Name Role Phone Unavailable Primary Care Provider Unavailable Reason for Visit Appointment Request (Routine) - Closed Specialty Diagnoses / Procedures Referred By Contact Refer red To Contact Colon and Rectal Diagnoses Aftercare Colostomy (HCC) Ileostomy Status (HCC) Surgery Referral ID Status Reason Start Date Expiration Date Visits Requ ested Visits Authorized [id number] Closed 06/30/2022 06/30/2023 1 1 Encounter Details Date Type Department Care Team Description 07/12/2022 Clinical Support Division of Colon Demetria Abel Col ostomy Status and Rectal Surgery R, RSHAYY Ness (HCC) (Primary Dx) in [place], [facility] [address] [place], [place] [address] [place] [phone] [place], [place] [phone] (Work) [phone] Social History Tobacco Use Types Packs/Day Years [...] or relatives? How often do you attend baptism or voodoo 1 to 4 times per year 07/06/2019 services? Do you belong to any clubs or organizations Yes 07/06/2019 such as baptism groups, unions, fraternal or athletic groups, or [...] documented as of this encounter Progress Notes Demetria Abel R.N., SHAYY - 07/12/2022 1:00 PM CDT SUBJECTIVE CHIEF COMPLAINT/REASON FOR VISIT Assessment of peristomal skin and pouching system management for a prescription renewal. HISTORY OF PRESENT ILLNESS Angel Addison is a 66 y.o. male was referred by No ref. provider found for evaluation of pouching system management. Patient states the pouching system is usually changed every 3 days. Reports having issues with tape rolling, manages with Band-Aids. Also states he develops a rash sometimes in thesummer which he treats with Calamine lotion. OBJECTIVE Physical Exam Colostomy LLQ (Active) Site Assessment Budded;Red = Stoma Size rounds to Skin Assessment Intact Peristomal Skin Care Water Pouching System (Stomal Appliance) Status Changed;Intact Changed by Wound laboratory specialist Pouching System Removed [facility]otta #[id number], [id number], [id number] Pouching System Applied [facility] #[id number], [id number] [id number] [id number] Ongoing management Wound/admitting officer Patient shown barrier extenders to try instead of Band-Aids. WOC RN also encouraged patient to contact the WOC RN if he develops a rash around his stoma as it may qualify for an antifungal powder prescription. ASSESSMENT / PLAN Questions answered. The patient was given ordering information. The prescription will be sent to [facility] once signed. Encouraged to call or return (per Return Appointment Protocol [id number]) for ostomy related questions or concerns. Patient verbalized understanding. documented in this encounter Plan of Treatment Not on filedocumented as of this encounter Visit Diagnoses Diagnosis Colostomy Status (HCC) - Primary documented in this encounter Additional Health Concerns Assessment Noted Time PHQ-9 Depression Total Score: 1 12/14/2017 11:05 AM CS T documented as of this encounter
--- OUTSIDE RECORDS SUMMARY | 2022-08-22 08:07 | XMS_ITS | Encounter Summary ---
:1955 Author Organization [facility] Address [address] [place] [address] Care Team Providers Name Role Phone Unavailable [...] How often do you attend judaism or zoroastrianism 1 to 4 times per year 07/06/2019 [...] results section. documented in this encounter Results Zhikr-Tqgojjx-Urhuszohtosnu Image Exam (07/10/2019 12:05 PM CDT) Specimen (Source) Anatomical Location Collection Method / Collectio n Time Received Time / Laterality Volume Narrative IIMS - 08/15/2019 9:46 AM CASINO FLOOR SUPERVISOR This order has been created and auto-finalized [...]
--- OUTSIDE RECORDS SUMMARY | 2022-08-22 08:07 | XMS_ITS | Encounter Summary ---
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
--- OUTSIDE RECORDS SUMMARY | 2022-08-22 08:07 | XMS_ITS | Clinical Summary ---
:1955 Author Organization [facility] Address [address] [place] [address] Care Team Providers Name Role Phone Unavailable Primary Care Provider Unavailable Source Comments Patient records contain information from all sites at [facility]. For routine questions regarding patient records, call [phone] during business hours, M-F 8:00 AM - 5:00 PM Central Time. Record requests for emergency care only can be directed to [phone] at any time.[facility] Allergies No known active allergies Medications Medication Sig Dispensed Refills Start Date End Date Status gabapentin 0 10/25/2018 Active (NEURONTIN) 300 mg capsule DME Ostomy DME Order 1 Unspecified 07/19/2021 Acti ve suppliesIndications: Colostomy Status (HCC) atorvastatin 0 07/01/2022 Active (LIPITOR) 20 mg tablet acetaminophen Take 500 mg by 0 09/17/2021 Active (TYLENOL) 500 mg mouth. tablet aspirin [address] Take 81 mg by 0 09/17/2021 Active tablet mouth. fluticasone Administer into 0 10/10/2021 A ctive propionate (FLONASE) nostril(s). 50 mcg/actuation nasal spray metroNIDAZOLE APPLY TO 0 06/20/2022 Activ e (ROSADAN) 0.75 % gel AFFECTED AREAS ON FACEONCE OR TWICE DAILY valACYclovir Take 1,000 mg by 0 Active (VALTREX) 1000 mg mouth 2 (two) tablet times a day. 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 Overview: Overview: Colonoscopy 06/2017 rectal mass, patient referred to [facility] Encounters Date Type Specialty Care Team Description 07/12/2022 Clinical Support Colon and Rectal Qiana Abel my Status Surgery Demetria R, (HCC) (Primary Dx) R.N., CWON 07/08/2022 Clinical Communication Admitting/Central Scheduling from Last 3 Months Family History Medical History Relation Name Comments Other cancer Father Yossi Cancer was in hi s jaw, 50 years old Lung cancer Mother Geno 73 years old Prostate cancer Paternal Grandfather Elieser 94 years ol d Colon cancer Sister 1 Anupama 60 years old Diabetes Sister 2 Roslyn Relation Name Status Comments Father Yossi Mother Geno Paternal Grandfather Elieser Sister 1 Anupama Sister 2 Roslyn Social History Tobacco Use Types Packs/Day Years [...] How often do you attend christianity or restoration 1 to 4 times per year 07/06/2019 [...] Date Recorded Male 03/12/2018 10:44 PM CDT Last Filed Vital Signs Vital Sign Reading Time Taken Comments Blood Pressure 132/90 07/10/2019 1:10 PM CDT Average Pulse 118 07/10/2019 1:10 PM CDT Temperature 36.4 ??C (97.52 ??F) 03/30/2018 2:00 PM CDT Respiratory Rate 9 08/27/2018 1:25 PM FURNITURE DECALS INSPECTOR Oxygen Saturation 98% 08/27/2018 1:36 PM FURNITURE DECALS INSPECTOR Inhaled Oxygen Concentration - - Weight 91.7 kg (202 lb 2.6 oz) 07/10/2019 1:10 PM CDT Height 172.3 cm (5' 7.84) 07/10/2019 1:10 PM CDT Body Mass Index 30.89 07/10/2019 1:10 PM CDT Plan of Treatment Health Maintenance Due Date Last Done Comments CT Colonography 1955 Cologuard 1955 Colonoscopy 1955 Colorectal Cancer Surveillance 1955 Hepatitis C Screening 1955 Zoster Vaccines (1 of 2) 2004 Depression Screening (Annual 10/09/2021 PHQ-2) Fall Risk Screen (Annual) 10/09/2021 COVID-19 Vaccine (4 - Booster for 10/18/2021 08/23/2021, , Moderna series) 01/22/2021, Additional history exists Pneumococcal vaccine (65+ years) 06/07/2022 06/07/2021 (2 - PCV) Fasting Glucose for Diabetes 08/23/2024 08/23/2021, 021, Screening 03/12/2018, Additional history exists DTaP,Tdap,and Td Vaccines (2 - Td 11/07/2024 11/07/2014 or Tdap) Abdominal Aortic Aneurysm (AAA) Completed 03/12/2018, 07/09 Screen Influenza Vaccine Completed 08/07/2022, 08/23/2021, 09/26/2020, Additional history exists Medical Devices Implanted Type Area Intelligence Engineer Device Shelf Model / Identifier Expiration Serial / Date Lot Reyes Adhn Seprafilm 5x6 - [id number] Mesh or Genzyme 02/06/2020 [id number] / Implanted: Qty: 1 on 03/26/2018 by Abisai Andrews M.D. at [facility] Patch Rapid Diagnostek / [id number] Explanted Type Area Intelligence Engineer Device Shelf Model / Identifier Expiration Serial / Date Lot Port [address] Injectible Power - [id number] Implanted Port C .R.Bard Implanted: Qty: 1 on 08/11/2017 Single Lumen Explanted: 08/27/2018 (Quantity not on file) Description: Device Intelligence Engineer - Bard Access. Device Status Text - [id number]. Insurance Payer Benefit Plan Subscriber ID Effective Phone Address Typ e / Group Dates MEDICARE MEDICARE A [id number] 2019-Pre [address] [place] [address] BLUE CROSS BCBS UGASHIK [id number] 2022-Pres [phone] PO JACKIE X Cost Share BLUE SHIELD BLUE COST ent [phone] [place] [address] Advance Directives For more information, please contact: [phone] Latest Code Status on File Code Status Date Activated Date Inactivated Comments Full Code 03/26/2018 4:00 PM 03/30/2018 4:58 PM Question Answer Comments Full Code: Discussed Code Status History Code Status Date Activated Date Inactivated Comments Full Code 03/26/2018 6:32 AM 03/26/2018 4:00 PM Question Answer Comments Full Code: Discussed
--- OUTSIDE RECORDS SUMMARY | 2022-08-22 08:08 | XMS_ITS | Encounter Summary ---
:1955 Author Organization [facility] Address [address] [place] [address] Care Team Providers Name Role Phone Unavailable Primary Care Provider Unavailable Encounter Details Date Type Department Care Team Description 04/12/2019 [facility]ation [facility] [address] [facility] [address] [place] [address] [place], [place] [phone] (Wo rk) Social History Tobacco Use Types [...] How often do you attend uatsdin or quaker 1 to 4 times per year 07/06/2019 [...]
--- OUTSIDE RECORDS SUMMARY | 2022-08-22 08:08 | XMS_ITS | Encounter Summary ---
:1955 Author Organization [facility] Address [address] [place] [address] Care Team Providers Name Role Phone Unavailable Primary Care Provider Unavailable Reason for Referral Outpatient (Routine) - Closed Specialty Diagnoses / Procedures Referred By Contact Refer red To Contact Radiology Diagnoses Malignant Neoplasm Of Rectum (HCC) Emanuel Cooper M.D. [facility] Procedures IR Implanted Vascular Access Device Removal [address] [place] [phone] Referral ID Status Reason Start Date Expiration Date Visits Requ ested Visits Authorized [id number] Closed 08/23/2018 08/23/2019 1 1 T DESIGNER Reason for Visit Auth/Cert Specialty Diagnoses / Procedures Referred By Contact Refer red To Contact Diagnoses Malignant Neoplasm Of Rectum (HCC) Procedures IR IMPLANTED VASCULAR ACCESS DEVICE REMOVAL Referral ID Status Reason Start Date Expiration Date Visits Requ ested Visits Authorized [id number] 1 1 Encounter Details Date Type Department Care Team Description 08/27/2018 Hospital Encounter Department of Emanuel Cooper M.D. 200 [place] [phone] Malignant Neoplasm Radiology in Miguel Angel Collier M.D. [address] [place] [phone] Of Rectum (HCC) Narciso Ray Richard G, M.D. 200 [place] [address] [place] [address] [place] [address] Social History Tobacco Use Types Packs/Day Years Used Date Smoking Tobacco: Former Cigarettes 0.3 20 06/10/1972 - 08/09/1993 Smokeless Tobacco: Never Comments: Very [...] How often do you attend baptism or yazdanism 1 to 4 times per year 07/06/2019 [...] Comments Blood Pressure 128/83 08/27/2018 1:36 PM EVENT DESIGNER Pulse 73 08/27/2018 1:36 PM EVENT DESIGNER Temperature - - Respiratory Rate 9 08/27/2018 1:25 PM EVENT DESIGNER Oxygen Saturation 98% 08/27/2018 1:36 PM EVENT DESIGNER Inhaled Oxygen Concentration - - Weight - [...] Not applicable PATIENT INSTRUCTIONS No return appointment T DESIGNER documented in this encounter Plan of Treatment Not on filedocumented as of this encounter Procedures Procedure Name Priority Date/Time Associated Comments Diagnosis IR IMPLANTED RAD - Routine 08/27/2018 1:27 Malignant Results for this VASCULAR ACCESS (most inpatients PM EVENT DESIGNER Neoplasm Of procedur e are in DEVICE REMOVAL and all Rectum (HCC) the results outpatients) section. documented in this encounter Results IR Implanted Vascular Access Device Removal (08/27/2018 1:27 PM EVENT DESIGNER) Anatomical Region Laterality Modality Chest, Pelvis, Abdomen, Vascular Interventional RST LOS, N/A X-Ray Angiography Vascular Interventional ARZ LOS, Vascular Interventional FLA LOS Specimen (Source) Anatomical Collection Method Collection Time Re ceived Time Location / / Volume Laterality 08/27/2018 2:31 PM EVENT DESIGNER Impressions 08/27/2018 5:00 PM EVENT DESIGNER IMPRESSION: Removal of right chest port. EP Narrative 08/27/2018 5:00 PM EVENT DESIGNER EXAM: IR IMPLANTED VASCULAR ACCESS DEVICE REMOVAL [...] fentaNYL injection (SUBLIMAZE) Given 08/27/2018 1:00 PM EVENT DESIGNER 50 mcg Code/trauma/sedation medication, Starting on Mon08/27/18 at 1300 fentaNYL injection (SUBLIMAZE) Given 08/27/2018 1:03 PM EVENT DESIGNER 25 mcg Code/trauma/sedation medication, Starting on Mon08/27/18 at 1303 fentaNYL injection (SUBLIMAZE) Given 08/27/2018 1:07 PM EVENT DESIGNER 25 mcg Code/trauma/sedation medication, Starting on Mon08/27/18 at 1307 lidocaine 10 mg/mL (1 %) injection (XYLO MOISE) Given 08/27/2018 1:38 PM EVENT DESIGNER 10 mL Code/trauma/sedation medication, Starting on Mon08/27/18 at 1338 midazolam (PF) injection (VERSED) Given 08/27/2018 1:00 PM EVENT DESIGNER 1 mg Code/trauma/sedation medication, Starting on Mon08/27/18 at 1300 midazolam (PF) injection (VERSED) Given 08/27/2018 1:03 PM EVENT DESIGNER 0.5 mg Code/trauma/sedation medication, Starting on Mon08/27/18 at 1303 midazolam (PF) injection (VERSED) Given 08/27/2018 1:07 PM EVENT DESIGNER 0.5 mg Code/trauma/sedation medication, Starting on Mon08/27/18 at 1307 documented in this encounter Active and Recently Administered Medications Times are shown in EVENT DESIGNER. PRN Medication Order 08/25/2018 08/26/2018 08/27/2018 fentaNYL injection (SUBLIMAZE) (COMPLETED) 1300 (Given - Provider: Halima Burleson R.N.) Code/trauma/sedation medication, Starting on Mon08/27/18 at 130 0 fentaNYL injection (SUBLIMAZE) (COMPLETED) 1303 (Given - Provider: Halima Burleson R.N.) Code/trauma/sedation medication, Starting on Mon08/27/18 at 130 3 fentaNYL injection (SUBLIMAZE) (COMPLETED) 1307 (Given - Provider: Halima Burleson R.N.) Code/trauma/sedation medication, Starting on Mon08/27/18 at 130 7 lidocaine 10 mg/mL (1 %) injection (XYLOCAINE) (CANCELED) 1338 (Given - Provider: Adrian Stuart M.D.) Code/trauma/sedation medication, Starting on Mon08/27/18 at 133 8 midazolam (PF) injection (VERSED) (COMPLETED) 1300 (Given - Provider: Halima Burleson R.N.) Code/trauma/sedation medication, Starting on Mon08/27/18 at 130 0 midazolam (PF) injection (VERSED) (COMPLETED) 1303 (Given - Provider: Halima Burleson R.N.) Code/trauma/sedation medication, Starting on Mon08/27/18 at 130 3 midazolam (PF) injection (VERSED) (COMPLETED) 1307 (Given - Provider: Halima Burleson R.N.) Code/trauma/sedation medication, Starting on Mon08/27/18 at 130 7 documented in this encounter Additional Health Concerns Assessment Noted Time PHQ-9 Depression Total Score: 1 12/14/2017 11:05 AM CS T documented as of this encounter
--- OUTSIDE RECORDS SUMMARY | 2022-08-22 08:08 | XMS_ITS | Encounter Summary ---
:1955 Author Organization [facility] Address [address] [place] [address] Care Team Providers Name Role Phone Unavailable Primary Care Provider Unavailable Reason for Referral Outpatient (Routine) - Closed Specialty Diagnoses / Procedures Referred By Contact Refer red To Contact Endocrinology Saul Styles, [facility] M.B.B.S. [address] [place] [address] Referral ID Status Reason Start Date Expiration Date Visits Requ ested Visits Authorized [id number] Closed 05/08/2018 05/08/2019 1 1 Outpatient (Routine) - Closed Specialty Diagnoses / Procedures Referred By Contact Refer red To Contact Diagnoses Nodule Thyroid Saul Styles, [facility] Procedures NM Thyroid Uptake and Scan [place] THYROID IMG UPTAKE SNGL/MULT HC THYROID IMG UPTAKE SNGL/MULT [place] THYROID IMG UPTAKE SNGL/MULT M.B.B.S. [address] [place] [address] Referral ID Status Reason Start Date Expiration Date Visits Requ ested Visits Authorized [id number] Closed 05/08/2018 05/08/2019 6 6 Reason for Visit Reason Comments Thyroid Nodule Outpatient (Routine) - Closed Specialty Diagnoses / Procedures Referred By Contact Refer kassie To Contact [facility] [address] [place] [address] Referral ID Status Reason Start Date Expiration Date Visits Requ ested Visits Authorized [id number] Closed 01/26/2018 07/25/2018 1 1 Encounter Details Date Type Department Care Team Description 05/08/2018 Office Visit Division of Kori Styles Endocrinology in Saul Bee, M.B.B.S . (Primary Dx) [place], [place] [address] [facility] [address] [place] [phone] Social History Tobacco Use Types Packs/Day Years [...] How often do you attend uatsdin or synagogue 1 to 4 times per [...] Progress Notes Saul Styles M.B.BJuan CarlosS. - 05/08/2018 12:00 AM CDT SUBJECTIVE CHIEF [...] in agreement with this plan. Job ID: [id number] documented in this encounter Plan of Treatment Scheduled Referrals Name Type Priority Associated Order Schedule Diagnoses Endocrinology office Outpatient Referral Routine Expected: visit (clinic) 07/03/2018 (Approximate), Expires: 05/08/2021 documented as of this encounter Results NM Thyroid Uptake and Scan (06/29/2018 1:45 PM CDT) Anatomical Region Laterality Modality Neck, Nuclear Medicine RST LOS, Nuclear Medicine ARZ LOS, N/ A Nuclear Medicine Nuclear Medicine FLA [facility] Specimen (Source) Anatomical Collection Method Collection Time [...] discrete hyper or hypofunctioning nodule s. Saul LunsfordB.S. IMG NM PROCEDURES Thyrotropin Receptor Antibody (06/29/2018 8:55 AM CDT) athologist Signature Thyrotropin <1.00 0.00 - 06/29/2018 [facility] Receptor Ab, S 1.75 IU/L 5:39 PM CDT [facility] Comment: ----ADDITIONAL INFORMATION---- At a [...] Laterality Blood (Blood, 06/29/2018 8:55 AM 06/29/20 3:50 Venous) CDT PM CDT Saul LunsfordB.S. LAB BLOOD ADD-ON Performing Organization Address City/State/ZIP Code Phon e Number [facility] [address] [place] [address] 05 [facility] S-TSH (Thyroid-Stimulating Hormone - Sensitive) (06/29/2018 8:55 AM CDT) athologist Signature TSH, Sensitive 0.3 0.3 - 4.2 06/29/2018 [facility] mIU/L 9:48 AM CDT LABORATORIES - [facility] Specimen Anatomical Collection Method Collection Time Receive d Time (Source) Location / / Volume Laterality Blood (Blood, 06/29/2018 8:55 AM 06/29/20 18 9:01 Venous) CDT AM CDT Saul MacielSJuan Carlos LAB BLOOD ADD-ON Performing Organization Address City/[facility] Code Phon e Number [facility] LABORATORIES - [address] [place] [address] [facility] T4 (Thyroxine), Free (06/29/2018 8:55 AM CDT) athologist Signature T4 1.2 0.9 - 1.7 06/29/2018 [facility] (Thyroxine), ng/dL 9:48 AM CDT LABORATORIES - [facility], [facility] Specimen Anatomical Collection Method Collection Time Receive d Time (Source) Location / / Volume Laterality Blood (Blood, 06/29/2018 8:55 AM 06/29/20 18 9:01 Venous) CDT AM CDT Saul MacielSJuan Carlos LAB BLOOD ADD-ON Performing Organization Address City/[facility]/ZIP Code Phon e Number [facility] LABORATORIES - [address] [place] [address] [facility] documented in this encounter Visit Diagnoses Diagnosis Nodule Thyroid - Primary Nodule Thyroid documented in this encounter Additional Health Concerns Assessment Noted Time PHQ-9 Depression Total Score: 1 12/14/2017 11:05 AM CS T documented as of this encounter
--- OUTSIDE RECORDS SUMMARY | 2022-08-22 08:08 | XMS_ITS | Encounter Summary ---
:1955 Author Organization [facility] Address [address] [place] [address] Care Team Providers Name Role Phone Unavailable Primary Care Provider Unavailable Encounter Details Date Type Department Care Team Description 05/08/2018 Hospital Encounter Department of Seamus Owens, Nodule Thyroid Radiology, [facility], [place] [address] [facility] [address] [place] [phone] Social History Tobacco Use Types Packs/Day Years [...] or relatives? How often do you attend congregational or pentecostal 1 to 4 times per year 07/06/2019 services? Do you belong to any clubs or organizations Yes 07/06/2019 such as congregational groups, unions, fraternal or athletic groups, or [...] Name Priority Date/Time Associated Diagnosis Comme nts US THYROID Routine 05/08/2018 12:09 PM Nodule [...] Nodule Care Process Model established by the [facility] Endocrine Oncology [facility] [place]. [email or web address] Procedure Note Stephanie Freeman M.D. - [...] Nodule Care Process Model established by the [facility] Endocrine Oncology [facility] [place]. [email or web address] IMPRESSION: Stable exam compared to 07/10. Saul MacielSJuan Carlos IMG US PROCEDURES documented in this encounter Visit Diagnoses Diagnosis Nodule Thyroid Nontoxic documented in this encounter Additional Health Concerns Assessment Noted Time PHQ-9 Depression Total Score: 1 12/14/2017 11:05 AM CS T documented as of this encounter
--- OUTSIDE RECORDS SUMMARY | 2022-08-22 08:08 | XMS_ITS | Encounter Summary ---
:1955 Author Organization [facility] Address [address] [place] [address] Care Team Providers Name Role Phone Unavailable Primary Care Provider Unavailable Reason for Visit Outpatient (Routine) - Closed Specialty Diagnoses / Procedures Referred By Contact Refer red To Contact Diagnoses [facility]odule [facility] Procedures NM Thyroid Uptake and Scan MS THYROID IMG UPTAKE SNGL/MULT HC THYROID IMG UPTAKE SNGL/MULT MS THYROID IMG UPTAKE SNGL/MULT M.B.B.S. [address] [place] [phone] Referral ID Status Reason Start Date Expiration Date Visits Requ ested Visits Authorized [id number] Closed 05/08/2018 05/08/2019 6 6 Encounter Details Date Type Department Care Team Description 06/29/2018 Hospital Encounter Department of Radiology, [facility], M.B.B.S . [place], [place] [address] [place] [address] [address] [place] [phone] (Wo rk) Social History Tobacco Use Types Packs/Day Years Used Date Smoking Tobacco: Former Cigarettes 0.3 20 06/0 10/1972 - 08/09/1993 Smokeless Tobacco: Never Comments: [...] or relatives? How often do you attend sabianist or faith 1 to 4 times per year 07/06/2019 services? Do you belong to any clubs or organizations Yes 07/06/2019 such as sabianist groups, unions, fraternal or athletic groups, or [...]
--- OUTSIDE RECORDS SUMMARY | 2022-08-22 08:08 | XMS_ITS | Encounter Summary ---
:1955 Author Organization [facility] Address [address] [place] [address] Care Team Providers Name Role Phone Unavailable Primary Care Provider Unavailable Reason for Referral Outpatient (Routine) - Closed Specialty Diagnoses / Procedures Referred By Contact Refer red To Contact Endocrinology Saul Styles, [facility] M.B.B.S. [address] [place] [address] Referral ID Status Reason Start Date Expiration Date Visits Requ ested Visits Authorized [id number] Closed 06/29/2018 06/29/2019 1 1 Reason for Visit Outpatient (Routine) - Closed Specialty Diagnoses / Procedures Referred By Contact Refer red To Contact Endocrinology Saul Styles [facility] M.B.B.S. [address] [place], [place] [address] Referral ID Status Reason Start Date Expiration Date Visits Requ ested Visits Authorized [id number] Closed 05/08/2018 05/08/2019 1 1 Encounter Details Date Type Department Care Team Description 06/29/2018 Office Visit Division of Kori Styles Endocrinology in Cheri Lindsey.B.S . (Primary Dx) [place], [place] [address] [facility] [address] [place] [phone] Social History Tobacco Use Types Packs/Day Years Used Date Smoking Tobacco: Former Cigarettes 0.3 20 10/1972 - 08/09/1993 Smokeless Tobacco: Never Comments: Very light smoker Alcohol Use Standard Drinks/Week Comments Yes 0 (1 standard drink = 0.6 oz pure I adrianna k less than 10 standard alcohol) drinks [...] or relatives? How often do you attend caodaism or orthodox 1 to 4 times per year 07/06/2019 services? Do you belong to any clubs or organizations Yes 07/06/2019 such as caodaism groups, unions, fraternal or athletic groups, or [...] encounter Progress Notes Saul Styles M.B.B.S. - 06/29/2018 12:00 AM CDT ASSESSMENT / [...] with this plan. CT CT Job ID: [id number] documented in this encounter Plan of Treatment [...] Nodule Care Process Model established by the [facility] [place]. https://Content Circles.[employer].org/top ic/clinical-answers/cnt-/sec- 8878 Procedure Note Ezekiel Quispe M.D. - 01/07/2019Forma [...] Nodule Care Process Model established by the [facility] [place]. https://Content Circles.[employer].org/top ic/clinical-answers/cnt-/sec- 0260 IMPRESSION: Low suspicion nodules in bot h thyroid lobes are unchanged since 08/08/2018. Saul Kirkpatrick IMG US PROCEDURES T4 (Thyroxine), Free (01/07/2019 9:44 AM CDT) P athologist Signature T4 1.3 0.9 - 1.7 01/07/[address] [facility] (Thyroxine), ng/dL 11:38 AM CDT LABORATORIES - [facility], [facility] Specimen Anatomical Collection Method Collection Time Receive d Time (Source) Location / / Volume Laterality Blood (Blood, 01/07/2019 9:44 AM 01/08/20 Venous) CDT 10:04 AM CDT Saul LunsfordB.S. LAB BLOOD ADD-ON Performing Organization Address City/[facility] Code Phon e Number [facility] LABORATORIES - [address] (ABNORMAL) S-TSH (Thyroid-Stimulating Hormone - Sensitive) (01/07/2019 9:44 AM CDT) [facility] gist Method Time Signature TSH, Sensitive 0.1 (L) 0.3 - 4.2 01/07/[address] [facility] mIU/L 11:38 AM CDT LABORATORIES - [facility] Specimen Anatomical Collection Method Collection Time Receive d Time (Source) Location / / Volume Laterality Blood (Blood, 01/07/2019 9:44 AM 01/08/20 Venous) CDT 10:04 AM CDT Saul LunsfordB.S. LAB BLOOD ADD-ON Performing Organization Address City/State/[facility] Code Phon e Number [facility] LABORATORIES - [address] [place] [phone] [facility] documented in this encounter Visit Diagnoses Diagnosis Nodule Thyroid - Primary Nodule Thyroid documented in this encounter Additional Health Concerns Assessment Noted Time PHQ-9 Depression Total Score: 1 12/14/2017 11:05 AM CS T documented as of this encounter
--- OUTSIDE RECORDS SUMMARY | 2022-08-22 08:08 | XMS_ITS | Encounter Summary ---
:1955 Author Organization [facility] Address [address] [place] [address] Care Team Providers Name Role Phone Unavailable Primary Care Provider Unavailable Reason for Visit Appointment Request (Routine) - Closed Specialty Diagnoses / Procedures Referred By Contact Refer red To Contact Colon and Rectal Surgery Referral ID Status Reason Start Date Expiration Date Visits Requ ested Visits Authorized [id number] Closed 05/16/2019 05/15/2020 1 1 Encounter Details Date Type Department Care Team Description 05/20/2019 Clinical Support Division of Colon and Marleni Santos C olostomy Status Rectal Surgery in R.N., ([facility]) (Reny yo Dx) [place], [place] C.W.O.C.N. [address] [facility] [address] [place] [phone] Social History Tobacco Use Types Packs/Day Years [...] or relatives? How often do you attend catholic or amish 1 to 4 times per year 07/06/2019 services? Do you belong to any clubs or organizations Yes 07/06/2019 such as catholic groups, unions, fraternal or athletic groups, or [...] (Stomal Appliance) Status Changed Changed by Wound squad boss Pouching System Removed [place] 1-10/12 precut flat 81211, 7805, 61206, Stealth Belt 0.3 cm undermining at 9=3 o'clock after 2-hour wear time. Pouching System Applied Carlotta flat 46385 with opening cut to 1-/4, 7805, 44811, Stealth Belt Discussed stretching oval-shape stoma vertically to match with pre-cut wafer opening. Output Description Brown;Stool ASSESSMENT / PLAN Mr. Addison appears to have overall appropriate pouching seal without peristomal skin irritation. He will continue current pouching system. I will fax an updated ostomy prescription and ordering information to [facility]. I will also mail them to him. Encouraged to call or return (per Return Appointment Protocol [id number]) for ostomy related questions or concerns. All [...]
--- OUTSIDE RECORDS SUMMARY | 2022-08-22 08:08 | XMS_ITS | Encounter Summary ---
:1955 Author Organization [facility] Address [address] [place] [address] Care Team Providers Name Role Phone Unavailable Primary Care Provider Unavailable Reason for Visit Auth/Cert Specialty Diagnoses / Procedures Referred By Contact Refer red To Contact Diagnoses Malignant neoplasm of rectum (HCC) Rectal cancer with prostate invasion Procedures ID PELV EXENTERATION COLORECT MLG Exenteration Pelvic Other-to be determined Referral ID Status Reason Start Date Expiration Date Visits Requ ested Visits Authorized [id number] 1 1 Encounter Details Date Type Department Care Team Description 03/26/2018 - Hospital Encounter [facility] Juan Antonio Malignant Neoplasm Of Rectum (HCC) (Primary Dx); 03/30/2018 Hospital, Mohit Strickland M.D. 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 How often do you attend bahai or spiritism 1 to 4 times per year 07/06/2019 services? Do you belong to any clubs or organizations Yes 07/06/2019 such as bahai groups, unions, fraternal or athletic groups, or [...] Case IDs Date Procedure Surgeon Location Status [id number] 03/26/18 Exenteration Pelvic vs abdominal perineal resection, [...] US ROGO3 RST Spec 05/08/2018 3:[address] RomanSaul alvarado M.B.B.S. END [facility] Spec TEST RESULTS PENDING AT DISCHARGE DISCHARGE [...] as of this encounter Progress Notes Coni Reyes, SHRUTI, C.N.P., M.S.N. - 03/30/2018 6:20 AM CDT [...] nodes are identified within the perirectal fat. Humanities Instructor tissue submitted for frozen and permanent sections. Grossed by LAB. B. Received fresh labeled right periprostatic margin is a 1.5 x 1 x 0.4 cm fragment of pink-salinas fibrous tissue with orientation. The margin is inked and taken perpendicularly. All submitted for frozen and permanent sections. Grossed by [facility]. Participated in the Interpretation Elijah Agee D.O.-Pathology Fellow Isatu ArangoB.S.-Pathology Resident Report electronically signed by Emily Adhikari M.D. [id number] I verify that I have examined all [...] histologic interpretation performed by: Emily Adhikari M.D. [id number] Block Summary A Portion sigmoid, rectum, and anus A1 Adjacent to new margin A2 Mid-posterior A3 Mid-posterior A4 Adjacent to new margin-2 A5 Adjacent to new margin-2 A6 Syw-zndvtpuan-6 A7 Aru-zxezzqzeu-0 A8 Possible pericolonic lymph node 5(A1) A9 [...] in Results Review. Plan-4 Days Post-Op from APR, Enhanced Recovery Protocol [...] 03/30 Barrier to discharge: None Emili Farrell M.S.Roxana., R.N. - 03/29/2018 4:38 PM CDT SUBJECTIVE REASON FOR VISIT Postoperative visit Patient Coping: Appropriate OBJECTIVE Physical Exam Colostomy LLQ (Active) Stoma Assessment Red;Budded Skin Assessment Intact Peristomal Skin Care Water Pouching System (Stomal Appliance) Status Changed Changed by Patient completed Pouching System Removed 23053, 6681, 28996 Pouching System Applied [id number] Ongoing management Nursing Output Description Brown;Liquid Output (mL) 100 mL ASSESSMENT / PLAN Consult complete, [facility] nurse signing off Page [facility] [phone] M-F 6:00AM-2:30PM with questions or leakage issues. Monday pager [phone] 8:00AM-2:30PM. Coni Reyes APRN, C.N.PJuan Carlos, M.S.N. - 03/29/2018 9:31 AM [...] nodes are identified within the perirectal fat. Humanities Instructor tissue submitted for frozen and permanent sections. Grossed by LAB. B. Received fresh labeled right periprostatic margin is a 1.5 x 1 x 0.4 cm fragment of pink-salinas fibrous tissue with orientation. The margin is inked and taken perpendicularly. All submitted for frozen and permanent sections. Grossed by [facility]. Participated in the Interpretation Elijah Agee D.O.-Pathology Fellow Raheem ArangoSJuan Carlos-Pathology Resident Report electronically signed by Emily Adhikari M.D. [id number] I verify that I have examined all [...] histologic interpretation performed by: Emily Adhikari M.D. [id number] Block Summary A Portion sigmoid, rectum, and anus A1 Adjacent to new margin A2 Mid-posterior A3 Mid-posterior A4 Adjacent to new margin-2 A5 Adjacent to new margin-2 A6 Ooq-mbqgeibgm-0 A7 Ehg-vnaqvuouu-7 A8 Possible pericolonic lymph node 5(A1) A9 [...] about patient's nutritional care please contact pager [phone] on weekdays or on weekends/holidays. NUTRITION ASSESSMENT: [...] observed, as she completed a change with [facility] nurse yesterday. Colostomy LLQ (Active) Stoma Assessment Edema;Red Skin Assessment Sutures intact Peristomal Skin Care Water Pouching System (Stomal Appliance) Status Changed;Intact Changed by Wound wet process assistant head miller Pouching System Removed 83249, 9815, 81160 Intact seal after 1 day. Pouching System Applied 08362, 0225, 15001 Ongoing management Wound/title closer Output Description Stool Output (mL) 75 mL ASSESSMENT / PLAN WO nurse continuing to follow Page [facility] [phone] M-F 6:00AM-2:30PM with questions or leakage issues. Monday pager [phone] 8:00AM-2:30PM. Coni Reyes, SHRUTI, C.N.P., M.S.N. - [...] past 168 hour(s)). Plan-2 Days Post-Op from [facility], Enhanced Recovery Protocol -Encourage ambulation and deep [...] (Stomal Appliance) Status Changed;Intact Changed by Wound wet process assistant head miller;Family;with assistance assisted with pouching system change Pouching System Removed Carlotta #[phone]/#[phone] Pouching System Applied Carlotta #[phone] Ongoing management Wound/title closer;Patient/caregiver;Nursing Output Description None Output (mL) 0 mL ASSESSMENT / PLAN [facility] nurse continuing to follow Page [facility] [phone] M-F 6:00AM-2:30PM with questions or leakage issues. Monday pager [phone] 8:00AM-2:30PM. Chelita Vargas APRN, C.N.P., M.S.N. - 03/27/2018 7:55 AM CDT [...] Tradition: Mr. Addison is affiliated with the [employer]. He requested prayer before today's surgery. Shared prayer. Plan: No plan to follow up at this time. A pin inserter can be contacted by paging [phone]. documented in this encounter H&P Notes Idris [...] with bilateral external stent placement A 22 Anguillan rigid cystoscope was inserted into urethral meatus. The anterior and posterior urethra were normal. Upon entering the bladder systematic evaluation demonstrated no evidence of urothelial abnormalities. Attention was turned to the right ureteral orifice which was cannulated with a 5 Anguillan ureteral catheter which was advanced to 20 centimeters without difficulty. In similar fashion a left 5 Anguillan ureteral catheter was placed. A 16 Anguillan Goldsmith catheter was placed to gravity drainage and the externalized stents were secured to the Godlsmith catheter. Following trans abdominal dissection of the [...] Implant Name Type Inv. Item Serial No. Manager Trade Lot No. LRB No. Used Action CEVALLOS ADHN SEPRAFILM 5X6 - [id number] Mesh or Patch CEVALLOS ADHN SEPRAFILM 5X6 [employer] [id number] Implanted Bobo Gamble M.D. Brief Op [...] Implant Name Type Inv. Item Serial No. Manager Trade Lot No. LRB No. Used Action CEVALLOS ADHN SEPRAFILM 5X6 - [id number] Mesh or Patch CEVALLOS ADHN SEPRAFILM 5X6 [employer] [id number] Implanted Prabhakar Hansen M.D. Op Note [...] and a normal radical resection beginning about mcc up the anal canal was commenced and [...] and closing and partial mobilization. Job ID: [id number] documented in this encounter Miscellaneous Notes Hospital [...] CBC without Differential (03/27/2018 12:21 AM CDT) [facility] gist Method Time Signature Hemoglobin 12.3 (L) 13.2 - 03/27/2018 [facility] 16.6 g/dL 12:36 AM CDT LABORATORIES [facility] Hematocrit 37.4 (L) 38.3 - 03/27/2018 [facility] 48.6 % 12:36 AM CDT LABORATORIES - [facility] Erythrocytes 4.12 (L) 4.35 - 03/27/2018 [facility] 5.65 12:36 AM CDT LABORATORIES - x10(12)/L [facility] MCV 90.8 78.2 - 03/27/2018 [facility] 97.9 fL 12:36 AM CDT LABORATORIES - [facility] RBC Distrib 14.1 11.8 - 03/27/2018 [facility] Width 14.5 % 12:36 AM CDT LABORATORIES - [facility] Platelet Count 185 135 - 317 03/27/2018 [facility] x10(9)/L 12:36 AM CDT LABORATORIES - [facility] Leukocytes 15.3 (H) 3.4 - 9.6 03/27/2018 [facility] x10(9)/L 12:36 AM CDT LABORATORIES [facility] Specimen Anatomical Collection Method Collection Time Receive d Time (Source) Location / / Volume Laterality Blood (Blood, 03/27/2018 12:21 03/27/2018 Venous) AM CDT 12:27 AM CDT Yordan Pike M.D., M.B.A. LAB BLOOD ADD-ON Performing Organization Address City/[facility] Phon e Number [facility] LABORATORIES - [address] [place] [phone] [facility] Potassium (03/27/2018 12:21 AM CDT) P athologist Signature Potassium, S 4.1 3.6 - 5.2 03/27/2018 [facility] mmol/L 1:48 AM CDT LABORATORIES - [facility] Specimen Anatomical Collection Method Collection Time Receive d Time (Source) Location / / Volume Laterality Blood (Blood, 03/27/2018 12:21 03/27/2018 Venous) AM CDT 12:27 AM CDT Yordan Pike M.D., M.B.A. LAB BLOOD ADD-ON Performing Organization Address City/[facility] Code Phon e Number [facility] LABORATORIES - [address] [place] [address] [facility] Creatinine with Estimated GFR (MDRD) (03/27/2018 12:21 AM CDT) Analysis Performed At Patho logist Time Signature Creatinine 1.09 0.74 - 03/27/2018 [facility] 1.35 mg/dL 1:48 AM CDT [facility] eGFR-Non 72 >=60 03/27/2018 [facility] Black/ mL/min/BSA 1:48 AM CDT LABORATORIES [facility] Comment: ----ADDITIONAL INFORMATION---- Estimated GFR calculated using the 2009 CKD_EPI creatinine equation. eGFR-Black/ 83 >=60 mL/min/BSA 03/27/2018 1:48 [facility] South Sudanese AM CDT LABORATORIES [facility] Comment: ----ADDITIONAL INFORMATION---- Estimated GFR calculated using the 2009 CKD_EPI creatinine equation. Specimen Anatomical Collection Method Collection Time Receive d Time (Source) Location / / Volume Laterality Blood (Blood, 03/27/2018 12:21 03/27/2018 Venous) AM CDT 12:27 AM CDT Yordan Pike M.D., M.B.A. LAB BLOOD ADD-ON Performing Organization Address City/State/ZIP Code Phon e Number [facility] LABORATORIES - [address] [place], [place] [address] [facility] DX Abdomen 1 View (03/26/2018 8:47 PM [...] Abisai Romano M.D. IMG DIAGNOSTIC IMAGING PROCE [facility] DX Abdomen 1 View (03/26/2018 1:58 PM [...] ABDOMEN 1 VIEW IMPRESSION: Negative for postoperative purposes. Expected postoperative gas within the pelvis. Pelvic surgical drain s. Ostomy left lower quadrant. Nonobstructive bowel gas pattern. Visual ized lung bases are clear. Abisai [facility] Surgical Pathology, Frozen Lab (03/26/2018 12:01 PM CDT) Component Value Ref Test Analysis Performed At [facility] Range Method Time Signature Gross Description A. ??Received fresh labeled portion sigmoid, rec tianna, and 03/28/2018 [facility] anus is a abdominal perineal resection specimen consistin g 10:55 AM LABORATORIES - of 27.5 cm in length portion of rectosigmoid colon with a CDT [facility] 4.9 x 2.5 cm portion of [...] nodes are identified within the perirectal fat. ??Humanities Instructor tissue submitted for frozen and permanent sections. Grossed by LAB. B. ??Received fresh labeled right periprostatic margin is a 1.5 x 1 x 0.4 cm fragment of pink-salinas fibrous tissue with orientation. ??The margin is inked and taken perpendicularly. ??All submitted for frozen and permanent sections. Grossed by [facility]. Participated in Elijah Agee D.O.-Pathology Fellow 03/28/2018 [facility] the Isatu ArangoB.S.-Pathology Resident 10:55 AM LABORATORIES - Interpretation [facility] Report Emily Adhikari M.D. [phone] 03/28/2018 [facility] electronically I verify that I have examined all relevant slides/ma terials 10:55 AM LABORATORIES - signed by for the specimen(s) and rendered or confirmed the diagnosi s. [facility] 03/28/2018 [facility] 10:55 AM LABORATORIES - [facility] Frozen A. ??Colon, sigmoid, rectum and anus, abdominal perineal 03/28/2018 [facility] Intraoperative resection: ??Fibrous tissue and inflammation forming a 2.1 x 10:55 AM LABORATORIES - Report 1.8 x 1.0 cm mass in the rectum. ??Negative for tumor. ??T he [facility] MAIN surgical resection margins are negative for tumor. CAMPUS Multiple (18) lymph nodes are negative for tumor. B. ??Prostate, right periprostatic margin, excision: Negative for tumor. HOLD OVER for further evaluation on permanent sections. Frozen section histologic interpretation performed by: Emily Adhikari M.D. [id number] Block Summary A Portion sigmoid, rectum, and anus 03/28/2018 [facility] A1 Adjacent to new margin 10:55 AM LABO RATORIES - A2 Mid-posterior T [facility] N A3 Mid-posterior CAMPUS A4 Adjacent to new margin-2 A5 Adjacent to new margin-2 A6 Xbr-ukbyrydng-0 A7 Viz-avvefvzke-3 A8 Possible pericolonic lymph node 5(A1) A9 [...] Right periprostatic margin Interpretation FINAL DIAGNOSIS 03/28/2018 [facility] A. 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) Retention Urinary Smoking Tobacco Use Personal History Resection Abdominal Perineal Status Post Retention Urinary documented in this encounter Administered Medications Inactive [...] 081 3 (Given - Provider: Mikayla Spears RLawson.)1228 (Given - Provider: Mikayla Spears R.N.)1704 (Given [...] (TYLENOL) 0759 (Given - Provider: Tamara Emery R.N.)1116 (Given - Provider: Jessi Vargas R.NJuan Carlos) [...] Spears R.N.)2159 (Given - Provider: Saida Cruz R.N.) 0556 (Given - Provider: Saida orozco R.N.)1334 (Given - Provider: Mikayla Spears R.N.)2210 (Given - Provider: Halima Givens R.N.) 0709 [...] Provider: Saida orozco R.N.)1035 (Given - Provider: Heather GarciaN.)1647 (Given - Provider: Halima Givens R.N.)2210 (Given [...] 081 4 (Given - Provider: Mikayla Spears RLawson.)2200 (Given - Provider: Saida Cruz R.N.) 400 mg, gastric tube, 2 times daily, Fir st dose on Mon03/26/18 at 2100, For 3 days, Starting evening of surgery. Hold for diarrhea or output greater than 1500 mL/day sodium chloride injection 10 mL 0815 (Given - Provider : Mikayla Spears R.N.)2100 (Due - Provider: Transfer Provider, Automatic) 0828 (Given - Provider: Mikayla Spears R.N.)2054 (Given - Provider: Halima Givens R.N.) 0758 (Given - Provider: Tamara Emery RJuan CarlosN.) 10 mL, intravenous, Every 12 hours sched [...] (FLOMAX) 1436 (Given - Provider: Mikayla Spears RGrover) 0828 (Given - Provider: Mikayla Spears RJuan [...] 0855 (Given - Provider: Dulce Maria Martinez RGrover) 500 Units, intra-catheter, During hospit alization, line [...]
--- OUTSIDE RECORDS SUMMARY | 2022-08-22 08:08 | XMS_ITS | Encounter Summary ---
:1955 Author Organization [facility] Address [address] [place] [address] Care Team Providers Name Role Phone Unavailable Primary Care Provider Unavailable Reason for Referral Outpatient (Routine) - Closed Specialty Diagnoses / Procedures Referred By Contact Refer red To Contact Radiology Diagnoses Malignant Neoplasm Of Rectum (HCC) Emanuel Cooper M.D. [facility] Procedures IR Implanted Vascular Access Device Removal [address] [place] [phone] Referral ID Status Reason Start Date Expiration Date Visits Requ ested Visits Authorized [id number] Closed 08/23/2018 08/23/2019 1 1 ING METER SERVICER Encounter Details Date Type Department Care Team Description 08/23/2018 Orders Only Department of Oncology Emanuel Cooper Ma lignant Neoplasm Of in Ginny Ray Rectum (HCC) (Primary [place] 200 [facility] Dx) [address] [place] [phone] Social History Tobacco Use Types Packs/Day Years [...] or relatives? How often do you attend mormon or adventist 1 to 4 times per year 07/06/2019 services? Do you belong to any clubs or organizations Yes 07/06/2019 such as mormon groups, unions, fraternal or athletic groups, or [...] Not on filedocumented as of this encounter Results IR Implanted Vascular Access Device Removal (08/27/2018 1:27 PM PARKING METER SERVICER) Anatomical Region Laterality Modality Chest, Pelvis, Abdomen, Vascular Interventional RST LOS, N/A X-Ray Angiography Vascular Interventional ARZ LOS, Vascular Interventional FLA LOS Specimen (Source) Anatomical Collection Method Collection Time Re ceived Time Location / / Volume Laterality 08/27/2018 2:31 PM PARKING METER SERVICER Impressions 08/27/2018 5:00 PM PARKING METER SERVICER IMPRESSION: Removal of right chest port. EP Narrative 08/27/2018 5:00 PM PARKING METER SERVICER EXAM: IR IMPLANTED VASCULAR ACCESS DEVICE REMOVAL [...] Neoplasm Of Rectum (HCC) - Reny yo Malignant Neoplasm Of Rectum (HCC) documented in this encounter Additional Health Concerns Assessment Noted Time PHQ-9 Depression Total Score: 1 12/14/2017 11:05 AM RAMSEY T documented as of this encounter
--- OUTSIDE RECORDS SUMMARY | 2022-08-22 08:08 | XMS_ITS | Encounter Summary ---
:1955 Author Organization [facility] Address [address] [place] [address] Care Team Providers Name Role Phone Unavailable Primary Care Provider Unavailable Reason for Visit Reason Comments Other End fine needle biopsy Encounter Details Date Type Department Care Team Description 07/10/2019 Procedure visit Division of Endocrinology Saul Styles M.B.B.S. [address] [place] [phone] Nodule Thyroid in [facility] Puneet Castano M.D. [address] [place] [address] [phone] [place] [address] [phone] Social History Tobacco Use Types Packs/Day [...] How often do you attend sikhism or roman catholic 1 to 4 times [...] Procedure Name Priority Date/Time Associated Comments Diagnosis AK US GUIDE PLC NDL Routine 07/10/2019 9:30 AM Nodule Thyroid Results for this CDT procedure are i n the results section. AK FNA BX W/US GDN Routine 07/10/2019 9:30 AM Nodule Thyroid R esults for this 1ST LES CDT procedure are i n the results section. CYTOLOGY FINE NEEDLE Routine 07/10/2019 9:25 AM Nodule Thyroid Results for this ASPIRATION (INCLUDES CDT procedu re are in CORE BIOPSIES the results section. documented in this encounter Results AK FNA BX W/US GDN 1ST LES, AK US GUIDE PLC NDL (07/10/2019 9:30 AM CDT) Narrative MMODAL - 07/10/2019 9:30 AM CDT Puneet Lawler M.D. ? 07/10/2019 10:16 AM FNA Neck Date/Time: 07/10/2019 10:14 AM Performed by: Puneet Lawler M.D. Authorized by: Puneet Lawler M.D. Care team members present 1. Otilio Perez M.D. 2. Ish Jin RJuan CarlosNJuan Carlos PROCEDURE DETAILS Ultrasound guidance: yes ?? Number [...] Component Value Ref Test Analysis Performed At [facility] Range Method Time Signature Gross Description Received 19 07/10/2019 alcohol-fixed 11:51 AM smears. CDT Participated in Nabil Stafford, 07/10/2019 the Interpretation M.Zabrina-Patholog 11:51 AM y Fellow CDT Source A. Thyroid, 07/10/2019 Right, fine 11:51 AM needle CDT aspiration Report Irdis Pearl M.D., Ph.D. [phone] 07/10/20 19 electronically I verify that I [...] City/State/ZIP Code Phon e Number [facility] - [address] [place] [address] 05 [facility] documented in this encounter Visit Diagnoses Diagnosis [...]
--- OUTSIDE RECORDS SUMMARY | 2022-08-22 08:08 | XMS_ITS | Encounter Summary ---
:1955 Author Organization [facility] Address [address] [place] [address] Care Team Providers Name Role Phone Unavailable Primary Care Provider Unavailable Encounter Details Date Type Department Care Team Description 08/23/2018 Clinical Communication Department of Oncology [facility] [place] [address] [facility] [address] [place] [phone] Social History Tobacco Use Types Packs/Day Years [...] or relatives? How often do you attend religion or mormonism 1 to 4 times per year 07/06/2019 services? Do you belong to any clubs or organizations Yes 07/06/2019 such as religion groups, unions, fraternal or athletic groups, or [...] last 12 weeks. Thank you Ratna Edge [phone] rst onc rogo 10ab desk ITAL CHIEF EXECUTIVE OFFICER documented in this encounter Plan of Treatment Not on filedocumented as of this encounter Visit Diagnoses Not on filedocumented in this encounter Additional Health Concerns Assessment Noted Time PHQ-9 Depression Total Score: 1 12/14/2017 11:05 AM CS T documented as of this encounter
--- OUTSIDE RECORDS SUMMARY | 2022-08-22 08:08 | XMS_ITS | Encounter Summary ---
:1955 Author Organization [facility] Address [address] [place] [address] Care Team Providers Name Role Phone Unavailable Primary Care Provider Unavailable Encounter Details Date Type Department Care Team Description 01/07/2019 Hospital Encounter Department of Seamus Owens, Nodule Thyroid Laboratory Medicine and Raheem LindseySJuan Carlos Pathology, [address] [phone] [place] [address] [place], [place] (Work) [phone] Social History Tobacco Use Types Packs/Day Years [...] How often do you attend caodaism or pentecostal 1 to 4 times per [...] Signature T4 1.3 0.9 - 1.7 01/07/2019 [facility] (Thyroxine), ng/dL 11:38 AM CDT LABORATORIES - [facility], [facility] Specimen Anatomical Collection Method Collection Time Receive d Time (Source) Location / / Volume Laterality Blood (Blood, 01/07/2019 9:44 AM 01/08/20 Venous) CDT 10:04 AM CDT Saul LunsfordB.S. LAB BLOOD ADD-ON Performing Organization Address [facility] Phon e Number [facility] - [address] (ABNORMAL) S-TSH (Thyroid-Stimulating Hormone - Sensitive) (01/07/2019 9:44 AM CDT) Patholo gist Method Time Signature TSH, Sensitive 0.1 (L) 0.3 - 4.2 01/07/2019 [facility] mIU/L 11:38 AM CDT LABORATORIES - [facility] Specimen Anatomical Collection Method Collection Time Receive d Time (Source) Location / / Volume Laterality Blood (Blood, 01/07/2019 9:44 AM 01/08/20 Venous) CDT 10:04 AM CDT Saul LunsfordB.S. LAB BLOOD ADD-ON Performing Organization Address City/[facility] Code Phon e Number [facility] - [address] documented in this encounter Visit Diagnoses Diagnosis Nodule Thyroid documented in this encounter Additional Health Concerns Assessment Noted Time PHQ-9 Depression Total Score: 1 12/14/2017 11:05 AM CS T documented as of this encounter
--- OUTSIDE RECORDS SUMMARY | 2022-08-22 08:08 | XMS_ITS | Encounter Summary ---
:1955 Author Organization [facility] Address [address] [place] [address] Care Team Providers Name Role Phone Unavailable Primary Care Provider Unavailable Encounter Details Date Type Department Care Team Description 05/08/2018 Lab Department of Infusion Graham Styles Nodule Thyroid Nontoxic (Primary Dx); Therapy in [facility], M.B.B.S . Malignant Neoplasm Of Rectum (HCC) [place] [address] [address] [facility] [address] [place] [phone] (Wo rk) Social History Tobacco Use Types [...] How often do you attend evangelical or samaritan 1 to 4 times per year 07/06/2019 [...] Sensitive 0.07 (L) 0.3 - 4.2 05/08/2018 [facility] mIU/L 12:24 PM CDT LABORATORIES - [facility] Specimen Anatomical Collection Method Collection Time Receive d Time (Source) Location / / Volume Laterality Blood 05/08/2018 10:53 05/08/2018 AM CDT 11:36 AM CDT Saul LunsfordB.S. LAB BLOOD ADD-ON Performing Organization Address City/State/ZIP Code Phon e Number [facility] - [address] T4 (Thyroxine), Free (05/08/2018 10:53 AM CDT) P athologist Signature T4 1.3 0.9 - 1.7 05/08/2018 [facility] (Thyroxine), ng/dL 12:25 PM CDT LABORATORIES - [facility], [facility] Specimen Anatomical Collection Method Collection Time Receive d Time (Source) Location / / Volume Laterality Blood 05/08/2018 10:53 05/08/2018 AM CDT 11:36 AM CDT Saul LunsfordB.S. LAB BLOOD ADD-ON Performing Organization Address City/State/ZIP Code Phon e Number [facility] - [address] documented in this encounter Visit Diagnoses [...]
--- OUTSIDE RECORDS SUMMARY | 2022-08-22 08:08 | XMS_ITS | Encounter Summary ---
:1955 Author Organization [facility] Address [address] [place] [address] Care Team Providers Name Role Phone Unavailable Primary Care Provider Unavailable Reason for Visit Reason Onset Date Comments see extra? 05/23/2019 Encounter Details Date Type Department Care Team Description 05/23/2019 Clinical Communication Division of Seamus Owens, see extra? [place] M.B.B.S. [address] [facility] [address] [place] [address] [place], [place] [phone] Social History Tobacco Use Types Packs/Day Years [...] or relatives? How often do you attend voodoo or buddhist 1 to 4 times per year 07/06/2019 services? Do you belong to any clubs or organizations Yes 07/06/2019 such as voodoo groups, unions, fraternal or athletic groups, or [...]
--- OUTSIDE RECORDS SUMMARY | 2022-08-22 08:08 | XMS_ITS | Encounter Summary ---
:1955 Author Organization [facility] Address [address] [place] [address] Care Team Providers Name Role Phone Unavailable Primary Care Provider Unavailable Encounter Details Date Type Department Care Team Description 01/07/2019 Hospital Encounter Department of Seamus Owens, Nodule Thyroid Radiology, Isatu PortilloB.S [facility]3], in [address] [place] [phone] [place], [place] [phone] (Work) [phone] Social History Tobacco Use Types Packs/Day Years [...] How often do you attend latter-day or buddhism 1 to 4 times per year 07/06/2019 [...] Nodule Care Process Model established by the [facility] Endocrine Oncology [facility] [place]. [email or web address] 7778 Procedure Note Ezekiel Quispe M.D. - [...] Nodule Care Process Model established by the [facility] Endocrine Oncology [facility] [place]. [email or web address] 7778 IMPRESSION: Low suspicion nodules in bot h thyroid lobes are unchanged since 08/08/2018. Saul Kirkpatrick IMG US PROCEDURES documented in this encounter Visit Diagnoses Diagnosis Nodule Thyroid documented in this encounter Additional Health Concerns Assessment Noted Time PHQ-9 Depression Total Score: 1 12/14/2017 11:05 AM CS T documented as of this encounter
--- OUTSIDE RECORDS SUMMARY | 2022-08-22 08:08 | XMS_ITS | Encounter Summary ---
:1955 Author Organization [facility] Address [address] [place] [address] Care Team Providers Name Role Phone Unavailable Primary Care Provider Unavailable Reason for Referral Outpatient (Routine) - Closed Specialty Diagnoses / Procedures Referred By Contact Refer red To Contact Endocrinology Saul Styles, [facility] M.B.B.S. [address] [place] [phone] Referral ID Status Reason Start Date Expiration Date Visits Requ ested Visits Authorized [id number] Closed 01/08/2019 01/08/2020 1 1 Reason for Visit Reason Comments Other established pt Outpatient (Routine) - Closed Specialty Diagnoses / Procedures Referred By Contact Refer red To Contact Endocrinology Saul Styles, [facility] M.B.B.S. [address] [place], [place] [phone] Referral ID Status Reason Start Date Expiration Date Visits Requ ested Visits Authorized [id number] Closed 06/29/2018 06/29/2019 1 1 Encounter Details Date Type Department Care Team Description 01/08/2019 Office Visit Division of Kori Stylesi d Endocrinology in Isatu LindseyB.S . (Primary Dx) [place], [place] [address] [facility] [address] [place] [phone] Social History Tobacco Use Types Packs/Day Years [...] How often do you attend methodist or jew 1 to 4 times per year 07/06/2019 [...] encounter Progress Notes Saul Styles M.B.B.S. - 01/08/2019 10:00 AM CDT SUBJECTIVE CHIEF [...] questions were answered. CT CT Job ID: [id number] documented in this encounter Plan of Treatment [...] City/State/ZIP Code Phon e Number [facility] - [address] [place], [place] [address] [facility] T4 (Thyroxine), Free (07/10/2019 8:31 AM CDT) P athologist Signature T4 (Thyroxine), 1.2 0.9 - 1.7 07/10/2019 Free, S ng/dL 10:10 AM CDT Specimen Anatomical Collection Method Collection Time Receive d Time (Source) Location / / Volume Laterality Blood (Blood, 07/10/2019 8:31 AM 07/10/20 8:52 Venous) CDT AM CDT Saul Kirkpatrick LAB BLOOD ADD-ON Performing Organization Address City/State/ZIP Code Phon e Number [facility] - [address] [place], [place] [address] [facility] documented in this encounter Visit Diagnoses Diagnosis Nodule Thyroid - Primary documented in this encounter Additional Health Concerns Assessment Noted Time PHQ-9 Depression Total Score: 1 12/14/2017 11:05 AM CS T documented as of this encounter
--- OUTSIDE RECORDS SUMMARY | 2022-08-22 08:09 | XMS_ITS | Encounter Summary ---
:1955 Author Organization [facility] Address [address] [place] [address] Care Team Providers Name Role Phone Unavailable [...] or relatives? How often do you attend taoist or protestant 1 to 4 times per year 07/06/2019 services? Do you belong to any clubs or organizations Yes 07/06/2019 such as taoist groups, unions, fraternal or athletic groups, or [...]
--- OUTSIDE RECORDS SUMMARY | 2022-08-22 08:09 | XMS_ITS | Encounter Summary ---
:1955 Author Organization [facility] Address [address] [place] [address] Care Team Providers Name Role Phone Unavailable Primary Care Provider Unavailable Reason for Visit Auth/Cert Specialty Diagnoses / Procedures Referred By Contact Refer red To Contact Diagnoses Malignant neoplasm of rectum (HCC) Rectal cancer with prostate invasion Procedures [place] PELV EXENTERATION COLORECT MLG Exenteration Pelvic Other-to be determined Referral ID Status Reason Start Date Expiration Date Visits Requ ested Visits Authorized [id number] 1 1 Encounter Details Date Type Department Care Team Description 03/26/2018 Surgery RST TIFFANIE HUGHES OR Abisai Romano Exenteration Pelvic vs [address] [place] [address] [address] [facility] resection, colostomy vs [phone] [place], [place] low anterior r esection, [phone] diverting loop ileostomy. Social History Tobacco Use [...] How often do you attend evangelical or adventism 1 to 4 times per year 07/06/2019 [...] Case IDs Date Procedure Surgeon Location Status [id number] 03/26/18 Exenteration Pelvic vs abdominal perineal resection, [...] nodes are identified within the perirectal fat. Caustic Strength Inspector tissue submitted for frozen and permanent sections. Grossed by LAB. B. Received fresh labeled right periprostatic margin is a 1.5 x 1 x 0.4 cm fragment of pink-salinas fibrous tissue with orientation. The margin is inked and taken perpendicularly. All submitted for frozen and permanent sections. Grossed by [facility]. Participated in the Interpretation Elijah Agee D.O.-Pathology Fellow Isatu ArangoB.S.-Pathology Resident Report electronically signed by Emily Adhikari M.D. [id number] I verify that I have examined all [...] histologic interpretation performed by: Emily Adhikari M.D. [id number] Block Summary A Portion sigmoid, rectum, and anus A1 Adjacent to new margin A2 Mid-posterior A3 Mid-posterior A4 Adjacent to new margin-2 A5 Adjacent to new margin-2 A6 Aiz-rmebyszdp-2 A7 Qur-gyilujncp-9 A8 Possible pericolonic lymph node 5(A1) A9 [...] Changed by Patient completed Pouching System Removed 70813, 7634, 78103 Pouching System Applied [phone] Ongoing management Nursing Output Description Brown;Liquid Output (mL) 100 mL ASSESSMENT / PLAN Consult complete, [facility] nurse signing off Page [facility] [phone] M-F 6:00AM-2:30PM with questions or leakage issues. Monday pager [phone] 8:00AM-2:30PM. Coni Reyes APRN C.N.PJuan Carlos, M.S.N. [...] nodes are identified within the perirectal fat. Caustic Strength Inspector tissue submitted for frozen and permanent sections. Grossed by LAB. B. Received fresh labeled right periprostatic margin is a 1.5 x 1 x 0.4 cm fragment of pink-salinas fibrous tissue with orientation. The margin is inked and taken perpendicularly. All submitted for frozen and permanent sections. Grossed by [facility]. Participated in the Interpretation Elijah Agee D.O.-Pathology Fellow Raheem ArangoS.-Pathology Resident Report electronically signed by Emily Adhikari M.D. [id number] I verify that I have examined all [...] histologic interpretation performed by: Emily Adhikari M.D. [id number] Block Summary A Portion sigmoid, rectum, and anus A1 Adjacent to new margin A2 Mid-posterior A3 Mid-posterior A4 Adjacent to new margin-2 A5 Adjacent to new margin-2 A6 Clo-wychlsrfb-9 A7 Cog-pmcpnjbzd-5 A8 Possible pericolonic lymph node 5(A1) A9 [...] about patient's nutritional care please contact pager [phone] on weekdays or on weekends/holidays. NUTRITION ASSESSMENT: [...] observed, as she completed a change with [facility] nurse yesterday. Colostomy LLQ (Active) Stoma Assessment Edema;Red Skin Assessment Sutures intact Peristomal Skin Care Water Pouching System (Stomal Appliance) Status Changed;Intact Changed by Wound stucco mason Pouching System Removed 21653, 4075, 13312 Intact seal after 1 day. 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 Monday pager [phone] 8:00AM-2:30PM. Coni Reyes APRN, C.N.P., M.S.N. - 03/28/2018 6:30 AM CDT [...] (Stomal Appliance) Status Changed;Intact Changed by Wound stucco mason;Family;with assistance assisted with pouching system change Pouching System Removed Carlotta #[phone] Pouching System Applied Carlotta #[phone] Ongoing management Wound/latin american studies professor;Patient/caregiver;Nursing Output Description None Output (mL) 0 mL ASSESSMENT / PLAN [facility] nurse continuing to follow Page [facility] [phone] M-F 6:00AM-2:30PM with questions or leakage issues. Monday pager [phone] 8:00AM-2:30PM. Chelita Vargas APRN, C.N.Kasey, M.S.N. - [...] Tradition: Mr. Addison is affiliated with the Congregational Taoism. He requested prayer before today's surgery. Shared prayer. Plan: No plan to follow up at this time. A jersey knitter can be contacted by paging [phone]. documented in this encounter H&P Notes Idris iDllon M.D. - 03/26/2018 5:19 AM CDT SUBJECTIVE [...] Patient sent with ostomy and urology scripts. Jsesi Vargas R.N. - 03/30/2018 2:49 PM CDT [...] with bilateral external stent placement A 22 [place] rigid cystoscope was inserted into urethral meatus. The anterior and posterior urethra were normal. Upon entering the bladder systematic evaluation demonstrated no evidence of urothelial abnormalities. Attention was turned to the right ureteral orifice which was cannulated with a 5 [place] ureteral catheter which was advanced to 20 centimeters without difficulty. In similar fashion a left 5 [place] ureteral catheter was placed. A 16 [place] Goldsmith catheter was placed to gravity drainage [...] Implant Name Type Inv. Item Serial No. Parole Or Probation Officer Lot No. LRB No. Used Action CEVALLOS ADHN SEPRAFILM 5X6 - [id number] Mesh or Patch CEVALLOS ADHN SEPRAFILM 5X6 [employer] [id number] Implanted Bobo Gamble M.D. Brief Op [...] Implant Name Type Inv. Item Serial No. Parole Or Probation Officer Lot No. LRB No. Used Action CEVALLOS ADHN SEPRAFILM 5X6 - [id number] Mesh or Patch CEVALLOS ADHN SEPRAFILM 5X6 [employer] [id number] Implanted Prabhakar Hansen M.D. Op Note [...] and a normal radical resection beginning about care home up the anal canal was commenced and [...] and closing and partial mobilization. Job ID: [id number] documented in this encounter Miscellaneous Notes Hospital [...] CBC without Differential (03/27/2018 12:21 AM CDT) [facility] gist Method Time Signature Hemoglobin 12.3 (L) 13.2 - 03/27/2018 [facility] 16.6 g/dL 12:36 AM CDT LABORATORIES [facility] Hematocrit 37.4 (L) 38.3 - 03/27/2018 [facility] 48.6 % 12:36 AM CDT LABORATORIES [facility] Erythrocytes 4.12 (L) 4.35 - 03/27/2018 [facility] 5.65 12:36 AM CDT LABORATORIES - x10(12)/L [facility] MCV 90.8 78.2 - 03/27/2018 [facility] 97.9 fL 12:36 AM CDT LABORATORIES [facility] RBC Distrib 14.1 11.8 - 03/27/2018 [facility] Width 14.5 % 12:36 AM CDT LABORATORIES - [facility] Platelet Count 185 135 - 317 03/27/2018 [facility] x10(9)/L 12:36 AM CDT LABORATORIES [facility] Leukocytes 15.3 (H) 3.4 - 9.6 03/27/2018 [facility] x10(9)/L 12:36 AM CDT LABORATORIES [facility] Specimen Anatomical Collection Method Collection Time Receive d Time (Source) Location / / Volume Laterality Blood (Blood, 03/27/2018 12:21 03/27/2018 Venous) AM CDT 12:27 AM CDT Yordan Pike M.D., M.B.A. LAB BLOOD ADD-ON Performing Organization Address City/[facility] Phon e Number [facility] LABORATORIES - [address] [place] [address] [facility] Potassium (03/27/2018 12:21 AM CDT) P athologist Signature Potassium, S 4.1 3.6 - 5.2 03/27/2018 [facility] mmol/L 1:48 AM CDT LABORATORIES [facility] Specimen Anatomical Collection Method Collection Time Receive d Time (Source) Location / / Volume Laterality Blood (Blood, 03/27/2018 12:21 03/27/2018 Venous) AM CDT 12:27 AM CDT Yordan Pike M.D., M.B.A. LAB BLOOD ADD-ON Performing Organization Address City/[facility] Phon e Number [facility] LABORATORIES - [address] [place] [address] [facility] Creatinine with Estimated GFR (MDRD) (03/27/2018 12:21 AM CDT) Analysis Performed At Patho logist Time Signature Creatinine 1.09 0.74 - 03/27/2018 [facility] 1.35 mg/dL 1:48 AM CDT [facility] eGFR-Non 72 >=60 03/27/2018 [facility] Black/ mL/min/BSA 1:48 AM CDT LABORATORIES [facility] Comment: ----ADDITIONAL INFORMATION---- Estimated GFR calculated using the 2009 CKD_EPI creatinine equation. eGFR-Black/ 83 >=60 mL/min/BSA 03/27/2018 1:48 [facility] Syrian AM CDT LABORATORIES [facility] Comment: ----ADDITIONAL INFORMATION---- Estimated GFR calculated using the 2009 CKD_EPI creatinine equation. Specimen Anatomical Collection Method Collection Time Receive d Time (Source) Location / / Volume Laterality Blood (Blood, 03/27/2018 12:21 03/27/2018 Venous) AM CDT 12:27 AM CDT Yordan Pike M.D., M.B.A. LAB BLOOD ADD-ON Performing Organization Address City/[facility] Code Phon e Number [facility] LABORATORIES - [address] [place], [place] [address] [facility] DX Abdomen 1 View (03/26/2018 8:47 [...] Abisai Romano M.D. IMG DIAGNOSTIC IMAGING PROCE MANNIE DX Abdomen 1 View (03/26/2018 1:58 PM [...] bases are clear. Abisai MUSTAFAG DIAGNOSTIC IMAGING [facility] Surgical Pathology, Frozen Lab (03/26/2018 12:01 PM CDT) Component Value Ref Test Analysis Performed At [facility] gist Range Method Time Signature Gross Description A. ??Received fresh labeled portion sigmoid, rec tianna, and 03/28/2018 [facility] anus is a abdominal perineal resection specimen consistin g 10:55 AM LABORATORIES - of 27.5 cm in length portion of rectosigmoid colon with a CDT [facility] 4.9 x 2.5 cm portion of anus. [...] nodes are identified within the perirectal fat. ??Caustic Strength Inspector tissue submitted for frozen and permanent sections. Grossed by LAB. B. ??Received fresh labeled right periprostatic margin is a 1.5 x 1 x 0.4 cm fragment of pink-salinas fibrous tissue with orientation. ??The margin is inked and taken perpendicularly. ??All submitted for frozen and permanent sections. Grossed by [facility]. Participated in Elijah Agee D.O.-Pathology Fellow 03/28/2018 [facility] the Raheem ArangoSJuan Carlos-Pathology Resident 10:55 AM LABORATORIES - Interpretation [facility] Report Emily Adhikari M.D. [phone] 03/28/2018 [facility] electronically I verify that I have examined all relevant slides/ma terials 10:55 AM LABORATORIES - signed by for the specimen(s) and rendered or confirmed the diagnosi s. [facility] 03/28/2018 [facility] 10:55 AM LABORATORIES - [facility] Frozen A. ??Colon, sigmoid, rectum and anus, abdominal perineal 03/28/2018 [facility] Intraoperative resection: ??Fibrous tissue and inflammation forming a 2.1 x 10:55 AM LABORATORIES - Report 1.8 x 1.0 cm mass in the rectum. ??Negative for tumor. ??T he [facility] surgical resection margins are negative for tumor. CAMPUS Multiple (18) lymph nodes are negative for tumor. B. ??Prostate, right periprostatic margin, excision: Negative for tumor. HOLD OVER for further evaluation on permanent sections. Frozen section histologic interpretation performed by: Emily Adhikari M.D. [id number] Block Summary A Portion sigmoid, rectum, and anus 03/28/2018 [facility] A1 Adjacent to new margin 10:55 AM LABO RATORIES - A2 Mid-posterior T [facility] N A3 Mid-posterior CAMPUS A4 Adjacent to new margin-2 A5 Adjacent to new margin-2 A6 Qwq-jltnwjjma-5 A7 Cnm-hdlrpjnfo-9 A8 Possible pericolonic lymph node 5(A1) A9 [...] Right periprostatic margin Interpretation FINAL DIAGNOSIS 03/28/2018 KATONAH CLI LORELEI A. 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 documented in this encounter Visit Diagnoses Diagnosis Malignant Neoplasm Of Rectum (HCC) - Reny yo Malignant Neoplasm Of Rectum (HCC) Malignant Neoplasm [...] RJuan CarlosN.)1116 (Given - Provider: Jessi Vargas RJuan CarlosNJuan Carlos) 1,000 mg, oral, 4 times daily, First dose on Mon03/30/18 at 0800 chlorhexidine 4 % external solution 1 application (HIB ICLENS) 1800 (Due - Provider: Mikayla Spears R.N.) 1600 (Given - Provider: Halima Givens RJuan CarlosNJuan Carlos - Comment: patient request) 0900 (Given - Provider: Ria RosasNJuan Carlos - Comment: showered) 1 application, topical, Daily, First dos e on Mon03/27/18 at 0900, Shower or topical cleansing daily after wound dressing removed. heparin (porcine) injection 5,000 Units 0505 (Given - Provider: Jessie Vilchis R.N.)1436 (Given - Provider: Mikayla Spears R.N.)2159 (Given - Provider: Saida Cruz RJuan CarlosN.) 0556 (Given - Provider: Saida orozco R.N.)1334 (Given - Provider: Mikayla Spears R.N.)2210 (Given - Provider: Halima Givens R.NJuan Carlos) [...] Spears R.N.)1704 (Given - Provider: Jeannine Yip R.NJuan Carlos)2200 (Given - Provider: Saida Cruz RJuan CarlosN.) 0556 (Given - Provider: Saida orozco R.N.)1035 (Given - Provider: Heather GarciaN.)1647 (Given - Provider: Halima Givens R.N.)2210 (Given - Provider: Heather DuganN.) 0708 (Given - Provider: Lia Bradshaw R.N Juan Carlos) 600 mg, gastric tube, Every 6 hours, Fir st dose on Mon03/27/18 at 1700, Start 6 hours after last Ketorolac dose administered ibuprofen tablet 600 mg (ADVIL,MOTRIN) 1116 (Given - Provider: Jessi Vargas R.NJuan Carlos) 600 mg, oral, Every 6 hours, First dose on Mon03/30/18 at 1100, Start 6 hours after last Ketorolac dose administered magnesium oxide tablet 400 mg (MAG-OX) (COMPLETED) 081 4 (Given - Provider: Mikayla Spears R.N.)2200 (Given - Provider: Saida Cruz RJuan CarlosNJuan Carlos) 400 mg, gastric tube, 2 times daily, Fir st dose on Mon03/26/18 at 2100, For 3 days, Starting evening of surgery. Hold for diarrhea or output greater than 1500 mL/day sodium chloride injection 10 mL 0815 (Given - Provider : Mikayla Spears RJuan CarlosN.)2100 (Due - Provider: Transfer Provider, Automatic) 0828 (Given - Provider: Mikayla Spears R.N.)2054 (Given - Provider: Halima Givens RJuan CarlosNJuan Carlos) 0758 (Given - Provider: Tamara Emery RJuan CarlosNJuan Carlos) 10 mL, intravenous, Every 12 hours sched [...]
--- OUTSIDE RECORDS SUMMARY | 2022-08-22 08:09 | XMS_ITS | Encounter Summary ---
:1955 Author Organization [facility] Address [address] [place] [address] Care Team Providers Name Role Phone Unavailable Primary Care Provider Unavailable Reason for Visit Outpatient (Routine) - Closed Specialty Diagnoses / Procedures Referred By Contact Refer red To Contact Colon and Rectal Abisai Romano [facility] Surgery MMihai [address] [place] [address] Referral ID Status Reason Start Date Expiration Date Visits Requ ested Visits Authorized [id number] Closed 01/25/2018 07/24/2018 1 1 Encounter Details Date Type Department Care Team Description 03/13/2018 Office Visit Division of Juan and Abisai Romano Neoplasm Of Rectal Surgery in Ginny Strickland Rectum (HCC) (Primary [place], [place] 200 [facility] Dx) [address] [place] [address] [phone] Social History Tobacco Use Types Packs/Day Years [...] How often do you attend mandaen or yazidi 1 to 4 times per year 07/06/2019 [...] marked. Endostoma Therapy has seen. Job ID: [id number] documented in this encounter Plan of Treatment Not on filedocumented as of this encounter Visit Diagnoses Diagnosis Malignant Neoplasm Of Rectum (HCC) - Reny yo documented in this encounter Additional Health Concerns Assessment Noted Time PHQ-9 Depression Total Score: 1 12/14/2017 11:05 AM CS T documented as of this encounter
--- OUTSIDE RECORDS SUMMARY | 2022-08-22 08:09 | XMS_ITS | Encounter Summary ---
:1955 Author Organization [facility] Address [address] [place] [address] Care Team Providers Name Role Phone Unavailable Primary Care Provider Unavailable Reason for Visit Reason Comments Med Refill Encounter Details Date Type Department Care Team Description 01/02/2018 Refill Department of Oncology in [facility] dimitrisKanwal M.D. Med Refill [place], [place] [address] [place] [address] [place], [place] [phone] Social History Tobacco Use Types Packs/Day Years [...] or relatives? How often do you attend temple or hindu 1 to 4 times per year 07/06/2019 services? Do you belong to any clubs or organizations Yes 07/06/2019 such as temple groups, unions, fraternal or athletic groups, or [...]
--- OUTSIDE RECORDS SUMMARY | 2022-08-22 08:09 | XMS_ITS | Encounter Summary ---
:1955 Author Organization [facility] Address [address] [place] [address] Care Team Providers Name Role Phone Unavailable Primary Care Provider Unavailable Encounter Details Date Type Department Care Team Description 01/27/2018 Orders Only Division of Colon and Abisai Romano Neoplasm Of Rectal Surgery in H, MMihai Rectum (HCC) (Primary [place], [place] [address] [facility] Dx) [address] [place] [address] [phone] Social History Tobacco Use Types Packs/Day Years [...] How often do you attend rastafari or evangelical 1 to 4 times per [...]
--- OUTSIDE RECORDS SUMMARY | 2022-08-22 08:09 | XMS_ITS | Encounter Summary ---
:1955 Author Organization [facility] Address [address] [place] [address] Care Team Providers Name Role Phone Unavailable Primary Care Provider Unavailable Reason for Visit Reason Onset Date Comments Drug interactions 03/15/2018 Communication 03/15/2018 Encounter Details Date Type Department Care Team Description 03/15/2018 Clinical Communication Division of Colon [place], Drug interactions; and Rectal Surgery Abisai Strickland M.D. Communication in [address] [place] [address] [phone] Social History Tobacco Use Types Packs/Day Years [...] How often do you attend congregation or zoroastrian 1 to 4 times per year 07/06/2019 [...] Kanwal Ortega - 03/15/2018 3:21 PM CDT [facility] Pharmacy with question on the Metronidazole prescription and interactions with capecitabine documented in this encounter Plan of Treatment Not on filedocumented as of this encounter Visit Diagnoses Not on filedocumented in this encounter Additional Health Concerns Assessment Noted Time PHQ-9 Depression Total Score: 1 12/14/2017 11:05 AM CS T documented as of this encounter
--- OUTSIDE RECORDS SUMMARY | 2022-08-22 08:09 | XMS_ITS | Encounter Summary ---
:1955 Author Organization [facility] Address [address] [place] [address] Care Team Providers Name Role Phone Unavailable Primary Care Provider Unavailable Encounter Details Date Type Department Care Team Description 03/12/2018 Hospital Encounter Department of Juan Antonio, Nodule P rostate Without Obstruction; Laboratory Medicine Abisai Strickland M.D. 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 see 0 08/14/2 017 03/15/2018 CDM for details loperamide (IMODIUM) [...] Urine Urine, Midstream (03/12/2018 9:25 AM CDT) [facility] gist Method Time Signature Urine Culture No growth 03/13/2018 [facility] after 1 8:16 AM CDT LABORATORIES - day [facility] . Specimen Anatomical Collection Method Collection Time Receive d Time (Source) Location / / Volume Laterality Urine (Urine, 03/12/2018 9:25 AM 03/12/20 18 Midstream) CDT 10:53 AM CDT Comment: Specimen Source Site: Urine Abisai Romano M.D. 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
--- OUTSIDE RECORDS SUMMARY | 2022-08-22 08:09 | XMS_ITS | Encounter Summary ---
:1955 Author Organization [facility] Address [address] [place] [address] Care Team Providers Name Role Phone Unavailable Primary Care Provider Unavailable Reason for Visit Outpatient (Routine) - Closed Specialty Diagnoses / Procedures Referred By Contact Refer red To Contact Diagnoses Malignant Neoplasm Of Rectosigmoid (HCC) Malignant Neoplasm Of Rectum (HCC) Abisai Romano M.D. [facility] Procedures Stomal Therapy [address] [place], [place] [address] Referral ID Status Reason Start Date Expiration Date Visits Requ ested Visits Authorized [id number] Closed 01/29/2018 07/28/2018 1 1 Encounter Details Date Type Department Care Team Description 03/13/2018 Office Visit Division of Colon and Abisai Romano M.D. [address] [place] [phone] Education Need Ostomy (Primary Dx); Rectal Surgery in Zainab Chopra R.N., [facility] Malignant Neoplasm Of Rectosigmoid (HCC) ; [place], [place] Malignant Neoplasm Of Rectum (HCC) [address] [place] [phone] Social History Tobacco Use Types Packs/Day Years [...] or relatives? How often do you attend faith or worship 1 to 4 times per year 07/06/2019 services? Do you belong to any clubs or organizations Yes 07/06/2019 such as faith groups, unions, fraternal or athletic groups, or [...] this encounter Progress Notes Zainab Chopra R.N., FernCJuan CarlosN. - 03/13/2018 1:30 PM CDT SUBJECTIVE CHIEF [...]
--- OUTSIDE RECORDS SUMMARY | 2022-08-22 08:09 | XMS_ITS | Encounter Summary ---
:1955 Author Organization [facility] Address [address] [place] [address] Care Team Providers Name Role Phone Unavailable Primary Care Provider Unavailable Reason for Referral MRI/CAT/PET Scan (Routine) - Closed Specialty Diagnoses / Procedures Referred By Contact Refer red To Contact Radiology Diagnoses Malignant Neoplasm Of Rectum (HCC) Abisai Romano M.D. [facility] Procedures MR Pelvis without and with IV Contrast MA MRI PELVIS WO/W CNTRST HC MRI PELVIS WO/W CNTRST MA MRI PELVIS WO/W CNTRST [address] [place] [address] Referral ID Status Reason Start Date Expiration Date Visits Requ ested Visits Authorized [id number] Closed 01/29/2018 07/28/2018 1 1 Reason for Visit MRI/CAT/PET Scan (Routine) - Closed Specialty Diagnoses / Procedures Referred By Contact Refer red To Contact Radiology Diagnoses Malignant Neoplasm Of Rectum (HCC) Abisai Romano M.D. [facility] Procedures MR Pelvis without and with IV Contrast MA MRI PELVIS WO/W CNTRST HC MRI PELVIS WO/W CNTRST MA MRI PELVIS WO/W CNTRST [address] [place] [address] Referral ID Status Reason Start Date Expiration Date Visits Requ ested Visits Authorized [id number] Closed 01/29/2018 07/28/2018 1 1 Encounter Details Date Type Department Care Team Description 03/12/2018 Hospital Encounter Department of Amaris Romano Neoplasm Of Radiology, Tin Strickland M.D. [facility] ([facility] Building, in [address] [place] [address] [place] [address] [place], [place] [phone] (Work) [phone] Social History Tobacco Use Types Packs/Day Years [...] How often do you attend jew or anabaptism 1 to 4 times per year 07/06/2019 [...] dexamethasone (DECADRON Take by mouth. see 0 03/201703/15/2018 ORAL) CDM for details diphenoxylate-atropine Take [...] power identifiers were used? ID Card and [facility] medical record (Date 03/12/2018) Tip placement verified? [...] prostate on prior study shows a more sraa ogeneous appearance on today's exam consistent with [...] intravenous, Once in imaging, contrast, Starting on 03/12/18 at 1059, For 1 dose, Imaging Protocol [...]
--- OUTSIDE RECORDS SUMMARY | 2022-08-22 08:09 | XMS_ITS | Encounter Summary ---
:1955 Author Organization [facility] Address [address] [place] [address] Care Team Providers Name Role Phone Unavailable Primary Care Provider Unavailable Reason for Visit Reason Comments Med Refill Encounter Details Date Type Department Care Team Description 12/25/2017 Refill Department of Oncology in [facility] dimitrisKanwal M.D. Med Refill [place], [place] [address] [place] [address] [place], [place] [phone] Social History Tobacco Use Types Packs/Day Years [...] CarlosN. - 12/25/2017 9:34 AM CDT Called [facility] to inform them this is a [place] patient. They will take care of it. documented in this encounter Plan of Treatment Not on filedocumented as of this encounter Visit Diagnoses Not on filedocumented in this encounter Additional Health Concerns Assessment Noted Time PHQ-9 Depression Total Score: 1 12/14/2017 11:05 AM CS T documented as of this encounter
--- OUTSIDE RECORDS SUMMARY | 2022-08-22 08:09 | XMS_ITS | Encounter Summary ---
:1955 Author Organization [facility] Address [address] [place] [address] Care Team Providers Name Role Phone Unavailable Primary Care Provider Unavailable Encounter Details Date Type Department Care Team Description 03/12/2018 Hospital Encounter Department of [place], Nodular Prostate Without Lower Urinary Tract Symptom; Laboratory Medicine Abisai Strickland M.D. 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 How often do you attend jehovah's witness or episcopalian 1 to 4 times per year 07/06/2019 services? Do you belong to any clubs or organizations Yes 07/06/2019 such as jehovah's witness groups, unions, fraternal or athletic groups, or [...] 03/15/2018 500 mg tablet MOUTH TWICE DAILY MONDAY-BOY ON DAYS OF RADIATION(25 TOTAL DAYS OF [...] CBC WITHOUT Routine 03/12/2018 8:28 Malignant Neoplasm Resul ts for this DIFFERENTIAL, B AM CDT Of [...] Antibody Screen, RBC (03/12/2018 8:28 AM CDT) [facility] Munetrix Method Time Signature Antibody Negative Negative 03/12/2018 [facility] Screen 10:10 AM CDT LABORATORIES - [facility] Specimen Anatomical Collection Method Collection Time Receive d Time (Source) Location / / Volume Laterality Blood (Blood, 03/12/2018 8:28 AM 03/12/20 18 8:59 Venous) CDT AM CDT Abisai Romano M.D. LAB BLOOD BANK TEST ORDERABL ES Performing Organization Address City/State/ZIP Code Phon e Number [facility] LABORATORIES - [address] [place], [place] [address] [facility] (ABNORMAL) CBC without Differential (03/12/2018 8:28 AM CDT) [facility] Munetrix Method Time Signature Hemoglobin 14.3 13.2 - 03/12/2018 [facility] 16.6 g/dL 9:23 AM CDT LABORATORIES - [facility] Hematocrit 44.3 38.3 - 03/12/2018 [facility] 48.6 % 9:23 AM CDT LABORATORIES - [facility] Erythrocytes 4.76 4.35 - 03/12/2018 [facility] 5.65 9:23 AM CDT LABORATORIES - x10(12)/L [facility] MCV 93.1 78.2 - 03/12/2018 [facility] 97.9 fL 9:23 AM CDT LABORATORIES - [facility] RBC Distrib 15.8 (H) 11.8 - 03/12/2018 [facility] Width 14.5 % 9:23 AM CDT LABORATORIES - [facility] Platelet Count 235 135 - 317 03/12/2018 [facility] x10(9)/L 9:23 AM CDT LABORATORIES - [facility] Leukocytes 4.8 3.4 - 9.6 03/12/2018 [facility] x10(9)/L 9:23 AM CDT LABORATORIES - [facility] Specimen Anatomical Collection Method Collection Time Receive d Time (Source) Location / / Volume Laterality Blood 03/12/2018 8:28 AM 8 8:46 CDT AM CDT Abisai Romano M.D. LAB BLOOD ADD-ON Performing Organization Address City/[facility]/ZIP Code Phon e Number [facility] LABORATORIES - [address] [place] [phone] [facility] Sodium (03/12/2018 8:28 AM CDT) P athologist Signature Sodium, S 142 135 - 145 03/12/2018 [facility] mmol/L 10:18 AM CDT LABORATORIES - [facility] Specimen Anatomical Collection Method Collection Time Receive d Time (Source) Location / / Volume Laterality Blood 03/12/2018 8:28 AM 8 8:46 CDT AM CDT Abisai Romano M.D. LAB BLOOD ADD-ON Performing Organization Address City/State/[facility] Code Phon e Number [facility] LABORATORIES - [address] [place] [address] [facility] Potassium (03/12/2018 8:28 AM CDT) P athologist Signature Potassium, S 4.7 3.6 - 5.2 03/12/2018 [facility] mmol/L 10:18 AM CDT LABORATORIES - [facility] Specimen Anatomical Collection Method Collection Time Receive d Time (Source) Location / / Volume Laterality Blood 03/12/2018 8:28 AM 8 8:46 CDT AM CDT Abisai Romano M.D. LAB BLOOD ADD-ON Performing Organization Address City/[facility]/ZIP Code Phon e Number [facility] LABORATORIES - 200 [place], [place] [address] [facility] (ABNORMAL) Glucose, Fasting (03/12/2018 8:28 AM CDT) P athologist Signature Glucose, P 105 (H) 70 - 100 03/12/2018 [facility] mg/dL 9:48 AM CDT [facility] Last Intake 13 hr 03/12/2018 [facility] 8:46 AM CDT LABORATORIES [facility] Specimen Anatomical Collection Method Collection Time Receive d Time (Source) Location / / Volume Laterality Blood 03/12/2018 8:28 AM 8 8:46 CDT AM CDT Abisai Romano M.D. LAB BLOOD NON ADD-ON Performing Organization Address City/State/[facility] Code Phon e Number [facility] LABORATORIES - [address] [place] [address] [facility] Creatinine with Estimated GFR (MDRD) (03/12/2018 8:28 AM CDT) Analysis Performed At Patho logist Time Signature Creatinine 1.19 0.74 - 03/12/2018 [facility] 1.35 mg/dL 10:18 AM CDT [facility] eGFR-Non 65 >=60 03/12/2018 [facility] Black/ mL/min/BSA 10:18 AM CDT LABORATORIES [facility] Comment: ----ADDITIONAL INFORMATION---- Estimated GFR calculated using the 2009 CKD_EPI creatinine equation. eGFR-Black/ 75 >=60 mL/min/BSA 03/12/2018 10:1 8 [facility] Israeli AM CDT LABORATORIES [facility] Comment: ----ADDITIONAL INFORMATION---- Estimated GFR calculated using the 2009 CKD_EPI creatinine equation. Specimen Anatomical Collection Method Collection Time Receive d Time (Source) Location / / Volume Laterality Blood 03/12/2018 8:28 AM 8 8:46 CDT AM CDT Abisai Romano M.D. LAB BLOOD ADD-ON Performing Organization Address City/State/ZIP Code Phon e Number [facility] LABORATORIES - [address] [place] [address] [facility] Chloride (03/12/2018 8:28 AM CDT) P athologist Signature Chloride, S 104 98 - 107 03/12/2018 [facility] mmol/L 10:18 AM CDT LABORATORIES - [facility] Specimen Anatomical Collection Method Collection Time Receive d Time (Source) Location / / Volume Laterality Blood 03/12/2018 8:28 AM 8 8:46 CDT AM CDT Abisai Romano M.D. LAB BLOOD ADD-ON Performing Organization Address City/State/ZIP Code Phon e Number [facility] LABORATORIES - 200 [place], [place] [address] [facility] BUN (Blood Urea Nitrogen) (03/12/2018 8:28 AM CDT) P athologist Signature BUN (Blood 13 8 - 24 03/12/2018 [facility] Urea mg/dL 10:18 AM CDT LABORATORIES - Nitrogen), S [facility] Specimen Anatomical Collection Method Collection Time Receive d Time (Source) Location / / Volume Laterality Blood 03/12/2018 8:28 AM 8 8:46 CDT AM CDT Abisai Romano M.D. LAB BLOOD ADD-ON Performing Organization Address City/State/ZIP Code Phon e Number [facility] LABORATORIES - [address] [place], [place] [address] [facility] Bicarbonate (03/12/2018 8:28 AM CDT) P athologist Signature Bicarbonate, S 25 22 - 29 03/12/2018 [facility] mmol/L 10:18 AM CDT LABORATORIES - [facility] Specimen Anatomical Collection Method Collection Time Receive d Time (Source) Location / / Volume Laterality Blood 03/12/2018 8:28 AM 8 8:46 CDT AM CDT Abisai Romano M.D. LAB BLOOD ADD-ON Performing Organization Address City/State/ZIP Code Phon e Number [facility] LABORATORIES - [address] [place] [address] [facility] CEA (Carcinoembryonic Antigen) (03/12/2018 8:28 AM CDT) Patholo gist Method Time Signature Carcinoembryonic Ag 0.7 ng/mL 03/12/2018 [facility] (CEA), S 1:09 PM CDT [facility] Comment: ----REFERENCE VALUE---- <=3.0 (Non-smokers) Some smokers may have elevated CEA, usually <5.0. ----ADDITIONAL INFORMATION---- The testing method is an immunoenzymatic assay manufactured by [employer]. and performed on the [employer] 800. ? 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
--- OUTSIDE RECORDS SUMMARY | 2022-08-22 08:09 | XMS_ITS | Encounter Summary ---
:1955 Author Organization [facility] Address [address] [place] [address] Care Team Providers Name Role Phone Unavailable Primary Care Provider Unavailable Encounter Details Date Type Department Care Team Description 11/23/2017 Ancillary Procedure Department of Oncology Social History Tobacco Use Types Packs/Day Years [...] How often do you attend religion or anabaptist 1 to 4 times per [...] Name Priority Date/Time Associated Diagnosis Comme nts ONCOLOGY IMAGE EXAM Routine 11/23/2017 12:00 PM R esults for this FLOORWORKER procedure are i n the results section. documented in this encounter Results Simulation Films-Oncology Image Exam (11/23/2017 12:00 PM FLOORWORKER) Specimen (Source) Anatomical Location Collection Method / Collectio n Time Received Time / Laterality Volume Narrative IIMS - 11/26/2018 8:02 PM FLOORWORKER This order has been created and auto-finalized [...]
--- OUTSIDE RECORDS SUMMARY | 2022-08-22 08:09 | XMS_ITS | Encounter Summary ---
:1955 Author Organization [facility] Address [address] [place] [address] Care Team Providers Name Role Phone Unavailable Primary Care Provider Unavailable Reason for Visit MRI/CAT/PET Scan (Routine) - Closed Specialty Diagnoses / Procedures Referred By Contact Refer red To Contact Radiology Diagnoses Malignant Neoplasm Of Rectosigmoid (HCC) Abisai Romano M.D. [facility] Procedures CT Abdomen Pelvis with IV Contrast CT Abdomen Pelvis without and with IV Contrast WI CT ABD&PELVIS WO/W CNTRST HC CT ABD&PELVIS WO/W CNTRST WI CT ABD&PELVIS WO/W CNTRST WI CT ABD&PELVIS W CNTRST HC CT ABD&PELVIS W CNTRST 200 [facility] [place] CT ABD&[place] [address] Referral ID Status Reason Start Date Expiration Date Visits Requ ested Visits Authorized [id number] Closed 01/29/2018 07/28/2018 1 1 Encounter Details Date Type Department Care Team Description 03/12/2018 Hospital Encounter Department of Amaris Romano Neoplasm Of Radiology, Tin Strickland M.D. Rectosigmoid (HCC) Building, in 200 [place], [place] [address] [place] [address] [place], [place] [phone] (Work) [phone] Social History Tobacco Use Types Packs/Day Years [...] or relatives? How often do you attend episcopalian or congregational 1 to 4 times per year 07/06/2019 services? Do you belong to any clubs or organizations Yes 07/06/2019 such as episcopalian groups, unions, fraternal or athletic groups, or [...]
--- OUTSIDE RECORDS SUMMARY | 2022-08-22 08:09 | XMS_ITS | Encounter Summary ---
:1955 Author Organization [facility] Address [address] [place] [address] Care Team Providers Name Role Phone Unavailable Primary Care Provider Unavailable Reason for Visit Outpatient (Routine) - Closed Specialty Diagnoses / Procedures Referred By Contact Refer red To Contact Urology Abisai Romano M .D. [facility] [address] [place] [phone] Referral ID Status Reason Start Date Expiration Date Visits Requ ested Visits Authorized [id number] Closed 01/29/2018 07/28/2018 1 1 Encounter Details Date Type Department Care Team Description 03/13/2018 Comprehensive Visit Department of Fabrizio Romano M.D. [address] [place] [phone] Malignant Neoplasm Urology in Bobo Gamble M.D. [address] [place] [phone] Of Rectum (HCC) [place], [place] (Primary Dx) [address] [place] [phone] Social History Tobacco Use Types Packs/Day Years [...] How often do you attend restorationism or muslim 1 to 4 times per year 07/06/2019 [...] was 6.5. MRI in Nov 2017 of [facility] showed PI-RADs 2 with no concerns of [...] a surgery down the line for an [place] pouch/catheterizable channel. The 3rd option we discussed [...]
--- OUTSIDE RECORDS SUMMARY | 2022-08-22 08:09 | XMS_ITS | Encounter Summary ---
:1955 Author Organization [facility] Address [address] [place] [address] Care Team Providers Name Role Phone Unavailable Primary Care Provider Unavailable Reason for Visit Auth/Cert Specialty Diagnoses / Procedures Referred By Contact Refer red To Contact Diagnoses Malignant neoplasm of rectum (HCC) Rectal cancer with prostate invasion Procedures SD PELV EXENTERATION COLORECT MLG Exenteration Pelvic Other-to be determined Referral ID Status Reason Start Date Expiration Date Visits Requ ested Visits Authorized [id number] 1 1 Encounter Details Date Type Department Care Team Description 03/26/2018 Anesthesia Event RST [facility] OR Henrik Oconnell M.D. [address] [place] [phone] [place], [place] [phone] (Wo rk) Anesthesia Record Procedure Summary Procedure [...] h andoff to the receiving staff during [facility] we 1. Identified the patient 2. [...] 03/26/18; 1310; Dr. Barone 03/26/18 1310 by Juan Antonio; Angelique, Dona Macario L, Descending; LLQ; 1-12/10 R.N. Implanted Port Single Chlorhexidine 03/12/18 1001 by 03/26/18 1628 by Lumen (Preferred); Yes; Josselin Cheng , R.N. Gloves, Mask (All others in room); Right; Chest; Yes; 03/26/18; 1628 Implanted Port Single 03/26/18; 0704; Chest; 03/26/18 0704 by 1320 by Lumen Yes (ID' d 3 bumps and Hannah Marks Ailt s, Laura M, R.NJuan Carlos Bard card); Other R.N. (Comment) (No longer needed); 08/27/18; 1320 NG/OG Tube 03/26/18; 0842; 03/26/18 0842 by 03/27/18 1200 b y Nasogastric; 16 Fr; Charley oHlly RBruce Good R.NJuan Carlos Left; 03/27/18; 1200 Arterial Line Placement Date: 03/26/18 0854 by 03/26/18 1515 b y 03/26/18; Placemnt Time: Charley Holly R.N. Elli ngson, Janna M, 08 (created via R.N. procedure documentation); Orientation: Left; Location: Radial; Site Prep: Chlorhexidine (Preferred); Insertion Attempts: 2; Securement: Securement dressing; Removal Date: 03/26/18; Removal Time: 151; Removal Reason: Per protocol ETT Placement Date: 03/26/18 09 by 03/26/18 1342 b y 03/26/18; Placement Charley Holly R.N. Nye, Bria n C R.NJuan Carlos Time: 908 (created via procedure documentation); Mask Ventilation: Easy mask; Type: Standard ETT; Single Lumen Tube Size: 7.5 mm; Cuffed: Yes; Location: Oral; Removal Date: 03/26/18; Removal Time: 1342 Peripheral IV Placement Date: 03/26/18 09 by 03/27/18 0422 b y 03/26/18; Placement Charley Holly R.N. Paradise, Karlee M, Time: 911; Catheter R.N. Size: 16 G; Orientation: Right; Location: Hand; Removal Date: 03/27/18; Removal Time: 042; Removal Reason: Removed by patient Peripheral IV Placement Date: 03/26/18 09 by 03/28/18 0821 b y 03/26/18; Placement Charley Holly R.N. Korman, K risten E, Time: 911; Catheter R.N. Size: 16 G; Orientation: Left; Location: Hand; Removal Date: 03/28/18; Removal Time: 820; Removal Reason: Per patient/family request Indwelling Urinary Placement Date: 03/26/18 09 by 03/27/18 085 8 by Catheter 03/26/18; Placement Dona Macario Lund, As hley L, RGrover Time: 928; Inserted by: Arash Begum; Type: [...] Perineum; DRSG GZ 16 PLY Dona Macario, [facility] 4X4, DRSG SENIOR LIVING ADVISOR WND ABD R.NJuan Carlos nd, Schedu ling ABS 8X10; 06/29/21 Automated Bat ch Job (Removed by background completion utility); 1418 (Removed by background completion utility) (RETIRED) Incision 03/26/18; 1318; Abdomen; 03/26/18 1318 by 1418 by 2 port sites and oDna Macario, [facility] midline; ADH DRMBND ADV R.N. nd, Sche [...] How often do you attend faith or presybeterian 1 to 4 times per year 07/06/2019 [...] Summary Date: 03/26/18 Room / Location: [address] [facility] in [place], [place] Anesthesia Start: 822 Anesthesia Stop: 1356 [...] OCONNELL Authorized by: HENRIK OCONNELL Location: [place] protocol: All relevant documentation and testing were [...] complications: none Anesthesia Procedure Notes - Charley Holly, R.N. - 03/26/2018 9:15 AM CDT Associated Order(s): AIRWAY MANAGEMENT Airway Date/Time: 03/26/2018 9:09 AM Patient location during procedure: OR / Procedure Area Performed by: CHARLEY HOLLY Authorized by: HENRIK OCONNELL Pre procedure details [...] no complications Anesthesia Procedure Notes - Charley Holly R.N. - 03/26/2018 9:14 AM CDT Associated Order(s): SOMMER LANE INVASIVE CATHETER Invasive Catheter Date/Time: 03/26/2018 8:54 AM Performed by: CHARLEY HOLLY Authorized by: HENRIK OCONNELL Location: OR Pre-procedure [...] patient / legal guardian, or through an pilling machine operator; patient evaluated and approved for anesthesia / sedation. Use of blood products discussed with patient who consented to blood products. 2 IVs, arterial line, lidocaine infusion, intrathecal opioid documented in this encounter Plan of Treatment Not on filedocumented as of this encounter Procedures Procedure Name Priority Date/Time Associated Comments Diagnosis SD INJ SPINE LUMB/SAC Routine 03/26/2018 9:54 AM Results for this WO IMG CDT procedure are i n the results section. LDA ANE ENDOTRACHEAL Routine 03/26/2018 9:15 AM R esults for this AIRWAY CDT procedure are i n the results section. LDA ANE ARTERIAL LINE Routine 03/26/2018 9:14 AM Results for this INSERTION CDT procedure are i n the results section. SD ARTL CATH/CNULA Routine 03/26/2018 9:14 AM Res ults for this MONITOR PERC CDT procedure are i n the results section. documented in this encounter Results SD INJ SPINE LUMB/SAC WO IMG (03/26/2018 9:54 AM CDT) Narrative Ronel Renee APRN, CRNA, DNAP - 03/26/2018 9:54 AM CDT Ronel Renee APRN, CRNA, DNAP ? 03/26/2018 ??9:55 AM Regional Block Date/Time: 03/26/2018 8:36 AM Performed by: HENRIK OCONNELL Authorized by: HENRIK OCONNELL Location: [place] protocol: All relevant documentation and testing w [...] complications: none Procedure Note Ronel Renee APRN, JAM, DNAP - 03/26/2018 9:54 AM CDT Regional Block Date/Time: 03/26/2018 8:36 AM Performed by: HENRIK OCONNELL Authorized by: HENRIK OCONNELL Location: [place] protocol: All relevant documentation and testing w [...] AIRWAY (03/26/2018 9:15 AM CDT) Narrative Charley Holly, RJuan CarlosNJuan Carlos - 03/26/2018 9:15 AM CDT Charley Holly RJuan CarlosN. ? 03/26/2018 ??9:16 AM Airway Date/Time: 03/26/2018 9:09 AM Patient location during procedure: OR / Procedure Area Performed by: CHARLEY HOLLY Authorized by: HENRIK OCONNELL Pre procedure details ?? Pre evaluation for [...] Airway event: no complications Procedure Note Charley Holly RLawson. - 03/26/2018 9:15 AM CDT Airway Date/Time: 03/26/2018 9:09 AM Patient location during procedure: OR / Procedure Area Performed by: CHARLEY HOLLY Authorized by: HENRIK OCONNELL Pre procedure details [...] no complications Henrik Oconnell M.D. ANESTHESIA ORDERABLES SD ARTL CATH/CNULA MONITOR PERC, LDA ANE ARTERIAL LINE INSERTION (03/26/2018 9:14 AM CDT) Narrative Charley Holly RJuan CarlosNJuan Carlos - 03/26/2018 9:14 AM CDT Charley Holly R.N. ? 03/26/2018 10:34 AM Invasive Catheter Date/Time: 03/26/2018 8:54 AM Performed by: CHARLEY HOLLY Authorized by: HENRIK OCONNELL Location: OR Pre-procedure [...] ?Complications - arterial: none Procedure Note Charley Holly, RJuan CarlosNJuan Carlos - 03/26/2018 9:14 AM CDT Invasive Catheter Date/Time: 03/26/2018 8:54 AM Performed by: CHARLEY HOLLY Authorized by: HENRIK OCONNELL Location: OR Pre-procedure [...] MAR Action Action Date Dose Rate Site ceFAZolin [...]
--- OUTSIDE RECORDS SUMMARY | 2022-08-22 08:09 | XMS_ITS | Encounter Summary ---
:1955 Author Organization [facility] Address [address] [place] [address] Care Team Providers Name Role Phone Unavailable Primary Care Provider Unavailable Reason for Referral Outpatient (Routine) - Closed Specialty Diagnoses / Procedures Referred By Contact Refer red To Contact Endocrinology Saul Styles [facility] M.B.B.S. [address] [place] [phone] Referral ID Status Reason Start Date Expiration Date Visits Requ ested Visits Authorized [id number] Closed 01/26/2018 07/25/2018 1 1 utpatient (Routine) - Closed Specialty Diagnoses / Procedures Referred By Contact Refer red To Contact Colon and Rectal Abisai Romano, [facility] Dulce Gross [address] [place] [phone] Referral ID Status Reason Start Date Expiration Date Visits Requ ested Visits Authorized [id number] Closed 01/25/2018 07/24/2018 1 1 Encounter Details Date Type Department Care Team Description 01/18/2018 Orders Only Division of Seamus Owens, Nodule Thyroi d Nontoxic; Endocrinology in [place] . 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 How often do you attend scientologist or anabaptist 1 to 4 times per year 07/06/2019 services? Do you belong to any clubs or organizations Yes 07/06/2019 such as scientologist groups, unions, fraternal or athletic groups, or [...] as of this encounter Plan of Treatment Scheduled Referrals [...] Nodule Care Process Model established by the [facility] Endocrine Oncology Specialty [place]. [email or web address] Procedure Note Stephanie Freeman [...] Nodule Care Process Model established by the [facility] Endocrine Oncology Specialty [place]. [email or web address] IMPRESSION: Stable exam compared to 07/10. Saul Kirkpatrick IMG US PROCEDURES (ABNORMAL) S-TSH (Thyroid-Stimulating Hormone - Sensitive) (05/08/2018 10:53 AM CDT) [facility] gist Method Time Signature TSH, Sensitive 0.07 (L) 0.3 - 4.2 05/08/2018 [facility] mIU/L 12:24 PM CDT LABORATORIES - [facility] Specimen Anatomical Collection Method Collection Time Receive d Time (Source) Location / / Volume Laterality Blood 05/08/2018 10:53 05/08/2018 AM CDT 11:36 AM CDT Saul LnusfordB.S. LAB BLOOD ADD-ON Performing Organization Address City/State/ZIP Code Phon e Number [facility] LABORATORIES - [address] [place] [phone] [facility] T4 (Thyroxine), Free (05/08/2018 10:53 AM CDT) P athologist Signature T4 1.3 0.9 - 1.7 05/08/2018 [facility] (Thyroxine), ng/dL 12:25 PM CDT LABORATORIES - Free, S [facility] Specimen Anatomical Collection Method Collection Time Receive d Time (Source) Location / / Volume Laterality Blood 05/08/2018 10:53 05/08/2018 AM CDT 11:36 AM CDT Saul LunsfordB.S. LAB BLOOD ADD-ON Performing Organization Address City/State/ZIP Code Phon e Number [facility] LABORATORIES - [address] [place] [phone] [facility] (ABNORMAL) CBC without Differential (03/12/2018 8:28 AM CDT) [facility] Method Time Signature Hemoglobin 14.3 13.2 - 03/12/2018 [facility] 16.6 g/dL 9:23 AM CDT LABORATORIES - [facility] Hematocrit 44.3 38.3 - 03/12/2018 [facility] 48.6 % 9:23 AM CDT LABORATORIES - [facility] Erythrocytes 4.76 4.35 - 03/12/2018 [facility] 5.65 9:23 AM CDT LABORATORIES - x10(12)/L [facility] MCV 93.1 78.2 - 03/12/2018 [facility] 97.9 fL 9:23 AM CDT LABORATORIES - [facility] RBC Distrib 15.8 (H) 11.8 - 03/12/2018 [facility] Width 14.5 % 9:23 AM CDT LABORATORIES - [facility] Platelet Count 235 135 - 317 03/12/2018 [facility] x10(9)/L 9:23 AM CDT LABORATORIES - [facility] Leukocytes 4.8 3.4 - 9.6 03/12/2018 [facility] x10(9)/L 9:23 AM CDT LABORATORIES - [facility] Specimen Anatomical Collection Method Collection Time Receive d Time (Source) Location / / Volume Laterality Blood 03/12/2018 8:28 AM 8 8:46 CDT AM CDT Abisai Romano M.D. LAB BLOOD ADD-ON Performing Organization Address City/State/ZIP Code Phon e Number [facility] LABORATORIES - [address] [place] [phone] [facility] Sodium (03/12/2018 8:28 AM CDT) P athologist Signature Sodium, S 142 135 - 145 03/12/2018 [facility] mmol/L 10:18 AM CDT LABORATORIES - [facility] Specimen Anatomical Collection Method Collection Time Receive d Time (Source) Location / / Volume Laterality Blood 03/12/2018 8:28 AM 8 8:46 CDT AM CDT Abisai Romano M.D. LAB BLOOD ADD-ON Performing Organization Address City/State/ZIP Code Phon e Number [facility] LABORATORIES - [address] [place] [phone] [facility] Potassium (03/12/2018 8:28 AM CDT) P athologist Signature Potassium, S 4.7 3.6 - 5.2 03/12/2018 [facility] mmol/L 10:18 AM CDT LABORATORIES - [facility] Specimen Anatomical Collection Method Collection Time Receive d Time (Source) Location / / Volume Laterality Blood 03/12/2018 8:28 AM 8 8:46 CDT AM CDT Abisai Romano M.D. LAB BLOOD ADD-ON Performing Organization Address City/State/ZIP Code Phon e Number [facility] LABORATORIES - [address] [place] [phone] [facility] (ABNORMAL) Glucose, Fasting (03/12/2018 8:28 AM CDT) P athologist Signature Glucose, P 105 (H) 70 - 100 03/12/2018 [facility] mg/dL 9:48 AM CDT LABORATORIES [facility] Last Intake 13 hr 03/12/2018 [facility] 8:46 AM CDT LABORATORIES [facility] Specimen Anatomical Collection Method Collection Time Receive d Time (Source) Location / / Volume Laterality Blood 03/12/2018 8:28 AM 8 8:46 CDT AM CDT Abisai Romano M.D. LAB BLOOD NON ADD-ON Performing Organization Address City/[facility] Code Phon e Number [facility] LABORATORIES - [address] [place] [phone] [facility] Creatinine with Estimated GFR (MDRD) (03/12/2018 8:28 AM CDT) Analysis Performed At Patho logist Time Signature Creatinine 1.19 0.74 - 03/12/2018 [facility] 1.35 mg/dL 10:18 AM CDT [facility] eGFR-Non 65 >=60 03/12/2018 [facility] Black/ mL/min/BSA 10:18 AM CDT LABORATORIES [facility] Comment: ----ADDITIONAL INFORMATION---- Estimated GFR calculated using the 2009 CKD_EPI creatinine equation. eGFR-Black/ 75 >=60 mL/min/BSA 03/12/2018 10:1 8 [facility] Fijian CDT [facility] Comment: ----ADDITIONAL INFORMATION---- Estimated GFR calculated using the 2009 CKD_EPI creatinine equation. Specimen Anatomical Collection Method Collection Time Receive d Time (Source) Location / / Volume Laterality Blood 03/12/2018 8:28 AM 8 8:46 CDT AM CDT Abisai Romano M.D. LAB BLOOD ADD-ON Performing Organization Address City/State/ZIP Code Phon e Number [facility] LABORATORIES - [address] [place] [phone] [facility] Chloride (03/12/2018 8:28 AM CDT) P athologist Signature Chloride, S 104 98 - 107 03/12/2018 [facility] mmol/L 10:18 AM CDT LABORATORIES [facility] Specimen Anatomical Collection Method Collection Time Receive d Time (Source) Location / / Volume Laterality Blood 03/12/2018 8:28 AM 8 8:46 CDT AM CDT Abisai Romano M.D. LAB BLOOD ADD-ON Performing Organization Address City/State/ZIP Code Phon e Number [facility] LABORATORIES - [address] [place] [phone] [facility] BUN (Blood Urea Nitrogen) (03/12/2018 8:28 AM CDT) P athologist Signature BUN (Blood 13 8 - 24 03/12/2018 [facility] Urea mg/dL 10:18 AM CDT LABORATORIES - Nitrogen), S [facility] Specimen Anatomical Collection Method Collection Time Receive d Time (Source) Location / / Volume Laterality Blood 03/12/2018 8:28 AM 8 8:46 CDT AM CDT Abisai Romano M.D. LAB BLOOD ADD-ON Performing Organization Address City/[facility]/ZIP Code Phon e Number [facility] LABORATORIES - [address] [place] [phone] [facility] Bicarbonate (03/12/2018 8:28 AM CDT) P athologist Signature Bicarbonate, S 25 22 - 29 03/12/2018 [facility] mmol/L 10:18 AM CDT LABORATORIES - [facility] Specimen Anatomical Collection Method Collection Time Receive d Time (Source) Location / / Volume Laterality Blood 03/12/2018 8:28 AM 8 8:46 CDT AM CDT Abisai Romano M.D. LAB BLOOD ADD-ON Performing Organization Address City/[facility]/ZIP Code Phon e Number [facility] LABORATORIES - [address] [place] [phone] [facility] CEA (Carcinoembryonic Antigen) (03/12/2018 8:28 AM CDT) [facility] Method [facility] Signature Carcinoembryonic Ag 0.7 ng/mL 03/12/2018 [facility] (CEA), S 1:09 PM CDT [facility] Comment: ----REFERENCE VALUE---- <=3.0 (Non-smokers) Some smokers may have elevated CEA, usually <5.0. ----ADDITIONAL INFORMATION---- The testing method is an immunoenzymatic assay manufactured by [employer] and performed on the SpectropathI 800. ? 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
--- OUTSIDE RECORDS SUMMARY | 2022-08-22 08:09 | XMS_ITS | Encounter Summary ---
:1955 Author Organization [facility] Address [address] [place] [address] Care Team Providers Name Role Phone Unavailable Primary Care Provider Unavailable Encounter Details Date Type Department Care Team Description 01/29/2018 Orders Only Division of Colon and Juan Antonio, Abisai Nod ular Prostate Without Lower Urinary Tract Symptom; Rectal Surgery in [place] Malignant Neoplasm Of Rectum (HCC) [place], [place] [address] [place] [phone] Social History Tobacco Use Types Packs/Day Years [...] or relatives? How often do you attend rastafarian or baptist 1 to 4 times per year 07/06/2019 services? 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
--- OUTSIDE RECORDS SUMMARY | 2022-08-22 08:09 | XMS_ITS | Encounter Summary ---
:1955 Author Organization [facility] Address [address] [place] [address] Care Team Providers Name Role Phone Unavailable [...] How often do you attend scientologist or mormon 1 to 4 times per [...]
--- OUTSIDE RECORDS SUMMARY | 2022-08-22 08:09 | XMS_ITS | Encounter Summary ---
:1955 Author Organization [facility] Address [address] [place] [address] Care Team Providers Name Role Phone Unavailable Primary Care Provider Unavailable Encounter Details Date Type Department Care Team Description 03/15/2018 Orders Only Division of Colon and Jackie Deng , Rectal Surgery in [place], [place] [address] [place] [address] Social History Tobacco Use Types Packs/Day [...] or relatives? How often do you attend sabianism or hinduism 1 to 4 times per year 07/06/2019 services? Do you belong to any clubs or organizations Yes 07/06/2019 such as sabianism groups, unions, fraternal or athletic groups, or [...]
--- OUTSIDE RECORDS SUMMARY | 2022-08-22 08:10 | XMS_ITS | Encounter Summary ---
:1955 Author Organization [facility] Address [address] [place] [address] Care Team Providers Name Role Phone Unavailable Primary Care Provider Unavailable Encounter Details Date Type Department Care Team Description 07/20/2017 Hospital Encounter HX RST CRS FLOOR PRACTICE Trent Torrez, SHRUTI, C.N.P., D.N.P. [address] [place] [phone] Social History Tobacco Use Types Packs/Day Years [...] How often do you attend amish or caodaism 1 to 4 times per year 07/06/2019 [...] body. Electronically signed by: Licha Sherwood MD. [phone] 21-Jul-2017 09:02 Eva Collier APRN, C.N.P., D.N.P. [...] signed by: ?? A. Lore Daniel MD [phone] 21-Jul-2017 10:22 ?B Payam HUERTA [phone] 21-Jul-2017 10:22 Narrative 07/21/2017 10:22 AM CDT [...] separately. Electronically signed by: Alfreda Daniel MD [phone] 21-Jul-2017 10:22 Naveed Hare MD [phone] 21-Jul-2017 10:22 Eva Collier APRN, C.N.P., D.N.P. IMG CT PROCEDURE S documented in this encounter Visit Diagnoses Not on filedocumented in this encounter
--- OUTSIDE RECORDS SUMMARY | 2022-08-22 08:10 | XMS_ITS | Encounter Summary ---
:1955 Author Organization [facility] Address [address] [place] [address] Care Team Providers Name Role Phone Unavailable Primary Care Provider Unavailable Encounter Details Date Type Department Care Team Description 07/21/2017 Hospital Encounter HX RST CRS FLOOR PRACTICE Abisai Romano M.D. [address] [place] [phone] Social History Tobacco Use Types Packs/Day Years [...] or relatives? How often do you attend worship or gnosticism 1 to 4 times per year 07/06/2019 services? Do you belong to any clubs or organizations Yes 07/06/2019 such as worship groups, unions, fraternal or athletic groups, or [...]
--- OUTSIDE RECORDS SUMMARY | 2022-08-22 08:10 | XMS_ITS | Encounter Summary ---
:1955 Author Organization [facility] Address [address] [place] [address] Care Team Providers Name Role Phone Unavailable Primary Care Provider Unavailable Encounter Details Date Type Department Care Team Description 07/21/2017 Hospital Encounter HX RST CRS FLOOR PRACTICE Trent Torrez APRN, C.N.P., D.N.P. [address] [place] [phone] Social History Tobacco Use Types Packs/Day Years [...] or relatives? How often do you attend mormonism or orthodoxy 1 to 4 times per year 07/06/2019 services? Do you belong to any clubs or organizations Yes 07/06/2019 such as mormonism groups, unions, fraternal or athletic groups, or [...] Electronically signed by: ?? Zabrina Collier MD [phone] 21-Jul-2017 15: 47 ?Robby Angelo MD [phone] 21-Jul-2017 15:47 Narrative 07/21/2017 3:47 PM CDT [...] milliliter Electronically signed by: Zabrina Collier MD [phone] 21-Jul-2017 15: 47 Robby Angelo MD [phone] 21-Jul-2017 15:47 Eva Collier APRN, C.N.P., D.N.P. IMG MRI PROCEDUR ES documented in this encounter Visit Diagnoses Not on filedocumented in this encounter
--- OUTSIDE RECORDS SUMMARY | 2022-08-22 08:10 | XMS_ITS | Encounter Summary ---
:1955 Author Organization [facility] Address [address] [place] [address] Care Team Providers Name Role Phone Unavailable [...] How often do you attend druze or uatsdin 1 to 4 times per [...]
[2022-08-22 08:45] LABS: Creatinine* 1.2 mg/dL (0.5-1.5); Estimated Glomerular Filt Rate 66 ml/min
--- NOTE | 2022-08-22 09:00 | CRLHL7_ITS ---
For Patients: As a result of the Century Cures Act, medical imaging exams and procedure reports are released immediately into your electronic medical record. You may view this report before your referring provider. If you have questions, please contact your health care provider. INDICATION: Follow-up nodules COMPARISON: CTs dating back to November 08, 2019 and most recently November 22, 2021 TECHNIQUE: : CT examination of the chest was performed with the uneventful intravenous administration of 75 cc of Omnipaque 350 while thin axial sections were obtained from above the apices of the lungs to the lung bases. Please note that all CT scans at this facility use dose modulation, iterative reconstruction, and/or weight-based dosing when appropriate to reduce radiation dose to as low as reasonably achievable. FINDINGS: : HEART and MEDIASTINUM: Heart size normal. No pericardial effusion. Small hiatal hernia. Nodule arising from the inferior aspect of the right thyroid extending into the superior mediastinum. This measures about 2.5 centimeters and is unchanged. This could be thyroid or parathyroid in origin. No additional mediastinal nodules LUNGS: The lungs show no focal consolidation or mass. The airways appear normal. No definite nodule identified on the current exam. PLEURAL SPACES: There is no pleural effusion, pneumothorax or pleural based mass. VISUALIZED UPPER ABDOMEN: Hepatic steatosis. Absent gallbladder. Otherwise, the limited visualized upper abdominal structures appear normal. OSSEOUS STRUCTURES: Age-appropriate appearance. No acute fracture or destructive process. TUBES and LINES: None. IMPRESSION: 1. The lungs and pleural space appear normal. 2. Re-demonstration of a superior mediastinal nodule probably either thyroid or parathyroid in origin. This is unchanged since the most remote available study of November 08, 2021. Please note that all CT scans at this facility use dose modulation, iterative reconstruction, and/or weight-based dosing when appropriate to reduce radiation dose to as low as reasonably achievable. Dictated by Jeff Fernandez MD @ 08/22/2022 10:18:30 AM (Electronically Signed)
== END 2022-08-22 08:05 | disposition home or self-care (01) ==
LOC: CT 08:05
PROVIDERS: PCP Surgery; Visit Provider Clinical Nurse Specialist
DX: R91.1 Solitary pulmonary nodule (principal); Z85.048 Personal history of other malignant neoplasm of rectum, rectosigmoid junction, and anus; E04.1 Nontoxic single thyroid nodule
CPT/HCPCS: 36415; 71260; 82565; Q9967